=== PATIENT | female | born 1945 | race Hispanic/Latino ===

== ENCOUNTER 2017-01-18 11:02 | Emergency (ER) | payer MEDICARE ==
[2017-01-18 11:13] VITALS: RESP 18; TEMP 98.2; O2SAT 98; BMI 42.9
--- NOTE | 2017-01-18 11:49 | ED PDOC ---
Arrival/HPI - General Chief Complaint: Lower Extremity Problem/Injury Time Seen by Provider: 01/18/17 11:17 Historian: Patient - History of Present Illness Narrative History of Present Illness (Text): 01/18/17 11:25 Iris Ybarra is a 71 year old female, whose past medical history includes cardiac pacemaker, 5 CABG, defibrillator, and an HI, who presents to the emergency department complaining of redness to lower extremities for 2 weeks. Patient's family indicates chronic swelling to her lower extremities which is normal. Patient states that she is able to walk with a walker. Patient denies any pain, fevers, chills, shortness of breath, chest pain, or any other complaints at this time. Cardiac Rehabilitation Program Director: Dr. Vargas Time/Duration: < month (2 weeks) Symptom Onset: Gradual Symptom Course: Unchanged Activities at Onset: Rest Context: Home Past Medical History - Provider Review Nursing Documentation Reviewed: Yes - Cardiac Hx Cardiac Disorders: Yes Hx Pacemaker: Yes - Pulmonary Hx Respiratory Disorders: No - Neurological Hx Neurological Disorder: No - HEENT Hx HEENT Disorder: No - Renal Hx Renal Disorder: No - Endocrine/Metabolic Hx Endocrine Disorders: No - Hematological/Oncological Hx Blood Disorders: No - Integumentary Hx Dermatological Disorder: No - Musculoskeletal/Rheumatological Hx Musculoskeletal Disorders: No - Gastrointestinal Hx Gastrointestinal Disorders: No - Genitourinary/Gynecological Hx Genitourinary Disorders: No - Psychiatric Hx Psychophysiologic Disorder: No Hx Substance Use: No - Surgical History Hx Open Heart Surgery: Yes Other/Comment: left chest pacemaker/ defib - Anesthesia Hx Anesthesia: Yes Family/Social History - Physician Review Nursing Documentation Reviewed: Yes Family/Social History: No Known Family HX Smoking Status: Former Smoker Hx Alcohol Use: No Hx Substance Use: No Allergies/Home Meds Allergies/Adverse Reactions: Allergies No Known Allergies Allergy (Verified 01/18/17 11:33) Home Medications: Home Meds Medication Instructions Recorded Confirmed Atorvastatin [Lipitor] 10 mg PO HS 01/18/17 01/18/17 Carvedilol [Coreg] 6.25 mg PO DAILY 01/18/17 01/18/17 Enalapril/Hydrochlorothiazide 5 mg PO DAILY 01/18/17 01/18/17 [Enalapril-Hctz 5-12.5 mg Tab] Furosemide [Lasix] 20 mg PO BID 01/18/17 01/18/17 Warfarin [Coumadin] 7.5 mg PO DAILY 01/18/17 01/18/17 Review of Systems - Physician Review All systems were reviewed & negative as marked: Yes - Review of Systems Constitutional: absent: Fevers, Night Sweats Eyes: absent: Vision Changes ENT: absent: Hearing Changes Respiratory: absent: SOB, Cough Cardiovascular: absent: Chest Pain Gastrointestinal: absent: Abdominal Pain Genitourinary Female: absent: Dysuria, Frequency Musculoskeletal: absent: Arthralgias Skin: Other (redness to lower extermities) Neurological: absent: Headache Endocrine: absent: Diaphoresis Hemo/Lymphatic: absent: Adenopathy Physical Exam Vital Signs Reviewed: Yes Vital Signs Temp Pulse Resp BP Pulse Ox 01/18/17 13:59 66 18 121/63 98 01/18/17 12:23 69 18 118/65 98 01/18/17 11:13 98.2 F 75 18 120/62 98 Temperature: Afebrile Blood Pressure: Normal Pulse: Regular Respiratory Rate: Normal Appearance: Positive for: Well-Appearing, Non-Toxic, Comfortable Pain Distress: None Mental Status: Positive for: Alert and Oriented X 3 - Systems Exam Head: Present: Atraumatic, Normocephalic Pupils: Present: PERRL Extroacular Muscles: Present: EOMI Conjunctiva: Present: Normal Mouth: Present: Moist Mucous Membranes Neck: Present: Normal Range of Motion Respiratory/Chest: Present: Clear to Auscultation, Good Air Exchange. No: Respiratory Distress, Accessory Muscle Use Cardiovascular: Present: Regular Rate and Rhythm, Normal S1, S2. No: Murmurs Abdomen: Present: Normal Bowel Sounds. No: Tenderness, Distention, Peritoneal Signs Back: Present: Normal Inspection Upper Extremity: Present: Normal Inspection. No: Cyanosis, Edema Lower Extremity: Present: Normal Inspection. No: Edema Neurological: Present: GCS=15, CN II-XII Intact, Speech Normal Skin: Present: Warm, Dry, Rashes (redness in between fat pads of the right lower leg posterior knee (R>L) There is only miminal redness on left. Trace warmth. Appears more like skin irrtation from from), Normal Color Psychiatric: Present: Alert, Oriented x 3, Normal Insight, Normal Concentration Medical Decision Making ED Course and Treatment: 01/18/17 11:25 Impression: 71 year old female complaining of redness to her bilateral lower extremities for about 2 weeks. Differential Diagnosis included but are not limited to: Skin irritation vs Cellulitis, less likely DVT, or less likely Fungal infection Plan: -- Lower extremity Ultrasound -- VBG and Blood Culture -- Labs -- Reassess and disposition Progress Notes: 01/18/17 14:55 Ultrasound prelim negative for DVT. Patient's right leg has a mild redness in between the fat pads of her posterior knee. There is minimal warmth. The rash appears more like skin irritation. WBC is normal. There is no white flakiness to rash to exhibit a fungal infection. Since patients right leg is worse then the left, i would consider a superimposed early cellulitis and will tx with Keflex. I discussed this with daughter and patient. They agree with plan to take antibiotics. They were also explained their elevated INR and will hold their coumadin for 2 days until f/u with her PMD. Advised to return to the ED if symptoms worsen or any other concern. - Lab Interpretations Lab Results: 01/18/17 12:00 01/18/17 12:00 Lab Results 01/18/17 12:00: Sodium 137, Chloride 98, Potassium 4.0, Carbon Dioxide 30, Anion Gap 13, BUN 19, Creatinine 0.9, Est GFR ( Amer) > 60, Est GFR (Non- Af Amer) > 60, Random Glucose 115 H, Calcium 9.1, Phosphorus 3.0, Magnesium 2.2 , Total Bilirubin 2.1 H, AST 46 H, ALT 51, Alkaline Phosphatase 59, Total Protein 6.9, Albumin 3.6, Globulin 3.3, Albumin/Globulin Ratio 1.1 01/18/17 12:00: pO2 30, VBG pH 7.37, VBG pCO2 54.0, VBG HCO3 31.2 H, VBG Total CO2 32.9 H, VBG O2 Sat (Calc) 64.4, VBG Base Excess 4.5 H, VBG Potassium 4.0, Sodium 135.0, Chloride 98.0, Glucose 117 H, Lactate 1.3, FiO2 21.0, Venous Blood Potassium 4.0 01/18/17 12:00: PT 48.2 H*, INR 4.46 H*, APTT 48.6 H 01/18/17 12:00: WBC 8.8, RBC 4.19, Hgb 11.6 L, Hct 35.9 L, MCV 85.7, MCH 27.7, MCHC 32.3, RDW 16.6 H, Plt Count 178, MPV 11.9 H, Gran % 81.7 H, Lymph % (Auto) 8.0 L, [place] % (Auto) 10.2 H, Eos % (Auto) 0.0 L, Baso % (Auto) 0.1, Gran # 7.22 H, Lymph # 0.7 L, [place] # 0.9 H, Eos # 0.0, Baso # 0.01 I have reviewed the lab results: Yes - RAD Interpretation Radiology Orders: 01/18/17 11:48 DUPLEX LOWER EXTRM VEIN BILAT [US] Stat - Medication Orders Current Medication Orders: Discontinued Medications Cephalexin Monohydrate (Keflex) 500 mg PO STAT STA PRN Reason: Protocol Stop: 01/18/17 13:44 Last Admin: 01/18/17 14:01 Dose: 500 mg - Scribe Statement The provider has reviewed the documentation as recorded by the Philippe Don Provider Scribe Attestation: All medical record entries made by the Philippe were at my direction and personally dictated by me. I have reviewed the chart and agree that the record accurately reflects my personal performance of the history, physical exam, medical decision making, and the department course for this patient. I have also personally directed, reviewed, and agree with the discharge instructions and disposition. Disposition/Present on Arrival - Present on Arrival Any Indicators Present on Arrival: No History of DVT/PE: No History of Uncontrolled Diabetes: No Urinary Catheter: No History of Decub. Ulcer: No History Surgical Site Infection Following: None - Disposition Have Diagnosis and Disposition been Completed?: Yes Diagnosis: Cellulitis, Supratherapeutic INR Disposition: HOME/ ROUTINE Disposition Time: 14:55 Patient Plan: Discharge Condition: IMPROVED Discharge Instructions (ExitCare): Cellulitis (ED) Additional Instructions: Ms Ybarra thank you for letting us take care of you today. Your provider was Dr. Ro. You were treated for Cellulitis, Supratherapeutic INR. The emergency medical care you received today was directed at your acute symptoms. If you were prescribed any medication, please fill it and take as directed. It may take several days for your symptoms to resolve. Return to the Emergency Department if your symptoms worsen, do not improve, or if you have any other problems. Please contact your doctor or call one of the physicians/clinics you have been referred to that are listed on the Patient Visit Information form that is included in your discharge packet. Bring any paperwork you were given at discharge with you along with any medications you are taking to your follow up visit. Our treatment cannot replace ongoing medical care by a primary care provider (PCP) outside of the emergency department. Thank you for allowing the [facility] team to be part of your care today. If you had an X-Ray or CT scan: A Radiologist will review the ED reading if any change in treatment is needed we will contact you. If you had a blood, urine, or wound culture: It will take several days for the results, if any change in treatment is needed we will contact you. If you had an STI test: It will take 48 hours for the results. Please call after 1 week if you have not heard back. Prescriptions: Cephalexin [cephalexin] 500 mg PO QID #28 cap Referrals: Luiz Vargas MD [Staff Provider] - Follow up with primary PCP,BEULAH [Primary Care Provider] - Follow up with primary Akira Manley MD [Staff Provider] - Follow up with primary Forms: Ra[employer]ar[employer] (Sinhala)
[2017-01-18 12:21] LABS: BASO # 0.01 K/mm3 (0.0-2.0); BASO % 0.1 % (0.0-3.0); GRAN # 7.22 (1.4-6.5); GRAN % 81.7 % (50.0-68.0); HEMATOCRIT 35.9 % (36.0-48.0); LYMPH # 0.7 (1.2-3.4); MEAN CELL VOLUME 85.7 fl (80.0-105.0); MEAN CORPUSCULAR HEMOGLOBIN 27.7 pg (25.0-35.0); MEAN CORPUSCULAR HGB CONC 32.3 g/dl (31.0-37.0); MEAN PLATELET VOLUME 11.9 fl (7.0-11.0); MONO # 0.9 (0.1-0.6); MONO % 10.2 % (1.0-6.0); RED CELL DISTRIBUTION WIDTH 16.6 % (11.5-14.5); WHITE BLOOD COUNT 8.8 10^3/ul (4.5-11.0)
[2017-01-18 12:26] LABS: VENOUS BLOOD GAS BASE EXCESS 4.5 mmol/L (0.0-2.0); VENOUS BLOOD PH 7.37 (7.32-7.43)
[2017-01-18 12:31] LABS: ALB/GLOB RATIO 1.1 (1.1-1.8); ALKALINE PHOSPHATASE 59 U/L (38-133); ALT/SGPT 51 U/L (7-56); AST/SGOT 46 U/L (15-39); BILIRUBIN,TOTAL 2.1 mg/dL (0.2-1.3); BLOOD UREA NITROGEN 19 mg/dL (7-21); CALCIUM 9.1 mg/dL (8.4-10.5); CARBON DIOXIDE 30 mmol/L (21-33); CHLORIDE 98 mmol/L (98-107); GFR AFRICAN-AMERICAN > 60; GLUCOSE,RANDOM 115 mg/dL (70-110); MAGNESIUM 2.2 mg/dL (1.7-2.2); SODIUM 137 mmol/L (132-148); TOTAL PROTEIN 6.9 g/dL (5.8-8.3)
[2017-01-18 12:36] LABS: PARTIAL THROMBOPLASTIN TIME 48.6 Seconds (23.7-30.8)
[2017-01-18 12:38] LABS: INR 4.46 (0.93-1.08)
[2017-01-18 13:59] VITALS: BP 121/63; PULSE 66
--- NOTE | 2017-01-18 15:30 | US ---
HISTORY: Leg pain and swelling. Evaluate for DVT PHYSICIAN(S): Viet Brian MD. TECHNIQUE: Duplex sonography and color-flow Doppler with graded compression were used to evaluate the deep venous systems of both lower extremities. The exam is very limited by body habitus and edema. The lower femoral veins and tibial veins are not adequately seen. FINDINGS: The visualized deep venous systems of both lower extremities are sonographically normal and compressible. Normal wave forms and augmentation are seen. There is no sonographic evidence for deep venous thrombosis in the visualized segments of both lower extremities. There is a 4.4 x 7.5 cm fluid collection in the right popliteal fossa and a 2.7 x 4.5 cm fluid collection left popliteal fossa, consistent with bilateral Lopez's cysts. IMPRESSION: No sonographic evidence for deep venous thrombosis in the visualized segments of both lower extremities. Very limited study
== END 2017-01-18 14:55 | disposition home or self-care (01) ==
LOC: ED 11:02
DX: L03.116 Cellulitis of left lower limb (principal); L03.115 Cellulitis of right lower limb; R79.1 Abnormal coagulation profile; I25.2 Old myocardial infarction; Z95.1 Presence of aortocoronary bypass graft; Z95.0 Presence of cardiac pacemaker; Z87.891 Personal history of nicotine dependence

== ENCOUNTER 2017-08-06 11:16 | Inpatient (IN) | payer MEDICARE, OTHER ==
[2017-08-06 13:52] LABS: BASO # 0.01 K/mm3 (0.0-2.0); BASO % 0.1 % (0.0-3.0); EOS % 0.2 % (1.5-5.0); GRAN # 9.77 (1.4-6.5); GRAN % 92.5 % (50.0-68.0); HEMOGLOBIN 13.2 g/dL (12.0-16.0); LYMPH # 0.5 (1.2-3.4); LYMPH % 4.5 % (22.0-35.0); MEAN CELL VOLUME 82.4 fl (80.0-105.0); MEAN CORPUSCULAR HEMOGLOBIN 27.7 pg (25.0-35.0); MEAN CORPUSCULAR HGB CONC 33.6 g/dl (31.0-37.0); MEAN PLATELET VOLUME 11.7 fl (7.0-11.0); MONO # 0.3 (0.1-0.6); MONO % 2.7 % (1.0-6.0); PLATELET COUNT 150 10^3/uL (120.0-450.0); RBC 4.77 10^6/uL (3.5-6.1); RED CELL DISTRIBUTION WIDTH 17.1 % (11.5-14.5); WHITE BLOOD COUNT 10.6 10^3/ul (4.5-11.0)
[2017-08-06 13:57] LABS: PH,URINE 5.5 (4.7-8.0); URINE BILIRUBIN MODERATE (NEGATIVE); URINE BLOOD TRACE-LYSED (NEGATIVE); URINE GLUCOSE (UA) NEGATIVE (NEGATIVE); URINE LEUKOCYTE ESTERASE TRACE Leu/uL (NEGATIVE); URINE PROTEIN >=300 mg/dL (<30 mg/dL); URINE UROBILINOGEN 0.2 E.U./dL (<1 E.U./dL)
[2017-08-06 14:01] LABS: URINE APPEARANCE TURBID (CLEAR)
[2017-08-06 14:02] LABS: URINE COLOR YELLOW (YELLOW)
[2017-08-06 14:03] LABS: URINE BACTERIA FEW (NEG); URINE RBC 0 - 2 /hpf (0-2); URINE WBC 0 - 2 /hpf (0-6)
[2017-08-06 14:06] LABS: PARTIAL THROMBOPLASTIN TIME 98.4 Seconds (25.1-36.5); PROTHROMBIN TIME 212.7 SECONDS (9.4-12.5)
[2017-08-06 14:07] LABS: INR 17.45 (0.93-1.08)
[2017-08-06 14:10] LABS: EOSINOPHIL 2 % (0.0-3.0); LYMPHOCYTE 9 % (22.0-35.0); MONOCYTE 1 % (1.0-6.0); NEUTROPHIL 88 % (50.0-70.0); PLATELET ESTIMATE NORMAL (NORMAL)
[2017-08-06 14:11] LABS: ALB/GLOB RATIO 0.8 (1.1-1.8); ALBUMIN 2.3 g/dL (3.0-4.8); CALCIUM 9.1 mg/dL (8.4-10.5)
[2017-08-06] MEDS ORDERED: Piperacillin/Tazobact 3.375 gm 100 ML IVPB STA (14:17)
[2017-08-06] MEDS ORDERED: Vancomycin 1gm in NS 250ml 1 GM/250 ML BAG IVPB STA (14:18)
[2017-08-06] MEDS ORDERED: Sodium Chloride 0.9% 1,000 ML IV STA ×2 (14:19→20:59)
--- NOTE | 2017-08-06 14:53 | ED PDOC ---
Arrival/HPI - General Chief Complaint: Abnormal Skin Integrity Time Seen by Provider: 08/06/17 11:50 Historian: Patient - History of Present Illness Narrative History of Present Illness (Text): 08/06/17 14:39 72yo female with PMhx of hypertension, cardiac arrhythmia with pace maker referred to ED by Dr. Manley for cellulitis. The daughter by the bedside states patient was placed on antibiotics on Wednesday. States the redness on the patient's body became worse. Patient also report urinary retention since yesterday. She however denies fever, chills, abdominal pain, nausea, vomiting, chest pain, SOB, headache, any other complaint. Past Medical History - Provider Review Nursing Documentation Reviewed: Yes - Cardiac Hx Cardiac Disorders: Yes Hx Pacemaker: Yes Other/Comment: bypass x 5 - Pulmonary Hx Respiratory Disorders: No - Neurological Hx Neurological Disorder: No - HEENT Hx HEENT Disorder: No - Renal Hx Renal Disorder: No - Endocrine/Metabolic Hx Endocrine Disorders: No - Hematological/Oncological Hx Blood Disorders: No - Integumentary Hx Dermatological Disorder: Yes Other/Comment: cellulities to legs - Musculoskeletal/Rheumatological Hx Musculoskeletal Disorders: No - Gastrointestinal Hx Gastrointestinal Disorders: No - Genitourinary/Gynecological Hx Genitourinary Disorders: No - Psychiatric Hx Psychophysiologic Disorder: No Hx Substance Use: No - Surgical History Hx Open Heart Surgery: Yes Other/Comment: left chest pacemaker/ defib - Anesthesia Hx Anesthesia: Yes Family/Social History - Physician Review Nursing Documentation Reviewed: Yes Family/Social History: Unknown Family HX Smoking Status: Former Smoker Hx Alcohol Use: No Hx Substance Use: No Allergies/Home Meds Allergies/Adverse Reactions: Allergies heparin Allergy (Verified 08/06/17 11:20) ANAPHYLAXIS Home Medications: Home Meds Medication Instructions Recorded Confirmed Carvedilol [Coreg] 6.25 mg PO DAILY 01/18/17 08/06/17 Enalapril/Hydrochlorothiazide 5 mg PO DAILY 01/18/17 08/06/17 [Enalapril-Hctz 5-12.5 mg Tab] Furosemide [Lasix] 20 mg PO BID 01/18/17 08/06/17 Warfarin [Coumadin] 7.5 mg PO DAILY 01/18/17 08/06/17 Cefuroxime Axetil [Cefuroxime] 500 mg PO BID 08/06/17 08/06/17 Review of Systems - Physician Review All systems were reviewed & negative as marked: Yes - Review of Systems Constitutional: Normal Eyes: Normal ENT: Normal Respiratory: Normal Cardiovascular: Normal Gastrointestinal: Normal Genitourinary Female: Normal Musculoskeletal: Normal Skin: Cellulitis (LEgs/back) Neurological: Normal Endocrine: Normal Hemo/Lymphatic: Normal Psychiatric: Normal Physical Exam Vital Signs Reviewed: Yes Vital Signs Temp Pulse Resp BP Pulse Ox 08/06/17 17:00 82 18 127/67 99 08/06/17 15:15 76 16 99 08/06/17 13:36 82 18 125/70 98 08/06/17 11:51 93.7 F L 86 18 122/63 96 Temperature: Afebrile Blood Pressure: Normal Pulse: Regular Respiratory Rate: Normal Appearance: Positive for: Well-Appearing, Non-Toxic, Comfortable, Other ( [place] obese) Pain Distress: None Mental Status: Positive for: Alert and Oriented X 3 - Systems Exam Head: Present: Atraumatic, Normocephalic Pupils: Present: PERRL Extroacular Muscles: Present: EOMI Conjunctiva: Present: Normal Mouth: Present: Moist Mucous Membranes Neck: Present: Normal Range of Motion Respiratory/Chest: Present: Clear to Auscultation, Good Air Exchange. No: Respiratory Distress, Accessory Muscle Use Cardiovascular: Present: Regular Rate and Rhythm, Normal S1, S2. No: Murmurs Abdomen: Present: Normal Bowel Sounds. No: Tenderness, Distention, Peritoneal Signs Back: Present: Normal Inspection Upper Extremity: Present: Normal Inspection. No: Cyanosis, Edema Lower Extremity: Present: Normal Inspection. No: Edema Neurological: Present: GCS=15, CN II-XII Intact, Speech Normal Skin: Present: Warm, Dry, Normal Color, Erythematous (Diffuse erythema of trunk and extremities noted with scaly/exfoliating skin of the right arm). No: Rashes Psychiatric: Present: Alert, Oriented x 3, Normal Insight, Normal Concentration Medical Decision Making ED Course and Treatment: 08/06/17 20:06 PT in ED for stated history. Elevated INR/PT was noted. PT was given Vit K and FFP was ordered. Pt have no apparent bleeding. she remained hemodynamically stable in ED. Hyperkalemia pt had no EKG changes. She was treated with the cocktail, calcium gluconate, insulin with dextrose and kayexate Hyponatremic and was given Ns in ED Vanco and Zosyn was given to cover infection she had no leukocytosis and no elevated lactate. EKG Afib with LBBB @84bpm CXR NAD Head CT - Negative Pt's rash was very prominent and SJS could not be excluded at this point. Pt was also seen in ED by Dr. Means. Case was DW Dr. Manley and pt was admitted PT was seen in ED by the business database analyst, Dr. Alarcon and he accepted pt to ICU. Hotel General Manager Dr. Pimentel was consult. Result and plan was DW both pt and the daughter and they agreed. - Lab Interpretations Lab Results: 08/06/17 13:35 08/06/17 13:35 Lab Results 08/06/17 15:45: pO2 95 H, VBG pH 7.34, VBG pCO2 40.0, VBG HCO3 21.6, VBG Total CO2 22.8, VBG O2 Sat (Calc) 97.6 H, VBG Base Excess -3.9 L, VBG Potassium 6.0 H , Glucose 75, Lactate 1.7, FiO2 21.0, Sodium 126.0 L, Chloride 98.0, Venous Blood Potassium 6.0 H 08/06/17 13:35: TSH 3rd Generation 7.47 H 08/06/17 13:35: PT 212.7 H, INR 17.45 H*, APTT 98.4 H 08/06/17 13:35: Sodium 126 L, Potassium 6.3 H* D, Chloride 95 L, Carbon Dioxide 23, Anion Gap 15, BUN 71 H, Creatinine 3.2 H, Est GFR ( Amer) 17, Est GFR (Non-Af Amer) 14, Random Glucose 77, Calcium 9.1, Total Bilirubin 0.7, AST 24, ALT 37, Alkaline Phosphatase 84, Total Protein 5.4 L, Albumin 2.3 L, Globulin 3.1, Albumin/Globulin Ratio 0.8 L 08/06/17 13:35: WBC 10.6 D, RBC 4.77, Hgb 13.2, Hct 39.3, MCV 82.4 D, MCH 27.7 , MCHC 33.6, RDW 17.1 H, Plt Count 150, MPV 11.7 H, Gran % 92.5 H, Lymph % (Auto ) 4.5 L, [place] % (Auto) 2.7, Eos % (Auto) 0.2 L, Baso % (Auto) 0.1, Gran # 9.77 H , Lymph # (Auto) 0.5 L, [place] # (Auto) 0.3, Eos # (Auto) 0.0, Baso # (Auto) 0.01 , Neutrophils % (Manual) 88 H, Lymphocytes % (Manual) 9 L, Monocytes % (Manual) 1, Eosinophils % (Manual) 2, Platelet Evaluation Normal 08/06/17 11:30: Urine Color Yellow, Urine Appearance Turbid, Urine pH 5.5, Ur Specific [place] >= 1.030, Urine Protein >=300 H, Urine Glucose (UA) Negative, Urine Ketones Trace H, Urine Blood Trace-lysed H, Urine Nitrate Positive H, Urine Bilirubin Moderate H, Urine Urobilinogen 0.2, Ur Leukocyte Esterase Trace H, Urine RBC 0 - 2, Urine WBC 0 - 2, Ur Epithelial Cells 10 - 12, Urine Bacteria Few - RAD Interpretation Radiology Orders: 08/06/17 14:15 HEAD W/O CONTRAST [CT] Stat - Medication Orders Current Medication Orders: Carvedilol (Coreg) 6.25 mg PO DAILY SOL Furosemide (Lasix) 40 mg IVP DAILY [facility] Sodium Chloride (Sodium Chloride 0.9%) 1,000 mls @ 60 mls/hr IV .[id number] SOL Last Admin: 08/06/17 17:03 Dose: 60 mls/hr eMAR Start Stop Document 08/06/17 17:03 MS (Rec: 08/06/17 17:03 MS [id number]) Intravenous Solution Start Date 08/06/17 Start Time 17:03 Piperacillin Sod/Tazobactam Sod (Zosyn 3.375 In Ns 100ml) 100 mls @ 200 mls/hr IVPB Q8 SOL PRN Reason: Protocol Stop: 08/07/17 06:29 Pantoprazole Sodium (Protonix Ec Tab) 40 mg PO 0600 [facility] Discontinued Medications Calcium Gluconate (Calcium Gluconate Iv) 1,000 mg IVP ONCE STA Stop: 08/06/17 16:21 Last Admin: 08/06/17 17:02 Dose: 1,000 mg IVP Administration Document 08/06/17 17:02 MS (Rec: 08/06/17 17:02 MS [id number]) Charges for Administration # of IVP Administrations 1 Dextrose (Dextrose 50% Inj) 50 ml IVP STAT STA Stop: 08/06/17 16:23 Last Admin: 08/06/17 17:01 Dose: 50 ml IVP Administration Document 08/06/17 17:01 MS (Rec: 08/06/17 17:01 MS [id number]) Charges for Administration # of IVP Administrations 1 Sodium Chloride (Sodium Chloride 0.9%) 1,000 mls @ 999 mls/hr IV .Q1H1M STA Stop: 08/06/17 15:19 Last Admin: 08/06/17 14:22 Dose: 999 mls/hr eMAR Start Stop Document 08/06/17 14:22 SF (Rec: 08/06/17 14:22 SF [id number]) Intravenous Solution Start Date 08/06/17 Start Time 14:22 End Date 08/06/17 End time 15:23 Total Infusion Time 61 Vancomycin HCl (Vancomycin 1gm) 1 gm in 250 mls @ 167 mls/hr IVPB STAT STA PRN Reason: Protocol Stop: 08/06/17 15:47 Last Admin: 08/06/17 15:46 Dose: 167 mls/hr eMAR Start Stop Document 08/06/17 15:46 SF (Rec: 08/06/17 15:46 SF [email or web address]) Intravenous Solution Start Date 08/06/17 Start Time 15:46 End Date 08/06/17 End time 17:20 Total Infusion Time 94 Piperacillin Sod/Tazobactam Sod (Zosyn 3.375 In Ns 100ml) 100 mls @ 200 mls/hr IVPB STAT STA PRN Reason: Protocol Stop: 08/06/17 14:46 Last Admin: 08/06/17 14:49 Dose: 200 mls/hr eMAR Start Stop Document 08/06/17 14:49 SF (Rec: 08/06/17 14:49 SF [email or web address]) Intravenous Solution Start Date 08/06/17 Start Time 14:49 End Date 08/06/17 End time 15:20 Total Infusion Time 31 Phytonadione 10 mg/ Sodium (Chloride) 51 mls @ 100 mls/hr IV ONCE ONE Stop: 08/06/17 17:11 Last Admin: 08/06/17 17:30 Dose: 100 mls/hr eMAR Start Stop Document 08/06/17 17:30 SF (Rec: 08/06/17 17:44 SF [id number]) Intravenous Solution Start Date 08/06/17 Start Time 17:30 End Date 08/06/17 End time 18:00 Total Infusion Time 30 Insulin Human Regular (Humulin R) 10 units IVP ONCE STA Stop: 08/06/17 16:22 Last Admin: 08/06/17 17:01 Dose: 10 units IVP Administration Document 08/06/17 17:01 MS (Rec: 08/06/17 17:02 MS [id number]) Charges for Administration # of IVP Administrations 1 Phytonadione (Vitamin K Tab) 5 mg PO ONCE ONE Stop: 08/06/17 14:22 Last Admin: 08/06/17 14:49 Dose: 5 mg Sodium Polystyrene Sulfonate (Kayexalate Susp) 30 gm PO STAT STA Stop: 08/06/17 16:12 Last Admin: 08/06/17 17:01 Dose: 30 gm Disposition/Present on Arrival - Present on Arrival Any Indicators Present on Arrival: No History of DVT/PE: No History of Uncontrolled Diabetes: No Urinary Catheter: No History of Decub. Ulcer: No History Surgical Site Infection Following: None - Disposition Have Diagnosis and Disposition been Completed?: Yes Diagnosis: Cellulitis, Coagulopathy, Hyperkalemia, Hyponatremia Disposition: HOSPITALIZED Disposition Time: 16:40 Patient Plan: Admission Patient Problems: Current Active Problems Problem Status Onset Cellulitis Acute Coagulopathy Acute Hyperkalemia Acute Hyponatremia Acute Condition: SERIOUS
--- NOTE | 2017-08-06 14:56 | CT ---
PROCEDURE: CT HEAD WITHOUT CONTRAST. HISTORY: coagulopathy COMPARISON: None available. TECHNIQUE: Axial computed tomography images were obtained through the head/brain without intravenous contrast. Radiation dose: Total exam DLP = 913 mGy-cm. This CT exam was performed using one or more of the following dose reduction techniques: Automated exposure control, adjustment of the mA and/or kV according to patient size, and/or use of iterative reconstruction technique. FINDINGS: HEMORRHAGE: No intracranial hemorrhage. BRAIN: No mass effect or edema. No atrophy or chronic microvascular ischemic changes. VENTRICLES: Unremarkable. No hydrocephalus. CALVARIUM: Unremarkable. PARANASAL SINUSES: Unremarkable as visualized. No significant inflammatory changes. MASTOID AIR CELLS: Unremarkable as visualized. No inflammatory changes. OTHER FINDINGS: None. IMPRESSION: No acute findings
[2017-08-06 15:50] LABS: VENOUS BLOOD GAS BASE EXCESS -3.9 mmol/L (0.0-2.0); VENOUS BLOOD GAS PO2 95 mm/Hg (30-55); VENOUS BLOOD PH 7.34 (7.32-7.43)
[2017-08-06] MEDS ORDERED: Phytonadione 5 MG in Sodium Chloride 0.9% 50 ML IV ONE (16:03)
[2017-08-06] MEDS ORDERED: Insulin Regular 1 UNITS/0.01 ML ML IVP STA ×2 (16:08→16:21)
[2017-08-06] MEDS ORDERED: Sod Polystyrene Sulf 15 gm/60 ml Susp PO STA (16:11)
[2017-08-06] MEDS ORDERED: Dextrose 50% SYRINGE Inj (50 ml) IVP STA (16:22)
--- NOTE | 2017-08-06 16:26 | CP.PCM.CON ---
History of Present Illness - History of Present Illness History of Present Illness: CRITICAL CARE CONSULT NOTE HPI Patient is 72yo female with PMhx of Afib on Coumadin, CHF EF 35%, HTN, Presents from home for worsening cellulitis of LE, and diffuse erythematous rash that has been ongoing for >1 week. Pt denies fever, chills, cough, chest pain, sob, palpitations, SOUTH, dizziness. Pt reports poor PO intake for the past 1 week. No other constitutional symptoms. Denies melena, epistaxis. Pt recently started on Cefuroxime as outpatient for cellulitis. In the ER, labs with multiple derangements PMhx as above PSHx as above Meds as per EMR ROS as above Social former smoker, denies, etoh, drug use, retired, lives at home FHx NM Review of Systems - Review of Systems Review of Systems: As per HPI Past Patient History - Past Social History Smoking Status: Former Smoker - CARDIAC Hx Cardiac Disorders: Yes Hx Pacemaker: Yes Other/Comment: bypass x 5 - PULMONARY Hx Respiratory Disorders: No - NEUROLOGICAL Hx Neurological Disorder: No - HEENT Hx HEENT Problems: No - RENAL Hx Chronic Kidney Disease: No - ENDOCRINE/METABOLIC Hx Endocrine Disorders: No - HEMATOLOGICAL/ONCOLOGICAL Hx Blood Disorders: No - INTEGUMENTARY Hx Dermatological Problems: Yes Other/Comment: cellulities to legs - MUSCULOSKELETAL/RHEUMATOLOGICAL Hx Musculoskeletal Disorders: No - GASTROINTESTINAL Hx Gastrointestinal Disorders: No - GENITOURINARY/GYNECOLOGICAL Hx Genitourinary Disorders: No - PSYCHIATRIC Hx Psychophysiologic Disorder: No Hx Substance Use: No - SURGICAL HISTORY Hx Open Heart Surgery: Yes Other/Comment: left chest pacemaker/ defib - ANESTHESIA Hx Anesthesia: Yes Meds Allergies/Adverse Reactions: Allergies Allergy/AdvReac Type Severity Reaction Status Date / Time heparin Allergy ANAPHYLAXIS Verified 08/06/17 11:20 - Medications Medications: Current Medications Phytonadione 5 mg/ Sodium (Chloride) 50.5 mls @ 100 mls/hr IV ONCE ONE Stop: 08/06/17 16:33 Insulin Human Regular (Humulin R) 4 units IVP ONCE STA Stop: 08/06/17 16:09 Sodium Polystyrene Sulfonate (Kayexalate Susp) 30 gm PO STAT STA Stop: 08/06/17 16:12 Physical Exam - Constitutional Appears: Non-toxic, No Acute Distress, Older Than Stated Age - Eye Exam Eye Exam: Normal appearance - ENT Exam ENT Exam: Mucous Membranes Dry - Neck Exam Neck exam: Positive for: Full Rom - Respiratory Exam Respiratory Exam: Clear to Auscultation Bilateral, NORMAL BREATHING PATTERN - Cardiovascular Exam Cardiovascular Exam: Irregular Rhythm, +S1, +S2 - GI/Abdominal Exam GI & Abdominal Exam: Normal Bowel Sounds, Soft - Extremities Exam Extremities exam: Positive for: pedal edema - Skin Skin Exam: Erythema, Mottled Results - Vital Signs Recent Vital Signs: Last Vital Signs Temp 93.7 F L 08/06/17 11:51 Pulse 76 08/06/17 15:15 Resp 16 08/06/17 15:15 BP 125/70 08/06/17 13:36 Pulse Ox 99 08/06/17 15:15 - Labs Result Diagrams: 08/06/17 13:35 08/06/17 13:35 Labs: Laboratory Results - last 24 hr 08/06/17 08/06/17 08/06/17 11:30 13:35 13:35 WBC 10.6 D RBC 4.77 Hgb 13.2 Hct 39.3 MCV 82.4 D MCH 27.7 MCHC 33.6 RDW 17.1 H Plt Count 150 MPV 11.7 H Gran % 92.5 H Lymph % (Auto) 4.5 L [place] % (Auto) 2.7 Eos % (Auto) 0.2 L Baso % (Auto) 0.1 Gran # 9.77 H Lymph # (Auto) 0.5 L [place] # (Auto) 0.3 Eos # (Auto) 0.0 Baso # (Auto) 0.01 Neutrophils % (Manual) 88 H Lymphocytes % (Manual) 9 L Monocytes % (Manual) 1 Eosinophils % (Manual) 2 Platelet Evaluation Normal PT INR APTT pO2 VBG pH VBG pCO2 VBG HCO3 VBG Total CO2 VBG O2 Sat (Calc) VBG Base Excess VBG Potassium Glucose Lactate FiO2 Sodium 126 L Potassium 6.3 H* D Chloride 95 L Carbon Dioxide 23 Anion Gap 15 BUN 71 H Creatinine 3.2 H Est GFR ( Amer) 17 Est GFR (Non-Af Amer) 14 Random Glucose 77 Calcium 9.1 Total Bilirubin 0.7 AST 24 ALT 37 Alkaline Phosphatase 84 Total Protein 5.4 L Albumin 2.3 L Globulin 3.1 Albumin/Globulin Ratio 0.8 L Venous Blood Potassium Urine Color Yellow Urine Appearance Turbid Urine pH 5.5 Ur Specific [place] >= 1.030 Urine Protein >=300 H Urine Glucose (UA) Negative Urine Ketones Trace H Urine Blood Trace-lysed H Urine Nitrate Positive H Urine Bilirubin Moderate H Urine Urobilinogen 0.2 Ur Leukocyte Esterase Trace H Urine RBC 0 - 2 Urine WBC 0 - 2 Ur Epithelial Cells 10 - 12 Urine Bacteria Few 08/06/17 08/06/17 13:35 15:45 WBC RBC Hgb Hct MCV MCH MCHC RDW Plt Count MPV Gran % Lymph % (Auto) [place] % (Auto) Eos % (Auto) Baso % (Auto) Gran # Lymph # (Auto) [place] # (Auto) Eos # (Auto) Baso # (Auto) Neutrophils % (Manual) Lymphocytes % (Manual) Monocytes % (Manual) Eosinophils % (Manual) Platelet Evaluation PT 212.7 H INR 17.45 H* APTT 98.4 H pO2 95 H VBG pH 7.34 VBG pCO2 40.0 VBG HCO3 21.6 VBG Total CO2 22.8 VBG O2 Sat (Calc) 97.6 H VBG Base Excess -3.9 L VBG Potassium 6.0 H Glucose 75 Lactate 1.7 FiO2 21.0 Sodium 126.0 L Potassium Chloride 98.0 Carbon Dioxide Anion Gap BUN Creatinine Est GFR ( Amer) Est GFR (Non-Af Amer) Random Glucose Calcium Total Bilirubin AST ALT Alkaline Phosphatase Total Protein Albumin Globulin Albumin/Globulin Ratio Venous Blood Potassium 6.0 H Urine Color Urine Appearance Urine pH Ur Specific [place] Urine Protein Urine Glucose (UA) Urine Ketones Urine Blood Urine Nitrate Urine Bilirubin Urine Urobilinogen Ur Leukocyte Esterase Urine RBC Urine WBC Ur Epithelial Cells Urine Bacteria Assessment & Plan - Assessment and Plan (Free Text) Assessment: 72yo female a/w diffuse skin rash, cellulitis, hyperkalemia, coagulopathy Hyperkalemia Dehydration Acute renal failure Cellulitis Skin rash Coagulopathy Recommend: - supp o2 as needed - panculture, UCx, BCx, Procal - broad spectrum antibiotics - ID consult - Dermatology consult - IVF hydration, NS @60cc/hr - check UA, Ulytes, TSH - Renal Sono - ECHO - would reverse coagulopathy with 2u FFP, VItK 10mg IV x 1 (no active clinical bleeding) - CBC Q6hr, repeat INR after FFP, VitK - Kayexalate 30g PO x 1 - Calcium, D50, Insulin - GI ppx - DVT ppx, SCDs - Admit to MICU critical care time 35 minutes
[2017-08-06] MEDS ORDERED: Phytonadione 10 MG in Sodium Chloride 0.9% 50 ML IV ONE (16:41)
[2017-08-06] MEDS: Sodium Chloride 0.9% 1,000 ML IV SCH (17:03)
--- NOTE | 2017-08-06 18:08 | RAD ---
HISTORY: rule out airway disease COMPARISON: No prior. TECHNIQUE: Chest PA and lateral FINDINGS: LUNGS: No active pulmonary disease. PLEURA: No significant pleural effusion identified. No pneumothorax apparent. CARDIOVASCULAR: Cardiomegaly, No radiographic findings to suggest acute or significant cardiovascular disease. Incidental Finding(s): Postoperative changes related to sternotomy. Position/ configuration of pacemaker OSSEOUS STRUCTURES: No significant abnormalities. VISUALIZED UPPER ABDOMEN: Normal. OTHER FINDINGS: None. IMPRESSION: No active disease.
--- NOTE | 2017-08-06 20:20 | US ---
PROCEDURE: Ultrasound of the Kidneys HISTORY: hyperkalemia COMPARISON: None available. TECHNIQUE: Sonogram of the kidneys. FINDINGS: RIGHT KIDNEY: Measures: 10.4 x 4.2 x 3.9 cm. Normal in size, contour and echogenicity. No stone, solid mass lesion or hydronephrosis visualized. LEFT KIDNEY: Measures: 9.8 x 4.7 x 3.7 cm. Normal in size, contour and echogenicity. No stone, solid mass lesion or hydronephrosis visualized. OTHER FINDINGS: Incidentally noted are multiple gallstones. IMPRESSION: No evidence of hydronephrosis or acute pathology in the kidneys. Gallstones.
[2017-08-06 21:00] LABS: CALCIUM 8.7 mg/dL (8.4-10.5)
[2017-08-06] MEDS ORDERED: Sod Polystyrene Sulf 15 gm/60 ml Susp PO ONE (21:56)
[2017-08-06] MEDS ORDERED: Piperacillin/Tazobact 3.375 gm 100 ML IVPB SCH (22:00)
--- NOTE | 2017-08-06 22:03 | CP.PCM.CON ---
History of Present Illness - History of Present Illness History of Present Illness: 72 yo F w/ pmh of htn, afib on coumadin, CHF w/ systolic dysfunction, CAD s/p CABG, bedbound, presented to ED with diffuse erythematous rash since past 1+ week; found to be have INR > 17 and with acute renal failure for which nephrology is being consulted; Patient is unclear about location of onset of rash, says its first started with her leg; was started on cefuroxime as outpatient for cellulitis; patient otherwise denies any major change in her appetite; denies any vomiting or diarrhea; does report decreased urination over past 2 days; also reporting pain in L arm, unclear if she's taking any pain meds at home; otherwise, denies any shortness of breath or chest pain; can't comment on leg edema; gets INR checked monthly; has been bedbound since past ~1 year; daughter assists her with ADL's; Review of Systems - Constitutional Constitutional: absent: Anorexia, Fever - EENT Nose/Mouth/Throat: absent: Dysphagia, Sore Throat - Cardiovascular Cardiovascular: absent: Chest Pain, Dyspnea - Respiratory Respiratory: absent: Cough - Gastrointestinal Gastrointestinal: As Per HPI - Genitourinary Genitourinary: As Per HPI - Musculoskeletal Musculoskeletal: As Per HPI - Integumentary Integumentary: As Per HPI - Neurological Neurological: Weakness. absent: Numbness - Hematologic/Lymphatic Hematologic: As Per HPI Past Patient History - Past Social History Smoking Status: Former Smoker - CARDIAC Hx Cardiac Disorders: Yes Hx Pacemaker: Yes Other/Comment: bypass x 5 - PULMONARY Hx Respiratory Disorders: No - NEUROLOGICAL Hx Neurological Disorder: No - HEENT Hx HEENT Problems: No - RENAL Hx Chronic Kidney Disease: No - ENDOCRINE/METABOLIC Hx Endocrine Disorders: No - HEMATOLOGICAL/ONCOLOGICAL Hx Blood Disorders: No - INTEGUMENTARY Hx Dermatological Problems: Yes Other/Comment: cellulities to legs - MUSCULOSKELETAL/RHEUMATOLOGICAL Hx Musculoskeletal Disorders: No - GASTROINTESTINAL Hx Gastrointestinal Disorders: No - GENITOURINARY/GYNECOLOGICAL Hx Genitourinary Disorders: No - PSYCHIATRIC Hx Psychophysiologic Disorder: No Hx Substance Use: No - SURGICAL HISTORY Hx Open Heart Surgery: Yes Other/Comment: left chest pacemaker/ defib - ANESTHESIA Hx Anesthesia: Yes Meds Allergies/Adverse Reactions: Allergies Allergy/AdvReac Type Severity Reaction Status Date / Time heparin Allergy ANAPHYLAXIS Verified 08/06/17 11:20 - Medications Medications: Current Medications Carvedilol (Coreg) 6.25 mg PO DAILY [facility] Sodium Chloride (Sodium Chloride 0.9%) 1,000 mls @ 60 mls/hr IV .[id number] [facility] Last Admin: 08/06/17 17:03 Dose: 60 mls/hr NOREPINEPHRINE BIT/0.9 % NACL (Levophed 4 Mg/ 250 Ml Ns Premixed) 4 mg in 250 mls @ 15 mls/hr IV .[id number] PRN; Protocol; 4 MCG/MIN PRN Reason: TITRATE PER MD ORDER Piperacillin Sod/Tazobactam Sod (Zosyn 2.25 Gm In 0.9% 100 Ml) 2.25 gm in 100 mls @ 100 mls/hr IVPB Q8 SOL PRN Reason: Protocol Stop: 08/13/17 22:01 Pantoprazole Sodium (Protonix Ec Tab) 40 mg PO 0600 [facility] Physical Exam - Constitutional Appears: Non-toxic, No Acute Distress - Eye Exam Eye Exam: Normal appearance. absent: Scleral icterus - ENT Exam ENT Exam: Mucous Membranes Moist - Respiratory Exam Respiratory Exam: Clear to Auscultation Bilateral. absent: Respiratory Distress - Cardiovascular Exam Cardiovascular Exam: RRR, +S1, +S2 - GI/Abdominal Exam GI & Abdominal Exam: absent: Tenderness Additional comments: Abd firm, non-tender, non-distended, but possible masses palpated; - Exam Additional comments: king in place; - Extremities Exam Additional comments: 2+ bilateral leg edema; R upper arm tenderness; - Neurological Exam Neurological exam: Alert, Oriented x3 - Psychiatric Exam Psychiatric exam: Normal Affect, Normal Mood - Skin Additional comments: erythematous blanching rash from upper chest extending to bilateral thighs; denuded skin of lateral R thigh; Results - Vital Signs Recent Vital Signs: Last Vital Signs Temp 93.4 F L 08/06/17 18:50 Pulse 75 08/06/17 21:50 Resp 18 08/06/17 21:50 BP 116/94 H 08/06/17 21:50 Pulse Ox 95 08/06/17 21:50 - Labs Result Diagrams: 08/07/17 00:05 08/06/17 20:39 Labs: Laboratory Results - last 24 hr 08/06/17 08/06/17 08/06/17 18:05 18:45 19:16 Sodium Potassium Chloride Carbon Dioxide Anion Gap BUN Creatinine Est GFR ( Amer) Est GFR (Non-Af Amer) POC Glucose (mg/dL) 82 Random Glucose Calcium Total Creatine Kinase Blood Type A POSITIVE Blood Type Confirm A POSITIVE Antibody Screen Negative [facility] History Checked No verified bt 08/06/17 20:39 Sodium 129 L Potassium 5.8 H* Chloride 98 Carbon Dioxide 21 Anion Gap 15 BUN 70 H Creatinine 3.1 H Est GFR ( Amer) 18 Est GFR (Non-Af Amer) 15 POC Glucose (mg/dL) Random Glucose 80 Calcium 8.7 Total Creatine Kinase 73 Blood Type Blood Type Confirm Antibody Screen BBK History Checked - Imaging and Cardiology US - abdomen Status: Image reviewed by me Additional comment: Renal US - no hydronephrosis; Assessment & Plan (1) Acute renal failure (ARF) Assessment and Plan: Oligo-anuric renal failure in the setting of SIRS with hypotension and hypothermia; limited urine microscopy (inadequate specimen quantitiy) not yet consistent with extension to overt ATN at this point so we should continue aggressive IVF as long as respiratory status remains stable; no significant hematuria to suggest a glomerular process (but again with limited evaluation); no hydronephrosis on renal US; hyperkalemia slightly improved with kayexalate, can repeat dosing; no urgent indication yet for initiation of HD but will be monitoring closely; if no improvement in urine output or hyperkalemia/ respiratory status worsens, will initiate HD within next 12-24 hrs; -should continue intravascular volume repletion per sepsis protocol; agree with IVF bolus along with NS at 125 cc/hr -avoid nephrotoxic insults Status: Acute (2) SIRS (systemic inflammatory response syndrome) Assessment and Plan: In the setting of skin ulceration; agree with broad spectrum antibiotics; check random vanco level before re-dosing; Status: Acute (3) Rash Assessment and Plan: Diffuse rash doesn't appear consistent with cellulitis as there is mostly no induration (except involving R thigh), just blanching erythema; possible drug reaction; -agree with derm consult if available; -checking complements; -continue antibiotics Status: Acute (4) HTN (hypertension) Assessment and Plan: Currently hypotensive; hold all anti-htn agents including coreg and lasix; Status: Acute (5) Hyperkalemia Assessment and Plan: see above; Status: Acute (6) Hyponatremia Assessment and Plan: Relatively mild, in the setting of renal failure; maintain 1L PO fluid restriction for now; Status: Acute
--- NOTE | 2017-08-06 22:03 | CP.PCM.PN ---
Objective - Vital Signs/Intake and Output Vital Signs (last 24 hours): Temp Pulse Resp BP Pulse Ox 93.4 F L 75 18 116/94 H 95 08/06/17 18:50 08/06/17 21:50 08/06/17 21:50 08/06/17 21:50 08/06/17 21:50 - Medications Medications: Current Medications Carvedilol (Coreg) 6.25 mg PO DAILY [facility] Sodium Chloride (Sodium Chloride 0.9%) 1,000 mls @ 60 mls/hr IV .[id number] [facility] Last Admin: 08/06/17 17:03 Dose: 60 mls/hr NOREPINEPHRINE BIT/0.9 % NACL (Levophed 4 Mg/ 250 Ml Ns Premixed) 4 mg in 250 mls @ 15 mls/hr IV .[id number] PRN; Protocol; 4 MCG/MIN PRN Reason: TITRATE PER MD ORDER Piperacillin Sod/Tazobactam Sod (Zosyn 2.25 Gm In 0.9% 100 Ml) 2.25 gm in 100 mls @ 100 mls/hr IVPB Q8 SOL PRN Reason: Protocol Stop: 08/13/17 22:01 Pantoprazole Sodium (Protonix Ec Tab) 40 mg PO 0600 [facility] - Labs Labs: 08/06/17 20:39 PT 212.7 SECONDS (9.4-12.5) H 08/06/17 13:35 INR 17.45 (0.93-1.08) H* 08/06/17 13:35 APTT 98.4 Seconds (25.1-36.5) H 08/06/17 13:35
[2017-08-06] MEDS: Piperacillin/Tazobact 2.25gm 2.25 GM/100 ML BAG IVPB SCH (23:00)
[2017-08-06] MEDS: NOREPINEPHRINE BIT/0.9 % NACL 4 MG/250 ML BAG IV PRN (23:10)
[2017-08-07 00:52] LABS: BASO # 0.01 K/mm3 (0.0-2.0); BASO % 0.1 % (0.0-3.0); EOS % 0.1 % (1.5-5.0); GRAN # 14.12 (1.4-6.5); GRAN % 95.2 % (50.0-68.0); HEMOGLOBIN 12.1 g/dL (12.0-16.0); LYMPH # 0.4 (1.2-3.4); LYMPH % 2.9 % (22.0-35.0); MEAN CELL VOLUME 83.1 fl (80.0-105.0); MEAN CORPUSCULAR HGB CONC 33.7 g/dl (31.0-37.0); MEAN PLATELET VOLUME 11.9 fl (7.0-11.0); MONO # 0.3 (0.1-0.6); MONO % 1.7 % (1.0-6.0); RBC 4.32 10^6/uL (3.5-6.1); RED CELL DISTRIBUTION WIDTH 17.2 % (11.5-14.5); WHITE BLOOD COUNT 14.8 10^3/ul (4.5-11.0)
[2017-08-07 01:12] LABS: INR 2.49 (0.93-1.08); PROTHROMBIN TIME 28.9 SECONDS (9.4-12.5)
--- NOTE | 2017-08-07 03:51 | PCM.PROC ---
Procedures Attestation:: I certify that I have explained the specified Operation(s) or Procedure(s), risks, benefits and reasonable alternatives to the Patient and/or other person responsible. The opportunity was given to ask questions and all questions answered - Central Line Placement Left Internal Jugular Triple Lumen Catheter Aseptic technique was employed throughout the procedure: Hand Hygiene done prior to procedure, Full sterile barriers (mask, hair cover, sterile gown, sterile gloves), Full body sterile drape, Chloraprep Antiseptic: 30 second prep for IJ or SC sites CVP Time Out Performed: Yes Pt. Placed on Pulse Ox Monitor: Yes Central Line Prep: Chlorhexidine-Alcohol Combination Local Anesthesia Used: Lidocaine 1% Amount of Anesthesia Used (mls): 10 Ultrasound Used for Placement: Yes Central Line Lumen Inserted: triple Central Line Length: 20 cm Post Procedure: Sutured in Place, Good Blood Return, All Ports Aspirated, Flushed, Capped, Sterile Dressing Applied Secured by: Suture Post procedure dressing: Chlorhexidine disc (Biopatch) Post Procedure X-Ray: Yes Patient Tolerated Procedure: Well Immediate Complications: None Additional Comments: performed under direct Director Acute supervision. L IJ attempted prior to R IJ.
--- NOTE | 2017-08-07 04:20 | HP ---
HISTORY OF PRESENT ILLNESS: The patient is 72-year-old who is homebound. I saw her as a house call almost a week ago. She has been having increasing leg swelling, increasing redness of both thighs and in her lower back. The patient is morbidly obese. According to daughter, it is very hard to move her even side to side. She has fallen off of bed a couple of times. At that point, when I made house call, I advised them to bring to hospital, but the patient and daughter both were reluctant to go to the hospital. However, gave prescription of Ceftin, and I advised them to put Silvadene cream and keep her off of her back, and also initiated. They have been following her today. I got a call again that the patient does not look good. She has been hypotensive and her wounds are getting worse, and there is increasing erythema of the lower back and both legs. I advised them to come to emergency room. PAST MEDICAL HISTORY: She has past medical history significant for; 1. Morbid obesity. 2. Hypertension. 3. Hyperlipidemia. 4. Chronic AFib, on Coumadin. 5. Status post pacemaker. 6. History of quadruple bypass in remote past. ALLERGIES: SHE IS ALLERGIC TO HEPARIN. MEDICATIONS AT HOME: The patient is on enalapril 5 mg daily, Ceftin 500 twice a day, Coumadin 7.5 daily, Lasix 20 mg twice a day, Coreg 6.25 daily. SOCIAL HISTORY: She is single, lives with her daughter. Mostly homebound and bedbound. History of smoking in the past. REVIEW OF SYSTEMS: Significant for physically disabled, bilateral leg swelling, redness, excoriation of back of the legs and chronic stasis dermatitis. PHYSICAL EXAMINATION: GENERAL: She is awake and alert, anxious. VITAL SIGNS: She is afebrile. Pulse 71, respirations 18, blood pressure 125/64. LUNGS: Bilateral good air flow. No rhonchi or crackle. HEART: S1 and S2 audible. ABDOMEN: Soft, obese. SKIN: She has erythema under her breast, both groins, and she has erythema of both lower legs, back of the legs, back of thighs. EXTREMITIES: +4 edema. LABORATORY EXAM: WBC is 10.6, hemoglobin 13, hematocrit 39, platelet of 150. PT 212, INR 17, PTT 98.4. Chemistry: Sodium 126, potassium 6.3, chloride 95, CO2 of 23, BUN 71, creatinine 3.2. Blood sugar of 77. LFTs are within normal limits. Total protein 5.4. Urinalysis showed positive nitrites and positive bilirubin. ASSESSMENT: 1. Bilateral leg cellulitis. 2. Supratherapeutic INR and coagulopathy. 3. Morbid obesity. 4. Congestive heart failure. 5. Coronary artery disease. 6. Renal insufficiency. 7. Hyperkalemia. PLAN: We will start the patient on gentle hydration, start her on IV antibiotics, Kayexalate has been given. Followup CBC and CMP. Give her dose of vitamin K. We will follow up CBC and PT/INR in the a.m. Cardiology consult by Dr. Vargas and ID consult by Dr. Tolentino has been requested. Akira Manley MD
[2017-08-07] MEDS ORDERED: Sodium Chloride 0.9% 500 ML IV STA (05:22)
[2017-08-07] MEDS: Pantoprazole 40 mg EC Tab PO SCH (06:26)
[2017-08-07] MEDS: Piperacillin/Tazobact 2.25gm 2.25 GM/100 ML BAG IVPB SCH (06:29)
[2017-08-07 07:13] LABS: BASO # 0.01 K/mm3 (0.0-2.0); BASO % 0.1 % (0.0-3.0); EOS % 0.1 % (1.5-5.0); GRAN # 14.14 (1.4-6.5); HEMOGLOBIN 11.4 g/dL (12.0-16.0); LYMPH # 0.3 (1.2-3.4); MEAN CORPUSCULAR HEMOGLOBIN 27.3 pg (25.0-35.0); MEAN CORPUSCULAR HGB CONC 32.9 g/dl (31.0-37.0); MEAN PLATELET VOLUME 11.6 fl (7.0-11.0); MONO # 0.4 (0.1-0.6); MONO % 2.4 % (1.0-6.0); RBC 4.17 10^6/uL (3.5-6.1); RED CELL DISTRIBUTION WIDTH 17.3 % (11.5-14.5); WHITE BLOOD COUNT 14.8 10^3/ul (4.5-11.0)
[2017-08-07 07:20] LABS: INR 2.11 (0.93-1.08); PROTHROMBIN TIME 24.6 SECONDS (9.4-12.5)
[2017-08-07 07:27] LABS: GRAN % 95.4 % (50.0-68.0)
[2017-08-07 07:28] LABS: ALB/GLOB RATIO 0.8 (1.1-1.8); ALBUMIN 2.2 g/dL (3.0-4.8); CALCIUM 8.5 mg/dL (8.4-10.5)
[2017-08-07] MEDS: NOREPINEPHRINE BIT/0.9 % NACL 4 MG/250 ML BAG IV PRN (08:10)
[2017-08-07] MEDS ORDERED: NOREPINEPHRINE BIT/0.9 % NACL 4 MG/250 ML BAG IV PRN (08:18)
--- NOTE | 2017-08-07 09:25 | RAD ---
HISTORY: CENTRAL LINE CONFIRMATION COMPARISON: Comparison is made with the previous study dated 08/06/2017 FINDINGS: LUNGS: Mild pulmonary vascular congestion is again noted. PLEURA: No significant pleural effusion identified, no pneumothorax apparent. CARDIOVASCULAR: Cardiomegaly is again noted. Left-sided pacemaker seen in place. Status post prior sternotomy. OSSEOUS STRUCTURES: No significant abnormalities. VISUALIZED UPPER ABDOMEN: Normal. OTHER FINDINGS: None. IMPRESSION: Cardiomegaly and mild pulmonary vascular congestion. Left jugular central line is seen at appropriate position. No evidence of pneumothorax.
[2017-08-07] MEDS: Sodium Chloride 0.9% 1,000 ML IV SCH (10:14)
[2017-08-07] MEDS ORDERED: DOBUTamine 500mg/250ml D5W 500 MG/250 ML BAG IV PRN (10:30)
[2017-08-07] MEDS ORDERED: DAPTOmycin 500 mg Inj (Cubicin) IV SCH (10:30)
--- NOTE | 2017-08-07 10:30 | CARD ---
APPROVED REPORT EKG Measurement Heart [id number] <Conclusion> Atrial fibrillation Left bundle branch block
[2017-08-07] MEDS ORDERED: Sodium Chloride 0.9% 1,000 ML IV STA (10:31)
[2017-08-07 11:56] LABS: VENOUS BLOOD GAS BASE EXCESS -6.3 mmol/L (0.0-2.0); VENOUS BLOOD GAS PO2 44 mm/Hg (30-55)
--- NOTE | 2017-08-07 12:27 | CP.CCUPN ---
<Augustin Carcamo - Last Filed: 08/07/17 12:44> CCU Subjective - Physician Review Subjective (Free Text): Patient seen and examined at bedside. Patient appropriately answering questions this morning. Patient with one loose bowel movement this morning. Denies chest pain, shortness of breath, nausea, vomiting, diarrhea, fever, chills. CCU Objective - Vital Signs / Intake & Output Vital Signs (Last 4 hours): Vital Signs Temp Pulse Resp BP Pulse Ox 08/07/17 11:11 107 H 68/37 L 08/07/17 10:15 108 H 08/07/17 08:40 95.5 F L 111 H 21 97 08/07/17 08:30 95.5 F L 108 H 20 93/36 L 96 Intake and Output (Last 8hrs): Intake & Output 08/06/17 08/07/17 08/07/17 22:59 06:59 14:59 Intake Total 3256.0 62 Output Total 8 Balance 3248.0 62 Intake: IV 3056.0 62 IVF NSALINE MAINTENANCE 180 LEVOPHED 188 NSALINE BOLUS 2500 Other 200 Output: Urine 8 Urethral (King) 8 Other: # Bowel Movements 1 - Physical Exam Head: Positive for: Atraumatic, Normocephalic Pupils: Positive for: PERRL Extroacular Muscles: Positive for: EOMI Conjunctiva: Positive for: Normal Mouth: Positive for: Moist Mucous Membranes Neck: Positive for: Normal Range of Motion Respiratory/Chest: Positive for: Clear to Auscultation, Decreased Breath Sounds. Negative for: Respiratory Distress, Accessory Muscle Use Cardiovascular: Positive for: Regular Rate and Rhythm, Normal S1, S2. Negative for: Murmurs Abdomen: Positive for: Normal Bowel Sounds. Negative for: Tenderness, Distention, Peritoneal Signs Back: Positive for: Normal Inspection Upper Extremity: Positive for: Normal Inspection. Negative for: Cyanosis, Edema Lower Extremity: Positive for: Normal Inspection. Negative for: Edema Neurological: Positive for: GCS=15, CN II-XII Intact, Speech Normal Skin: Positive for: Warm, Dry, Normal Color, Erythematous (Diffuse lacy, erythematous rash throughout arms, upper legs, and trunk. ). Negative for: Rashes Psychiatric: Positive for: Alert, Oriented x 3, Normal Insight, Normal Concentration - Medications Active Medications: Active Medications Generic Name Dose Route Start Last Admin Trade Name Freq PRN Reason Stop Dose Admin Carvedilol 6.25 mg 08/07/17 10:00 08/07/17 10:15 Coreg PO Not Given DAILY SOL Daptomycin 680 mg 08/07/17 10:30 Cubicin 6 mg/kg (680 mg) 08/16/17 10:31 IV Q48H SOL Protocol Hydrocortisone Sodium Succinate 50 mg 08/07/17 07:00 08/07/17 08:09 Solu-Cortef IVP 50 mg Q6H SOL Administration Sodium Chloride 1,000 mls @ 60 mls/hr 08/06/17 16:45 08/07/17 10:14 Sodium Chloride 0.9% IV 60 mls/hr .[id number] SOL Administration Vasopressin 20 units/ Sodium 101 mls @ 9.09 mls/hr 08/07/17 07:15 08/07/17 08 :08 Chloride IV 9.09 mls/hr .[id number] SOL Administration Protocol 0.03 U/MIN Norepinephrine Bitartrate 8 mg 258 mls @ 7.5 mls/hr 08/07/17 08:45 08/07/17 10:13 / Sodium Chloride IV 7.5 mls/hr .Q24H SOL Administration Dobutamine HCl/Dextrose 500 mg in 250 mls @ 6.804 mls/hr 08/07/17 10:30 08/07 11:11 Dobutamine/Dextrose 5% 500mg/250ml IV 2 mcg/kg/min .Q24H PRN 6.804 mls/hr TITRATE PER PROTOCOL Administration Protocol 2 MCG/KG/MIN Aztreonam 500 mg/ Sodium 100 mls @ 100 mls/hr 08/07/17 14:00 Chloride IVPB 08/16/17 14:01 Q8 SOL Protocol Metronidazole 500 mg in 100 mls @ 100 mls/hr 08/07/17 14:00 Flagyl IVPB 08/16/17 14:01 Q8 SOL Protocol Daptomycin 680 mg/ Sodium 100 mls @ 200 mls/hr 08/07/17 11:00 Chloride IV 08/12/17 11:01 Q48H SOL Pantoprazole Sodium 40 mg 08/07/17 06:00 08/07/17 06:26 Protonix Ec Tab PO 40 mg 0600 SOL Administration Vancomycin HCl 250 mg 08/07/17 14:00 Vancocin 25 Mg/Ml (Oral Use) PO 08/16/17 14:01 QID [facility] Protocol Warfarin Sodium 7.5 mg 08/07/17 18:00 Coumadin PO 1800 [facility] Protocol - Patient Studies Lab Studies: Lab Studies 08/07/17 08/07/17 08/07/17 Range/Units 11:46 06:30 06:30 WBC (4.5-11.0) 10^3/ul RBC (3.5-6.1) 10^6/uL Hgb (12.0-16.0) g/dL Hct (36.0-48.0) % MCV (80.0-105.0) fl MCH (25.0-35.0) pg MCHC (31.0-37.0) g/dl RDW (11.5-14.5) % Plt Count (120.0-450.0) 10^3/uL MPV (7.0-11.0) fl Gran % (50.0-68.0) % Lymph % (Auto) (22.0-35.0) % Davis % (Auto) (1.0-6.0) % Eos % (Auto) (1.5-5.0) % Baso % (Auto) (0.0-3.0) % Gran # (1.4-6.5) Lymph # (Auto) (1.2-3.4) Davis # (Auto) (0.1-0.6) Eos # (Auto) (0.0-0.7) Baso # (Auto) (0.0-2.0) K/mm3 PT 24.6 H (9.4-12.5) SECONDS INR 2.11 H (0.93-1.08) pO2 44 (30-55) mm/Hg VBG pH 7.30 L (7.32-7.43) VBG pCO2 40.0 (40-60) VBG HCO3 19.7 L (21-28) mmol/l VBG Total CO2 20.9 L (22-28) mmol.L VBG O2 Sat (Calc) 75.0 H (40-65) % VBG Base Excess -6.3 L (0.0-2.0) mmol/L VBG Potassium 5.3 H (3.6-5.2) mmol/L Glucose 69 (65-105) mg/dl Lactate 1.8 (0.7-2.1) mmol/L FiO2 21.0 % Sodium 132.0 134 (132-148) mmol/L Potassium 5.1 H (3.6-5.0) mmol/L Chloride 103.0 103 (98-107) mmol/L Carbon Dioxide 20 L (21-33) mmol/L Anion Gap 16 (10-20) BUN 68 H (7-21) mg/dL Creatinine 3.2 H (0.7-1.2) mg/dl Est GFR ( Amer) 17 Est GFR (Non-Af Amer) 14 POC Glucose (mg/dL) (65-110) mg/dL Random Glucose 59 L (70-110) mg/dL Calcium 8.5 (8.4-10.5) mg/dL Total Bilirubin 1.0 (0.2-1.3) mg/dL AST 29 (14-36) U/L ALT 33 (7-56) U/L Alkaline Phosphatase 70 (38-126) U/L Total Creatine Kinase (35-230) U/L Total Protein 5.0 L (5.8-8.3) g/dL Albumin 2.2 L (3.0-4.8) g/dL Globulin 2.9 gm/dL Albumin/Globulin Ratio 0.8 L (1.1-1.8) Venous Blood Potassium 5.3 H (3.6-5.2) mmol/L Blood Type Blood Type Confirm Antibody Screen BBK History Checked 08/07/17 08/07/17 08/07/17 Range/Units 06:30 00:05 00:05 WBC 14.8 H 14.8 H D (4.5-11.0) 10^3/ul RBC 4.17 4.32 (3.5-6.1) 10^6/uL Hgb 11.4 L 12.1 (12.0-16.0) g/dL Hct 34.6 L 35.9 L (36.0-48.0) % MCV 83.0 83.1 (80.0-105.0) fl MCH 27.3 28.0 (25.0-35.0) pg MCHC 32.9 33.7 (31.0-37.0) g/dl RDW 17.3 H 17.2 H (11.5-14.5) % Plt Count 154 141 (120.0-450.0) 10^3/uL MPV 11.6 H 11.9 H (7.0-11.0) fl Gran % 95.4 H 95.2 H (50.0-68.0) % Lymph % (Auto) 2.0 L 2.9 L (22.0-35.0) % Davis % (Auto) 2.4 1.7 (1.0-6.0) % Eos % (Auto) 0.1 L 0.1 L (1.5-5.0) % Baso % (Auto) 0.1 0.1 (0.0-3.0) % Gran # 14.14 H 14.12 H (1.4-6.5) Lymph # (Auto) 0.3 L 0.4 L (1.2-3.4) Davis # (Auto) 0.4 0.3 (0.1-0.6) Eos # (Auto) 0.0 0.0 (0.0-0.7) Baso # (Auto) 0.01 0.01 (0.0-2.0) K/mm3 PT 28.9 H (9.4-12.5) SECONDS INR 2.49 H (0.93-1.08) pO2 (30-55) mm/Hg VBG pH (7.32-7.43) VBG pCO2 (40-60) VBG HCO3 (21-28) mmol/l VBG Total CO2 (22-28) mmol.L VBG O2 Sat (Calc) (40-65) % VBG Base Excess (0.0-2.0) mmol/L VBG Potassium (3.6-5.2) mmol/L Glucose (65-105) mg/dl Lactate (0.7-2.1) mmol/L FiO2 % Sodium (132-148) mmol/L Potassium (3.6-5.0) mmol/L Chloride (98-107) mmol/L Carbon Dioxide (21-33) mmol/L Anion Gap (10-20) BUN (7-21) mg/dL Creatinine (0.7-1.2) mg/dl Est GFR ( Amer) Est GFR (Non-Af Amer) POC Glucose (mg/dL) (65-110) mg/dL Random Glucose (70-110) mg/dL Calcium (8.4-10.5) mg/dL Total Bilirubin (0.2-1.3) mg/dL AST (14-36) U/L ALT (7-56) U/L Alkaline Phosphatase (38-126) U/L Total Creatine Kinase (35-230) U/L Total Protein (5.8-8.3) g/dL Albumin (3.0-4.8) g/dL Globulin gm/dL Albumin/Globulin Ratio (1.1-1.8) Venous Blood Potassium (3.6-5.2) mmol/L Blood Type Blood Type Confirm Antibody Screen BBK History Checked 08/06/17 08/06/17 08/06/17 Range/Units 20:39 19:16 18:45 WBC (4.5-11.0) 10^3/ul RBC (3.5-6.1) 10^6/uL Hgb (12.0-16.0) g/dL Hct (36.0-48.0) % MCV (80.0-105.0) fl MCH (25.0-35.0) pg MCHC (31.0-37.0) g/dl RDW (11.5-14.5) % Plt Count (120.0-450.0) 10^3/uL MPV (7.0-11.0) fl Gran % (50.0-68.0) % Lymph % (Auto) (22.0-35.0) % Davis % (Auto) (1.0-6.0) % Eos % (Auto) (1.5-5.0) % Baso % (Auto) (0.0-3.0) % Gran # (1.4-6.5) Lymph # (Auto) (1.2-3.4) Davis # (Auto) (0.1-0.6) Eos # (Auto) (0.0-0.7) Baso # (Auto) (0.0-2.0) K/mm3 PT (9.4-12.5) SECONDS INR (0.93-1.08) pO2 (30-55) mm/Hg VBG pH (7.32-7.43) VBG pCO2 (40-60) VBG HCO3 (21-28) mmol/l VBG Total CO2 (22-28) mmol.L VBG O2 Sat (Calc) (40-65) % VBG Base Excess (0.0-2.0) mmol/L VBG Potassium (3.6-5.2) mmol/L Glucose (65-105) mg/dl Lactate (0.7-2.1) mmol/L FiO2 % Sodium 129 L (132-148) mmol/L Potassium 5.8 H* (3.6-5.0) mmol/L Chloride 98 (98-107) mmol/L Carbon Dioxide 21 (21-33) mmol/L Anion Gap 15 (10-20) BUN 70 H (7-21) mg/dL Creatinine 3.1 H (0.7-1.2) mg/dl Est GFR ( Amer) 18 Est GFR (Non-Af Amer) 15 POC Glucose (mg/dL) 82 (65-110) mg/dL Random Glucose 80 (70-110) mg/dL Calcium 8.7 (8.4-10.5) mg/dL Total Bilirubin (0.2-1.3) mg/dL AST (14-36) U/L ALT (7-56) U/L Alkaline Phosphatase (38-126) U/L Total Creatine Kinase 73 (35-230) U/L Total Protein (5.8-8.3) g/dL Albumin (3.0-4.8) g/dL Globulin gm/dL Albumin/Globulin Ratio (1.1-1.8) Venous Blood Potassium (3.6-5.2) mmol/L Blood Type Blood Type Confirm A POSITIVE Antibody Screen BBK History Checked 08/06/17 Range/Units 18:05 WBC (4.5-11.0) 10^3/ul RBC (3.5-6.1) 10^6/uL Hgb (12.0-16.0) g/dL Hct (36.0-48.0) % MCV (80.0-105.0) fl MCH (25.0-35.0) pg MCHC (31.0-37.0) g/dl RDW (11.5-14.5) % Plt Count (120.0-450.0) 10^3/uL MPV (7.0-11.0) fl Gran % (50.0-68.0) % Lymph % (Auto) (22.0-35.0) % Davis % (Auto) (1.0-6.0) % Eos % (Auto) (1.5-5.0) % Baso % (Auto) (0.0-3.0) % Gran # (1.4-6.5) Lymph # (Auto) (1.2-3.4) Davis # (Auto) (0.1-0.6) Eos # (Auto) (0.0-0.7) Baso # (Auto) (0.0-2.0) K/mm3 PT (9.4-12.5) SECONDS INR (0.93-1.08) pO2 (30-55) mm/Hg VBG pH (7.32-7.43) VBG pCO2 (40-60) VBG HCO3 (21-28) mmol/l VBG Total CO2 (22-28) mmol.L VBG O2 Sat (Calc) (40-65) % VBG Base Excess (0.0-2.0) mmol/L VBG Potassium (3.6-5.2) mmol/L Glucose (65-105) mg/dl Lactate (0.7-2.1) mmol/L FiO2 % Sodium (132-148) mmol/L Potassium (3.6-5.0) mmol/L Chloride (98-107) mmol/L Carbon Dioxide (21-33) mmol/L Anion Gap (10-20) BUN (7-21) mg/dL Creatinine (0.7-1.2) mg/dl Est GFR ( Amer) Est GFR (Non-Af Amer) POC Glucose (mg/dL) (65-110) mg/dL Random Glucose (70-110) mg/dL Calcium (8.4-10.5) mg/dL Total Bilirubin (0.2-1.3) mg/dL AST (14-36) U/L ALT (7-56) U/L Alkaline Phosphatase (38-126) U/L Total Creatine Kinase (35-230) U/L Total Protein (5.8-8.3) g/dL Albumin (3.0-4.8) g/dL Globulin gm/dL Albumin/Globulin Ratio (1.1-1.8) Venous Blood Potassium (3.6-5.2) mmol/L Blood Type A POSITIVE Blood Type Confirm Antibody Screen Negative BBK History Checked No verified bt Laboratory Results - last 24 hr 08/06/17 08/06/17 08/06/17 18:05 18:45 19:16 WBC RBC Hgb Hct MCV MCH MCHC RDW Plt Count MPV Gran % Lymph % (Auto) Davis % (Auto) Eos % (Auto) Baso % (Auto) Gran # Lymph # (Auto) Davis # (Auto) Eos # (Auto) Baso # (Auto) PT INR pO2 VBG pH VBG pCO2 VBG HCO3 VBG Total CO2 VBG O2 Sat (Calc) VBG Base Excess VBG Potassium Glucose Lactate FiO2 Sodium Potassium Chloride Carbon Dioxide Anion Gap BUN Creatinine Est GFR ( Amer) Est GFR (Non-Af Amer) POC Glucose (mg/dL) 82 Random Glucose Calcium Total Bilirubin AST ALT Alkaline Phosphatase Total Creatine Kinase Total Protein Albumin Globulin Albumin/Globulin Ratio Venous Blood Potassium Blood Type A POSITIVE Blood Type Confirm A POSITIVE Antibody Screen Negative BBK History Checked No verified bt 08/06/17 08/07/17 08/07/17 20:39 00:05 00:05 WBC 14.8 H D RBC 4.32 Hgb 12.1 Hct 35.9 L MCV 83.1 MCH 28.0 MCHC 33.7 RDW 17.2 H Plt Count 141 MPV 11.9 H Gran % 95.2 H Lymph % (Auto) 2.9 L Davis % (Auto) 1.7 Eos % (Auto) 0.1 L Baso % (Auto) 0.1 Gran # 14.12 H Lymph # (Auto) 0.4 L Davis # (Auto) 0.3 Eos # (Auto) 0.0 Baso # (Auto) 0.01 PT 28.9 H INR 2.49 H pO2 VBG pH VBG pCO2 VBG HCO3 VBG Total CO2 VBG O2 Sat (Calc) VBG Base Excess VBG Potassium Glucose Lactate FiO2 Sodium 129 L Potassium 5.8 H* Chloride 98 Carbon Dioxide 21 Anion Gap 15 BUN 70 H Creatinine 3.1 H Est GFR ( Amer) 18 Est GFR (Non-Af Amer) 15 POC Glucose (mg/dL) Random Glucose 80 Calcium 8.7 Total Bilirubin AST ALT Alkaline Phosphatase Total Creatine Kinase 73 Total Protein Albumin Globulin Albumin/Globulin Ratio Venous Blood Potassium Blood Type Blood Type Confirm Antibody Screen BBK History Checked 08/07/17 08/07/17 08/07/17 06:30 06:30 06:30 WBC 14.8 H RBC 4.17 Hgb 11.4 L Hct 34.6 L MCV 83.0 MCH 27.3 MCHC 32.9 RDW 17.3 H Plt Count 154 MPV 11.6 H Gran % 95.4 H Lymph % (Auto) 2.0 L Davis % (Auto) 2.4 Eos % (Auto) 0.1 L Baso % (Auto) 0.1 Gran # 14.14 H Lymph # (Auto) 0.3 L Davis # (Auto) 0.4 Eos # (Auto) 0.0 Baso # (Auto) 0.01 PT 24.6 H INR 2.11 H pO2 VBG pH VBG pCO2 VBG HCO3 VBG Total CO2 VBG O2 Sat (Calc) VBG Base Excess VBG Potassium Glucose Lactate FiO2 Sodium 134 Potassium 5.1 H Chloride 103 Carbon Dioxide 20 L Anion Gap 16 BUN 68 H Creatinine 3.2 H Est GFR ( Amer) 17 Est GFR (Non-Af Amer) 14 POC Glucose (mg/dL) Random Glucose 59 L Calcium 8.5 Total Bilirubin 1.0 AST 29 ALT 33 Alkaline Phosphatase 70 Total Creatine Kinase Total Protein 5.0 L Albumin 2.2 L Globulin 2.9 Albumin/Globulin Ratio 0.8 L Venous Blood Potassium Blood Type Blood Type Confirm Antibody Screen BBK History Checked 08/07/17 11:46 WBC RBC Hgb Hct MCV MCH MCHC RDW Plt Count MPV Gran % Lymph % (Auto) Davis % (Auto) Eos % (Auto) Baso % (Auto) Gran # Lymph # (Auto) Davis # (Auto) Eos # (Auto) Baso # (Auto) PT INR pO2 44 VBG pH 7.30 L VBG pCO2 40.0 VBG HCO3 19.7 L VBG Total CO2 20.9 L VBG O2 Sat (Calc) 75.0 H VBG Base Excess -6.3 L VBG Potassium 5.3 H Glucose 69 Lactate 1.8 FiO2 21.0 Sodium 132.0 Potassium Chloride 103.0 Carbon Dioxide Anion Gap BUN Creatinine Est GFR ( Amer) Est GFR (Non-Af Amer) POC Glucose (mg/dL) Random Glucose Calcium Total Bilirubin AST ALT Alkaline Phosphatase Total Creatine Kinase Total Protein Albumin Globulin Albumin/Globulin Ratio Venous Blood Potassium 5.3 H Blood Type Blood Type Confirm Antibody Screen BBK History Checked Assessment/Plan - Assessment and Plan (Free Text) Plan: 72 year old female with past medical history of HTN, CHF, CABG, and A-fib on coumadin presents with septic shock with unknown source. At this time patient will receive broad spectrum antibiotics as per ID. Echocardiogram pending, preliminary read shows severely decreased EF. Patient remains on multiple pressors for hemodynamic support. Patient has therapeutic INR and will resume Warfarin later today. Patient with repeat VBG this morning with normal lactate. Patient remains anuric, will follow up with pelvis ultrasound for king placement. Neuro: AAOx3 No focal deficits Head CT negative Cardio: Levophed, Dobutamine, and Vasopressin Solucortef 50 q6h Maintain MAP >65 Cardiology consulted Pulm: Maintain O2 sat >90% No SOB GI: Abdomen US pending Protonix Nephro: SHERRILL, not improving Anuric King in place, abdomen ultrasound pending NS @ 100 Replenish electrolytes as needed Heme/ID: Hypothermic, leukocytosis Aztreoname, Flagyl, Daptomycin, PO Vancomycin Follow cultures ID consulted Warfarin restarted this evening Monitor INR Carlos Alberto PGY-2 <Leon Lima - Last Filed: 08/07/17 13:04> CCU Objective - Vital Signs / Intake & Output Vital Signs (Last 4 hours): Vital Signs Pulse BP 08/07/17 11:11 107 H 68/37 L 08/07/17 10:15 108 H Intake and Output (Last 8hrs): Intake & Output 08/06/17 08/07/17 08/07/17 22:59 06:59 14:59 Intake Total 3256.0 62 Output Total 8 Balance 3248.0 62 Intake: IV 3056.0 62 IVF NSALINE MAINTENANCE 180 LEVOPHED 188 NSALINE BOLUS 2500 Other 200 Output: Urine 8 Urethral (King) 8 Other: # Bowel Movements 1 - Medications Active Medications: Active Medications Generic Name Dose Route Start Last Admin Trade Name Freq PRN Reason Stop Dose Admin Carvedilol 6.25 mg 08/07/17 10:00 08/07/17 10:15 Coreg PO Not Given DAILY [facility] Daptomycin 680 mg 08/07/17 10:30 Cubicin 6 mg/kg (680 mg) 08/16/17 10:31 IV Q48H [facility] Protocol Hydrocortisone Sodium Succinate 50 mg 08/07/17 07:00 08/07/17 08:09 Solu-Cortef IVP 50 mg Q6H SOL Administration Sodium Chloride 1,000 mls @ 60 mls/hr 08/06/17 16:45 08/07/17 10:14 Sodium Chloride 0.9% IV 60 mls/hr .[id number] SOL Administration Vasopressin 20 units/ Sodium 101 mls @ 9.09 mls/hr 08/07/17 07:15 08/07/17 08 :08 Chloride IV 9.09 mls/hr .[id number] SOL Administration Protocol 0.03 U/MIN Norepinephrine Bitartrate 8 mg 258 mls @ 7.5 mls/hr 08/07/17 08:45 08/07/17 10:13 / Sodium Chloride IV 7.5 mls/hr .Q24H SOL Administration Dobutamine HCl/Dextrose 500 mg in 250 mls @ 6.804 mls/hr 08/07/17 10:30 08/07 11:11 Dobutamine/Dextrose 5% 500mg/250ml IV 2 mcg/kg/min .Q24H PRN 6.804 mls/hr TITRATE PER PROTOCOL Administration Protocol 2 MCG/KG/MIN Aztreonam 500 mg/ Sodium 100 mls @ 100 mls/hr 08/07/17 14:00 Chloride IVPB 08/16/17 14:01 Q8 [facility] Protocol Metronidazole 500 mg in 100 mls @ 100 mls/hr 08/07/17 14:00 Flagyl IVPB 08/16/17 14:01 Q8 [facility] Protocol Daptomycin 680 mg/ Sodium 100 mls @ 200 mls/hr 08/07/17 11:00 Chloride IV 08/12/17 11:01 Q48H [facility] Pantoprazole Sodium 40 mg 08/07/17 06:00 08/07/17 06:26 Protonix Ec Tab PO 40 mg 0600 SOL Administration Vancomycin HCl 250 mg 08/07/17 14:00 Vancocin 25 Mg/Ml (Oral Use) PO 08/16/17 14:01 QID [facility] Protocol Warfarin Sodium 7.5 mg 08/07/17 18:00 Coumadin PO 1800 [facility] Protocol - Patient Studies Lab Studies: Lab Studies 08/07/17 08/07/17 08/07/17 Range/Units 11:46 06:30 06:30 WBC (4.5-11.0) 10^3/ul RBC (3.5-6.1) 10^6/uL Hgb (12.0-16.0) g/dL Hct (36.0-48.0) % MCV (80.0-105.0) fl MCH (25.0-35.0) pg MCHC (31.0-37.0) g/dl RDW (11.5-14.5) % Plt Count (120.0-450.0) 10^3/uL MPV (7.0-11.0) fl Gran % (50.0-68.0) % Lymph % (Auto) (22.0-35.0) % Davis % (Auto) (1.0-6.0) % Eos % (Auto) (1.5-5.0) % Baso % (Auto) (0.0-3.0) % Gran # (1.4-6.5) Lymph # (Auto) (1.2-3.4) Davis # (Auto) (0.1-0.6) Eos # (Auto) (0.0-0.7) Baso # (Auto) (0.0-2.0) K/mm3 PT 24.6 H (9.4-12.5) SECONDS INR 2.11 H (0.93-1.08) pO2 44 (30-55) mm/Hg VBG pH 7.30 L (7.32-7.43) VBG pCO2 40.0 (40-60) VBG HCO3 19.7 L (21-28) mmol/l VBG Total CO2 20.9 L (22-28) mmol.L VBG O2 Sat (Calc) 75.0 H (40-65) % VBG Base Excess -6.3 L (0.0-2.0) mmol/L VBG Potassium 5.3 H (3.6-5.2) mmol/L Glucose 69 (65-105) mg/dl Lactate 1.8 (0.7-2.1) mmol/L FiO2 21.0 % Sodium 132.0 134 (132-148) mmol/L Potassium 5.1 H (3.6-5.0) mmol/L Chloride 103.0 103 (98-107) mmol/L Carbon Dioxide 20 L (21-33) mmol/L Anion Gap 16 (10-20) BUN 68 H (7-21) mg/dL Creatinine 3.2 H (0.7-1.2) mg/dl Est GFR ( Amer) 17 Est GFR (Non-Af Amer) 14 POC Glucose (mg/dL) (65-110) mg/dL Random Glucose 59 L (70-110) mg/dL Calcium 8.5 (8.4-10.5) mg/dL Total Bilirubin 1.0 (0.2-1.3) mg/dL AST 29 (14-36) U/L ALT 33 (7-56) U/L Alkaline Phosphatase 70 (38-126) U/L Total Creatine Kinase (35-230) U/L Total Protein 5.0 L (5.8-8.3) g/dL Albumin 2.2 L (3.0-4.8) g/dL Globulin 2.9 gm/dL Albumin/Globulin Ratio 0.8 L (1.1-1.8) Venous Blood Potassium 5.3 H (3.6-5.2) mmol/L Blood Type Blood Type Confirm Antibody Screen BBK History Checked 08/07/17 08/07/17 08/07/17 Range/Units 06:30 00:05 00:05 WBC 14.8 H 14.8 H D (4.5-11.0) 10^3/ul RBC 4.17 4.32 (3.5-6.1) 10^6/uL Hgb 11.4 L 12.1 (12.0-16.0) g/dL Hct 34.6 L 35.9 L (36.0-48.0) % MCV 83.0 83.1 (80.0-105.0) fl MCH 27.3 28.0 (25.0-35.0) pg MCHC 32.9 33.7 (31.0-37.0) g/dl RDW 17.3 H 17.2 H (11.5-14.5) % Plt Count 154 141 (120.0-450.0) 10^3/uL MPV 11.6 H 11.9 H (7.0-11.0) fl Gran % 95.4 H 95.2 H (50.0-68.0) % Lymph % (Auto) 2.0 L 2.9 L (22.0-35.0) % Davis % (Auto) 2.4 1.7 (1.0-6.0) % Eos % (Auto) 0.1 L 0.1 L (1.5-5.0) % Baso % (Auto) 0.1 0.1 (0.0-3.0) % Gran # 14.14 H 14.12 H (1.4-6.5) Lymph # (Auto) 0.3 L 0.4 L (1.2-3.4) Davis # (Auto) 0.4 0.3 (0.1-0.6) Eos # (Auto) 0.0 0.0 (0.0-0.7) Baso # (Auto) 0.01 0.01 (0.0-2.0) K/mm3 PT 28.9 H (9.4-12.5) SECONDS INR 2.49 H (0.93-1.08) pO2 (30-55) mm/Hg VBG pH (7.32-7.43) VBG pCO2 (40-60) VBG HCO3 (21-28) mmol/l VBG Total CO2 (22-28) mmol.L VBG O2 Sat (Calc) (40-65) % VBG Base Excess (0.0-2.0) mmol/L VBG Potassium (3.6-5.2) mmol/L Glucose (65-105) mg/dl Lactate (0.7-2.1) mmol/L FiO2 % Sodium (132-148) mmol/L Potassium (3.6-5.0) mmol/L Chloride (98-107) mmol/L Carbon Dioxide (21-33) mmol/L Anion Gap (10-20) BUN (7-21) mg/dL Creatinine (0.7-1.2) mg/dl Est GFR ( Amer) Est GFR (Non-Af Amer) POC Glucose (mg/dL) (65-110) mg/dL Random Glucose (70-110) mg/dL Calcium (8.4-10.5) mg/dL Total Bilirubin (0.2-1.3) mg/dL AST (14-36) U/L ALT (7-56) U/L Alkaline Phosphatase (38-126) U/L Total Creatine Kinase (35-230) U/L Total Protein (5.8-8.3) g/dL Albumin (3.0-4.8) g/dL Globulin gm/dL Albumin/Globulin Ratio (1.1-1.8) Venous Blood Potassium (3.6-5.2) mmol/L Blood Type Blood Type Confirm Antibody Screen BBK History Checked 08/06/17 08/06/17 08/06/17 Range/Units 20:39 19:16 18:45 WBC (4.5-11.0) 10^3/ul RBC (3.5-6.1) 10^6/uL Hgb (12.0-16.0) g/dL Hct (36.0-48.0) % MCV (80.0-105.0) fl MCH (25.0-35.0) pg MCHC (31.0-37.0) g/dl RDW (11.5-14.5) % Plt Count (120.0-450.0) 10^3/uL MPV (7.0-11.0) fl Gran % (50.0-68.0) % Lymph % (Auto) (22.0-35.0) % Davis % (Auto) (1.0-6.0) % Eos % (Auto) (1.5-5.0) % Baso % (Auto) (0.0-3.0) % Gran # (1.4-6.5) Lymph # (Auto) (1.2-3.4) Davis # (Auto) (0.1-0.6) Eos # (Auto) (0.0-0.7) Baso # (Auto) (0.0-2.0) K/mm3 PT (9.4-12.5) SECONDS INR (0.93-1.08) pO2 (30-55) mm/Hg VBG pH (7.32-7.43) VBG pCO2 (40-60) VBG HCO3 (21-28) mmol/l VBG Total CO2 (22-28) mmol.L VBG O2 Sat (Calc) (40-65) % VBG Base Excess (0.0-2.0) mmol/L VBG Potassium (3.6-5.2) mmol/L Glucose (65-105) mg/dl Lactate (0.7-2.1) mmol/L FiO2 % Sodium 129 L (132-148) mmol/L Potassium 5.8 H* (3.6-5.0) mmol/L Chloride 98 (98-107) mmol/L Carbon Dioxide 21 (21-33) mmol/L Anion Gap 15 (10-20) BUN 70 H (7-21) mg/dL Creatinine 3.1 H (0.7-1.2) mg/dl Est GFR ( Amer) 18 Est GFR (Non-Af Amer) 15 POC Glucose (mg/dL) 82 (65-110) mg/dL Random Glucose 80 (70-110) mg/dL Calcium 8.7 (8.4-10.5) mg/dL Total Bilirubin (0.2-1.3) mg/dL AST (14-36) U/L ALT (7-56) U/L Alkaline Phosphatase (38-126) U/L Total Creatine Kinase 73 (35-230) U/L Total Protein (5.8-8.3) g/dL Albumin (3.0-4.8) g/dL Globulin gm/dL Albumin/Globulin Ratio (1.1-1.8) Venous Blood Potassium (3.6-5.2) mmol/L Blood Type Blood Type Confirm A POSITIVE Antibody Screen BBK History Checked 08/06/17 Range/Units 18:05 WBC (4.5-11.0) 10^3/ul RBC (3.5-6.1) 10^6/uL Hgb (12.0-16.0) g/dL Hct (36.0-48.0) % MCV (80.0-105.0) fl MCH (25.0-35.0) pg MCHC (31.0-37.0) g/dl RDW (11.5-14.5) % Plt Count (120.0-450.0) 10^3/uL MPV (7.0-11.0) fl Gran % (50.0-68.0) % Lymph % (Auto) (22.0-35.0) % Davis % (Auto) (1.0-6.0) % Eos % (Auto) (1.5-5.0) % Baso % (Auto) (0.0-3.0) % Gran # (1.4-6.5) Lymph # (Auto) (1.2-3.4) Davis # (Auto) (0.1-0.6) Eos # (Auto) (0.0-0.7) Baso # (Auto) (0.0-2.0) K/mm3 PT (9.4-12.5) SECONDS INR (0.93-1.08) pO2 (30-55) mm/Hg VBG pH (7.32-7.43) VBG pCO2 (40-60) VBG HCO3 (21-28) mmol/l VBG Total CO2 (22-28) mmol.L VBG O2 Sat (Calc) (40-65) % VBG Base Excess (0.0-2.0) mmol/L VBG Potassium (3.6-5.2) mmol/L Glucose (65-105) mg/dl Lactate (0.7-2.1) mmol/L FiO2 % Sodium (132-148) mmol/L Potassium (3.6-5.0) mmol/L Chloride (98-107) mmol/L Carbon Dioxide (21-33) mmol/L Anion Gap (10-20) BUN (7-21) mg/dL Creatinine (0.7-1.2) mg/dl Est GFR ( Amer) Est GFR (Non-Af Amer) POC Glucose (mg/dL) (65-110) mg/dL Random Glucose (70-110) mg/dL Calcium (8.4-10.5) mg/dL Total Bilirubin (0.2-1.3) mg/dL AST (14-36) U/L ALT (7-56) U/L Alkaline Phosphatase (38-126) U/L Total Creatine Kinase (35-230) U/L Total Protein (5.8-8.3) g/dL Albumin (3.0-4.8) g/dL Globulin gm/dL Albumin/Globulin Ratio (1.1-1.8) Venous Blood Potassium (3.6-5.2) mmol/L Blood Type A POSITIVE Blood Type Confirm Antibody Screen Negative BBK History Checked No verified bt Laboratory Results - last 24 hr 08/06/17 08/06/17 08/06/17 18:05 18:45 19:16 WBC RBC Hgb Hct MCV MCH MCHC RDW Plt Count MPV Gran % Lymph % (Auto) Davis % (Auto) Eos % (Auto) Baso % (Auto) Gran # Lymph # (Auto) Davis # (Auto) Eos # (Auto) Baso # (Auto) PT INR pO2 VBG pH VBG pCO2 VBG HCO3 VBG Total CO2 VBG O2 Sat (Calc) VBG Base Excess VBG Potassium Glucose Lactate FiO2 Sodium Potassium Chloride Carbon Dioxide Anion Gap BUN Creatinine Est GFR ( Amer) Est GFR (Non-Af Amer) POC Glucose (mg/dL) 82 Random Glucose Calcium Total Bilirubin AST ALT Alkaline Phosphatase Total Creatine Kinase Total Protein Albumin Globulin Albumin/Globulin Ratio Venous Blood Potassium Blood Type A POSITIVE Blood Type Confirm A POSITIVE Antibody Screen Negative BBK History Checked No verified bt 08/06/17 08/07/17 08/07/17 20:39 00:05 00:05 WBC 14.8 H D RBC 4.32 Hgb 12.1 Hct 35.9 L MCV 83.1 MCH 28.0 MCHC 33.7 RDW 17.2 H Plt Count 141 MPV 11.9 H Gran % 95.2 H Lymph % (Auto) 2.9 L Davis % (Auto) 1.7 Eos % (Auto) 0.1 L Baso % (Auto) 0.1 Gran # 14.12 H Lymph # (Auto) 0.4 L Davis # (Auto) 0.3 Eos # (Auto) 0.0 Baso # (Auto) 0.01 PT 28.9 H INR 2.49 H pO2 VBG pH VBG pCO2 VBG HCO3 VBG Total CO2 VBG O2 Sat (Calc) VBG Base Excess VBG Potassium Glucose Lactate FiO2 Sodium 129 L Potassium 5.8 H* Chloride 98 Carbon Dioxide 21 Anion Gap 15 BUN 70 H Creatinine 3.1 H Est GFR ( Amer) 18 Est GFR (Non-Af Amer) 15 POC Glucose (mg/dL) Random Glucose 80 Calcium 8.7 Total Bilirubin AST ALT Alkaline Phosphatase Total Creatine Kinase 73 Total Protein Albumin Globulin Albumin/Globulin Ratio Venous Blood Potassium Blood Type Blood Type Confirm Antibody Screen BBK History Checked 08/07/17 08/07/17 08/07/17 06:30 06:30 06:30 WBC 14.8 H RBC 4.17 Hgb 11.4 L Hct 34.6 L MCV 83.0 MCH 27.3 MCHC 32.9 RDW 17.3 H Plt Count 154 MPV 11.6 H Gran % 95.4 H Lymph % (Auto) 2.0 L Davis % (Auto) 2.4 Eos % (Auto) 0.1 L Baso % (Auto) 0.1 Gran # 14.14 H Lymph # (Auto) 0.3 L Davis # (Auto) 0.4 Eos # (Auto) 0.0 Baso # (Auto) 0.01 PT 24.6 H INR 2.11 H pO2 VBG pH VBG pCO2 VBG HCO3 VBG Total CO2 VBG O2 Sat (Calc) VBG Base Excess VBG Potassium Glucose Lactate FiO2 Sodium 134 Potassium 5.1 H Chloride 103 Carbon Dioxide 20 L Anion Gap 16 BUN 68 H Creatinine 3.2 H Est GFR ( Amer) 17 Est GFR (Non-Af Amer) 14 POC Glucose (mg/dL) Random Glucose 59 L Calcium 8.5 Total Bilirubin 1.0 AST 29 ALT 33 Alkaline Phosphatase 70 Total Creatine Kinase Total Protein 5.0 L Albumin 2.2 L Globulin 2.9 Albumin/Globulin Ratio 0.8 L Venous Blood Potassium Blood Type Blood Type Confirm Antibody Screen BBK History Checked 08/07/17 11:46 WBC RBC Hgb Hct MCV MCH MCHC RDW Plt Count MPV Gran % Lymph % (Auto) Davis % (Auto) Eos % (Auto) Baso % (Auto) Gran # Lymph # (Auto) Davis # (Auto) Eos # (Auto) Baso # (Auto) PT INR pO2 44 VBG pH 7.30 L VBG pCO2 40.0 VBG HCO3 19.7 L VBG Total CO2 20.9 L VBG O2 Sat (Calc) 75.0 H VBG Base Excess -6.3 L VBG Potassium 5.3 H Glucose 69 Lactate 1.8 FiO2 21.0 Sodium 132.0 Potassium Chloride 103.0 Carbon Dioxide Anion Gap BUN Creatinine Est GFR ( Amer) Est GFR (Non-Af Amer) POC Glucose (mg/dL) Random Glucose Calcium Total Bilirubin AST ALT Alkaline Phosphatase Total Creatine Kinase Total Protein Albumin Globulin Albumin/Globulin Ratio Venous Blood Potassium 5.3 H Blood Type Blood Type Confirm Antibody Screen BBK History Checked Assessment/Plan - Assessment and Plan (Free Text) Plan: Patient seen and examined on rounds with resident, agree with note with following additions/exceptions: 72yo female nancy PMHx of CAD s/p CABG, HTN, Systolic CHF EF 10%, a/w diffuse skin rash, cellulitis, hyperkalemia, coagulopathy, septic shock, renal failure. Patient received total 4L NS bolus, yesterday night became hypotensive, TLC placed, started on vasopressor support. Currently on Levophed 30mcg/min, Vasopressin, stress dose steroids given. Bedside U/S, EF <10%, IVC 2.2-3.0CM. Patient started on Dobutamine drip, but became tachycardic, so DC'd. Renal and ID following. Derm consult pending. Pt oliguric, minimal urine output. Hyperkalemia Dehydration Acute renal failure Cellulitis Skin rash Coagulopathy Recommend: - supp o2 as needed - panculture, UCx, BCx, Procal - cont with Vasopressor support, goal MAP 65, stress dose steroids Solucortef - broad spectrum antibiotics, as per ID - Dermatology consult - IVF hydration - check UA, Ulytes, TSH - Renal Sono - ECHO - GI ppx - DVT ppx, SCDs - monitor in MICU patient at high risk for morbidity and mortality critical care time 40 minutes
[2017-08-07 14:00] LABS: TROPONIN I 0.04 ng/mL
[2017-08-07] MEDS: Vancomycin 25 MG/ML PO SCH ×3 (14:00→21:21)
[2017-08-07] MEDS: metroNIDAZOLE IV 500 mg/100 ml 500 MG/100 ML BAG IVPB SCH ×2 (14:30→21:23)
[2017-08-07] MEDS: Norepinephrine 8 MG in Sodium Chloride 0.9% 242 ML IV PRN ×3 (16:16→20:42)
[2017-08-07 16:25] LABS: CREATININE,RANDOM URINE 84 mg/dL
--- NOTE | 2017-08-07 16:51 | US ---
PROCEDURE: Ultrasound examination of the bladder HISTORY: Confirm king placement; rule out organomegaly COMPARISON: None available. TECHNIQUE: Ultrasound examination of the bladder was performed to confirm the position of the King catheter. FINDINGS: The urinary bladder is not well visualized. The position of the King catheter cannot be confirmed in this study. . IMPRESSION: Limited study due to the patient's body habitus. The bladder is not visualized. The position of the Knig catheter cannot be confirmed in this study.
[2017-08-07 16:54] LABS: TOTAL PROTEIN,RANDOM URINE 527 mg/L
[2017-08-07 17:25] LABS: COMPLEMENT C4 26.8 mg/dL (14.0-44.0)
[2017-08-07] MEDS ORDERED: Magnesium Sulfate 1 gm in D5W 1 GM/100 ML BAG IVPB ONE (17:47)
[2017-08-07 18:20] LABS: CALCIUM 8.7 mg/dL (8.4-10.5)
--- NOTE | 2017-08-07 22:16 | CP.PCM.PN ---
Subjective - Date & Time of Evaluation Date of Evaluation: 08/07/17 Time of Evaluation: 11:00 - Subjective Subjective: 72 yo F w/ pmh of htn, CHF w/ systolic dysfunction, aifb on coumadin, CAD s/p CABG, admitted with diffuse erythematous rash, shock, coagulopathy and acute renal failure; Escalated to 2 vasopressors since last night; has been conversing coherently but somewhat confused; not complaining of pain; minimal urine output per nursing staff; Objective - Vital Signs/Intake and Output Vital Signs (last 24 hours): Temp Pulse Resp BP Pulse Ox 98.1 F 130 H 23 120/66 97 08/07/17 21:31 08/07/17 21:31 08/07/17 21:31 08/07/17 21:31 08/07/17 08:40 Intake and Output: 08/07/17 08/08/17 18:59 06:59 Intake Total 2152 250 Output Total 42 Balance 2110 250 - Medications Medications: Current Medications Acetaminophen (Tylenol 325mg Tab) 650 mg PO Q4H PRN PRN Reason: Pain, Mild (1-3) Carvedilol (Coreg) 6.25 mg PO DAILY [facility] Last Admin: 08/07/17 10:15 Dose: Not Given Hydrocortisone Sodium Succinate (Solu-Cortef) 50 mg IVP Q6H [facility] Last Admin: 08/07/17 18:29 Dose: 50 mg Sodium Chloride (Sodium Chloride 0.9%) 1,000 mls @ 60 mls/hr IV .[id number] [facility] Last Admin: 08/07/17 10:14 Dose: 60 mls/hr Vasopressin 20 units/ Sodium (Chloride) 101 mls @ 9.09 mls/hr IV .Q11H7M SOL; 0.03 U/MIN PRN Reason: Protocol Last Admin: 08/07/17 18:33 Dose: 9.09 mls/hr Dobutamine HCl/Dextrose (Dobutamine/Dextrose 5% 500mg/250ml) 500 mg in 250 mls @ 6.804 mls/hr IV .Q24H PRN; Protocol; 2 MCG/KG/MIN PRN Reason: TITRATE PER PROTOCOL Last Admin: 08/07/17 11:11 Dose: 2 mcg/kg/min, 6.804 mls/hr Aztreonam 500 mg/ Sodium (Chloride) 100 mls @ 100 mls/hr IVPB Q8 SOL PRN Reason: Protocol Stop: 08/16/17 14:01 Last Admin: 08/07/17 14:00 Dose: 100 mls/hr Metronidazole (Flagyl) 500 mg in 100 mls @ 100 mls/hr IVPB Q8 SOL PRN Reason: Protocol Stop: 08/16/17 14:01 Last Admin: 08/07/17 21:23 Dose: 100 mls/hr Daptomycin 680 mg/ Sodium (Chloride) 100 mls @ 200 mls/hr IV Q48H [facility] Stop: 08/12/17 11:01 Last Admin: 08/07/17 11:00 Dose: 200 mls/hr Norepinephrine Bitartrate 8 mg (/ Sodium Chloride) 250 mls @ 46.87 mls/hr IV .Q5H21M PRN; Protocol; 25 MCG/MIN PRN Reason: TITRATE PER MD ORDER Last Admin: 08/07/17 20:42 Dose: 25 mcg/min, 46.87 mls/hr Pantoprazole Sodium (Protonix Ec Tab) 40 mg PO 0600 [facility] Last Admin: 08/07/17 06:26 Dose: 40 mg Vancomycin HCl (Vancocin 25 Mg/Ml (Oral Use)) 250 mg PO QID SOL PRN Reason: Protocol Stop: 08/16/17 14:01 Last Admin: 08/07/17 21:21 Dose: 250 mg - Labs Labs: 08/07/17 06:30 08/07/17 18:00 PT 24.6 SECONDS (9.4-12.5) H 08/07/17 06:30 INR 2.11 (0.93-1.08) H 08/07/17 06:30 APTT 98.4 Seconds (25.1-36.5) H 08/06/17 13:35 - Constitutional Appears: Non-toxic, No Acute Distress - Eye Exam Eye Exam: absent: Scleral icterus - ENT Exam ENT Exam: Mucous Membranes Moist - Respiratory Exam Respiratory Exam: Clear to Ausculation Bilateral. absent: Respiratory Distress - Cardiovascular Exam Cardiovascular Exam: Tachycardia, Irregular Rhythm, +S1, +S2 - GI/Abdominal Exam GI & Abdominal Exam: Soft, Organomegaly. absent: Tenderness - Exam Exam: absent: Bladder Distension - Extremities Exam Additional comments: markedly edematous; - Neurological Exam Neurological Exam: Alert, Awake - Psychiatric Exam Psychiatric exam: Normal Mood. absent: Agitated Additional comments: confused - Skin Skin Exam: Erythema, Rash, Warm. absent: Cyanosis Assessment and Plan (1) Shock Assessment & Plan: Etiology not entirely clear; presumed septic shock in the presence of cellulitis with denuded skin in multiple areas; however, concern for cardiogenic shock with known systolic dysfunction; CXR findings relatively stable since yesterday without overt hypoxia that would be expected with cardiogenic shock; -Can try milrinone if BP again drops (dobutamine had to be held due to tachycardia); awaiting repeat echo report; Status: Acute (2) Acute renal failure (ARF) Assessment & Plan: Oligo-anuric renal failure, no significant improvement despite 4L NS boluses since yesterday; creatinine remaining at relative plateau despite oliguria; likely has progressed to ATN in the setting of severe hypotension; mild hyperkalemia noted; respiratory status stable with patient on O2 via nasal cannula; no urgent indication for initiating HD currently, but will monitor closely; placing large bore HD catheter will also be challenge in this coagulopathic patient; -Continue to keep MAP > 60 with IVF and vasopressor support; Status: Acute (3) SIRS (systemic inflammatory response syndrome) Assessment & Plan: Started on daptomycin, aztreonam, flagyl and PO vanco by ID for empiric treatment of sepsis; dosed for CrCl < 10; Status: Acute (4) Rash Status: Acute (5) HTN (hypertension) Status: Acute (6) Hyperkalemia Status: Acute (7) Hyponatremia Status: Acute - Assessment and Plan (Free Text) Assessment: Critical care time spent evaluating patient, discussion with ICU team and repeated f/u > 35 minutes;
--- NOTE | 2017-08-07 22:26 | CON ---
DATE: LOCATION: Patient seen in the ICU 128, bed 2. CHIEF COMPLAINT: Hypothermia x1 day duration. HISTORY OF PRESENT ILLNESS: This is a 72-year-old female who has a past medical history of atrial fibrillation, congestive heart failure and patient is on Coumadin, has a low ejection fraction of 35%, history of hypertension, coronary artery disease, myocardial infarction, who has had an open heart surgery in the past and pacemaker, who was admitted with a diagnosis of hyponatremia and hyperkalemia, found to have acute renal failure. Patient was being treated with cefuroxime at home for lower extremity cellulitis and now has a diffuse rash around her body. Infectious Disease consultation requested. REVIEW OF SYSTEMS: Reveals patient has hypothermia. No chest pain. No shortness of breath. No abdominal pain. There is diarrhea. No dysuria or frequency. No headaches. The rash is pruritic in nature. PAST MEDICAL HISTORY: Significant for atrial fibrillation, congestive heart failure, hypertension. Patient was being treated at home with cefuroxime and coronary artery disease and myocardial infarction. PAST SURGICAL HISTORY: Significant for pacemaker and coronary bypass graft. ALLERGIES: PATIENT IS ALLERGIC TO HEPARIN. MEDICATIONS AT HOME: Include enalapril and cefuroxime and she was taking 500 mg p.o. b.i.d., Coumadin, Lasix and carvedilol. PHYSICAL EXAMINATION: GENERAL: She is in bed in the ICU. She is responsive. VITAL SIGNS: Her temperature is 95, it was down to 93.7 on admission, and blood pressure is 66/36. Patient is on pressors and respiratory rate of 21, heart rate of 110. NECK: Supple. LUNGS: Have decreased breath sounds. HEART: Normal S1, S2. ABDOMEN: Soft, nontender. SKIN: Reveals diffuse erythematous maculopapular rash more so on her arms and chest. The legs do not have any significant erythema. LABORATORY EXAMINATION: Reveals the patient's white count 10,600 is up to 14,800 today with a hemoglobin of 13, platelets of 150 with a 95% granulocytosis. There is no eosinophilia and the coagulation is noted. Patient's INR is 17.4, BUN of 71, creatinine of 3.2. The LFTs are normal. Alk phos is normal and the patient's albumin is low at 2.3. Urinalysis is 0 to 2 wbc's and chest x-rays reported to be negative. Renal ultrasound is reported to be no evidence of hydronephrosis or acute pathology on the kidneys, and patient also had a CT scan of the head. No acute findings. ASSESSMENT AND PLAN: This is a 72-year-old female with atrial fibrillation, on Coumadin; congestive heart failure with low ejection fraction of 35%; hypertension; coronary artery disease; myocardial infarction, was on cefuroxime 500 mg p.o. b.i.d. at home for lower extremity cellulitis, now presented with hypotension, hypothermia,leukocytosis, tachycardia, dyspnea, septic shock, must rule out bacteremia versus pseudomembranous colitis with acute kidney injury with creatinine in the past with last documented creatinine with 0.9, which was on 01/18/2017, which is now increased to a creatinine of 3.2 with acute kidney injury and the maculopapular rash may be secondary to cefuroxime. At this time, we will start the patient on daptomycin, Azactam, Flagyl and p.o. vancomycin. Pending blood cultures, urine cultures and stool for Clostridium difficile and we will order a CPK, procalcitonin and adjust for renal failure dosing and patient with a pelvic ultrasound has been ordered and an echo has been ordered. We will make further recommendation. Case discussed with the ICU staff. Americo Tolentino MD
--- NOTE | 2017-08-07 23:19 | PN ---
DATE: 08/07/2017 SUBJECTIVE: The patient has no complaints of any chest pain. No shortness of breath. She has no nausea. No headaches. PHYSICAL EXAMINATION: VITAL SIGNS: Temperature is 97, pulse of 107, blood pressure is 62/37. GENERAL: The patient is lying in bed, flat, comfortable. HEENT: No oral lesion. Anicteric sclerae. Moist mucosa. NECK: No JVD, adenopathy, or thyromegaly. CARDIOVASCULAR: S1 and S2, regular. No murmurs, rubs, or gallops. LUNGS: Clear to auscultation bilaterally. No wheeze, rales, or rhonchi. ABDOMEN: Bowel sounds are positive, soft, nontender and nondistended. EXTREMITIES: Erythematous rash on the lower extremity and also on the back, mildly on the right side of chest as well. Blood cultures x 2 is negative. LABORATORY DATA: White count of 14.8. C3 and C4 are normal. Urine shows urine sodium of 68. The patient's creatinine is 3.2. Sodium is 129, repeat is 134. Pelvic ultrasound done is a limited study. The bladder is not fully visualized. ASSESSMENT: 1. Drug rash. 2. Acute kidney injury. 3. Hyponatremia. 4. Hyperkalemia. 5. Coronary artery disease. PLAN: The patient has urine studies that show proteinuria. The patient has a creatinine that is significantly elevated. The patient is hypotensive. The patient is in shock, he is apparently on dobutamine as well as vasopressin. The patient was given Vitamin K to address the coagulopathy. The patient has minimal urine output. She is being followed by Nephrology. I did speak to Dr. Tolentino regarding the case. The patient is on antibiotics. Overall prognosis is guarded. The patient is a full code. Rory Zambrano MD
[2017-08-08] MEDS: Sodium Chloride 0.9% 1,000 ML IV SCH (02:00)
[2017-08-08 03:59] VITALS: BMI 36.2
[2017-08-08] MEDS: Norepinephrine 8 MG in Sodium Chloride 0.9% 242 ML IV PRN ×3 (04:11→19:45)
[2017-08-08] MEDS: Pantoprazole 40 mg EC Tab PO SCH (06:21)
[2017-08-08] MEDS: metroNIDAZOLE IV 500 mg/100 ml 500 MG/100 ML BAG IVPB SCH ×3 (06:50→23:39)
[2017-08-08 07:02] LABS: HEMOGLOBIN 12.8 g/dL (12.0-16.0); MEAN CELL VOLUME 83.9 fl (80.0-105.0); MEAN CORPUSCULAR HEMOGLOBIN 27.8 pg (25.0-35.0); MEAN CORPUSCULAR HGB CONC 33.1 g/dl (31.0-37.0); MEAN PLATELET VOLUME 10.7 fl (7.0-11.0); RBC 4.61 10^6/uL (3.5-6.1); RED CELL DISTRIBUTION WIDTH 17.7 % (11.5-14.5); WHITE BLOOD COUNT 16.6 10^3/ul (4.5-11.0)
[2017-08-08 07:22] LABS: INR 2.69 (0.93-1.08); PROTHROMBIN TIME 31.6 SECONDS (9.4-12.5)
[2017-08-08 07:42] LABS: ALB/GLOB RATIO 0.8 (1.1-1.8); ALBUMIN 2.5 g/dL (3.0-4.8); CALCIUM 8.6 mg/dL (8.4-10.5)
--- NOTE | 2017-08-08 10:00 | CARD ---
APPROVED REPORT EXAM: Two-dimensional and M-mode echocardiogram with Doppler and color Doppler. Other Information Quality : AverageRhythm : INDICATION A. Fib, edema, PPM, CABG 2D DIMENSIONS Left Atrium (2D)5.4 (1.6-4.0cm)IVSd1.1 (0.7-1.1cm) LVDd7.1 (3.9-5.9cm)PWd1.1 (0.7-1.1cm) LVDs6.8 (2.5-4.0cm)FS (%) 5.5 % LVEF (%)12.0 (>50%) M-Mode DIMENSIONS Left Atrium (MM)5.90 (2.5-4.0cm)Aortic Root2.70 (2.2-3.7cm) Aortic Cusp Exc.1.70 (1.5-2.0cm) Aortic Valve AoV Peak Ietdjnwk888.0cm/s Mitral Valve MV E Asxbqrja345.0cm/sMV E Peak Gr.64mmHgE/A ratio0.0 TDI Lateral E' Peak V14.80cm/sMedial E' Peak V5.55cm/sE/Lateral E'9.4 E/Medial E'25.0 Tricuspid Valve TR Peak [id number]/sRAP [id number] Peak Gr.57mmHg [id number] LEFT VENTRICLE The Left Ventricle is severely dilated. There is normal left ventricular wall thickness. Left ventricle systolic function is severely impaired. The Ejection Fraction is 10-15%. There is severe global hypokinesis. RIGHT VENTRICLE The right ventricle is normal size. ATRIA The left atrium is severely dilated. The right atrium is moderately dilated. The interatrial septum is intact with no evidence for an atrial septal defect. AORTIC VALVE The aortic valve is mildly calcified. MITRAL VALVE The mitral valve is normal in structure. Mitral regurgitation is severe. TRICUSPID VALVE The tricuspid valve is normal in structure. There is severe tricuspid regurgitation. There is severe pulmonary hypertension. PULMONIC VALVE The pulmonary valve is normal in structure. GREAT VESSELS The aortic root is normal in size. PERICARDIAL EFFUSION There is no pericardial effusion. <Conclusion> The Left Ventricle is severely dilated. There is normal left ventricular wall thickness. Left ventricle systolic function is severely impaired. The Ejection Fraction is 10-15%. There is severe global hypokinesis. Mitral regurgitation is severe. There is severe pulmonary hypertension. There is severe pulmonary hypertension.
[2017-08-08] MEDS ORDERED: Sod Polystyrene Sulf 15 gm/60 ml Susp PR ONE (10:26)
[2017-08-08] MEDS: Vancomycin 25 MG/ML PO SCH ×3 (10:49→19:21)
--- NOTE | 2017-08-08 11:13 | PN ---
DATE: 08/08/2017 SUBJECTIVE: The patient is seen early this morning in the ICU 128, bed 4. She is awake and doing well. PHYSICAL EXAMINATION: VITAL SIGNS: Temperature is up and initially the patient's temperature was 93, this morning it is up to 97 and blood pressure is 90/40, respiratory rate of 24, heart rate of 104. Examination of HEENT is unremarkable. NECK: Supple. LUNGS: Have decreased breath sounds. HEART: Normal S1, S2. ABDOMEN: Soft, nontender. SKIN: Reveals the rash is much improved, less angry. LABORATORY EXAMINATION: Reveals a white count of 16,600, hemoglobin of 12, platelets of 167. Coagulation is noted. INR initially was 17.45, down to 2.6. Chemistries reveal the patient's creatinine is 3.7. Urinalysis is noted. C3 is within normal limits, although slightly on the low side of 90s. C4 is 26, which is also within normal limits. Microbiology reveals the blood cultures are negative times 24 hours. Review of orders reveals the patient is on aztreonam, daptomycin. The patient is on dobutamine, metronidazole, p.o. vancomycin. Chest x-ray from yesterday is reviewed. Mild vascular congestion is noted. ASSESSMENT AND PLAN: A 72-year-old female with atrial fibrillation, on Coumadin; congestive heart failure with low ejection fraction of 35%; hypertension; coronary artery disease; myocardial infarction, who was on cefuroxime 500 mg p.o. b.i.d. at home for her lower extremity cellulitis, who was admitted with hypotension, hypothermia, leukocytosis, tachycardia, dyspnea, septic shock with diffuse maculopapular rash and diarrhea with acute kidney injury, currently on daptomycin, Flagyl and p.o. vancomycin, Azactam and we are checking on the final blood cultures and thus far negative and we will check on the stool Clostridium difficile and urine culture. We will make further recommendation. The patient appears to be improving, although still on pressors. Americo Tolentino MD
--- NOTE | 2017-08-08 12:43 | CP.PCM.PN ---
Subjective - Date & Time of Evaluation Date of Evaluation: 08/08/17 Time of Evaluation: 12:39 - Subjective Subjective: 72 yo F w/ pmh of htn, CHF w/ systolic dysfunction, aifb on coumadin, CAD s/p CABG, admitted with diffuse erythematous rash, shock, coagulopathy and acute renal failure; Patient coherent, still with minimal urine output; no more diarrhea reported; denies any shortness of breath or nausea; denies being in pain; Objective - Vital Signs/Intake and Output Vital Signs (last 24 hours): Temp Pulse Resp BP Pulse Ox 96.4 F L 104 H 24 71/59 L 98 08/08/17 07:47 08/08/17 07:47 08/08/17 07:47 08/08/17 07:47 08/08/17 07:47 Intake and Output: 08/08/17 08/08/17 06:59 18:59 Intake Total 1259 500 Output Total 30 Balance 1229 500 - Medications Medications: Current Medications Acetaminophen (Tylenol 325mg Tab) 650 mg PO Q4H PRN PRN Reason: Pain, Mild (1-3) Hydrocortisone Sodium Succinate (Solu-Cortef) 50 mg IVP Q6H [facility] Last Admin: 08/08/17 01:56 Dose: 50 mg Vasopressin 20 units/ Sodium (Chloride) 101 mls @ 9.09 mls/hr IV .Q11H7M SOL; 0.03 U/MIN PRN Reason: Protocol Last Admin: 08/08/17 04:10 Dose: 9.09 mls/hr Dobutamine HCl/Dextrose (Dobutamine/Dextrose 5% 500mg/250ml) 500 mg in 250 mls @ 6.804 mls/hr IV .Q24H PRN; Protocol; 2 MCG/KG/MIN PRN Reason: TITRATE PER PROTOCOL Last Admin: 08/07/17 11:11 Dose: 2 mcg/kg/min, 6.804 mls/hr Aztreonam 500 mg/ Sodium (Chloride) 100 mls @ 100 mls/hr IVPB Q8 SOL PRN Reason: Protocol Stop: 08/16/17 14:01 Last Admin: 08/08/17 06:17 Dose: 100 mls/hr Metronidazole (Flagyl) 500 mg in 100 mls @ 100 mls/hr IVPB Q8 SOL PRN Reason: Protocol Stop: 08/16/17 14:01 Last Admin: 08/08/17 06:50 Dose: 100 mls/hr Daptomycin 680 mg/ Sodium (Chloride) 100 mls @ 200 mls/hr IV Q48H [facility] Stop: 08/12/17 11:01 Last Admin: 08/07/17 11:00 Dose: 200 mls/hr Norepinephrine Bitartrate 8 mg (/ Sodium Chloride) 250 mls @ 46.87 mls/hr IV .Q5H21M PRN; Protocol; 25 MCG/MIN PRN Reason: TITRATE PER MD ORDER Last Titration: 08/08/17 10:34 Dose: Infused Sodium Bicarbonate 150 meq/ (Dextrose) 1,150 mls @ 60 mls/hr IV .[id number] [facility] Pantoprazole Sodium (Protonix Ec Tab) 40 mg PO 0600 [facility] Last Admin: 08/08/17 06:21 Dose: 40 mg Vancomycin HCl (Vancocin 25 Mg/Ml (Oral Use)) 250 mg PO QID SOL PRN Reason: Protocol Stop: 08/16/17 14:01 Last Admin: 08/08/17 10:49 Dose: 250 mg - Labs Labs: 08/08/17 06:36 08/08/17 06:36 PT 31.6 SECONDS (9.4-12.5) H 08/08/17 06:36 INR 2.69 (0.93-1.08) H 08/08/17 06:36 APTT 98.4 Seconds (25.1-36.5) H 08/06/17 13:35 - Constitutional Appears: Non-toxic, No Acute Distress - Eye Exam Eye Exam: Normal appearance - ENT Exam ENT Exam: Mucous Membranes Moist - Respiratory Exam Respiratory Exam: absent: Respiratory Distress Additional comments: minimal rales; - Cardiovascular Exam Cardiovascular Exam: Irregular Rhythm, +S1, +S2. absent: Gallop - GI/Abdominal Exam GI & Abdominal Exam: Soft. absent: Distended, Tenderness - Exam Additional comments: no bladder distention; - Extremities Exam Additional comments: markedly edematous; - Neurological Exam Neurological Exam: Alert, Awake, Oriented x3 - Psychiatric Exam Psychiatric exam: Normal Mood. absent: Agitated - Skin Skin Exam: Warm. absent: Cyanosis Assessment and Plan (1) Shock Assessment & Plan: Still hypotensive though with erratic BP readings; still on 2 vasopressors; recommend to continue maintenance IVF to match insensible skin losses; keep MAP > 60; Status: Acute (2) Acute renal failure (ARF) Assessment & Plan: Oligo-anuric renal failure with minimal improvement in urine output; urine microscopy reviewed again today, this time with adequate sample; has progressed to ATN due to hypotension with significant number of coarse granular casts; also with significant number of WBC's which is concerning for another process that caused the initial renal insult (AIN?); Otherwise, serum creatinine increasing slowly; mild hyperkalemia, can manage medically for now; stable respiratory status with CXR unchanged and patient only on O2 via NC; no urgent indication to initiate HD in a patient with coagulopathy in whom catheter placement will be a challenge; -keep NPO past midnight -continue to hold coumadin, will plan for IR to place HD catheter tomorrow -changing IVF to D5W w/ 150 meq sodium bicarb at 60 cc/hr to help control hyperkalemia and metabolic acidosis; agree with kayexalate; -checking bmp this afternoon -repeating UA and obtaining urine culture along with urine studies for proteinuria; Status: Acute (3) SIRS (systemic inflammatory response syndrome) Assessment & Plan: On broad spectrum antiobiotics, continue to dose for CrCl < 10 ml/min; Status: Acute (4) Rash Status: Acute (5) HTN (hypertension) Status: Chronic (6) Hyperkalemia Assessment & Plan: see above Status: Acute (7) Hyponatremia Status: Acute (8) Metabolic acidosis Assessment & Plan: see above Status: Acute
[2017-08-08] MEDS: Sodium Bicarbonate 8.4% 150 MEQ in Dextrose 5% In Water 1,000 ML IV SCH (13:05)
--- NOTE | 2017-08-08 13:35 | CP.CCUPN ---
<Augustin Carcamo - Last Filed: 08/08/17 13:31> CCU Subjective - Physician Review Subjective (Free Text): Patient seen and examined at bedside. Patient has no complaints this morning and resting in bed comfortably. She is answering questions appropriately, however she does not fully understand her medical condition. Denies chest pain, shortness of breath, nausea, vomiting, diarrhea, fever, chills. CCU Objective - Vital Signs / Intake & Output Vital Signs (Last 4 hours): Vital Signs BP 08/08/17 13:22 167/91 H Intake and Output (Last 8hrs): Intake & Output 08/07/17 08/08/17 08/08/17 22:59 06:59 14:59 Intake Total 2340 1009 500 Output Total 42 30 Balance 2298 979 500 Weight 216 lb 0.848 oz 236 lb Intake: IV 2220 609 500 IVF NSALINE MAINTENANCE 720 260 NSALINE BOLUS 1000 vasopressin 99 Oral 120 Other 400 Output: Urine 40 30 Urethral (King) 40 30 Stool 2 Other: # Bowel Movements 2 1 - Physical Exam Head: Positive for: Atraumatic, Normocephalic Pupils: Positive for: PERRL Extroacular Muscles: Positive for: EOMI Conjunctiva: Positive for: Normal Mouth: Positive for: Moist Mucous Membranes Neck: Positive for: Normal Range of Motion Respiratory/Chest: Positive for: Clear to Auscultation, Decreased Breath Sounds. Negative for: Respiratory Distress, Accessory Muscle Use Cardiovascular: Positive for: Regular Rate and Rhythm, Normal S1, S2. Negative for: Murmurs Abdomen: Positive for: Normal Bowel Sounds. Negative for: Tenderness, Distention, Peritoneal Signs Back: Positive for: Normal Inspection Upper Extremity: Positive for: Normal Inspection. Negative for: Cyanosis, Edema Lower Extremity: Positive for: Normal Inspection, Edema (+1 edema b/l) Neurological: Positive for: GCS=15, CN II-XII Intact, Speech Normal Skin: Positive for: Warm, Dry, Normal Color, Erythematous (Diffuse lacy, erythematous rash throughout arms, upper legs, and trunk. No change from previous day.). Negative for: Rashes Psychiatric: Positive for: Alert, Oriented x 3, Normal Insight, Normal Concentration - Medications Active Medications: Active Medications Generic Name Dose Route Start Last Admin Trade Name Freq PRN Reason Stop Dose Admin Acetaminophen 650 mg 08/07/17 17:35 Tylenol 325mg Tab PO Q4H PRN Pain, Mild (1-3) Hydrocortisone Sodium Succinate 50 mg 08/07/17 07:00 08/08/17 13:24 Solu-Cortef IVP 50 mg Q6H SOL Administration Vasopressin 20 units/ Sodium 101 mls @ 9.09 mls/hr 08/07/17 07:15 08/08/17 13 :22 Chloride IV 9.09 mls/hr .Q11H7M SOL Administration Protocol 0.03 U/MIN Dobutamine HCl/Dextrose 500 mg in 250 mls @ 6.804 mls/hr 08/07/17 10:30 08/07 11:11 Dobutamine/Dextrose 5% 500mg/250ml IV 2 mcg/kg/min .Q24H PRN 6.804 mls/hr TITRATE PER PROTOCOL Administration Protocol 2 MCG/KG/MIN Aztreonam 500 mg/ Sodium 100 mls @ 100 mls/hr 08/07/17 14:00 08/08/17 13:04 Chloride IVPB 08/16/17 14:01 100 mls/hr Q8 SOL Administration Protocol Metronidazole 500 mg in 100 mls @ 100 mls/hr 08/07/17 14:00 08/08/17 06:50 Flagyl IVPB 08/16/17 14:01 100 mls/hr Q8 SOL Administration Protocol Daptomycin 680 mg/ Sodium 100 mls @ 200 mls/hr 08/07/17 11:00 08/07/17 11:00 Chloride IV 08/12/17 11:01 200 mls/hr Q48H SOL Administration Norepinephrine Bitartrate 8 mg 250 mls @ 46.87 mls/hr 08/07/17 16:02 10:34 / Sodium Chloride IV Infused .Q5H21M PRN Titration TITRATE PER MD ORDER Protocol 25 MCG/MIN Sodium Bicarbonate 150 meq/ 1,150 mls @ 60 mls/hr 08/08/17 12:00 08/08/17 13: 05 Dextrose IV 60 mls/hr .[id number] SOL Administration Milrinone Lactate/Dextrose 100 mls @ 12.043 mls/hr 08/08/17 13:06 Primacor 20mg/100ml D5w IV .Q8H19M PRN TITRATE PER MD ORDER Protocol 0.375 MCG/KG/MIN Pantoprazole Sodium 40 mg 08/07/17 06:00 08/08/17 06:21 Protonix Ec Tab PO 40 mg 0600 [facility] Administration Vancomycin HCl 500 mg 08/08/17 13:15 Vancocin 25 Mg/Ml (Oral Use) PO 08/17/17 13:16 Q6H [facility] Protocol - Patient Studies Lab Studies: Microbiology Studies 08/07/17 10:00 C. difficile Antigen & Toxin A,B (M - Final Stool 08/06/17 20:39 Blood Culture - Preliminary Blood NO GROWTH AFTER 24 HOURS 08/06/17 20:39 Blood Culture - Preliminary Blood NO GROWTH AFTER 24 HOURS Lab Studies 08/08/17 08/08/17 08/08/17 Range/Units 06:36 06:36 06:36 WBC 16.6 H (4.5-11.0) 10^3/ul RBC 4.61 (3.5-6.1) 10^6/uL Hgb 12.8 (12.0-16.0) g/dL Hct 38.7 (36.0-48.0) % MCV 83.9 (80.0-105.0) fl MCH 27.8 (25.0-35.0) pg MCHC 33.1 (31.0-37.0) g/dl RDW 17.7 H (11.5-14.5) % Plt Count 167 (120.0-450.0) 10^3/uL MPV 10.7 (7.0-11.0) fl PT 31.6 H (9.4-12.5) SECONDS INR 2.69 H (0.93-1.08) Sodium 137 (132-148) mmol/L Potassium 5.6 H* (3.6-5.0) mmol/L Chloride 107 (98-107) mmol/L Carbon Dioxide 15 L (21-33) mmol/L Anion Gap 21 H (10-20) BUN 71 H (7-21) mg/dL Creatinine 3.7 H (0.7-1.2) mg/dl Est GFR ( Amer) 15 Est GFR (Non-Af Amer) 12 Random Glucose 121 H (70-110) mg/dL Calcium 8.6 (8.4-10.5) mg/dL Total Bilirubin 1.1 (0.2-1.3) mg/dL AST 75 H D (14-36) U/L ALT 67 H (7-56) U/L Alkaline Phosphatase 105 (38-126) U/L Lactate Dehydrogenase (333-699) U/L Total Creatine Kinase (35-230) U/L Troponin I ng/mL Total Protein 5.6 L (5.8-8.3) g/dL Albumin 2.5 L (3.0-4.8) g/dL Globulin 3.2 gm/dL Albumin/Globulin Ratio 0.8 L (1.1-1.8) Procalcitonin (0.19-0.49) NG/ML Urine Osmolality (300-1000) mosm/kg Ur Random Creatinine mg/dL U Random Total Protein mg/L Ur Random Sodium meq/L Ur Random Urea Nitrogn mg/dL Urine Microalbumin (0.0-16.6) mg/L Urine Chloride (32-290) mmol/L Complement C3 (88.0-165.0) mg/dL Complement C4 (14.0-44.0) mg/dL 08/07/17 08/07/17 08/07/17 Range/Units 18:00 13:32 13:32 WBC (4.5-11.0) 10^3/ul RBC (3.5-6.1) 10^6/uL Hgb (12.0-16.0) g/dL Hct (36.0-48.0) % MCV (80.0-105.0) fl MCH (25.0-35.0) pg MCHC (31.0-37.0) g/dl RDW (11.5-14.5) % Plt Count (120.0-450.0) 10^3/uL MPV (7.0-11.0) fl PT (9.4-12.5) SECONDS INR (0.93-1.08) Sodium 134 (132-148) mmol/L Potassium 5.4 H (3.6-5.0) mmol/L Chloride 103 (98-107) mmol/L Carbon Dioxide 17 L (21-33) mmol/L Anion Gap 20 (10-20) BUN 66 H (7-21) mg/dL Creatinine 3.3 H (0.7-1.2) mg/dl Est GFR ( Amer) 17 Est GFR (Non-Af Amer) 14 Random Glucose 100 (70-110) mg/dL Calcium 8.7 (8.4-10.5) mg/dL Total Bilirubin (0.2-1.3) mg/dL AST (14-36) U/L ALT (7-56) U/L Alkaline Phosphatase (38-126) U/L Lactate Dehydrogenase 452 (333-699) U/L Total Creatine Kinase 75 (35-230) U/L Troponin I 0.04 ng/mL Total Protein (5.8-8.3) g/dL Albumin (3.0-4.8) g/dL Globulin gm/dL Albumin/Globulin Ratio (1.1-1.8) Procalcitonin 0.56 H (0.19-0.49) NG/ML Urine Osmolality (300-1000) mosm/kg Ur Random Creatinine mg/dL U Random Total Protein mg/L Ur Random Sodium meq/L Ur Random Urea Nitrogn mg/dL Urine Microalbumin (0.0-16.6) mg/L Urine Chloride (32-290) mmol/L Complement C3 (88.0-165.0) mg/dL Complement C4 (14.0-44.0) mg/dL 08/07/17 08/07/17 08/07/17 Range/Units 13:32 12:00 12:00 WBC (4.5-11.0) 10^3/ul RBC (3.5-6.1) 10^6/uL Hgb (12.0-16.0) g/dL Hct (36.0-48.0) % MCV (80.0-105.0) fl MCH (25.0-35.0) pg MCHC (31.0-37.0) g/dl RDW (11.5-14.5) % Plt Count (120.0-450.0) 10^3/uL MPV (7.0-11.0) fl PT (9.4-12.5) SECONDS INR (0.93-1.08) Sodium (132-148) mmol/L Potassium (3.6-5.0) mmol/L Chloride (98-107) mmol/L Carbon Dioxide (21-33) mmol/L Anion Gap (10-20) BUN (7-21) mg/dL Creatinine (0.7-1.2) mg/dl Est GFR ( Amer) Est GFR (Non-Af Amer) Random Glucose (70-110) mg/dL Calcium (8.4-10.5) mg/dL Total Bilirubin (0.2-1.3) mg/dL AST (14-36) U/L ALT (7-56) U/L Alkaline Phosphatase (38-126) U/L Lactate Dehydrogenase (333-699) U/L Total Creatine Kinase (35-230) U/L Troponin I ng/mL Total Protein (5.8-8.3) g/dL Albumin (3.0-4.8) g/dL Globulin gm/dL Albumin/Globulin Ratio (1.1-1.8) Procalcitonin (0.19-0.49) NG/ML Urine Osmolality (300-1000) mosm/kg Ur Random Creatinine 84 mg/dL U Random Total Protein 527 mg/L Ur Random Sodium 68 meq/L Ur Random Urea Nitrogn 100 mg/dL Urine Microalbumin 2489.7 H (0.0-16.6) mg/L Urine Chloride 63 (32-290) mmol/L Complement C3 (88.0-165.0) mg/dL Complement C4 (14.0-44.0) mg/dL 18 08/07/17 Range/Units 12:00 09:00 WBC (4.5-11.0) 10^3/ul RBC (3.5-6.1) 10^6/uL Hgb (12.0-16.0) g/dL Hct (36.0-48.0) % MCV (80.0-105.0) fl MCH (25.0-35.0) pg MCHC (31.0-37.0) g/dl RDW (11.5-14.5) % Plt Count (120.0-450.0) 10^3/uL MPV (7.0-11.0) fl PT (9.4-12.5) SECONDS INR (0.93-1.08) Sodium (132-148) mmol/L Potassium (3.6-5.0) mmol/L Chloride (98-107) mmol/L Carbon Dioxide (21-33) mmol/L Anion Gap (10-20) BUN (7-21) mg/dL Creatinine (0.7-1.2) mg/dl Est GFR ( Amer) Est GFR (Non-Af Amer) Random Glucose (70-110) mg/dL Calcium (8.4-10.5) mg/dL Total Bilirubin (0.2-1.3) mg/dL AST (14-36) U/L ALT (7-56) U/L Alkaline Phosphatase (38-126) U/L Lactate Dehydrogenase (333-699) U/L Total Creatine Kinase (35-230) U/L Troponin I ng/mL Total Protein (5.8-8.3) g/dL Albumin (3.0-4.8) g/dL Globulin gm/dL Albumin/Globulin Ratio (1.1-1.8) Procalcitonin (0.19-0.49) NG/ML Urine Osmolality 311 (300-1000) mosm/kg Ur Random Creatinine mg/dL U Random Total Protein mg/L Ur Random Sodium meq/L Ur Random Urea Nitrogn mg/dL Urine Microalbumin (0.0-16.6) mg/L Urine Chloride (32-290) mmol/L Complement C3 90.0 (88.0-165.0) mg/dL Complement C4 26.8 (14.0-44.0) mg/dL Laboratory Results - last 24 hr 08/07/17 08/07/17 08/07/17 09:00 12:00 12:00 WBC RBC Hgb Hct MCV MCH MCHC RDW Plt Count MPV PT INR Sodium Potassium Chloride Carbon Dioxide Anion Gap BUN Creatinine Est GFR ( Amer) Est GFR (Non-Af Amer) Random Glucose Calcium Total Bilirubin AST ALT Alkaline Phosphatase Lactate Dehydrogenase Total Creatine Kinase Troponin I Total Protein Albumin Globulin Albumin/Globulin Ratio Procalcitonin Urine Osmolality 311 Ur Random Creatinine 84 U Random Total Protein 527 Ur Random Sodium 68 Ur Random Urea Nitrogn 100 Urine Microalbumin Urine Chloride Complement C3 90.0 Complement C4 26.8 08/07/17 08/07/17 08/07/17 12:00 13:32 13:32 WBC RBC Hgb Hct MCV MCH MCHC RDW Plt Count MPV PT INR Sodium Potassium Chloride Carbon Dioxide Anion Gap BUN Creatinine Est GFR ( Amer) Est GFR (Non-Af Amer) Random Glucose Calcium Total Bilirubin AST ALT Alkaline Phosphatase Lactate Dehydrogenase Total Creatine Kinase Troponin I Total Protein Albumin Globulin Albumin/Globulin Ratio Procalcitonin 0.56 H Urine Osmolality Ur Random Creatinine U Random Total Protein Ur Random Sodium Ur Random Urea Nitrogn Urine Microalbumin 2489.7 H Urine Chloride 63 Complement C3 Complement C4 08/07/17 08/07/17 08/08/17 13:32 18:00 06:36 WBC 16.6 H RBC 4.61 Hgb 12.8 Hct 38.7 MCV 83.9 MCH 27.8 MCHC 33.1 RDW 17.7 H Plt Count 167 MPV 10.7 PT INR Sodium 134 Potassium 5.4 H Chloride 103 Carbon Dioxide 17 L Anion Gap 20 BUN 66 H Creatinine 3.3 H Est GFR ( Amer) 17 Est GFR (Non-Af Amer) 14 Random Glucose 100 Calcium 8.7 Total Bilirubin AST ALT Alkaline Phosphatase Lactate Dehydrogenase 452 Total Creatine Kinase 75 Troponin I 0.04 Total Protein Albumin Globulin Albumin/Globulin Ratio Procalcitonin Urine Osmolality Ur Random Creatinine U Random Total Protein Ur Random Sodium Ur Random Urea Nitrogn Urine Microalbumin Urine Chloride Complement C3 Complement C4 08/08/17 08/08/17 06:36 06:36 WBC RBC Hgb Hct MCV MCH MCHC RDW Plt Count MPV PT 31.6 H INR 2.69 H Sodium 137 Potassium 5.6 H* Chloride 107 Carbon Dioxide 15 L Anion Gap 21 H BUN 71 H Creatinine 3.7 H Est GFR ( Amer) 15 Est GFR (Non-Af Amer) 12 Random Glucose 121 H Calcium 8.6 Total Bilirubin 1.1 AST 75 H D ALT 67 H Alkaline Phosphatase 105 Lactate Dehydrogenase Total Creatine Kinase Troponin I Total Protein 5.6 L Albumin 2.5 L Globulin 3.2 Albumin/Globulin Ratio 0.8 L Procalcitonin Urine Osmolality Ur Random Creatinine U Random Total Protein Ur Random Sodium Ur Random Urea Nitrogn Urine Microalbumin Urine Chloride Complement C3 Complement C4 Assessment/Plan - Assessment and Plan (Free Text) Plan: 72 year old female with past medical history of HTN, CHF, CABG, and A-fib on coumadin presents with septic shock likely secondary to cellulitis. Patient also found to have active C. diff colitis. Will obtain CT abdomen/pelvis. We will continue antibiotics as per ID. We will also stop dobutamine and add Milrinone. Patient with worsening renal failure, likely progressing to ATN. Pelvis CT from yesterday was not able to visualize king in bladder due to insufficient study. Patient will continue to be monitored in the ICU. Neuro: AAOx3 No focal deficits Head CT negative Cardio: Levophed, Milrinone, and Vasopressin Solucortef 50 q6h Maintain MAP >65 Cardiology consulted Pulm: Maintain O2 sat >90% No SOB GI: Ultrasound unremarkable CT abdomen/pelvis ordered Protonix Nephro: SHERRILL, not improving Oliguric King in place NS changed to Bicarb @ 60 Kayexalate given for hyperkalemia Replenish electrolytes as needed Heme/ID: Hypothermic, leukocytosis Aztreoname, Flagyl, Daptomycin, PO Vancomycin Follow cultures ID consulted Warfarin not started yesterday, will continue to hold INR 2.69 Carlos Alberto, PGY-2 <Leon Lima - Last Filed: 08/08/17 13:58> CCU Objective - Vital Signs / Intake & Output Vital Signs (Last 4 hours): Vital Signs BP 08/08/17 13:22 167/91 H Intake and Output (Last 8hrs): Intake & Output 08/07/17 08/08/17 08/08/17 22:59 06:59 14:59 Intake Total 2340 1009 500 Output Total 42 30 Balance 2298 979 500 Weight 216 lb 0.848 oz 236 lb Intake: IV 2220 609 500 IVF NSALINE MAINTENANCE 720 260 NSALINE BOLUS 1000 vasopressin 99 Oral 120 Other 400 Output: Urine 40 30 Urethral (King) 40 30 Stool 2 Other: # Bowel Movements 2 1 - Medications Active Medications: Active Medications Generic Name Dose Route Start Last Admin Trade Name Freq PRN Reason Stop Dose Admin Acetaminophen 650 mg 08/07/17 17:35 Tylenol 325mg Tab PO Q4H PRN Pain, Mild (1-3) Hydrocortisone Sodium Succinate 50 mg 08/07/17 07:00 08/08/17 13:24 Solu-Cortef IVP 50 mg Q6H SOL Administration Vasopressin 20 units/ Sodium 101 mls @ 9.09 mls/hr 08/07/17 07:15 08/08/17 13 :22 Chloride IV 9.09 mls/hr .Q11H7M SOL Administration Protocol 0.03 U/MIN Dobutamine HCl/Dextrose 500 mg in 250 mls @ 6.804 mls/hr 08/07/17 10:30 08/07 11:11 Dobutamine/Dextrose 5% 500mg/250ml IV 2 mcg/kg/min .Q24H PRN 6.804 mls/hr TITRATE PER PROTOCOL Administration Protocol 2 MCG/KG/MIN Aztreonam 500 mg/ Sodium 100 mls @ 100 mls/hr 08/07/17 14:00 08/08/17 13:04 Chloride IVPB 08/16/17 14:01 100 mls/hr Q8 SOL Administration Protocol Metronidazole 500 mg in 100 mls @ 100 mls/hr 08/07/17 14:00 08/08/17 06:50 Flagyl IVPB 08/16/17 14:01 100 mls/hr Q8 SOL Administration Protocol Daptomycin 680 mg/ Sodium 100 mls @ 200 mls/hr 08/07/17 11:00 08/07/17 11:00 Chloride IV 08/12/17 11:01 200 mls/hr Q48H [facility] Administration Norepinephrine Bitartrate 8 mg 250 mls @ 46.87 mls/hr 08/07/17 16:02 10:34 / Sodium Chloride IV Infused .Q5H21M PRN Titration TITRATE PER MD ORDER Protocol 25 MCG/MIN Sodium Bicarbonate 150 meq/ 1,150 mls @ 60 mls/hr 08/08/17 12:00 08/08/17 13: 05 Dextrose IV 60 mls/hr .[id number] [facility] Administration Milrinone Lactate/Dextrose 100 mls @ 12.043 mls/hr 08/08/17 13:06 Primacor 20mg/100ml D5w IV .Q8H19M PRN TITRATE PER MD ORDER Protocol 0.375 MCG/KG/MIN Pantoprazole Sodium 40 mg 08/07/17 06:00 08/08/17 06:21 Protonix Ec Tab PO 40 mg 0600 [facility] Administration Vancomycin HCl 500 mg 08/08/17 13:15 Vancocin 25 Mg/Ml (Oral Use) PO 08/17/17 13:16 Q6H [facility] Protocol - Patient Studies Lab Studies: Microbiology Studies 08/07/17 10:00 C. difficile Antigen & Toxin A,B (M - Final Stool 08/06/17 20:39 Blood Culture - Preliminary Blood NO GROWTH AFTER 24 HOURS 08/06/17 20:39 Blood Culture - Preliminary Blood NO GROWTH AFTER 24 HOURS Lab Studies 08/08/17 08/08/17 08/08/17 Range/Units 06:36 06:36 06:36 WBC 16.6 H (4.5-11.0) 10^3/ul RBC 4.61 (3.5-6.1) 10^6/uL Hgb 12.8 (12.0-16.0) g/dL Hct 38.7 (36.0-48.0) % MCV 83.9 (80.0-105.0) fl MCH 27.8 (25.0-35.0) pg MCHC 33.1 (31.0-37.0) g/dl RDW 17.7 H (11.5-14.5) % Plt Count 167 (120.0-450.0) 10^3/uL MPV 10.7 (7.0-11.0) fl PT 31.6 H (9.4-12.5) SECONDS INR 2.69 H (0.93-1.08) Sodium 137 (132-148) mmol/L Potassium 5.6 H* (3.6-5.0) mmol/L Chloride 107 (98-107) mmol/L Carbon Dioxide 15 L (21-33) mmol/L Anion Gap 21 H (10-20) BUN 71 H (7-21) mg/dL Creatinine 3.7 H (0.7-1.2) mg/dl Est GFR ( Amer) 15 Est GFR (Non-Af Amer) 12 Random Glucose 121 H (70-110) mg/dL Calcium 8.6 (8.4-10.5) mg/dL Total Bilirubin 1.1 (0.2-1.3) mg/dL AST 75 H D (14-36) U/L ALT 67 H (7-56) U/L Alkaline Phosphatase 105 (38-126) U/L Troponin I ng/mL Total Protein 5.6 L (5.8-8.3) g/dL Albumin 2.5 L (3.0-4.8) g/dL Globulin 3.2 gm/dL Albumin/Globulin Ratio 0.8 L (1.1-1.8) Procalcitonin (0.19-0.49) NG/ML Urine Osmolality (300-1000) mosm/kg Ur Random Creatinine mg/dL U Random Total Protein mg/L Ur Random Sodium meq/L Ur Random Urea Nitrogn mg/dL Urine Microalbumin (0.0-16.6) mg/L Urine Chloride (32-290) mmol/L Complement C3 (88.0-165.0) mg/dL Complement C4 (14.0-44.0) mg/dL 08/07/17 08/07/17 08/07/17 Range/Units 18:00 13:32 13:32 WBC (4.5-11.0) 10^3/ul RBC (3.5-6.1) 10^6/uL Hgb (12.0-16.0) g/dL Hct (36.0-48.0) % MCV (80.0-105.0) fl MCH (25.0-35.0) pg MCHC (31.0-37.0) g/dl RDW (11.5-14.5) % Plt Count (120.0-450.0) 10^3/uL MPV (7.0-11.0) fl PT (9.4-12.5) SECONDS INR (0.93-1.08) Sodium 134 (132-148) mmol/L Potassium 5.4 H (3.6-5.0) mmol/L Chloride 103 (98-107) mmol/L Carbon Dioxide 17 L (21-33) mmol/L Anion Gap 20 (10-20) BUN 66 H (7-21) mg/dL Creatinine 3.3 H (0.7-1.2) mg/dl Est GFR ( Amer) 17 Est GFR (Non-Af Amer) 14 Random Glucose 100 (70-110) mg/dL Calcium 8.7 (8.4-10.5) mg/dL Total Bilirubin (0.2-1.3) mg/dL AST (14-36) U/L ALT (7-56) U/L Alkaline Phosphatase (38-126) U/L Troponin I 0.04 ng/mL Total Protein (5.8-8.3) g/dL Albumin (3.0-4.8) g/dL Globulin gm/dL Albumin/Globulin Ratio (1.1-1.8) Procalcitonin 0.56 H (0.19-0.49) NG/ML Urine Osmolality (300-1000) mosm/kg Ur Random Creatinine mg/dL U Random Total Protein mg/L Ur Random Sodium meq/L Ur Random Urea Nitrogn mg/dL Urine Microalbumin (0.0-16.6) mg/L Urine Chloride (32-290) mmol/L Complement C3 (88.0-165.0) mg/dL Complement C4 (14.0-44.0) mg/dL 08/07/17 08/07/17 08/07/17 Range/Units 13:32 12:00 12:00 WBC (4.5-11.0) 10^3/ul RBC (3.5-6.1) 10^6/uL Hgb (12.0-16.0) g/dL Hct (36.0-48.0) % MCV (80.0-105.0) fl MCH (25.0-35.0) pg MCHC (31.0-37.0) g/dl RDW (11.5-14.5) % Plt Count (120.0-450.0) 10^3/uL MPV (7.0-11.0) fl PT (9.4-12.5) SECONDS INR (0.93-1.08) Sodium (132-148) mmol/L Potassium (3.6-5.0) mmol/L Chloride (98-107) mmol/L Carbon Dioxide (21-33) mmol/L Anion Gap (10-20) BUN (7-21) mg/dL Creatinine (0.7-1.2) mg/dl Est GFR ( Amer) Est GFR (Non-Af Amer) Random Glucose (70-110) mg/dL Calcium (8.4-10.5) mg/dL Total Bilirubin (0.2-1.3) mg/dL AST (14-36) U/L ALT (7-56) U/L Alkaline Phosphatase (38-126) U/L Troponin I ng/mL Total Protein (5.8-8.3) g/dL Albumin (3.0-4.8) g/dL Globulin gm/dL Albumin/Globulin Ratio (1.1-1.8) Procalcitonin (0.19-0.49) NG/ML Urine Osmolality (300-1000) mosm/kg Ur Random Creatinine 84 mg/dL U Random Total Protein 527 mg/L Ur Random Sodium 68 meq/L Ur Random Urea Nitrogn 100 mg/dL Urine Microalbumin 2489.7 H (0.0-16.6) mg/L Urine Chloride 63 (32-290) mmol/L Complement C3 (88.0-165.0) mg/dL Complement C4 (14.0-44.0) mg/dL 08/07/17 08/07/17 Range/Units 12:00 09:00 WBC (4.5-11.0) 10^3/ul RBC (3.5-6.1) 10^6/uL Hgb (12.0-16.0) g/dL Hct (36.0-48.0) % MCV (80.0-105.0) fl MCH (25.0-35.0) pg MCHC (31.0-37.0) g/dl RDW (11.5-14.5) % Plt Count (120.0-450.0) 10^3/uL MPV (7.0-11.0) fl PT (9.4-12.5) SECONDS INR (0.93-1.08) Sodium (132-148) mmol/L Potassium (3.6-5.0) mmol/L Chloride (98-107) mmol/L Carbon Dioxide (21-33) mmol/L Anion Gap (10-20) BUN (7-21) mg/dL Creatinine (0.7-1.2) mg/dl Est GFR ( Amer) Est GFR (Non-Af Amer) Random Glucose (70-110) mg/dL Calcium (8.4-10.5) mg/dL Total Bilirubin (0.2-1.3) mg/dL AST (14-36) U/L ALT (7-56) U/L Alkaline Phosphatase (38-126) U/L Troponin I ng/mL Total Protein (5.8-8.3) g/dL Albumin (3.0-4.8) g/dL Globulin gm/dL Albumin/Globulin Ratio (1.1-1.8) Procalcitonin (0.19-0.49) NG/ML Urine Osmolality 311 (300-1000) mosm/kg Ur Random Creatinine mg/dL U Random Total Protein mg/L Ur Random Sodium meq/L Ur Random Urea Nitrogn mg/dL Urine Microalbumin (0.0-16.6) mg/L Urine Chloride (32-290) mmol/L Complement C3 90.0 (88.0-165.0) mg/dL Complement C4 26.8 (14.0-44.0) mg/dL Laboratory Results - last 24 hr 08/07/17 08/07/17 08/07/17 09:00 12:00 12:00 WBC RBC Hgb Hct MCV MCH MCHC RDW Plt Count MPV PT INR Sodium Potassium Chloride Carbon Dioxide Anion Gap BUN Creatinine Est GFR ( Amer) Est GFR (Non-Af Amer) Random Glucose Calcium Total Bilirubin AST ALT Alkaline Phosphatase Troponin I Total Protein Albumin Globulin Albumin/Globulin Ratio Procalcitonin Urine Osmolality 311 Ur Random Creatinine 84 U Random Total Protein 527 Ur Random Sodium 68 Ur Random Urea Nitrogn 100 Urine Microalbumin Urine Chloride Complement C3 90.0 Complement C4 26.8 08/07/17 08/07/17 08/07/17 12:00 13:32 13:32 WBC RBC Hgb Hct MCV MCH MCHC RDW Plt Count MPV PT INR Sodium Potassium Chloride Carbon Dioxide Anion Gap BUN Creatinine Est GFR ( Amer) Est GFR (Non-Af Amer) Random Glucose Calcium Total Bilirubin AST ALT Alkaline Phosphatase Troponin I Total Protein Albumin Globulin Albumin/Globulin Ratio Procalcitonin 0.56 H Urine Osmolality Ur Random Creatinine U Random Total Protein Ur Random Sodium Ur Random Urea Nitrogn Urine Microalbumin 2489.7 H Urine Chloride 63 Complement C3 Complement C4 08/07/17 08/07/17 08/08/17 13:32 18:00 06:36 WBC 16.6 H RBC 4.61 Hgb 12.8 Hct 38.7 MCV 83.9 MCH 27.8 MCHC 33.1 RDW 17.7 H Plt Count 167 MPV 10.7 PT INR Sodium 134 Potassium 5.4 H Chloride 103 Carbon Dioxide 17 L Anion Gap 20 BUN 66 H Creatinine 3.3 H Est GFR ( Amer) 17 Est GFR (Non-Af Amer) 14 Random Glucose 100 Calcium 8.7 Total Bilirubin AST ALT Alkaline Phosphatase Troponin I 0.04 Total Protein Albumin Globulin Albumin/Globulin Ratio Procalcitonin Urine Osmolality Ur Random Creatinine U Random Total Protein Ur Random Sodium Ur Random Urea Nitrogn Urine Microalbumin Urine Chloride Complement C3 Complement C4 08/08/17 08/08/17 06:36 06:36 WBC RBC Hgb Hct MCV MCH MCHC RDW Plt Count MPV PT 31.6 H INR 2.69 H Sodium 137 Potassium 5.6 H* Chloride 107 Carbon Dioxide 15 L Anion Gap 21 H BUN 71 H Creatinine 3.7 H Est GFR ( Amer) 15 Est GFR (Non-Af Amer) 12 Random Glucose 121 H Calcium 8.6 Total Bilirubin 1.1 AST 75 H D ALT 67 H Alkaline Phosphatase 105 Troponin I Total Protein 5.6 L Albumin 2.5 L Globulin 3.2 Albumin/Globulin Ratio 0.8 L Procalcitonin Urine Osmolality Ur Random Creatinine U Random Total Protein Ur Random Sodium Ur Random Urea Nitrogn Urine Microalbumin Urine Chloride Complement C3 Complement C4 Assessment/Plan - Assessment and Plan (Free Text) Plan: Patient seen and examined on rounds with resident, agree with note with following additions/exceptions: 72yo female nancy PMHx of CAD s/p CABG, HTN, Systolic CHF EF 10%, a/w diffuse skin rash, cellulitis, hyperkalemia, coagulopathy, septic shock, renal failure. Patient received total 4L NS bolus, started on vasopressor support. Currently on Levophed 10mcg/min, Vasopressin, stress dose steroids given. Bedside U/S, EF <10%, IVC 2.2-3.0CM. Patient started on DMilrinone drip Blood cultures thus far negative. Cdiff antigen/toxin positive Will obtain CT A/P without IV contrast Benign abd exam Renal and ID following. Derm consult pending. Pt oliguric, minimal urine output. Hyperkalemia Dehydration Acute renal failure Cellulitis Skin rash Coagulopathy Recommend: - supp o2 as needed - cont with Vasopressor support, Milrinone, goal MAP 65, stress dose steroids Solucortef - broad spectrum antibiotics, as per ID, Aztreonam, Vanco IV, Vanco PO 500mg Q6hr, Flagyl IV - CT A/P without IV contrast - Dermatology consult - would DC IVF - Renal Sono - ECHO - GI ppx - DVT ppx, SCDs - Hold Coumadin - monitor in MICU patient at high risk for morbidity and mortality critical care time 35 minutes
--- NOTE | 2017-08-08 17:37 | PN ---
DATE: 08/08/2017 SUBJECTIVE: The patient has no complaints of any chest pain. No shortness of breath. PHYSICAL EXAMINATION: VITAL SIGNS: Temperature is 96.4, pulse of 104, blood pressure is 71/59, respirations 24. GENERAL: The patient is lying in bed, flat, comfortable. HEENT: No oral lesion. Anicteric sclerae. Moist mucosa. NECK: No JVD, adenopathy, or thyromegaly. CARDIOVASCULAR: S1 and S2, regular. No murmurs, rubs, or gallops. LUNGS: Clear to auscultation bilaterally. No wheeze, rales, or rhonchi. ABDOMEN: Bowel sounds are positive, soft, nontender and nondistended. EXTREMITIES: No cyanosis, clubbing, or edema. SKIN: The patient's rash has improved. LABORATORY DATA: White count of 16.6, hemoglobin 12.8. Creatinine is 3.7, potassium is 5.6, bicarbonate of 15. ASSESSMENT: 1. Drug rash. 2. Septic shock, on pressors. 3. Hyponatremia. 4. Hyperkalemia. 5. Acute kidney injury. 6. Coronary artery disease. 7. Metabolic acidosis. PLAN: The patient has an INR that remains elevated. The INR has improved. She is on multiple pressors. She is on daptomycin for antibiotics. The patient is on Tylenol, is on Solu-Cortef. Overall, prognosis is guarded. The patient is on steroids. Rory Zambrano MD
[2017-08-08] MEDS: Milrinone 20mg/100ml D5W 100 ML IV PRN (17:47)
[2017-08-08 20:00] LABS: CALCIUM 8.1 mg/dL (8.4-10.5)
--- NOTE | 2017-08-08 21:58 | RAD ---
HISTORY: SOB COMPARISON: Comparison is made with 08/07/2017 FINDINGS: LUNGS: Interval improvement in the lungs since the previous exam. PLEURA: No significant pleural effusion identified, no pneumothorax apparent. CARDIOVASCULAR: Cardiomegaly is again noted. Left-sided pacemaker is again seen in place. OSSEOUS STRUCTURES: No significant abnormalities. VISUALIZED UPPER ABDOMEN: Normal. OTHER FINDINGS: Left jugular central line is seen in place. IMPRESSION: Interval improvement in the pulmonary congestion since the previous exam. Moderate cardiomegaly.
[2017-08-09] MEDS: Vancomycin 25 MG/ML PO SCH ×4 (01:11→19:38)
[2017-08-09] MEDS: Norepinephrine 8 MG in Sodium Chloride 0.9% 242 ML IV PRN ×3 (02:00→22:58)
[2017-08-09] MEDS: Milrinone 20mg/100ml D5W 100 ML IV PRN (04:56)
[2017-08-09 06:54] LABS: PH,URINE 5.5 (4.7-8.0); URINE BILIRUBIN SMALL (NEGATIVE); URINE BLOOD SMALL (NEGATIVE); URINE GLUCOSE (UA) NEGATIVE (NEGATIVE); URINE LEUKOCYTE ESTERASE TRACE Leu/uL (NEGATIVE); URINE PROTEIN >=300 mg/dL (<30 mg/dL); URINE UROBILINOGEN 0.2 E.U./dL (<1 E.U./dL)
[2017-08-09 06:56] LABS: URINE APPEARANCE CLOUDY (CLEAR); URINE COLOR YELLOW (YELLOW)
[2017-08-09 06:59] LABS: HEMOGLOBIN 11.4 g/dL (12.0-16.0); MEAN CELL VOLUME 83.2 fl (80.0-105.0); MEAN CORPUSCULAR HEMOGLOBIN 27.7 pg (25.0-35.0); MEAN CORPUSCULAR HGB CONC 33.3 g/dl (31.0-37.0); MEAN PLATELET VOLUME 10.7 fl (7.0-11.0); RBC 4.11 10^6/uL (3.5-6.1); RED CELL DISTRIBUTION WIDTH 17.9 % (11.5-14.5); WHITE BLOOD COUNT 13.6 10^3/ul (4.5-11.0)
[2017-08-09 07:03] LABS: URINE BACTERIA MOD (NEG)
[2017-08-09] MEDS: metroNIDAZOLE IV 500 mg/100 ml 500 MG/100 ML BAG IVPB SCH ×3 (07:05→21:41)
[2017-08-09] MEDS: Pantoprazole 40 mg EC Tab PO SCH (07:09)
[2017-08-09 07:20] LABS: PROTHROMBIN TIME 62.1 SECONDS (9.4-12.5)
[2017-08-09 07:25] LABS: ALB/GLOB RATIO 0.8 (1.1-1.8); ALBUMIN 2.3 g/dL (3.0-4.8); CALCIUM 7.9 mg/dL (8.4-10.5)
[2017-08-09 07:43] LABS: INR 5.22 (0.93-1.08)
[2017-08-09] MEDS ORDERED: Phytonadione 10 MG in Sodium Chloride 0.9% 50 ML IV ONE (08:18)
[2017-08-09 08:38] LABS: PROTHROMBIN TIME 71.1 SECONDS (9.4-12.5)
[2017-08-09 08:39] LABS: INR 5.96 (0.93-1.08)
[2017-08-09] MEDS: Sodium Bicarbonate 8.4% 150 MEQ in Dextrose 5% In Water 1,000 ML IV SCH ×2 (09:00→22:42)
--- NOTE | 2017-08-09 10:58 | CP.PCM.CON ---
History of Present Illness - History of Present Illness History of Present Illness: Palliative consult requested by Dr Mahi Zambrano copied to Dr Chinedu Manley Reason: Goals of care 72 year old female with history of A Fib,CHF,HTN who presented with a diffuse macropapular rash,lethargy and swelling of lower extremities. She was seen by PMD prior to admission and taking antibiotic for cellulitis of lower extremity. On arrival to ED she was found to have leukocytosis, hyponatremia, hypokalemia and SHERRILL. Patient seen today in ICU with septic shock, worsening SHERRILL, hypothermia , requiring 2 pressors. PMHx: Atrial Fibrillation, CAD, s/p AICD & CABG, HI, HTN, CHF EF 35%, cellulitis. Social History: Former smoker, no alcohol or drug use.Lives with daughter Toya Ybarra. Family History:Non contributory. Advance Care Planning:The patient does not have an Advanced Directive Review of Systems: As per HPI, the patient is altered, non communicative. Past Patient History - Past Social History Smoking Status: Former Smoker - CARDIAC Hx Cardiac Disorders: Yes Hx Pacemaker: Yes Other/Comment: bypass x 5 - PULMONARY Hx Respiratory Disorders: No - NEUROLOGICAL Hx Neurological Disorder: No - HEENT Hx HEENT Problems: No - RENAL Hx Chronic Kidney Disease: No - ENDOCRINE/METABOLIC Hx Endocrine Disorders: No - HEMATOLOGICAL/ONCOLOGICAL Hx Blood Disorders: No - INTEGUMENTARY Hx Dermatological Problems: Yes Other/Comment: cellulities to legs - MUSCULOSKELETAL/RHEUMATOLOGICAL Hx Musculoskeletal Disorders: No - GASTROINTESTINAL Hx Gastrointestinal Disorders: No - GENITOURINARY/GYNECOLOGICAL Hx Genitourinary Disorders: No - PSYCHIATRIC Hx Psychophysiologic Disorder: No Hx Substance Use: No - SURGICAL HISTORY Hx Open Heart Surgery: Yes Other/Comment: left chest pacemaker/ defib - ANESTHESIA Hx Anesthesia: Yes Meds Allergies/Adverse Reactions: Allergies Allergy/AdvReac Type Severity Reaction Status Date / Time heparin Allergy ANAPHYLAXIS Verified 08/06/17 11:20 - Medications Medications: Current Medications Acetaminophen (Tylenol 325mg Tab) 650 mg PO Q4H PRN PRN Reason: Pain, Mild (1-3) Hydrocortisone Sodium Succinate (Solu-Cortef) 50 mg IVP Q6H [facility] Last Admin: 08/09/17 07:04 Dose: 50 mg Vasopressin 20 units/ Sodium (Chloride) 101 mls @ 9.09 mls/hr IV .Q11H7M [facility]; 0.03 U/MIN PRN Reason: Protocol Last Admin: 08/09/17 08:56 Dose: 9.09 mls/hr Aztreonam 500 mg/ Sodium (Chloride) 100 mls @ 100 mls/hr IVPB Q8 SOL PRN Reason: Protocol Stop: 08/16/17 14:01 Last Admin: 08/09/17 05:15 Dose: 100 mls/hr Metronidazole (Flagyl) 500 mg in 100 mls @ 100 mls/hr IVPB Q8 SOL PRN Reason: Protocol Stop: 08/16/17 14:01 Last Admin: 08/09/17 07:05 Dose: 100 mls/hr Daptomycin 680 mg/ Sodium (Chloride) 100 mls @ 200 mls/hr IV Q48H [facility] Stop: 08/12/17 11:01 Last Admin: 08/07/17 11:00 Dose: 200 mls/hr Norepinephrine Bitartrate 8 mg (/ Sodium Chloride) 250 mls @ 46.87 mls/hr IV .Q5H21M PRN; Protocol; 25 MCG/MIN PRN Reason: TITRATE PER MD ORDER Last Admin: 08/09/17 08:57 Dose: 25 mcg/min, 46.87 mls/hr Sodium Bicarbonate 150 meq/ (Dextrose) 1,150 mls @ 60 mls/hr IV .[id number] [facility] Last Admin: 08/09/17 09:00 Dose: 60 mls/hr Milrinone Lactate/Dextrose (Primacor 20mg/100ml D5w) 100 mls @ 12.043 mls/hr IV .Q8H19M PRN; Protocol; 0.375 MCG/KG/MIN PRN Reason: TITRATE PER MD ORDER Last Admin: 08/09/17 04:56 Dose: 0.375 mcg/kg/min, 12.043 mls/hr Phenylephrine HCl 40 mg/ (Sodium Chloride) 254 mls @ 38.1 mls/hr IV .Q6H40M PRN ; Protocol; 100 MCG/MIN PRN Reason: TITRATE PER MD ORDER Pantoprazole Sodium (Protonix Ec Tab) 40 mg PO 0600 [facility] Last Admin: 08/09/17 07:09 Dose: 40 mg Vancomycin HCl (Vancocin 25 Mg/Ml (Oral Use)) 500 mg PO Q6H SOL PRN Reason: Protocol Stop: 08/17/17 13:16 Last Admin: 08/09/17 07:07 Dose: 500 mg Physical Exam - Constitutional Appears: Chronically Ill - Head Exam Head Exam: NORMAL INSPECTION - Eye Exam Eye Exam: Normal appearance, PERRL - ENT Exam ENT Exam: Mucous Membranes Moist - Neck Exam Neck exam: Positive for: Normal Inspection - Respiratory Exam Respiratory Exam: Decreased Breath Sounds, NORMAL BREATHING PATTERN - Cardiovascular Exam Cardiovascular Exam: Tachycardia, Irregular Rhythm, +S1, +S2 - GI/Abdominal Exam GI & Abdominal Exam: Normal Bowel Sounds, Soft Additional comments: no tenderness or guarding - Extremities Exam Extremities exam: Positive for: pedal pulses present - Back Exam Back exam: NORMAL INSPECTION - Neurological Exam Neurological exam: Altered - Skin Additional comments: diffuse rash - Additional Findings Additional findings: palliative performance scale rating 30% Results - Vital Signs Recent Vital Signs: Last Vital Signs Temp 95.2 F L 08/09/17 07:15 Pulse 132 H 08/09/17 07:15 Resp 18 08/09/17 07:15 BP 75/35 L 08/09/17 08:56 Pulse Ox 97 08/09/17 07:15 - Labs Result Diagrams: 08/09/17 06:00 08/09/17 06:00 Labs: Laboratory Results - last 24 hr 08/08/17 08/09/17 08/09/17 19:10 06:00 06:00 WBC 13.6 H RBC 4.11 Hgb 11.4 L Hct 34.2 L MCV 83.2 MCH 27.7 MCHC 33.3 RDW 17.9 H Plt Count 161 MPV 10.7 PT INR Sodium 138 138 Potassium 4.9 4.3 Chloride 107 106 Carbon Dioxide 16 L 18 L Anion Gap 19 19 BUN 79 H 83 H Creatinine 3.9 H 3.9 H Est GFR ( Amer) 14 14 Est GFR (Non-Af Amer) 11 11 Random Glucose 162 H 243 H Calcium 8.1 L 7.9 L Total Bilirubin 1.0 AST 72 H ALT 83 H Alkaline Phosphatase 93 Total Protein 5.4 L Albumin 2.3 L Globulin 3.0 Albumin/Globulin Ratio 0.8 L Urine Color Urine Appearance Urine pH Ur Specific [place] Urine Protein Urine Glucose (UA) Urine Ketones Urine Blood Urine Nitrate Urine Bilirubin Urine Urobilinogen Ur Leukocyte Esterase Urine RBC Urine WBC Ur Epithelial Cells Urine Bacteria Urine Eosinophils Ur Random Creatinine U Random Total Protein 08/09/17 08/09/17 08/09/17 06:00 06:30 06:30 WBC RBC Hgb Hct MCV MCH MCHC RDW Plt Count MPV PT 62.1 H INR 5.22 H* Sodium Potassium Chloride Carbon Dioxide Anion Gap BUN Creatinine Est GFR ( Amer) Est GFR (Non-Af Amer) Random Glucose Calcium Total Bilirubin AST ALT Alkaline Phosphatase Total Protein Albumin Globulin Albumin/Globulin Ratio Urine Color Yellow Urine Appearance Cloudy Urine pH 5.5 Ur Specific [place] >= 1.030 Urine Protein >=300 H Urine Glucose (UA) Negative Urine Ketones Trace H Urine Blood Small H Urine Nitrate Positive H Urine Bilirubin Small H Urine Urobilinogen 0.2 Ur Leukocyte Esterase Trace H Urine RBC 2 - 5 Urine WBC 5 - 10 Ur Epithelial Cells 3 - 4 Urine Bacteria Mod Urine Eosinophils Negative Ur Random Creatinine U Random Total Protein 08/09/17 08/09/17 08/09/17 06:30 06:30 08:00 WBC RBC Hgb Hct MCV MCH MCHC RDW Plt Count MPV PT 71.1 H INR 5.96 H* Sodium Potassium Chloride Carbon Dioxide Anion Gap BUN Creatinine Est GFR ( Amer) Est GFR (Non-Af Amer) Random Glucose Calcium Total Bilirubin AST ALT Alkaline Phosphatase Total Protein Albumin Globulin Albumin/Globulin Ratio Urine Color Urine Appearance Urine pH Ur Specific [place] Urine Protein Urine Glucose (UA) Urine Ketones Urine Blood Urine Nitrate Urine Bilirubin Urine Urobilinogen Ur Leukocyte Esterase Urine RBC Urine WBC Ur Epithelial Cells Urine Bacteria Urine Eosinophils Ur Random Creatinine 118 U Random Total Protein 357 Assessment & Plan - Assessment and Plan (Free Text) Assessment: 72 year old female with history of CAD s/p stent and CABG, HTN, HI, A Fib who as admitted with septic shock,hypothermia, hyponatremia and SHERRILL. The patient is lethargic, opens yes when name is called, otherwise non commutative. Daughter reports patient as being bed bound, dependant on others for most ADL's and has declining in health over the past weeks. I spoke with patient's daughter Toya via phone. I explained severity of her mothers condition. Daughter states mother does not have an Advance Directive. Daughter has agreed to meet with me to discuss resuscitation status and goals of care. I spoke at length with patients daughter Toya. Daughter aware of mothers medical issues. I explained that her mother was gravely ill and that despite medical interventions her prognosis was extremely guarded. Burdens of aggressive resuscitation explained, questions answered. Daughter wants to continue aggressive measures including CPR/intubation/dialysis. Daughter aware that if condition worsens and resuscitation initiated, mother may be depended on mechanical equipment in order to prolong life. Toya states she will reconsider termination of life saving interventions at that time. Psychosocial support provided. Time spent in goals of care discussion with family, 30 minutes Plan: Environmental Adviser reports reviewed. Continue medical interventions as recommended by ID , renal, cardiology and medicine. Palliative support in establishing goals of care.
--- NOTE | 2017-08-09 11:42 | CP.CCUPN ---
<Augustin Carcamo - Last Filed: 08/09/17 11:32> CCU Subjective - Physician Review Subjective (Free Text): Patient seen and examined at bedside. Patient has no complaints this morning. She is answering questions appropriately. Denies chest pain, shortness of breath , nausea, vomiting, diarrhea, fever, chills. CCU Objective - Vital Signs / Intake & Output Vital Signs (Last 4 hours): Vital Signs BP 08/09/17 08:56 75/35 L Intake and Output (Last 8hrs): Intake & Output 08/08/17 08/09/17 08/09/17 22:59 06:59 14:59 Intake Total 1152 282 250 Output Total 40 Balance 1112 282 250 Weight 236 lb 3 oz Intake: IV 1152 282 250 IVF NSALINE MAINTENANCE 600 LEVOPHED 400 vasopressin 84 Oral 0 Output: Urine 40 Urethral (Frye) 40 Other: # Bowel Movements 0 - Physical Exam Head: Positive for: Atraumatic, Normocephalic Pupils: Positive for: PERRL Extroacular Muscles: Positive for: EOMI Conjunctiva: Positive for: Normal Mouth: Positive for: Moist Mucous Membranes Neck: Positive for: Normal Range of Motion Respiratory/Chest: Positive for: Clear to Auscultation, Decreased Breath Sounds. Negative for: Respiratory Distress, Accessory Muscle Use Cardiovascular: Positive for: Regular Rate and Rhythm, Normal S1, S2. Negative for: Murmurs Abdomen: Positive for: Normal Bowel Sounds. Negative for: Tenderness, Distention, Peritoneal Signs Back: Positive for: Normal Inspection Upper Extremity: Positive for: Normal Inspection. Negative for: Cyanosis, Edema Lower Extremity: Positive for: Normal Inspection, Edema (+1 edema b/l) Neurological: Positive for: GCS=15, CN II-XII Intact, Speech Normal Skin: Positive for: Warm, Dry, Normal Color, Erythematous (Diffuse lacy, erythematous rash throughout arms, upper legs, and trunk. No change from previous day.). Negative for: Rashes Psychiatric: Positive for: Alert, Oriented x 3, Normal Insight, Normal Concentration - Medications Active Medications: Active Medications Generic Name Dose Route Start Last Admin Trade Name Freq PRN Reason Stop Dose Admin Acetaminophen 650 mg 08/07/17 17:35 Tylenol 325mg Tab PO Q4H PRN Pain, Mild (1-3) Hydrocortisone Sodium Succinate 50 mg 08/07/17 07:00 08/09/17 07:04 Solu-Cortef IVP 50 mg Q6H SOL Administration Vasopressin 20 units/ Sodium 101 mls @ 9.09 mls/hr 08/07/17 07:15 08/09/17 08 :56 Chloride IV 9.09 mls/hr .Q11H7M SOL Administration Protocol 0.03 U/MIN Aztreonam 500 mg/ Sodium 100 mls @ 100 mls/hr 08/07/17 14:00 08/09/17 05:15 Chloride IVPB 08/16/17 14:01 100 mls/hr Q8 SOL Administration Protocol Metronidazole 500 mg in 100 mls @ 100 mls/hr 08/07/17 14:00 08/09/17 07:05 Flagyl IVPB 08/16/17 14:01 100 mls/hr Q8 SOL Administration Protocol Daptomycin 680 mg/ Sodium 100 mls @ 200 mls/hr 08/07/17 11:00 08/07/17 11:00 Chloride IV 08/12/17 11:01 200 mls/hr Q48H SOL Administration Norepinephrine Bitartrate 8 mg 250 mls @ 46.87 mls/hr 08/07/17 16:02 08:57 / Sodium Chloride IV 25 mcg/min .Q5H21M PRN 46.87 mls/hr TITRATE PER MD ORDER Administration Protocol 25 MCG/MIN Sodium Bicarbonate 150 meq/ 1,150 mls @ 60 mls/hr 08/08/17 12:00 08/09/17 09: 00 Dextrose IV 60 mls/hr .[id number] SOL Administration Phenylephrine HCl 40 mg/ 254 mls @ 38.1 mls/hr 08/09/17 09:20 Sodium Chloride IV .Q6H40M PRN TITRATE PER MD ORDER Protocol 100 MCG/MIN Pantoprazole Sodium 40 mg 08/07/17 06:00 08/09/17 07:09 Protonix Ec Tab PO 40 mg 0600 SOL Administration Vancomycin HCl 500 mg 08/08/17 13:15 08/09/17 07:07 Vancocin 25 Mg/Ml (Oral Use) PO 08/17/17 13:16 500 mg Q6H SOL Administration Protocol - Patient Studies Lab Studies: Microbiology Studies 08/06/17 20:39 Blood Culture - Preliminary Blood NO GROWTH AFTER 48 HOURS 08/06/17 20:39 Blood Culture - Preliminary Blood NO GROWTH AFTER 48 HOURS 08/06/17 20:40 MRSA Culture (Admit) - Final Naris MRSA NOT DETECTED 08/07/17 10:00 C. difficile Antigen & Toxin A,B (M - Final Stool Lab Studies 08/09/17 08/09/17 08/09/17 Range/Units 08:00 06:30 06:30 WBC (4.5-11.0) 10^3/ul RBC (3.5-6.1) 10^6/uL Hgb (12.0-16.0) g/dL Hct (36.0-48.0) % MCV (80.0-105.0) fl MCH (25.0-35.0) pg MCHC (31.0-37.0) g/dl RDW (11.5-14.5) % Plt Count (120.0-450.0) 10^3/uL MPV (7.0-11.0) fl PT 71.1 H (9.4-12.5) SECONDS INR 5.96 H* (0.93-1.08) Sodium (132-148) mmol/L Potassium (3.6-5.0) mmol/L Chloride (98-107) mmol/L Carbon Dioxide (21-33) mmol/L Anion Gap (10-20) BUN (7-21) mg/dL Creatinine (0.7-1.2) mg/dl Est GFR ( Amer) Est GFR (Non-Af Amer) Random Glucose (70-110) mg/dL Calcium (8.4-10.5) mg/dL Total Bilirubin (0.2-1.3) mg/dL AST (14-36) U/L ALT (7-56) U/L Alkaline Phosphatase (38-126) U/L Total Protein (5.8-8.3) g/dL Albumin (3.0-4.8) g/dL Globulin gm/dL Albumin/Globulin Ratio (1.1-1.8) Urine Color (YELLOW) Urine Appearance (CLEAR) Urine pH (4.7-8.0) Ur Specific [place] (1.005-1.035) Urine Protein (<30 mg/dL) mg/dL Urine Glucose (UA) (NEGATIVE) mg/dL Urine Ketones (NEGATIVE) mg/dL Urine Blood (NEGATIVE) Urine Nitrate (NEGATIVE) Urine Bilirubin (NEGATIVE) Urine Urobilinogen (<1 E.U./dL) E.U./dL Ur Leukocyte Esterase (NEGATIVE) Canelo/uL Urine RBC (0-2) /hpf Urine WBC (0-6) /hpf Ur Epithelial Cells (0-5) /hpf Urine Bacteria (NEG) Urine Eosinophils Ur Random Creatinine 118 mg/dL U Random Total Protein 357 mg/L 08/09/17 08/09/17 08/09/17 Range/Units 06:30 06:30 06:00 WBC (4.5-11.0) 10^3/ul RBC (3.5-6.1) 10^6/uL Hgb (12.0-16.0) g/dL Hct (36.0-48.0) % MCV (80.0-105.0) fl MCH (25.0-35.0) pg MCHC (31.0-37.0) g/dl RDW (11.5-14.5) % Plt Count (120.0-450.0) 10^3/uL MPV (7.0-11.0) fl PT 62.1 H (9.4-12.5) SECONDS INR 5.22 H* (0.93-1.08) Sodium (132-148) mmol/L Potassium (3.6-5.0) mmol/L Chloride (98-107) mmol/L Carbon Dioxide (21-33) mmol/L Anion Gap (10-20) BUN (7-21) mg/dL Creatinine (0.7-1.2) mg/dl Est GFR ( Amer) Est GFR (Non-Af Amer) Random Glucose (70-110) mg/dL Calcium (8.4-10.5) mg/dL Total Bilirubin (0.2-1.3) mg/dL AST (14-36) U/L ALT (7-56) U/L Alkaline Phosphatase (38-126) U/L Total Protein (5.8-8.3) g/dL Albumin (3.0-4.8) g/dL Globulin gm/dL Albumin/Globulin Ratio (1.1-1.8) Urine Color Yellow (YELLOW) Urine Appearance Cloudy (CLEAR) Urine pH 5.5 (4.7-8.0) Ur Specific [place] >= 1.030 (1.005-1.035) Urine Protein >=300 H (<30 mg/dL) mg/dL Urine Glucose (UA) Negative (NEGATIVE) mg/dL Urine Ketones Trace H (NEGATIVE) mg/dL Urine Blood Small H (NEGATIVE) Urine Nitrate Positive H (NEGATIVE) Urine Bilirubin Small H (NEGATIVE) Urine Urobilinogen 0.2 (<1 E.U./dL) E.U./dL Ur Leukocyte Esterase Trace H (NEGATIVE) [place]elo/uL Urine RBC 2 - 5 (0-2) /hpf Urine WBC 5 - 10 (0-6) /hpf Ur Epithelial Cells 3 - 4 (0-5) /hpf Urine Bacteria Mod (NEG) Urine Eosinophils Negative Ur Random Creatinine mg/dL U Random Total Protein mg/L 08/09/17 08/09/17 08/08/17 Range/Units 06:00 06:00 19:10 WBC 13.6 H (4.5-11.0) 10^3/ul RBC 4.11 (3.5-6.1) 10^6/uL Hgb 11.4 L (12.0-16.0) g/dL Hct 34.2 L (36.0-48.0) % MCV 83.2 (80.0-105.0) fl MCH 27.7 (25.0-35.0) pg MCHC 33.3 (31.0-37.0) g/dl RDW 17.9 H (11.5-14.5) % Plt Count 161 (120.0-450.0) 10^3/uL MPV 10.7 (7.0-11.0) fl PT (9.4-12.5) SECONDS INR (0.93-1.08) Sodium 138 138 (132-148) mmol/L Potassium 4.3 4.9 (3.6-5.0) mmol/L Chloride 106 107 (98-107) mmol/L Carbon Dioxide 18 L 16 L (21-33) mmol/L Anion Gap 19 19 (10-20) BUN 83 H 79 H (7-21) mg/dL Creatinine 3.9 H 3.9 H (0.7-1.2) mg/dl Est GFR ( Amer) 14 14 Est GFR (Non-Af Amer) 11 11 Random Glucose 243 H 162 H (70-110) mg/dL Calcium 7.9 L 8.1 L (8.4-10.5) mg/dL Total Bilirubin 1.0 (0.2-1.3) mg/dL AST 72 H (14-36) U/L ALT 83 H (7-56) U/L Alkaline Phosphatase 93 (38-126) U/L Total Protein 5.4 L (5.8-8.3) g/dL Albumin 2.3 L (3.0-4.8) g/dL Globulin 3.0 gm/dL Albumin/Globulin Ratio 0.8 L (1.1-1.8) Urine Color (YELLOW) Urine Appearance (CLEAR) Urine pH (4.7-8.0) Ur Specific [place] (1.005-1.035) Urine Protein (<30 mg/dL) mg/dL Urine Glucose (UA) (NEGATIVE) mg/dL Urine Ketones (NEGATIVE) mg/dL Urine Blood (NEGATIVE) Urine Nitrate (NEGATIVE) Urine Bilirubin (NEGATIVE) Urine Urobilinogen (<1 E.U./dL) E.U./dL Ur Leukocyte Esterase (NEGATIVE) [place]elo/uL Urine RBC (0-2) /hpf Urine WBC (0-6) /hpf Ur Epithelial Cells (0-5) /hpf Urine Bacteria (NEG) Urine Eosinophils Ur Random Creatinine mg/dL U Random Total Protein mg/L Laboratory Results - last 24 hr 08/08/17 08/09/17 08/09/17 19:10 06:00 06:00 WBC 13.6 H RBC 4.11 Hgb 11.4 L Hct 34.2 L MCV 83.2 MCH 27.7 MCHC 33.3 RDW 17.9 H Plt Count 161 MPV 10.7 PT INR Sodium 138 138 Potassium 4.9 4.3 Chloride 107 106 Carbon Dioxide 16 L 18 L Anion Gap 19 19 BUN 79 H 83 H Creatinine 3.9 H 3.9 H Est GFR ( Amer) 14 14 Est GFR (Non-Af Amer) 11 11 Random Glucose 162 H 243 H Calcium 8.1 L 7.9 L Total Bilirubin 1.0 AST 72 H ALT 83 H Alkaline Phosphatase 93 Total Protein 5.4 L Albumin 2.3 L Globulin 3.0 Albumin/Globulin Ratio 0.8 L Urine Color Urine Appearance Urine pH Ur Specific [place] Urine Protein Urine Glucose (UA) Urine Ketones Urine Blood Urine Nitrate Urine Bilirubin Urine Urobilinogen Ur Leukocyte Esterase Urine RBC Urine WBC Ur Epithelial Cells Urine Bacteria Urine Eosinophils Ur Random Creatinine U Random Total Protein 08/09/17 08/09/17 08/09/17 06:00 06:30 06:30 WBC RBC Hgb Hct MCV MCH MCHC RDW Plt Count MPV PT 62.1 H INR 5.22 H* Sodium Potassium Chloride Carbon Dioxide Anion Gap BUN Creatinine Est GFR ( Amer) Est GFR (Non-Af Amer) Random Glucose Calcium Total Bilirubin AST ALT Alkaline Phosphatase Total Protein Albumin Globulin Albumin/Globulin Ratio Urine Color Yellow Urine Appearance Cloudy Urine pH 5.5 Ur Specific [place] >= 1.030 Urine Protein >=300 H Urine Glucose (UA) Negative Urine Ketones Trace H Urine Blood Small H Urine Nitrate Positive H Urine Bilirubin Small H Urine Urobilinogen 0.2 Ur Leukocyte Esterase Trace H Urine RBC 2 - 5 Urine WBC 5 - 10 Ur Epithelial Cells 3 - 4 Urine Bacteria Mod Urine Eosinophils Negative Ur Random Creatinine U Random Total Protein 08/09/17 08/09/17 08/09/17 06:30 06:30 08:00 WBC RBC Hgb Hct MCV MCH MCHC RDW Plt Count MPV PT 71.1 H INR 5.96 H* Sodium Potassium Chloride Carbon Dioxide Anion Gap BUN Creatinine Est GFR ( Amer) Est GFR (Non-Af Amer) Random Glucose Calcium Total Bilirubin AST ALT Alkaline Phosphatase Total Protein Albumin Globulin Albumin/Globulin Ratio Urine Color Urine Appearance Urine pH Ur Specific [place] Urine Protein Urine Glucose (UA) Urine Ketones Urine Blood Urine Nitrate Urine Bilirubin Urine Urobilinogen Ur Leukocyte Esterase Urine RBC Urine WBC Ur Epithelial Cells Urine Bacteria Urine Eosinophils Ur Random Creatinine 118 U Random Total Protein 357 Assessment/Plan - Assessment and Plan (Free Text) Plan: 72 year old female with past medical history of HTN, CHF, CABG, and A-fib on coumadin presents with septic shock. Patient with minimal urine output, will need to place tunnel catheter. IR consulted. Milrinone stopped, phenylephrine added at this time. Palliative care consult. Patient will be monitored closely in the ICU. Neuro: AAOx3 No focal deficits Head CT negative Cardio: Levophed and Vasopressin, Phenylephrine added. Will wean levophed Milrinone stopped Solucortef 50 q6h Maintain MAP >65 Cardiology consulted Pulm: Maintain O2 sat >90% No SOB GI: Ultrasound unremarkable CT abdomen/pelvis ordered Protonix Nephro: Acute renal failure secondary to ATN Oliguric Frye in place Bicarb @ 60 Replenish electrolytes as needed Heme/ID: Hypothermic, leukocytosis C. Diff Aztreoname, Flagyl, Daptomycin, PO Vancomycin ID consulted INR 5.96, 2 units of FFP and Vitamin K to be given Carlos Alberto, PGY-2 <Ceasar Almanza - Last Filed: 08/09/17 12:46> CCU Objective - Vital Signs / Intake & Output Vital Signs (Last 4 hours): Vital Signs BP 08/09/17 08:56 75/35 L Intake and Output (Last 8hrs): Intake & Output 08/08/17 08/09/17 08/09/17 22:59 06:59 14:59 Intake Total 1152 282 250 Output Total 40 Balance 1112 282 250 Weight 236 lb 3 oz Intake: IV 1152 282 250 IVF NSALINE MAINTENANCE 600 LEVOPHED 400 vasopressin 84 Oral 0 Output: Urine 40 Urethral (Frye) 40 Other: # Bowel Movements 0 - Medications Active Medications: Active Medications Generic Name Dose Route Start Last Admin Trade Name Freq PRN Reason Stop Dose Admin Acetaminophen 650 mg 08/07/17 17:35 Tylenol 325mg Tab PO Q4H PRN Pain, Mild (1-3) Hydrocortisone Sodium Succinate 50 mg 08/07/17 07:00 08/09/17 07:04 Solu-Cortef IVP 50 mg Q6H SOL Administration Vasopressin 20 units/ Sodium 101 mls @ 9.09 mls/hr 08/07/17 07:15 08/09/17 08 :56 Chloride IV 9.09 mls/hr .Q11H7M SOL Administration Protocol 0.03 U/MIN Aztreonam 500 mg/ Sodium 100 mls @ 100 mls/hr 08/07/17 14:00 08/09/17 05:15 Chloride IVPB 08/16/17 14:01 100 mls/hr Q8 SOL Administration Protocol Metronidazole 500 mg in 100 mls @ 100 mls/hr 08/07/17 14:00 08/09/17 07:05 Flagyl IVPB 08/16/17 14:01 100 mls/hr Q8 SOL Administration Protocol Daptomycin 680 mg/ Sodium 100 mls @ 200 mls/hr 08/07/17 11:00 08/07/17 11:00 Chloride IV 08/12/17 11:01 200 mls/hr Q48H SOL Administration Norepinephrine Bitartrate 8 mg 250 mls @ 46.87 mls/hr 08/07/17 16:02 08:57 / Sodium Chloride IV 25 mcg/min .Q5H21M PRN 46.87 mls/hr TITRATE PER MD ORDER Administration Protocol 25 MCG/MIN Sodium Bicarbonate 150 meq/ 1,150 mls @ 60 mls/hr 08/08/17 12:00 08/09/17 09: 00 Dextrose IV 60 mls/hr .[id number] SOL Administration Phenylephrine HCl 40 mg/ 254 mls @ 38.1 mls/hr 08/09/17 09:20 08/09/17 12:15 Sodium Chloride IV 100 mcg/min .Q6H40M PRN 38.1 mls/hr TITRATE PER MD ORDER Administration Protocol 100 MCG/MIN Pantoprazole Sodium 40 mg 08/07/17 06:00 08/09/17 07:09 Protonix Ec Tab PO 40 mg 0600 SOL Administration Vancomycin HCl 500 mg 08/08/17 13:15 08/09/17 07:07 Vancocin 25 Mg/Ml (Oral Use) PO 08/17/17 13:16 500 mg Q6H SOL Administration Protocol - Patient Studies Lab Studies: Microbiology Studies 08/06/17 20:39 Blood Culture - Preliminary Blood NO GROWTH AFTER 48 HOURS 08/06/17 20:39 Blood Culture - Preliminary Blood NO GROWTH AFTER 48 HOURS 08/06/17 20:40 MRSA Culture (Admit) - Final Naris MRSA NOT DETECTED 08/07/17 10:00 C. difficile Antigen & Toxin A,B (M - Final Stool Lab Studies 08/09/17 08/09/17 08/09/17 Range/Units 08:00 06:30 06:30 WBC (4.5-11.0) 10^3/ul RBC (3.5-6.1) 10^6/uL Hgb (12.0-16.0) g/dL Hct (36.0-48.0) % MCV (80.0-105.0) fl MCH (25.0-35.0) pg MCHC (31.0-37.0) g/dl RDW (11.5-14.5) % Plt Count (120.0-450.0) 10^3/uL MPV (7.0-11.0) fl PT 71.1 H (9.4-12.5) SECONDS INR 5.96 H* (0.93-1.08) Sodium (132-148) mmol/L Potassium (3.6-5.0) mmol/L Chloride (98-107) mmol/L Carbon Dioxide (21-33) mmol/L Anion Gap (10-20) BUN (7-21) mg/dL Creatinine (0.7-1.2) mg/dl Est GFR ( Amer) Est GFR (Non-Af Amer) Random Glucose (70-110) mg/dL Calcium (8.4-10.5) mg/dL Total Bilirubin (0.2-1.3) mg/dL AST (14-36) U/L ALT (7-56) U/L Alkaline Phosphatase (38-126) U/L Total Protein (5.8-8.3) g/dL Albumin (3.0-4.8) g/dL Globulin gm/dL Albumin/Globulin Ratio (1.1-1.8) Urine Color (YELLOW) Urine Appearance (CLEAR) Urine pH (4.7-8.0) Ur Specific [place] (1.005-1.035) Urine Protein (<30 mg/dL) mg/dL Urine Glucose (UA) (NEGATIVE) mg/dL Urine Ketones (NEGATIVE) mg/dL Urine Blood (NEGATIVE) Urine Nitrate (NEGATIVE) Urine Bilirubin (NEGATIVE) Urine Urobilinogen (<1 E.U./dL) E.U./dL Ur Leukocyte Esterase (NEGATIVE) [place]/uL Urine RBC (0-2) /hpf Urine WBC (0-6) /hpf Ur Epithelial Cells (0-5) /hpf Urine Bacteria (NEG) Urine Eosinophils Ur Random Creatinine 118 mg/dL U Random Total Protein 357 mg/L 08/09/17 08/09/17 08/09/17 Range/Units 06:30 06:30 06:00 WBC (4.5-11.0) 10^3/ul RBC (3.5-6.1) 10^6/uL Hgb (12.0-16.0) g/dL Hct (36.0-48.0) % MCV (80.0-105.0) fl MCH (25.0-35.0) pg MCHC (31.0-37.0) g/dl RDW (11.5-14.5) % Plt Count (120.0-450.0) 10^3/uL MPV (7.0-11.0) fl PT 62.1 H (9.4-12.5) SECONDS INR 5.22 H* (0.93-1.08) Sodium (132-148) mmol/L Potassium (3.6-5.0) mmol/L Chloride (98-107) mmol/L Carbon Dioxide (21-33) mmol/L Anion Gap (10-20) BUN (7-21) mg/dL Creatinine (0.7-1.2) mg/dl Est GFR ( Amer) Est GFR (Non-Af Amer) Random Glucose (70-110) mg/dL Calcium (8.4-10.5) mg/dL Total Bilirubin (0.2-1.3) mg/dL AST (14-36) U/L ALT (7-56) U/L Alkaline Phosphatase (38-126) U/L Total Protein (5.8-8.3) g/dL Albumin (3.0-4.8) g/dL Globulin gm/dL Albumin/Globulin Ratio (1.1-1.8) Urine Color Yellow (YELLOW) Urine Appearance Cloudy (CLEAR) Urine pH 5.5 (4.7-8.0) Ur Specific [place] >= 1.030 (1.005-1.035) Urine Protein >=300 H (<30 mg/dL) mg/dL Urine Glucose (UA) Negative (NEGATIVE) mg/dL Urine Ketones Trace H (NEGATIVE) mg/dL Urine Blood Small H (NEGATIVE) Urine Nitrate Positive H (NEGATIVE) Urine Bilirubin Small H (NEGATIVE) Urine Urobilinogen 0.2 (<1 E.U./dL) E.U./dL Ur Leukocyte Esterase Trace H (NEGATIVE) [place]/uL Urine RBC 2 - 5 (0-2) /hpf Urine WBC 5 - 10 (0-6) /hpf Ur Epithelial Cells 3 - 4 (0-5) /hpf Urine Bacteria Mod (NEG) Urine Eosinophils Negative Ur Random Creatinine mg/dL U Random Total Protein mg/L 08/09/17 08/09/17 08/08/17 Range/Units 06:00 06:00 19:10 WBC 13.6 H (4.5-11.0) 10^3/ul RBC 4.11 (3.5-6.1) 10^6/uL Hgb 11.4 L (12.0-16.0) g/dL Hct 34.2 L (36.0-48.0) % MCV 83.2 (80.0-105.0) fl MCH 27.7 (25.0-35.0) pg MCHC 33.3 (31.0-37.0) g/dl RDW 17.9 H (11.5-14.5) % Plt Count 161 (120.0-450.0) 10^3/uL MPV 10.7 (7.0-11.0) fl PT (9.4-12.5) SECONDS INR (0.93-1.08) Sodium 138 138 (132-148) mmol/L Potassium 4.3 4.9 (3.6-5.0) mmol/L Chloride 106 107 (98-107) mmol/L Carbon Dioxide 18 L 16 L (21-33) mmol/L Anion Gap 19 19 (10-20) BUN 83 H 79 H (7-21) mg/dL Creatinine 3.9 H 3.9 H (0.7-1.2) mg/dl Est GFR ( Amer) 14 14 Est GFR (Non-Af Amer) 11 11 Random Glucose 243 H 162 H (70-110) mg/dL Calcium 7.9 L 8.1 L (8.4-10.5) mg/dL Total Bilirubin 1.0 (0.2-1.3) mg/dL AST 72 H (14-36) U/L ALT 83 H (7-56) U/L Alkaline Phosphatase 93 (38-126) U/L Total Protein 5.4 L (5.8-8.3) g/dL Albumin 2.3 L (3.0-4.8) g/dL Globulin 3.0 gm/dL Albumin/Globulin Ratio 0.8 L (1.1-1.8) Urine Color (YELLOW) Urine Appearance (CLEAR) Urine pH (4.7-8.0) Ur Specific [place] (1.005-1.035) Urine Protein (<30 mg/dL) mg/dL Urine Glucose (UA) (NEGATIVE) mg/dL Urine Ketones (NEGATIVE) mg/dL Urine Blood (NEGATIVE) Urine Nitrate (NEGATIVE) Urine Bilirubin (NEGATIVE) Urine Urobilinogen (<1 E.U./dL) E.U./dL Ur Leukocyte Esterase (NEGATIVE) [place]/uL Urine RBC (0-2) /hpf Urine WBC (0-6) /hpf Ur Epithelial Cells (0-5) /hpf Urine Bacteria (NEG) Urine Eosinophils Ur Random Creatinine mg/dL U Random Total Protein mg/L Laboratory Results - last 24 hr 08/08/17 08/09/17 08/09/17 19:10 06:00 06:00 WBC 13.6 H RBC 4.11 Hgb 11.4 L Hct 34.2 L MCV 83.2 MCH 27.7 MCHC 33.3 RDW 17.9 H Plt Count 161 MPV 10.7 PT INR Sodium 138 138 Potassium 4.9 4.3 Chloride 107 106 Carbon Dioxide 16 L 18 L Anion Gap 19 19 BUN 79 H 83 H Creatinine 3.9 H 3.9 H Est GFR ( Amer) 14 14 Est GFR (Non-Af Amer) 11 11 Random Glucose 162 H 243 H Calcium 8.1 L 7.9 L Total Bilirubin 1.0 AST 72 H ALT 83 H Alkaline Phosphatase 93 Total Protein 5.4 L Albumin 2.3 L Globulin 3.0 Albumin/Globulin Ratio 0.8 L Urine Color Urine Appearance Urine pH Ur Specific [place] Urine Protein Urine Glucose (UA) Urine Ketones Urine Blood Urine Nitrate Urine Bilirubin Urine Urobilinogen Ur Leukocyte Esterase Urine RBC Urine WBC Ur Epithelial Cells Urine Bacteria Urine Eosinophils Ur Random Creatinine U Random Total Protein 08/09/17 08/09/17 08/09/17 06:00 06:30 06:30 WBC RBC Hgb Hct MCV MCH MCHC RDW Plt Count MPV PT 62.1 H INR 5.22 H* Sodium Potassium Chloride Carbon Dioxide Anion Gap BUN Creatinine Est GFR ( Amer) Est GFR (Non-Af Amer) Random Glucose Calcium Total Bilirubin AST ALT Alkaline Phosphatase Total Protein Albumin Globulin Albumin/Globulin Ratio Urine Color Yellow Urine Appearance Cloudy Urine pH 5.5 Ur Specific [place] >= 1.030 Urine Protein >=300 H Urine Glucose (UA) Negative Urine Ketones Trace H Urine Blood Small H Urine Nitrate Positive H Urine Bilirubin Small H Urine Urobilinogen 0.2 Ur Leukocyte Esterase Trace H Urine RBC 2 - 5 Urine WBC 5 - 10 Ur Epithelial Cells 3 - 4 Urine Bacteria Mod Urine Eosinophils Negative Ur Random Creatinine U Random Total Protein 08/09/17 08/09/17 08/09/17 06:30 06:30 08:00 WBC RBC Hgb Hct MCV MCH MCHC RDW Plt Count MPV PT 71.1 H INR 5.96 H* Sodium Potassium Chloride Carbon Dioxide Anion Gap BUN Creatinine Est GFR ( Amer) Est GFR (Non-Af Amer) Random Glucose Calcium Total Bilirubin AST ALT Alkaline Phosphatase Total Protein Albumin Globulin Albumin/Globulin Ratio Urine Color Urine Appearance Urine pH Ur Specific [place] Urine Protein Urine Glucose (UA) Urine Ketones Urine Blood Urine Nitrate Urine Bilirubin Urine Urobilinogen Ur Leukocyte Esterase Urine RBC Urine WBC Ur Epithelial Cells Urine Bacteria Urine Eosinophils Ur Random Creatinine 118 U Random Total Protein 357 Attending/Attestation - Attestation I have personally seen and examined this patient.: Yes I have fully participated in the care of the patient.: Yes I have reviewed all pertinent clinical information: Yes Notes (Text): 08/09/17 12:40 The patient was seen and examined at the bedside. Patient care was discussed with resident and ICU team in MDR rounds. Medical records, lab studies, and imaging were reviewed and management issues were discussed and formulated. Last 24H events reviewed. Agree with above treatment plans as outlined in 's note with addition of the following: Acute Respiratory Insuficiency \ Hypoxemia \ Septic Shock \ Cardiogenic Shock \ Isaias on CKD \ UTI \ CDiff \ CHF \ Cellulitis \ Coagulopathy -hemodynamic monitoring and vasopressor support to maintain MAP>65; continue levophed and vasopressin -start phenylephrine drip and attempt to wean off levophed as pt is tachycardic ; continue stress steroids -hold milrinone ; cardio team f\u -o2 supplementation to maintain Spo2 >90 Pao2>60 -monitor airway closely -continue broad spectrum Abx as per ID team : f\u cultures -f\u Bun\Cr and U\o; renal team following; pt is awaiting HD catheter placement ; continue bicarb drip -PO diet and aspiration precautions -f\u INR and monitor for bleed; transfuse FFP and will administer Vit K today to reverse coagulopathy -multiple attempts at A-line placement unsuccessful; will consult IR team -DVT \ PUD prophylaxis CCM f\u 33min
[2017-08-09 12:39] LABS: VENOUS BLOOD GAS PO2 65 mm/Hg (30-55); VENOUS BLOOD PH 7.29 (7.32-7.43)
--- NOTE | 2017-08-09 12:56 | PN ---
DATE: SUBJECTIVE: The patient has no complaints of any chest pain. No shortness of breath, no headache. PHYSICAL EXAMINATION VITAL SIGNS: Temperature is 95.2, pulse of 132, blood pressure is 75/35, respirations 18. GENERAL: The patient is lying in bed, flat, comfortable. HEENT: No oral lesion. Anicteric sclerae. Moist mucosa. NECK: No JVD, adenopathy, or thyromegaly. CARDIOVASCULAR: S1 and S2, regular. No murmurs, rubs, or gallops. LUNGS: Clear to auscultation bilaterally. No wheeze, rales, or rhonchi. ABDOMEN: Bowel sounds are positive. Soft, nontender and nondistended. EXTREMITIES: No cyanosis or clubbing. There is 1+ edema in the lower extremity. SKIN: There is bilateral erythema with skin changes in the arms. I's and O's: Total in is 1934, total out is 40 with a balance of 1894; net balance yesterday was 3300, before that 3200. LABS: White count of 13.6, hemoglobin 11.4. The patient's creatinine is 3.9, bicarbonate of 18, potassium is 4.3. ASSESSMENT 1. Drug rash. 2. Acute kidney injury. 3. Septic shock, on pressors. 4. Hyponatremia, improved. 5. Hyperkalemia, improved. 6. Coronary artery disease. 7. Metabolic acidosis. The patient's INR is elevated at 5.9. It will be difficult to place a dialysis catheter. Dr. Bonner is following. The patient is becoming volume overloaded. The patient is on a bicarbonate drip, is currently on dobutamine, norepinephrine and milrinone. The patient is on Solu-Cortef. Overall prognosis is guarded. Rory Zambrano MD
--- NOTE | 2017-08-09 13:31 | CP.PCM.PN ---
Subjective - Date & Time of Evaluation Date of Evaluation: 08/09/17 Time of Evaluation: 10:00 - Subjective Subjective: Patient is still having hyothermia and still needs warming blankets, looks ill and weak, no diarrhea. Objective - Vital Signs/Intake and Output Vital Signs (last 24 hours): Temp Pulse Resp BP Pulse Ox 95.2 F L 132 H 18 75/35 L 97 08/09/17 07:15 08/09/17 07:15 08/09/17 07:15 08/09/17 08:56 08/09/17 07:15 Intake and Output: 08/09/17 08/09/17 06:59 18:59 Intake Total 350 250 Balance 350 250 - Medications Medications: Current Medications Acetaminophen (Tylenol 325mg Tab) 650 mg PO Q4H PRN PRN Reason: Pain, Mild (1-3) Hydrocortisone Sodium Succinate (Solu-Cortef) 50 mg IVP Q6H SOL Last Admin: 08/09/17 07:04 Dose: 50 mg Vasopressin 20 units/ Sodium (Chloride) 101 mls @ 9.09 mls/hr IV .Q11H7M SOL; 0.03 U/MIN PRN Reason: Protocol Last Admin: 08/09/17 08:56 Dose: 9.09 mls/hr Aztreonam 500 mg/ Sodium (Chloride) 100 mls @ 100 mls/hr IVPB Q8 SOL PRN Reason: Protocol Stop: 08/16/17 14:01 Last Admin: 08/09/17 05:15 Dose: 100 mls/hr Metronidazole (Flagyl) 500 mg in 100 mls @ 100 mls/hr IVPB Q8 SOL PRN Reason: Protocol Stop: 08/16/17 14:01 Last Admin: 08/09/17 07:05 Dose: 100 mls/hr Daptomycin 680 mg/ Sodium (Chloride) 100 mls @ 200 mls/hr IV Q48H SOL Stop: 08/12/17 11:01 Last Admin: 08/07/17 11:00 Dose: 200 mls/hr Norepinephrine Bitartrate 8 mg (/ Sodium Chloride) 250 mls @ 46.87 mls/hr IV .Q5H21M PRN; Protocol; 25 MCG/MIN PRN Reason: TITRATE PER MD ORDER Last Admin: 08/09/17 08:57 Dose: 25 mcg/min, 46.87 mls/hr Sodium Bicarbonate 150 meq/ (Dextrose) 1,150 mls @ 60 mls/hr IV .[id number] [facility] Last Admin: 08/09/17 09:00 Dose: 60 mls/hr Phenylephrine HCl 40 mg/ (Sodium Chloride) 254 mls @ 38.1 mls/hr IV .Q6H40M PRN ; Protocol; 100 MCG/MIN PRN Reason: TITRATE PER MD ORDER Last Admin: 08/09/17 12:15 Dose: 100 mcg/min, 38.1 mls/hr Pantoprazole Sodium (Protonix Ec Tab) 40 mg PO 0600 [facility] Last Admin: 08/09/17 07:09 Dose: 40 mg Vancomycin HCl (Vancocin 25 Mg/Ml (Oral Use)) 500 mg PO Q6H [facility] PRN Reason: Protocol Stop: 08/17/17 13:16 Last Admin: 08/09/17 07:07 Dose: 500 mg - Labs Labs: 08/09/17 06:00 08/09/17 06:00 PT 71.1 SECONDS (9.4-12.5) H 08/09/17 08:00 INR 5.96 (0.93-1.08) H* 08/09/17 08:00 APTT 98.4 Seconds (25.1-36.5) H 08/06/17 13:35 - Constitutional Appears: Chronically Ill - Head Exam Head Exam: NORMAL INSPECTION - Neck Exam Neck Exam: absent: Meningismus - Respiratory Exam Respiratory Exam: Decreased Breath Sounds - Cardiovascular Exam Cardiovascular Exam: +S1, +S2 - GI/Abdominal Exam GI & Abdominal Exam: Soft. absent: Tenderness - Extremities Exam Additional comments: both legs with improving swelling and erythema - Skin Skin Exam: Rash (erythema is slowly improving) Assessment and Plan - Assessment and Plan (Free Text) Plan: Assessment septic shock in this patient with diffuse maculopapular rash, consider due to severe C. diff. colitis on top of bilateral lower extremity cellulitis; rash may possibly be drug-reaction to Cefuroxime CAD S/P CABG chronic CHF with LVEF 35% atrial fibrillation on anticoagulation HTN S/P pacemaker placement Plan continue PO Vancomycin and IV Flagyl (day 3); patient also on Daptomycin and Azactam (day 3) and follow up final blood cx results (negative x 2 days) overall prognosis is poor
[2017-08-09] MEDS ORDERED: Digoxin 500 mcg/2ml (0.5 mg/2ml) Inj IVP ONE ×3 (13:55→17:15)
[2017-08-09] MEDS: Petrolatum-Mineral Oil Oint (100gm) TOP SCH ×2 (14:05→21:49)
--- NOTE | 2017-08-09 14:05 | CP.CCUPN ---
CCU Subjective - Physician Review Events Since Last Encounter (Free Text): 08/09/17 14:01 Procedure Note : Arterial Line placement with US guidance 72 yo female pt with septic shock requiring multiple vasopressor support. Pt remains hypotensive despite vasopressor support. Pt requires arterial line placement for septic shock and titration of vasopressors Pt's right groin area was cleaned with chloroprep. Pt was draped with small sterile cover. Pt's right groin area was again cleaned with chloroprep x2 . Subcutaneous lidocaine was given in right femoral area. Under US guidance , right femoral artery was cannulated and guidewire was passed into it. Using modified Seldinger technique, guidewire was removed and arterial sheath catheter was inserted. Good blood return observed . Line was secured in place with sutures. A dry sterile dressing was placed. Good waveform observed on the monitor Pt tolerated procedure well CCU Objective - Vital Signs / Intake & Output Intake and Output (Last 8hrs): Intake & Output 08/08/17 08/09/17 08/09/17 22:59 06:59 14:59 Intake Total 1152 282 250 Output Total 40 Balance 1112 282 250 Weight 236 lb 3 oz Intake: IV 1152 282 250 IVF NSALINE MAINTENANCE 600 LEVOPHED 400 vasopressin 84 Oral 0 Output: Urine 40 Urethral (Frye) 40 Other: # Bowel Movements 0 - Physical Exam Head: Positive for: Atraumatic, Normocephalic Pupils: Positive for: PERRL Extroacular Muscles: Positive for: EOMI Conjunctiva: Positive for: Normal Mouth: Positive for: Moist Mucous Membranes Neck: Positive for: Normal Range of Motion Respiratory/Chest: Positive for: Clear to Auscultation, Decreased Breath Sounds. Negative for: Respiratory Distress, Accessory Muscle Use Cardiovascular: Positive for: Regular Rate and Rhythm, Normal S1, S2. Negative for: Murmurs Abdomen: Positive for: Normal Bowel Sounds. Negative for: Tenderness, Distention, Peritoneal Signs Back: Positive for: Normal Inspection Upper Extremity: Positive for: Normal Inspection. Negative for: Cyanosis, Edema Lower Extremity: Positive for: Normal Inspection, Edema (+1 edema b/l) Neurological: Positive for: GCS=15, CN II-XII Intact, Speech Normal Skin: Positive for: Warm, Dry, Normal Color, Erythematous (Diffuse lacy, erythematous rash throughout arms, upper legs, and trunk. No change from previous day.). Negative for: Rashes Psychiatric: Positive for: Alert, Oriented x 3, Normal Insight, Normal Concentration - Medications Active Medications: Active Medications Generic Name Dose Route Start Last Admin Trade Name Freq PRN Reason Stop Dose Admin Acetaminophen 650 mg 08/07/17 17:35 Tylenol 325mg Tab PO Q4H PRN Pain, Mild (1-3) Hydrocortisone Sodium Succinate 50 mg 08/07/17 07:00 08/09/17 07:04 Solu-Cortef IVP 50 mg Q6H SOL Administration Vasopressin 20 units/ Sodium 101 mls @ 9.09 mls/hr 08/07/17 07:15 08/09/17 08 :56 Chloride IV 9.09 mls/hr .Q11H7M SOL Administration Protocol 0.03 U/MIN Aztreonam 500 mg/ Sodium 100 mls @ 100 mls/hr 08/07/17 14:00 08/09/17 05:15 Chloride IVPB 08/16/17 14:01 100 mls/hr Q8 SOL Administration Protocol Metronidazole 500 mg in 100 mls @ 100 mls/hr 08/07/17 14:00 08/09/17 07:05 Flagyl IVPB 08/16/17 14:01 100 mls/hr Q8 SOL Administration Protocol Daptomycin 680 mg/ Sodium 100 mls @ 200 mls/hr 08/07/17 11:00 08/07/17 11:00 Chloride IV 08/12/17 11:01 200 mls/hr Q48H SOL Administration Norepinephrine Bitartrate 8 mg 250 mls @ 46.87 mls/hr 08/07/17 16:02 08:57 / Sodium Chloride IV 25 mcg/min .Q5H21M PRN 46.87 mls/hr TITRATE PER MD ORDER Administration Protocol 25 MCG/MIN Sodium Bicarbonate 150 meq/ 1,150 mls @ 60 mls/hr 08/08/17 12:00 08/09/17 09: 00 Dextrose IV 60 mls/hr .[id number] SOL Administration Phenylephrine HCl 40 mg/ 254 mls @ 38.1 mls/hr 08/09/17 09:20 08/09/17 12:15 Sodium Chloride IV 100 mcg/min .Q6H40M PRN 38.1 mls/hr TITRATE PER MD ORDER Administration Protocol 100 MCG/MIN Multi-Ingredient Ointment 0 gm 08/09/17 13:45 Hydrophor Oint TOP Q6H [facility] Pantoprazole Sodium 40 mg 08/07/17 06:00 08/09/17 07:09 Protonix Ec Tab PO 40 mg 0600 SOL Administration Silver Sulfadiazine 0 gm 08/09/17 18:00 Silvadene 1% 25 Gm TP BID SOL Vancomycin HCl 500 mg 08/08/17 13:15 08/09/17 07:07 Vancocin 25 Mg/Ml (Oral Use) PO 08/17/17 13:16 500 mg Q6H SOL Administration Protocol - Patient Studies Lab Studies: Microbiology Studies 08/06/17 20:39 Blood Culture - Preliminary Blood NO GROWTH AFTER 48 HOURS 08/06/17 20:39 Blood Culture - Preliminary Blood NO GROWTH AFTER 48 HOURS 08/06/17 20:40 MRSA Culture (Admit) - Final Naris MRSA NOT DETECTED 08/07/17 10:00 C. difficile Antigen & Toxin A,B (M - Final Stool Lab Studies 08/09/17 08/09/17 08/09/17 Range/Units 12:30 08:00 06:30 WBC (4.5-11.0) 10^3/ul RBC (3.5-6.1) 10^6/uL Hgb (12.0-16.0) g/dL Hct (36.0-48.0) % MCV (80.0-105.0) fl MCH (25.0-35.0) pg MCHC (31.0-37.0) g/dl RDW (11.5-14.5) % Plt Count (120.0-450.0) 10^3/uL MPV (7.0-11.0) fl PT 71.1 H (9.4-12.5) SECONDS INR 5.96 H* (0.93-1.08) pO2 65 H (30-55) mm/Hg VBG pH 7.29 L (7.32-7.43) VBG pCO2 40.0 (40-60) VBG HCO3 19.2 L (21-28) mmol/l VBG Total CO2 20.4 L (22-28) mmol.L VBG O2 Sat (Calc) 91.9 H (40-65) % VBG Base Excess -7.0 L (0.0-2.0) mmol/L VBG Potassium 4.4 (3.6-5.2) mmol/L Glucose 201 H (65-105) mg/dl Lactate 1.8 (0.7-2.1) mmol/L FiO2 21.0 % Sodium 137.0 (132-148) mmol/L Potassium (3.6-5.0) mmol/L Chloride 107.0 (98-107) mmol/L Carbon Dioxide (21-33) mmol/L Anion Gap (10-20) BUN (7-21) mg/dL Creatinine (0.7-1.2) mg/dl Est GFR ( Amer) Est GFR (Non-Af Amer) Random Glucose (70-110) mg/dL Calcium (8.4-10.5) mg/dL Total Bilirubin (0.2-1.3) mg/dL AST (14-36) U/L ALT (7-56) U/L Alkaline Phosphatase (38-126) U/L Total Protein (5.8-8.3) g/dL Albumin (3.0-4.8) g/dL Globulin gm/dL Albumin/Globulin Ratio (1.1-1.8) Venous Blood Potassium 4.4 (3.6-5.2) mmol/L Urine Color (YELLOW) Urine Appearance (CLEAR) Urine pH (4.7-8.0) Ur Specific Hazel (1.005-1.035) Urine Protein (<30 mg/dL) mg/dL Urine Glucose (UA) (NEGATIVE) mg/dL Urine Ketones (NEGATIVE) mg/dL Urine Blood (NEGATIVE) Urine Nitrate (NEGATIVE) Urine Bilirubin (NEGATIVE) Urine Urobilinogen (<1 E.U./dL) E.U./dL Ur Leukocyte Esterase (NEGATIVE) Canelo/uL Urine RBC (0-2) /hpf Urine WBC (0-6) /hpf Ur Epithelial Cells (0-5) /hpf Urine Bacteria (NEG) Urine Eosinophils Ur Random Creatinine mg/dL U Random Total Protein 357 mg/L 08/09/17 08/09/17 08/09/17 Range/Units 06:30 06:30 06:30 WBC (4.5-11.0) 10^3/ul RBC (3.5-6.1) 10^6/uL Hgb (12.0-16.0) g/dL Hct (36.0-48.0) % MCV (80.0-105.0) fl MCH (25.0-35.0) pg MCHC (31.0-37.0) g/dl RDW (11.5-14.5) % Plt Count (120.0-450.0) 10^3/uL MPV (7.0-11.0) fl PT (9.4-12.5) SECONDS INR (0.93-1.08) pO2 (30-55) mm/Hg VBG pH (7.32-7.43) VBG pCO2 (40-60) VBG HCO3 (21-28) mmol/l VBG Total CO2 (22-28) mmol.L VBG O2 Sat (Calc) (40-65) % VBG Base Excess (0.0-2.0) mmol/L VBG Potassium (3.6-5.2) mmol/L Glucose (65-105) mg/dl Lactate (0.7-2.1) mmol/L FiO2 % Sodium (132-148) mmol/L Potassium (3.6-5.0) mmol/L Chloride (98-107) mmol/L Carbon Dioxide (21-33) mmol/L Anion Gap (10-20) BUN (7-21) mg/dL Creatinine (0.7-1.2) mg/dl Est GFR ( Amer) Est GFR (Non-Af Amer) Random Glucose (70-110) mg/dL Calcium (8.4-10.5) mg/dL Total Bilirubin (0.2-1.3) mg/dL AST (14-36) U/L ALT (7-56) U/L Alkaline Phosphatase (38-126) U/L Total Protein (5.8-8.3) g/dL Albumin (3.0-4.8) g/dL Globulin gm/dL Albumin/Globulin Ratio (1.1-1.8) Venous Blood Potassium (3.6-5.2) mmol/L Urine Color Yellow (YELLOW) Urine Appearance Cloudy (CLEAR) Urine pH 5.5 (4.7-8.0) Ur Specific Hazel >= 1.030 (1.005-1.035) Urine Protein >=300 H (<30 mg/dL) mg/dL Urine Glucose (UA) Negative (NEGATIVE) mg/dL Urine Ketones Trace H (NEGATIVE) mg/dL Urine Blood Small H (NEGATIVE) Urine Nitrate Positive H (NEGATIVE) Urine Bilirubin Small H (NEGATIVE) Urine Urobilinogen 0.2 (<1 E.U./dL) E.U./dL Ur Leukocyte Esterase Trace H (NEGATIVE) Canelo/uL Urine RBC 2 - 5 (0-2) /hpf Urine WBC 5 - 10 (0-6) /hpf Ur Epithelial Cells 3 - 4 (0-5) /hpf Urine Bacteria Mod (NEG) Urine Eosinophils Negative Ur Random Creatinine 118 mg/dL U Random Total Protein mg/L 08/09/17 08/09/17 08/09/17 Range/Units 06:00 06:00 06:00 WBC 13.6 H (4.5-11.0) 10^3/ul RBC 4.11 (3.5-6.1) 10^6/uL Hgb 11.4 L (12.0-16.0) g/dL Hct 34.2 L (36.0-48.0) % MCV 83.2 (80.0-105.0) fl MCH 27.7 (25.0-35.0) pg MCHC 33.3 (31.0-37.0) g/dl RDW 17.9 H (11.5-14.5) % Plt Count 161 (120.0-450.0) 10^3/uL MPV 10.7 (7.0-11.0) fl PT 62.1 H (9.4-12.5) SECONDS INR 5.22 H* (0.93-1.08) pO2 (30-55) mm/Hg VBG pH (7.32-7.43) VBG pCO2 (40-60) VBG HCO3 (21-28) mmol/l VBG Total CO2 (22-28) mmol.L VBG O2 Sat (Calc) (40-65) % VBG Base Excess (0.0-2.0) mmol/L VBG Potassium (3.6-5.2) mmol/L Glucose (65-105) mg/dl Lactate (0.7-2.1) mmol/L FiO2 % Sodium 138 (132-148) mmol/L Potassium 4.3 (3.6-5.0) mmol/L Chloride 106 (98-107) mmol/L Carbon Dioxide 18 L (21-33) mmol/L Anion Gap 19 (10-20) BUN 83 H (7-21) mg/dL Creatinine 3.9 H (0.7-1.2) mg/dl Est GFR ( Amer) 14 Est GFR (Non-Af Amer) 11 Random Glucose 243 H (70-110) mg/dL Calcium 7.9 L (8.4-10.5) mg/dL Total Bilirubin 1.0 (0.2-1.3) mg/dL AST 72 H (14-36) U/L ALT 83 H (7-56) U/L Alkaline Phosphatase 93 (38-126) U/L Total Protein 5.4 L (5.8-8.3) g/dL Albumin 2.3 L (3.0-4.8) g/dL Globulin 3.0 gm/dL Albumin/Globulin Ratio 0.8 L (1.1-1.8) Venous Blood Potassium (3.6-5.2) mmol/L Urine Color (YELLOW) Urine Appearance (CLEAR) Urine pH (4.7-8.0) Ur Specific Hazel (1.005-1.035) Urine Protein (<30 mg/dL) mg/dL Urine Glucose (UA) (NEGATIVE) mg/dL Urine Ketones (NEGATIVE) mg/dL Urine Blood (NEGATIVE) Urine Nitrate (NEGATIVE) Urine Bilirubin (NEGATIVE) Urine Urobilinogen (<1 E.U./dL) E.U./dL Ur Leukocyte Esterase (NEGATIVE) Canelo/uL Urine RBC (0-2) /hpf Urine WBC (0-6) /hpf Ur Epithelial Cells (0-5) /hpf Urine Bacteria (NEG) Urine Eosinophils Ur Random Creatinine mg/dL U Random Total Protein mg/L 08/08/17 Range/Units 19:10 WBC (4.5-11.0) 10^3/ul RBC (3.5-6.1) 10^6/uL Hgb (12.0-16.0) g/dL Hct (36.0-48.0) % MCV (80.0-105.0) fl MCH (25.0-35.0) pg MCHC (31.0-37.0) g/dl RDW (11.5-14.5) % Plt Count (120.0-450.0) 10^3/uL MPV (7.0-11.0) fl PT (9.4-12.5) SECONDS INR (0.93-1.08) pO2 (30-55) mm/Hg VBG pH (7.32-7.43) VBG pCO2 (40-60) VBG HCO3 (21-28) mmol/l VBG Total CO2 (22-28) mmol.L VBG O2 Sat (Calc) (40-65) % VBG Base Excess (0.0-2.0) mmol/L VBG Potassium (3.6-5.2) mmol/L Glucose (65-105) mg/dl Lactate (0.7-2.1) mmol/L FiO2 % Sodium 138 (132-148) mmol/L Potassium 4.9 (3.6-5.0) mmol/L Chloride 107 (98-107) mmol/L Carbon Dioxide 16 L (21-33) mmol/L Anion Gap 19 (10-20) BUN 79 H (7-21) mg/dL Creatinine 3.9 H (0.7-1.2) mg/dl Est GFR ( Amer) 14 Est GFR (Non-Af Amer) 11 Random Glucose 162 H (70-110) mg/dL Calcium 8.1 L (8.4-10.5) mg/dL Total Bilirubin (0.2-1.3) mg/dL AST (14-36) U/L ALT (7-56) U/L Alkaline Phosphatase (38-126) U/L Total Protein (5.8-8.3) g/dL Albumin (3.0-4.8) g/dL Globulin gm/dL Albumin/Globulin Ratio (1.1-1.8) Venous Blood Potassium (3.6-5.2) mmol/L Urine Color (YELLOW) Urine Appearance (CLEAR) Urine pH (4.7-8.0) Ur Specific Hazel (1.005-1.035) Urine Protein (<30 mg/dL) mg/dL Urine Glucose (UA) (NEGATIVE) mg/dL Urine Ketones (NEGATIVE) mg/dL Urine Blood (NEGATIVE) Urine Nitrate (NEGATIVE) Urine Bilirubin (NEGATIVE) Urine Urobilinogen (<1 E.U./dL) E.U./dL Ur Leukocyte Esterase (NEGATIVE) Canelo/uL Urine RBC (0-2) /hpf Urine WBC (0-6) /hpf Ur Epithelial Cells (0-5) /hpf Urine Bacteria (NEG) Urine Eosinophils Ur Random Creatinine mg/dL U Random Total Protein mg/L Laboratory Results - last 24 hr 08/08/17 08/09/17 08/09/17 19:10 06:00 06:00 WBC 13.6 H RBC 4.11 Hgb 11.4 L Hct 34.2 L MCV 83.2 MCH 27.7 MCHC 33.3 RDW 17.9 H Plt Count 161 MPV 10.7 PT INR pO2 VBG pH VBG pCO2 VBG HCO3 VBG Total CO2 VBG O2 Sat (Calc) VBG Base Excess VBG Potassium Glucose Lactate FiO2 Sodium 138 138 Potassium 4.9 4.3 Chloride 107 106 Carbon Dioxide 16 L 18 L Anion Gap 19 19 BUN 79 H 83 H Creatinine 3.9 H 3.9 H Est GFR ( Amer) 14 14 Est GFR (Non-Af Amer) 11 11 Random Glucose 162 H 243 H Calcium 8.1 L 7.9 L Total Bilirubin 1.0 AST 72 H ALT 83 H Alkaline Phosphatase 93 Total Protein 5.4 L Albumin 2.3 L Globulin 3.0 Albumin/Globulin Ratio 0.8 L Venous Blood Potassium Urine Color Urine Appearance Urine pH Ur Specific Hazel Urine Protein Urine Glucose (UA) Urine Ketones Urine Blood Urine Nitrate Urine Bilirubin Urine Urobilinogen Ur Leukocyte Esterase Urine RBC Urine WBC Ur Epithelial Cells Urine Bacteria Urine Eosinophils Ur Random Creatinine U Random Total Protein 08/09/17 08/09/17 08/09/17 06:00 06:30 06:30 WBC RBC Hgb Hct MCV MCH MCHC RDW Plt Count MPV PT 62.1 H INR 5.22 H* pO2 VBG pH VBG pCO2 VBG HCO3 VBG Total CO2 VBG O2 Sat (Calc) VBG Base Excess VBG Potassium Glucose Lactate FiO2 Sodium Potassium Chloride Carbon Dioxide Anion Gap BUN Creatinine Est GFR ( Amer) Est GFR (Non-Af Amer) Random Glucose Calcium Total Bilirubin AST ALT Alkaline Phosphatase Total Protein Albumin Globulin Albumin/Globulin Ratio Venous Blood Potassium Urine Color Yellow Urine Appearance Cloudy Urine pH 5.5 Ur Specific Hazel >= 1.030 Urine Protein >=300 H Urine Glucose (UA) Negative Urine Ketones Trace H Urine Blood Small H Urine Nitrate Positive H Urine Bilirubin Small H Urine Urobilinogen 0.2 Ur Leukocyte Esterase Trace H Urine RBC 2 - 5 Urine WBC 5 - 10 Ur Epithelial Cells 3 - 4 Urine Bacteria Mod Urine Eosinophils Negative Ur Random Creatinine U Random Total Protein 08/09/17 08/09/17 08/09/17 06:30 06:30 08:00 WBC RBC Hgb Hct MCV MCH MCHC RDW Plt Count MPV PT 71.1 H INR 5.96 H* pO2 VBG pH VBG pCO2 VBG HCO3 VBG Total CO2 VBG O2 Sat (Calc) VBG Base Excess VBG Potassium Glucose Lactate FiO2 Sodium Potassium Chloride Carbon Dioxide Anion Gap BUN Creatinine Est GFR ( Amer) Est GFR (Non-Af Amer) Random Glucose Calcium Total Bilirubin AST ALT Alkaline Phosphatase Total Protein Albumin Globulin Albumin/Globulin Ratio Venous Blood Potassium Urine Color Urine Appearance Urine pH Ur Specific Hazel Urine Protein Urine Glucose (UA) Urine Ketones Urine Blood Urine Nitrate Urine Bilirubin Urine Urobilinogen Ur Leukocyte Esterase Urine RBC Urine WBC Ur Epithelial Cells Urine Bacteria Urine Eosinophils Ur Random Creatinine 118 U Random Total Protein 357 08/09/17 12:30 WBC RBC Hgb Hct MCV MCH MCHC RDW Plt Count MPV PT INR pO2 65 H VBG pH 7.29 L VBG pCO2 40.0 VBG HCO3 19.2 L VBG Total CO2 20.4 L VBG O2 Sat (Calc) 91.9 H VBG Base Excess -7.0 L VBG Potassium 4.4 Glucose 201 H Lactate 1.8 FiO2 21.0 Sodium 137.0 Potassium Chloride 107.0 Carbon Dioxide Anion Gap BUN Creatinine Est GFR ( Amer) Est GFR (Non-Af Amer) Random Glucose Calcium Total Bilirubin AST ALT Alkaline Phosphatase Total Protein Albumin Globulin Albumin/Globulin Ratio Venous Blood Potassium 4.4 Urine Color Urine Appearance Urine pH Ur Specific Hazel Urine Protein Urine Glucose (UA) Urine Ketones Urine Blood Urine Nitrate Urine Bilirubin Urine Urobilinogen Ur Leukocyte Esterase Urine RBC Urine WBC Ur Epithelial Cells Urine Bacteria Urine Eosinophils Ur Random Creatinine U Random Total Protein
[2017-08-09 15:31] VITALS: PULSE 129
[2017-08-09 15:52] LABS: ALBUMIN 2.7 g/dL (3.0-4.8)
[2017-08-09 15:53] LABS: ALB/GLOB RATIO 0.8 (1.1-1.8)
[2017-08-09 16:01] LABS: INR 2.38 (0.93-1.08); PROTHROMBIN TIME 27.6 SECONDS (9.4-12.5)
--- NOTE | 2017-08-09 21:55 | CP.PCM.PN ---
Subjective - Date & Time of Evaluation Date of Evaluation: 08/09/17 Time of Evaluation: 11:00 - Subjective Subjective: 72 yo F w/ pmh of htn, CHF w/ systolic dysfunction, aifb on coumadin, CAD s/p CABG, admitted with diffuse erythematous rash, shock, coagulopathy and acute renal failure; Milrinone stopped this morning due to hypotension; remains on 2 vasopressors; A- line placed; Objective - Vital Signs/Intake and Output Vital Signs (last 24 hours): Temp Pulse Resp BP Pulse Ox 96.6 F L 95 H 22 75/47 L 98 08/09/17 20:00 08/09/17 20:00 08/09/17 20:00 08/09/17 19:52 08/09/17 20:00 Intake and Output: 08/09/17 08/10/17 18:59 06:59 Intake Total 1081 254 Output Total 10 Balance 1071 254 - Medications Medications: Current Medications Acetaminophen (Tylenol 325mg Tab) 650 mg PO Q4H PRN PRN Reason: Pain, Mild (1-3) Hydrocortisone Sodium Succinate (Solu-Cortef) 50 mg IVP Q6H [facility] Last Admin: 08/09/17 19:41 Dose: 50 mg Vasopressin 20 units/ Sodium (Chloride) 101 mls @ 9.09 mls/hr IV .Q11H7M SOL; 0.03 U/MIN PRN Reason: Protocol Last Admin: 08/09/17 19:52 Dose: 9.09 mls/hr Aztreonam 500 mg/ Sodium (Chloride) 100 mls @ 100 mls/hr IVPB Q8 SOL PRN Reason: Protocol Stop: 08/16/17 14:01 Last Admin: 08/09/17 14:08 Dose: 100 mls/hr Metronidazole (Flagyl) 500 mg in 100 mls @ 100 mls/hr IVPB Q8 SOL PRN Reason: Protocol Stop: 08/16/17 14:01 Last Admin: 08/09/17 21:41 Dose: 100 mls/hr Daptomycin 680 mg/ Sodium (Chloride) 100 mls @ 200 mls/hr IV Q48H SOL Stop: 08/12/17 11:01 Last Admin: 08/09/17 14:06 Dose: 200 mls/hr Norepinephrine Bitartrate 8 mg (/ Sodium Chloride) 250 mls @ 46.87 mls/hr IV .Q5H21M PRN; Protocol; 25 MCG/MIN PRN Reason: TITRATE PER MD ORDER Last Titration: 08/09/17 16:07 Dose: 18 mcg/min, 33.75 mls/hr Sodium Bicarbonate 150 meq/ (Dextrose) 1,150 mls @ 60 mls/hr IV .[id number] [facility] Last Admin: 08/09/17 09:00 Dose: 60 mls/hr Phenylephrine HCl 40 mg/ (Sodium Chloride) 254 mls @ 38.1 mls/hr IV .Q6H40M PRN ; Protocol; 100 MCG/MIN PRN Reason: TITRATE PER MD ORDER Last Admin: 08/09/17 19:55 Dose: 340 mcg/min, 129.54 mls/hr Multi-Ingredient Ointment (Hydrophor Oint) 0 gm TOP Q6H [facility] Last Admin: 08/09/17 21:49 Dose: 1 % Pantoprazole Sodium (Protonix Ec Tab) 40 mg PO 0600 [facility] Last Admin: 08/09/17 07:09 Dose: 40 mg Silver Sulfadiazine (Silvadene 1% 25 Gm) 0 gm TP BID [facility] Vancomycin HCl (Vancocin 25 Mg/Ml (Oral Use)) 500 mg PO Q6H SOL PRN Reason: Protocol Stop: 08/17/17 13:16 Last Admin: 08/09/17 19:38 Dose: 500 mg - Labs Labs: 08/09/17 06:00 08/09/17 15:30 PT 27.6 SECONDS (9.4-12.5) H 08/09/17 15:30 INR 2.38 (0.93-1.08) H 08/09/17 15:30 APTT 98.4 Seconds (25.1-36.5) H 08/06/17 13:35 - Constitutional Appears: No Acute Distress (but appears acutely ill) - Eye Exam Eye Exam: absent: Scleral icterus - Respiratory Exam Respiratory Exam: absent: Respiratory Distress Additional comments: minimal rales present; - Cardiovascular Exam Cardiovascular Exam: Tachycardia, Irregular Rhythm, +S1, +S2 - GI/Abdominal Exam Additional comments: mildly distended, non-tender; - Exam Exam: absent: Bladder Distension - Extremities Exam Additional comments: markedly edematous; - Neurological Exam Neurological Exam: Alert, Awake - Psychiatric Exam Psychiatric exam: absent: Agitated - Skin Skin Exam: Warm. absent: Cyanosis Assessment and Plan (1) Shock Assessment & Plan: Distributive shock from sepsis v cardiogenic shock; cultures negative till date but urine culture just sent yesterday; levophed changed to phenylephrine due to concern for tachycardia; remains on broad spectrum antiobiotics, should continue to dose for CrCl < 10; Status: Acute (2) Acute renal failure (ARF) Assessment & Plan: Oligoanuric renal failure in the setting of shock; may have initially been cardiorenal etiology but now with extension to ATN; relatively stable electrolyte status on bicarb drip (hyperkalemia currently resolved, acidosis being corrected), however, is volume overloaded and in need for initiation of HD ; awaiting HD catheter placement, coagulopathy major pawel; -Will initiate HD tomorrow once catheter placed; aiming for daily ultrafiltration sessions on HD; -Avoid nephrotoxic agents; -Awaiting CT abd/pelvis w/o contrast Status: Acute (3) SIRS (systemic inflammatory response syndrome) Status: Acute (4) Rash Status: Acute (5) HTN (hypertension) Status: Chronic (6) Hyperkalemia Assessment & Plan: see above Status: Acute (7) Hyponatremia Status: Acute (8) Metabolic acidosis Assessment & Plan: see above Status: Acute (9) Acute exacerbation of CHF (congestive heart failure) Assessment & Plan: Acute severely decompensated systolic CHF; in need of volume removal with UF on HD; Status: Acute
[2017-08-10] MEDS: Petrolatum-Mineral Oil Oint (100gm) TOP SCH ×4 (02:00→20:00)
[2017-08-10] MEDS: Vancomycin 25 MG/ML PO SCH ×4 (02:00→20:41)
[2017-08-10] MEDS: metroNIDAZOLE IV 500 mg/100 ml 500 MG/100 ML BAG IVPB SCH ×3 (06:02→21:27)
[2017-08-10] MEDS: Pantoprazole 40 mg EC Tab PO SCH (06:04)
[2017-08-10 06:56] LABS: HEMOGLOBIN 13.1 g/dL (12.0-16.0); MEAN CELL VOLUME 83.6 fl (80.0-105.0); MEAN CORPUSCULAR HEMOGLOBIN 28.6 pg (25.0-35.0); MEAN CORPUSCULAR HGB CONC 34.2 g/dl (31.0-37.0); MEAN PLATELET VOLUME 10.6 fl (7.0-11.0); RBC 4.58 10^6/uL (3.5-6.1); RED CELL DISTRIBUTION WIDTH 17.9 % (11.5-14.5); WHITE BLOOD COUNT 15.2 10^3/ul (4.5-11.0)
[2017-08-10 06:59] LABS: INR 2.21 (0.93-1.08); PROTHROMBIN TIME 25.8 SECONDS (9.4-12.5)
[2017-08-10 07:40] LABS: ALB/GLOB RATIO 0.8 (1.1-1.8); ALBUMIN 2.6 g/dL (3.0-4.8); CALCIUM 7.5 mg/dL (8.4-10.5)
[2017-08-10] MEDS: Norepinephrine 8 MG in Sodium Chloride 0.9% 242 ML IV PRN ×2 (08:02→17:30)
[2017-08-10] MEDS: Silver Sulfadiazine 1% Cream (25 gm) TP SCH ×3 (09:41→17:07)
--- NOTE | 2017-08-10 09:42 | CT ---
PROCEDURE: CT Abdomen and Pelvis without intravenous contrast HISTORY: C. diff colitis COMPARISON: None. TECHNIQUE: Without contrast. Contrast Dose: Radiation dose: Total exam DLP = Total exam DLP = 1463 mGy-cm. This CT exam was performed using one or more of the following dose reduction techniques: Automated exposure control, adjustment of the mA and/or kV according to patient size, and/or use of iterative reconstruction technique. FINDINGS: LOWER THORAX: There is severe cardiomegaly. LIVER: Unremarkable. No gross lesion or ductal dilatation. GALLBLADDER AND BILE DUCTS: There is a 23 mm stones in the gallbladder. PANCREAS: Unremarkable. No gross lesion or ductal dilatation. SPLEEN: Unremarkable. ADRENALS: Unremarkable. No mass. KIDNEYS AND URETERS: Unremarkable. No hydronephrosis. No solid mass. VASCULATURE: Unremarkable. No aortic aneurysm. BOWEL: Unremarkable. No obstruction. No gross mural thickening. There is no evidence of colitis APPENDIX: Unremarkable. Normal appendix. PERITONEUM: There is a small amount of ascites. There is a fat containing umbilical hernia measuring 7.5 cm. There is a large amount of subcutaneous edema especially over the left flank consistent with anasarca. LYMPH NODES: Unremarkable. No enlarged lymph nodes. BLADDER: Unremarkable. REPRODUCTIVE: Unremarkable. BONES: No acute fracture. OTHER FINDINGS: None. IMPRESSION: Mild ascites. Anasarca. No acute intra-abdominal findings
--- NOTE | 2017-08-10 10:38 | CP.PCM.PN ---
Subjective - Date & Time of Evaluation Date of Evaluation: 08/10/17 Time of Evaluation: 09:10 - Subjective Subjective: Patient is still weak, feels tired, somewhat lethargic but arousable, no fevers. Objective - Vital Signs/Intake and Output Vital Signs (last 24 hours): Temp Pulse Resp BP Pulse Ox 97.9 F 99 H 21 92/58 L 97 08/10/17 02:30 08/10/17 02:30 08/10/17 02:30 08/10/17 03:50 08/10/17 02:30 Intake and Output: 08/09/17 08/10/17 18:59 06:59 Intake Total 1081 1539 Output Total 10 Balance 1071 1539 - Medications Medications: Current Medications Acetaminophen (Tylenol 325mg Tab) 650 mg PO Q4H PRN PRN Reason: Pain, Mild (1-3) Hydrocortisone Sodium Succinate (Solu-Cortef) 50 mg IVP Q6H SOL Last Admin: 08/10/17 02:00 Dose: 50 mg Vasopressin 20 units/ Sodium (Chloride) 101 mls @ 9.09 mls/hr IV .Q11H7M SOL; 0.03 U/MIN PRN Reason: Protocol Last Admin: 08/10/17 03:50 Dose: 9.09 mls/hr Aztreonam 500 mg/ Sodium (Chloride) 100 mls @ 100 mls/hr IVPB Q8 SOL PRN Reason: Protocol Stop: 08/16/17 14:01 Last Admin: 08/10/17 05:11 Dose: 100 mls/hr Metronidazole (Flagyl) 500 mg in 100 mls @ 100 mls/hr IVPB Q8 SOL PRN Reason: Protocol Stop: 08/16/17 14:01 Last Admin: 08/10/17 06:02 Dose: 100 mls/hr Daptomycin 680 mg/ Sodium (Chloride) 100 mls @ 200 mls/hr IV Q48H SOL Stop: 08/12/17 11:01 Last Admin: 08/09/17 14:06 Dose: 200 mls/hr Norepinephrine Bitartrate 8 mg (/ Sodium Chloride) 250 mls @ 46.87 mls/hr IV .Q5H21M PRN; Protocol; 25 MCG/MIN PRN Reason: TITRATE PER MD ORDER Last Admin: 08/09/17 22:58 Dose: 18 mcg/min, 33.75 mls/hr Sodium Bicarbonate 150 meq/ (Dextrose) 1,150 mls @ 60 mls/hr IV .[id number] [facility] Last Admin: 08/09/17 22:42 Dose: 60 mls/hr Phenylephrine HCl 40 mg/ (Sodium Chloride) 254 mls @ 38.1 mls/hr IV .Q6H40M PRN ; Protocol; 100 MCG/MIN PRN Reason: TITRATE PER MD ORDER Last Admin: 08/10/17 05:27 Dose: 340 mcg/min, 129.54 mls/hr Multi-Ingredient Ointment (Hydrophor Oint) 0 gm TOP Q6H [facility] Last Admin: 08/10/17 02:00 Dose: 1 % Pantoprazole Sodium (Protonix Ec Tab) 40 mg PO 0600 [facility] Last Admin: 08/10/17 06:04 Dose: 40 mg Silver Sulfadiazine (Silvadene 1% 25 Gm) 0 gm TP BID [facility] Vancomycin HCl (Vancocin 25 Mg/Ml (Oral Use)) 500 mg PO Q6H [facility] PRN Reason: Protocol Stop: 08/17/17 13:16 Last Admin: 08/10/17 02:00 Dose: 500 mg - Labs Labs: 08/09/17 06:00 08/09/17 15:30 PT 27.6 SECONDS (9.4-12.5) H 08/09/17 15:30 INR 2.38 (0.93-1.08) H 08/09/17 15:30 APTT 98.4 Seconds (25.1-36.5) H 08/06/17 13:35 - Constitutional Appears: Chronically Ill, Other (ill-appearing) - Head Exam Head Exam: NORMAL INSPECTION - Neck Exam Neck Exam: absent: Meningismus - Respiratory Exam Respiratory Exam: Decreased Breath Sounds - Cardiovascular Exam Cardiovascular Exam: +S1, +S2 - GI/Abdominal Exam GI & Abdominal Exam: Soft. absent: Tenderness - Extremities Exam Additional comments: decreasing erythema and swelling of both lower extremities Assessment and Plan - Assessment and Plan (Free Text) Plan: Assessment septic shock in this patient with diffuse maculopapular rash, consider due to severe C. diff. colitis on top of bilateral lower extremity cellulitis R/O UTI; rash may possibly be drug-reaction to Cefuroxime CAD S/P CABG chronic CHF with LVEF 35% chronic renal failure atrial fibrillation on anticoagulation HTN S/P pacemaker placement Plan continue PO Vancomycin and IV Flagyl (day 4); patient also on Daptomycin and Azactam (day 4) blood and urine cx are negative overall prognosis is poor
--- NOTE | 2017-08-10 11:18 | RAD ---
HISTORY: cardiogenic shck COMPARISON: 08/08/2017 FINDINGS: LUNGS: No consolidation. PLEURA: No significant pleural effusion identified, no pneumothorax apparent. CARDIOVASCULAR: Cardiomegaly -similar. Midline sternotomy and dual lead pacemaker AICD device in place -similar Central pulmonary venous congestion slightly increased. Central pulmonary venous catheter line tip near superior vena cava right atrial junction similar-appearing OSSEOUS STRUCTURES: Midline sternotomy. VISUALIZED UPPER ABDOMEN: Normal. OTHER FINDINGS: None. IMPRESSION: Cardiomegaly - similar Interval increased degree of central pulmonary venous congestion Comments: The extreme right costophrenic angle is clipped on this exam.
--- NOTE | 2017-08-10 11:21 | CP.CCUPN ---
<Timmy Cruz - Last Filed: 08/10/17 11:21> CCU Subjective - Physician Review Subjective (Free Text): Patient seen and evaluated bedside. No acute issues overnight. Patient denies any chest pain, shortness of breath, nausea, vomiting ot any other complaints at this time. 08/10/17 11:22 CCU Objective - Vital Signs / Intake & Output Vital Signs (Last 4 hours): Vital Signs Temp Pulse Resp BP Pulse Ox 08/10/17 11:00 96.8 F L 88 15 80/44 L 99 08/10/17 10:50 96.8 F L 93 H 16 99 08/10/17 10:45 84/33 L 08/10/17 10:44 96.8 F L 100 H 18 98 08/10/17 10:40 97.0 F L 111 H 21 100 08/10/17 10:30 97.0 F L 100 H 17 97/44 L 99 08/10/17 10:20 97.0 F L 106 H 21 98 08/10/17 10:15 97.0 F L 110 H 23 99/52 L 98 08/10/17 10:11 97.0 F L 101 H 98 08/10/17 10:10 97.0 F L 103 H 22 99 08/10/17 10:00 99 H 86/55 L 08/10/17 09:59 97.0 F L 109 H 15 97 08/10/17 09:50 97.0 F L 97 H 17 96 08/10/17 09:45 97.2 F L 120 H 16 99/71 L 98 08/10/17 09:40 97.0 F L 121 H 16 96 08/10/17 09:31 97.2 F L 97 H 16 91/65 L 95 08/10/17 09:30 97.2 F L 112 H 15 97 08/10/17 09:20 97.2 F L 110 H 17 97 08/10/17 09:15 91/56 L 08/10/17 09:14 97.2 F L 96 H 18 98 08/10/17 09:10 97.2 F L 91 H 19 97 08/10/17 09:00 97.2 F L 107 H 25 H 97 08/10/17 08:58 97.2 F L 96 H 25 H 105/77 96 08/10/17 08:57 96 H 25 H 08/10/17 08:30 89 21 77/48 L 97 08/10/17 08:20 97.0 F L 107 H 23 96 08/10/17 08:15 97.2 F L 99 H 28 H 108/61 96 08/10/17 08:10 97.0 F L 111 H 25 H 96 08/10/17 08:00 96.8 F L 102 H 33 H 92/56 L 96 08/10/17 07:50 97.2 F L 100 H 17 98 08/10/17 07:45 97.2 F L 107 H 15 94/53 L 99 08/10/17 07:40 97.2 F L 101 H 20 99 08/10/17 07:30 97.2 F L 105 H 19 82/43 L 97 Intake and Output (Last 8hrs): Intake & Output 08/09/17 08/10/17 08/10/17 22:59 06:59 14:59 Intake Total 1354 3602 508 Output Total 10 100 Balance 1344 3502 508 Weight 240 lb 6 oz Intake: IV 1354 3082 508 LEVOPHED 396 309 CARMEN 1408 vasopressin 108 99 Oral 120 Other 400 Output: Urine 10 100 Urethral (Frye) 10 100 Other: # Bowel Movements 1 - Physical Exam Head: Positive for: Atraumatic, Normocephalic Pupils: Positive for: PERRL Extroacular Muscles: Positive for: EOMI Conjunctiva: Positive for: Normal Mouth: Positive for: Moist Mucous Membranes Neck: Positive for: Normal Range of Motion Respiratory/Chest: Positive for: Decreased Breath Sounds. Negative for: Respiratory Distress, Accessory Muscle Use Cardiovascular: Positive for: Regular Rate and Rhythm, Normal S1, S2. Negative for: Murmurs Abdomen: Positive for: Normal Bowel Sounds. Negative for: Tenderness, Distention, Peritoneal Signs Back: Positive for: Normal Inspection Upper Extremity: Positive for: Normal Inspection. Negative for: Cyanosis, Edema Lower Extremity: Positive for: Normal Inspection, Edema (+1 edema b/l) Neurological: Positive for: GCS=15, CN II-XII Intact, Speech Normal Skin: Positive for: Warm, Dry, Normal Color, Erythematous (Diffuse lacy, erythematous rash throughout arms, upper legs, and trunk. No change from previous day.). Negative for: Rashes Psychiatric: Positive for: Alert, Oriented x 3, Normal Insight, Normal Concentration - Medications Active Medications: Active Medications Generic Name Dose Route Start Last Admin Trade Name Freq PRN Reason Stop Dose Admin Acetaminophen 650 mg 08/07/17 17:35 Tylenol 325mg Tab PO Q4H PRN Pain, Mild (1-3) Famotidine 20 mg 08/10/17 10:15 Pepcid IVP DAILY SOL Hydrocortisone Sodium Succinate 50 mg 08/07/17 07:00 08/10/17 07:02 Solu-Cortef IVP 50 mg Q6H SOL Administration Vasopressin 20 units/ Sodium 101 mls @ 9.09 mls/hr 08/07/17 07:15 08/10/17 03 :50 Chloride IV 9.09 mls/hr .Q11H7M SOL Administration Protocol 0.03 U/MIN Aztreonam 500 mg/ Sodium 100 mls @ 100 mls/hr 08/07/17 14:00 08/10/17 05:11 Chloride IVPB 08/16/17 14:01 100 mls/hr Q8 SOL Administration Protocol Metronidazole 500 mg in 100 mls @ 100 mls/hr 08/07/17 14:00 08/10/17 06:02 Flagyl IVPB 08/16/17 14:01 100 mls/hr Q8 SOL Administration Protocol Daptomycin 680 mg/ Sodium 100 mls @ 200 mls/hr 08/07/17 11:00 08/09/17 14:06 Chloride IV 08/12/17 11:01 200 mls/hr Q48H SOL Administration Norepinephrine Bitartrate 8 mg 250 mls @ 46.87 mls/hr 08/07/17 16:02 08:02 / Sodium Chloride IV 15 mcg/min .Q5H21M PRN 28.12 mls/hr TITRATE PER MD ORDER Administration Protocol 25 MCG/MIN Sodium Bicarbonate 150 meq/ 1,150 mls @ 60 mls/hr 08/08/17 12:00 08/09/17 22: 42 Dextrose IV 60 mls/hr .[id number] SOL Administration Phenylephrine HCl 40 mg/ 254 mls @ 38.1 mls/hr 08/09/17 09:20 08/10/17 11:07 Sodium Chloride IV 340 mcg/min .Q6H40M PRN 129.54 mls/hr TITRATE PER MD ORDER Administration Protocol 100 MCG/MIN Multi-Ingredient Ointment 0 gm 08/09/17 13:45 08/10/17 09:39 Hydrophor Oint TOP 1 applic Q6H SOL Administration Silver Sulfadiazine 0 gm 08/09/17 18:00 08/10/17 09:41 Silvadene 1% 25 Gm TP 25 gm BID SOL Administration Vancomycin HCl 500 mg 08/08/17 13:15 08/10/17 07:05 Vancocin 25 Mg/Ml (Oral Use) PO 08/17/17 13:16 500 mg Q6H SOL Administration Protocol - Patient Studies Lab Studies: Microbiology Studies 08/09/17 06:30 Urine Culture - Final Urine,Frye No Growth (<1,000 CFU/ML) 08/06/17 20:39 Blood Culture - Preliminary Blood NO GROWTH AFTER 3 DAYS 08/06/17 20:39 Blood Culture - Preliminary Blood NO GROWTH AFTER 3 DAYS Lab Studies 08/10/17 08/10/17 08/10/17 Range/Units 06:00 06:00 06:00 WBC 15.2 H (4.5-11.0) 10^3/ul RBC 4.58 (3.5-6.1) 10^6/uL Hgb 13.1 (12.0-16.0) g/dL Hct 38.3 (36.0-48.0) % MCV 83.6 (80.0-105.0) fl MCH 28.6 (25.0-35.0) pg MCHC 34.2 (31.0-37.0) g/dl RDW 17.9 H (11.5-14.5) % Plt Count 140 (120.0-450.0) 10^3/uL MPV 10.6 (7.0-11.0) fl PT 25.8 H (9.4-12.5) SECONDS INR 2.21 H (0.93-1.08) pO2 (30-55) mm/Hg VBG pH (7.32-7.43) VBG pCO2 (40-60) VBG HCO3 (21-28) mmol/l VBG Total CO2 (22-28) mmol.L VBG O2 Sat (Calc) (40-65) % VBG Base Excess (0.0-2.0) mmol/L VBG Potassium (3.6-5.2) mmol/L Sodium 143 (132-148) mmol/L Chloride 111 H (98-107) mmol/L Glucose (65-105) mg/dl Lactate (0.7-2.1) mmol/L FiO2 % Potassium 4.8 (3.6-5.0) mmol/L Carbon Dioxide 13 L (21-33) mmol/L Anion Gap 23 H (10-20) BUN 83 H (7-21) mg/dL Creatinine 4.1 H (0.7-1.2) mg/dl Est GFR ( Amer) 13 Est GFR (Non-Af Amer) 11 Random Glucose 106 (70-110) mg/dL Calcium 7.5 L (8.4-10.5) mg/dL Phosphorus 7.0 H (2.5-4.5) mg/dL Magnesium 2.5 H (1.7-2.2) mg/dL Total Bilirubin 1.4 H (0.2-1.3) mg/dL AST 114 H D (14-36) U/L ALT 104 H (7-56) U/L Alkaline Phosphatase 97 (38-126) U/L Total Protein 5.8 (5.8-8.3) g/dL Albumin 2.6 L (3.0-4.8) g/dL Globulin 3.2 gm/dL Albumin/Globulin Ratio 0.8 L (1.1-1.8) Venous Blood Potassium (3.6-5.2) mmol/L Urine Microalbumin (0.0-16.6) mg/L 08/09/17 08/09/17 08/09/17 Range/Units 15:30 15:30 12:30 WBC (4.5-11.0) 10^3/ul RBC (3.5-6.1) 10^6/uL Hgb (12.0-16.0) g/dL Hct (36.0-48.0) % MCV (80.0-105.0) fl MCH (25.0-35.0) pg MCHC (31.0-37.0) g/dl RDW (11.5-14.5) % Plt Count (120.0-450.0) 10^3/uL MPV (7.0-11.0) fl PT 27.6 H (9.4-12.5) SECONDS INR 2.38 H (0.93-1.08) pO2 65 H (30-55) mm/Hg VBG pH 7.29 L (7.32-7.43) VBG pCO2 40.0 (40-60) VBG HCO3 19.2 L (21-28) mmol/l VBG Total CO2 20.4 L (22-28) mmol.L VBG O2 Sat (Calc) 91.9 H (40-65) % VBG Base Excess -7.0 L (0.0-2.0) mmol/L VBG Potassium 4.4 (3.6-5.2) mmol/L Sodium 141 137.0 (132-148) mmol/L Chloride 106 107.0 (98-107) mmol/L Glucose 201 H (65-105) mg/dl Lactate 1.8 (0.7-2.1) mmol/L FiO2 21.0 % Potassium 4.7 (3.6-5.0) mmol/L Carbon Dioxide 17 L (21-33) mmol/L Anion Gap 23 H (10-20) BUN 86 H (7-21) mg/dL Creatinine 3.8 H (0.7-1.2) mg/dl Est GFR ( Amer) 14 Est GFR (Non-Af Amer) 12 Random Glucose 182 H (70-110) mg/dL Calcium 8.0 L (8.4-10.5) mg/dL Phosphorus (2.5-4.5) mg/dL Magnesium (1.7-2.2) mg/dL Total Bilirubin 1.1 (0.2-1.3) mg/dL AST 69 H (14-36) U/L ALT 88 H (7-56) U/L Alkaline Phosphatase 92 (38-126) U/L Total Protein 6.1 (5.8-8.3) g/dL Albumin 2.7 L (3.0-4.8) g/dL Globulin 3.4 gm/dL Albumin/Globulin Ratio 0.8 L (1.1-1.8) Venous Blood Potassium 4.4 (3.6-5.2) mmol/L Urine Microalbumin (0.0-16.6) mg/L 08/09/17 Range/Units 06:30 WBC (4.5-11.0) 10^3/ul RBC (3.5-6.1) 10^6/uL Hgb (12.0-16.0) g/dL Hct (36.0-48.0) % MCV (80.0-105.0) fl MCH (25.0-35.0) pg MCHC (31.0-37.0) g/dl RDW (11.5-14.5) % Plt Count (120.0-450.0) 10^3/uL MPV (7.0-11.0) fl PT (9.4-12.5) SECONDS INR (0.93-1.08) pO2 (30-55) mm/Hg VBG pH (7.32-7.43) VBG pCO2 (40-60) VBG HCO3 (21-28) mmol/l VBG Total CO2 (22-28) mmol.L VBG O2 Sat (Calc) (40-65) % VBG Base Excess (0.0-2.0) mmol/L VBG Potassium (3.6-5.2) mmol/L Sodium (132-148) mmol/L Chloride (98-107) mmol/L Glucose (65-105) mg/dl Lactate (0.7-2.1) mmol/L FiO2 % Potassium (3.6-5.0) mmol/L Carbon Dioxide (21-33) mmol/L Anion Gap (10-20) BUN (7-21) mg/dL Creatinine (0.7-1.2) mg/dl Est GFR ( Amer) Est GFR (Non-Af Amer) Random Glucose (70-110) mg/dL Calcium (8.4-10.5) mg/dL Phosphorus (2.5-4.5) mg/dL Magnesium (1.7-2.2) mg/dL Total Bilirubin (0.2-1.3) mg/dL AST (14-36) U/L ALT (7-56) U/L Alkaline Phosphatase (38-126) U/L Total Protein (5.8-8.3) g/dL Albumin (3.0-4.8) g/dL Globulin gm/dL Albumin/Globulin Ratio (1.1-1.8) Venous Blood Potassium (3.6-5.2) mmol/L Urine Microalbumin 1647.2 H (0.0-16.6) mg/L Laboratory Results - last 24 hr 08/09/17 08/09/17 08/09/17 06:30 12:30 15:30 WBC RBC Hgb Hct MCV MCH MCHC RDW Plt Count MPV PT 27.6 H INR 2.38 H pO2 65 H VBG pH 7.29 L VBG pCO2 40.0 VBG HCO3 19.2 L VBG Total CO2 20.4 L VBG O2 Sat (Calc) 91.9 H VBG Base Excess -7.0 L VBG Potassium 4.4 Sodium 137.0 Chloride 107.0 Glucose 201 H Lactate 1.8 FiO2 21.0 Potassium Carbon Dioxide Anion Gap BUN Creatinine Est GFR ( Amer) Est GFR (Non-Af Amer) Random Glucose Calcium Phosphorus Magnesium Total Bilirubin AST ALT Alkaline Phosphatase Total Protein Albumin Globulin Albumin/Globulin Ratio Venous Blood Potassium 4.4 Urine Microalbumin 1647.2 H 08/09/17 08/10/17 08/10/17 15:30 06:00 06:00 WBC 15.2 H RBC 4.58 Hgb 13.1 Hct 38.3 MCV 83.6 MCH 28.6 MCHC 34.2 RDW 17.9 H Plt Count 140 MPV 10.6 PT INR pO2 VBG pH VBG pCO2 VBG HCO3 VBG Total CO2 VBG O2 Sat (Calc) VBG Base Excess VBG Potassium Sodium 141 143 Chloride 106 111 H Glucose Lactate FiO2 Potassium 4.7 4.8 Carbon Dioxide 17 L 13 L Anion Gap 23 H 23 H BUN 86 H 83 H Creatinine 3.8 H 4.1 H Est GFR ( Amer) 14 13 Est GFR (Non-Af Amer) 12 11 Random Glucose 182 H 106 Calcium 8.0 L 7.5 L Phosphorus 7.0 H Magnesium 2.5 H Total Bilirubin 1.1 1.4 H AST 69 H 114 H D ALT 88 H 104 H Alkaline Phosphatase 92 97 Total Protein 6.1 5.8 Albumin 2.7 L 2.6 L Globulin 3.4 3.2 Albumin/Globulin Ratio 0.8 L 0.8 L Venous Blood Potassium Urine Microalbumin 08/10/17 06:00 WBC RBC Hgb Hct MCV MCH MCHC RDW Plt Count MPV PT 25.8 H INR 2.21 H pO2 VBG pH VBG pCO2 VBG HCO3 VBG Total CO2 VBG O2 Sat (Calc) VBG Base Excess VBG Potassium Sodium Chloride Glucose Lactate FiO2 Potassium Carbon Dioxide Anion Gap BUN Creatinine Est GFR ( Amer) Est GFR (Non-Af Amer) Random Glucose Calcium Phosphorus Magnesium Total Bilirubin AST ALT Alkaline Phosphatase Total Protein Albumin Globulin Albumin/Globulin Ratio Venous Blood Potassium Urine Microalbumin Review of Systems - Cardiovascular Cardiovascular: absent: Chest Pain, Chest Pain at Rest, Dyspnea - Respiratory Respiratory: absent: Dyspnea Assessment/Plan - Assessment and Plan (Free Text) Assessment: 72 year old female with past medical history of HTN, CHF, CABG, and A-fib on coumadin presented with septic shock. Patient with minimal urine output, will need to place tunnel catheter. IR consulted. Patient on pressors. Palliative care consult. Patient will be monitored closely in the ICU. Will get dialysis catheter in afternoon. Plan: Neuro: AAOx3 No focal deficits Cardio: Levophed, Vasopressin, Phenylephrine Solucortef 50 q6h Maintain MAP >65 Cardiology consulted Pulm: Maintain O2 sat >90% No SOB repeat chest xray showed increased vascular congestion GI: Ultrasound unremarkable CT abdomen/pelvis ordered Pepcid Nephro: Acute renal failure secondary to ATN Oliguric Frye in place Bicarb @ 60 Replenish electrolytes as needed Heme/ID: leukocytosis Aztreoname, Flagyl, Daptomycin, PO Vancomycin ID consulted INR 2.21 <Ceasar Almanza - Last Filed: 08/10/17 13:50> CCU Objective - Vital Signs / Intake & Output Vital Signs (Last 4 hours): Vital Signs Temp Pulse Resp BP Pulse Ox 08/10/17 12:01 103 H 08/10/17 11:50 96.8 F L 111 H 20 99 08/10/17 11:46 96.8 F L 95 H 16 117/67 98 08/10/17 11:40 96.8 F L 110 H 16 99 08/10/17 11:30 96.8 F L 105 H 21 92/59 L 98 08/10/17 11:20 96.8 F L 105 H 30 H 98 08/10/17 11:15 96.8 F L 91 H 18 95/46 L 99 08/10/17 11:10 96.8 F L 102 H 13 100 08/10/17 11:00 96.8 F L 88 15 80/44 L 99 08/10/17 10:50 96.8 F L 93 H 16 99 08/10/17 10:45 84/33 L 08/10/17 10:44 96.8 F L 100 H 18 98 08/10/17 10:40 97.0 F L 111 H 21 100 08/10/17 10:30 97.0 F L 100 H 17 97/44 L 99 08/10/17 10:20 97.0 F L 106 H 21 98 08/10/17 10:15 97.0 F L 110 H 23 99/52 L 98 08/10/17 10:11 97.0 F L 101 H 98 08/10/17 10:10 97.0 F L 103 H 22 99 08/10/17 10:00 99 H 86/55 L 08/10/17 09:59 97.0 F L 109 H 15 97 08/10/17 09:50 97.0 F L 97 H 17 96 Intake and Output (Last 8hrs): Intake & Output 08/09/17 08/10/17 08/10/17 22:59 06:59 14:59 Intake Total 1354 3602 508 Output Total 10 100 Balance 1344 3502 508 Weight 240 lb 6 oz Intake: IV 1354 3082 508 LEVOPHED 396 309 CARMEN 1408 vasopressin 108 99 Oral 120 Other 400 Output: Urine 10 100 Urethral (Frye) 10 100 Other: # Bowel Movements 1 - Medications Active Medications: Active Medications Generic Name Dose Route Start Last Admin Trade Name Freq PRN Reason Stop Dose Admin Acetaminophen 650 mg 08/07/17 17:35 Tylenol 325mg Tab PO Q4H PRN Pain, Mild (1-3) Famotidine 20 mg 08/10/17 10:15 08/10/17 13:01 Pepcid IVP 20 mg DAILY SOL Administration Hydrocortisone Sodium Succinate 50 mg 08/07/17 07:00 08/10/17 13:01 Solu-Cortef IVP 50 mg Q6H SOL Administration Vasopressin 20 units/ Sodium 101 mls @ 9.09 mls/hr 08/07/17 07:15 08/10/17 03 :50 Chloride IV 9.09 mls/hr .Q11H7M SOL Administration Protocol 0.03 U/MIN Aztreonam 500 mg/ Sodium 100 mls @ 100 mls/hr 08/07/17 14:00 08/10/17 05:11 Chloride IVPB 08/16/17 14:01 100 mls/hr Q8 SOL Administration Protocol Metronidazole 500 mg in 100 mls @ 100 mls/hr 08/07/17 14:00 08/10/17 13:01 Flagyl IVPB 08/16/17 14:01 100 mls/hr Q8 SOL Administration Protocol Daptomycin 680 mg/ Sodium 100 mls @ 200 mls/hr 08/07/17 11:00 08/09/17 14:06 Chloride IV 08/12/17 11:01 200 mls/hr Q48H SOL Administration Norepinephrine Bitartrate 8 mg 250 mls @ 46.87 mls/hr 08/07/17 16:02 08:02 / Sodium Chloride IV 15 mcg/min .Q5H21M PRN 28.12 mls/hr TITRATE PER MD ORDER Administration Protocol 25 MCG/MIN Sodium Bicarbonate 150 meq/ 1,150 mls @ 60 mls/hr 08/08/17 12:00 08/09/17 22: 42 Dextrose IV 60 mls/hr .[id number] SOL Administration Phenylephrine HCl 40 mg/ 254 mls @ 38.1 mls/hr 08/09/17 09:20 08/10/17 11:07 Sodium Chloride IV 340 mcg/min .Q6H40M PRN 129.54 mls/hr TITRATE PER MD ORDER Administration Protocol 100 MCG/MIN Multi-Ingredient Ointment 0 gm 08/09/17 13:45 08/10/17 09:39 Hydrophor Oint TOP 1 applic Q6H SOL Administration Silver Sulfadiazine 0 gm 08/09/17 18:00 08/10/17 09:41 Silvadene 1% 25 Gm TP 25 gm BID SOL Administration Vancomycin HCl 500 mg 08/08/17 13:15 08/10/17 13:02 Vancocin 25 Mg/Ml (Oral Use) PO 08/17/17 13:16 500 mg Q6H SOL Administration Protocol - Patient Studies Lab Studies: Microbiology Studies 08/09/17 06:30 Urine Culture - Final Urine,Frye No Growth (<1,000 CFU/ML) 08/06/17 20:39 Blood Culture - Preliminary Blood NO GROWTH AFTER 3 DAYS 08/06/17 20:39 Blood Culture - Preliminary Blood NO GROWTH AFTER 3 DAYS Lab Studies 08/10/17 08/10/17 08/10/17 Range/Units 06:00 06:00 06:00 WBC 15.2 H (4.5-11.0) 10^3/ul RBC 4.58 (3.5-6.1) 10^6/uL Hgb 13.1 (12.0-16.0) g/dL Hct 38.3 (36.0-48.0) % MCV 83.6 (80.0-105.0) fl MCH 28.6 (25.0-35.0) pg MCHC 34.2 (31.0-37.0) g/dl RDW 17.9 H (11.5-14.5) % Plt Count 140 (120.0-450.0) 10^3/uL MPV 10.6 (7.0-11.0) fl PT 25.8 H (9.4-12.5) SECONDS INR 2.21 H (0.93-1.08) Sodium 143 (132-148) mmol/L Potassium 4.8 (3.6-5.0) mmol/L Chloride 111 H (98-107) mmol/L Carbon Dioxide 13 L (21-33) mmol/L Anion Gap 23 H (10-20) BUN 83 H (7-21) mg/dL Creatinine 4.1 H (0.7-1.2) mg/dl Est GFR ( Amer) 13 Est GFR (Non-Af Amer) 11 Random Glucose 106 (70-110) mg/dL Calcium 7.5 L (8.4-10.5) mg/dL Phosphorus 7.0 H (2.5-4.5) mg/dL Magnesium 2.5 H (1.7-2.2) mg/dL Total Bilirubin 1.4 H (0.2-1.3) mg/dL AST 114 H D (14-36) U/L ALT 104 H (7-56) U/L Alkaline Phosphatase 97 (38-126) U/L Total Protein 5.8 (5.8-8.3) g/dL Albumin 2.6 L (3.0-4.8) g/dL Globulin 3.2 gm/dL Albumin/Globulin Ratio 0.8 L (1.1-1.8) Urine Microalbumin (0.0-16.6) mg/L 08/09/17 08/09/17 08/09/17 Range/Units 15:30 15:30 06:30 WBC (4.5-11.0) 10^3/ul RBC (3.5-6.1) 10^6/uL Hgb (12.0-16.0) g/dL Hct (36.0-48.0) % MCV (80.0-105.0) fl MCH (25.0-35.0) pg MCHC (31.0-37.0) g/dl RDW (11.5-14.5) % Plt Count (120.0-450.0) 10^3/uL MPV (7.0-11.0) fl PT 27.6 H (9.4-12.5) SECONDS INR 2.38 H (0.93-1.08) Sodium 141 (132-148) mmol/L Potassium 4.7 (3.6-5.0) mmol/L Chloride 106 (98-107) mmol/L Carbon Dioxide 17 L (21-33) mmol/L Anion Gap 23 H (10-20) BUN 86 H (7-21) mg/dL Creatinine 3.8 H (0.7-1.2) mg/dl Est GFR ( Amer) 14 Est GFR (Non-Af Amer) 12 Random Glucose 182 H (70-110) mg/dL Calcium 8.0 L (8.4-10.5) mg/dL Phosphorus (2.5-4.5) mg/dL Magnesium (1.7-2.2) mg/dL Total Bilirubin 1.1 (0.2-1.3) mg/dL AST 69 H (14-36) U/L ALT 88 H (7-56) U/L Alkaline Phosphatase 92 (38-126) U/L Total Protein 6.1 (5.8-8.3) g/dL Albumin 2.7 L (3.0-4.8) g/dL Globulin 3.4 gm/dL Albumin/Globulin Ratio 0.8 L (1.1-1.8) Urine Microalbumin 1647.2 H (0.0-16.6) mg/L Laboratory Results - last 24 hr 08/09/17 08/09/17 08/09/17 06:30 15:30 15:30 WBC RBC Hgb Hct MCV MCH MCHC RDW Plt Count MPV PT 27.6 H INR 2.38 H Sodium 141 Potassium 4.7 Chloride 106 Carbon Dioxide 17 L Anion Gap 23 H BUN 86 H Creatinine 3.8 H Est GFR ( Amer) 14 Est GFR (Non-Af Amer) 12 Random Glucose 182 H Calcium 8.0 L Phosphorus Magnesium Total Bilirubin 1.1 AST 69 H ALT 88 H Alkaline Phosphatase 92 Total Protein 6.1 Albumin 2.7 L Globulin 3.4 Albumin/Globulin Ratio 0.8 L Urine Microalbumin 1647.2 H 08/10/17 08/10/17 08/10/17 06:00 06:00 06:00 WBC 15.2 H RBC 4.58 Hgb 13.1 Hct 38.3 MCV 83.6 MCH 28.6 MCHC 34.2 RDW 17.9 H Plt Count 140 MPV 10.6 PT 25.8 H INR 2.21 H Sodium 143 Potassium 4.8 Chloride 111 H Carbon Dioxide 13 L Anion Gap 23 H BUN 83 H Creatinine 4.1 H Est GFR ( Amer) 13 Est GFR (Non-Af Amer) 11 Random Glucose 106 Calcium 7.5 L Phosphorus 7.0 H Magnesium 2.5 H Total Bilirubin 1.4 H AST 114 H D ALT 104 H Alkaline Phosphatase 97 Total Protein 5.8 Albumin 2.6 L Globulin 3.2 Albumin/Globulin Ratio 0.8 L Urine Microalbumin Attending/Attestation - Attestation I have personally seen and examined this patient.: Yes I have fully participated in the care of the patient.: Yes I have reviewed all pertinent clinical information: Yes Notes (Text): 08/10/17 13:46 The patient was seen and examined at the bedside. Patient care was discussed with resident and ICU team in MDR rounds. Medical records, lab studies, and imaging were reviewed and management issues were discussed and formulated. Last 24H events reviewed. Agree with above treatment plans as outlined in 's note with addition of the following: Acute Respiratory Insufficiency \ Hypoxemia \ Septic Shock \ Cardiogenic Shock \ Isaias on CKD \ UTI \ CDiff \ CHF \ Cellulitis \ Coagulopathy \ Afib \ Elevated LFT -hemodynamic monitoring and vasopressor support to maintain MAP>65; continue levophed , phenylephrin and vasopressin -continue stress steroids ; cardio team f\u -o2 supplementation to maintain Spo2 >90 Pao2>60 -repeat CXR reviewed -monitor airway closely; at this time pt can protect her airway -continue broad spectrum Abx as per ID team : f\u cultures -f\u Bun\Cr and U\o; renal team following; pt is awaiting HD catheter placement ; continue bicarb drip -HD to be started after catheter placement by IR -PO diet and aspiration precautions -f\u INR and monitor for bleed -f\u serial LFT -DVT \ PUD prophylaxis -Palliation team mili rodriugez -I also have met with pt's daughter and discussed pt's condition, prognosis, goals of care and advance directives. At this time family wants full aggressive measures including CPR and intubation CCM f\u 39min
[2017-08-10] MEDS ORDERED: Lidocaine 2% Inj (20ml) ONE (12:25)
[2017-08-10] MEDS ORDERED: Midazolam 2 MG/2 ML VIAL ONE (12:25)
[2017-08-10] MEDS ORDERED: Iodixanol 320 MG/ML 100 ML BOTTLE IV ONE (14:32)
[2017-08-10] MEDS ORDERED: Phenylephrine 80 MG in Sodium Chloride 0.9% 250 ML IV PRN (16:13)
[2017-08-10] MEDS: Sodium Bicarbonate 8.4% 150 MEQ in Dextrose 5% In Water 1,000 ML IV SCH (16:25)
[2017-08-10] MEDS: Phenylephrine 80 MG in Sodium Chloride 0.9% 250 ML IV PRN (16:33)
--- NOTE | 2017-08-10 22:49 | CP.PCM.PN ---
Subjective - Date & Time of Evaluation Date of Evaluation: 08/10/17 Time of Evaluation: 11:00 - Subjective Subjective: 72 yo F w/ pmh of htn, CHF w/ systolic dysfunction, aifb on coumadin, CAD s/p CABG, admitted with diffuse erythematous rash, shock, coagulopathy and acute renal failure; 3rd vasopressor started due to persistent hypotension; no improvement in urine output; mental status somewhat more clouded; Objective - Vital Signs/Intake and Output Vital Signs (last 24 hours): Temp Pulse Resp BP Pulse Ox 97.6 F 92 H 15 92/56 L 99 08/10/17 16:00 08/10/17 18:15 08/10/17 18:15 08/10/17 18:15 08/10/17 18:15 Intake and Output: 08/10/17 08/11/17 18:59 06:59 Intake Total 3511 Output Total 30 Balance 3481 - Medications Medications: Current Medications Acetaminophen (Tylenol 325mg Tab) 650 mg PO Q4H PRN PRN Reason: Pain, Mild (1-3) Famotidine (Pepcid) 20 mg IVP DAILY [facility] Last Admin: 08/10/17 13:01 Dose: 20 mg Hydrocortisone Sodium Succinate (Solu-Cortef) 50 mg IVP Q6H [facility] Last Admin: 08/10/17 20:42 Dose: 50 mg Vasopressin 20 units/ Sodium (Chloride) 101 mls @ 9.09 mls/hr IV .Q11H7M SOL; 0.03 U/MIN PRN Reason: Protocol Last Admin: 08/10/17 16:25 Dose: 9.09 mls/hr Aztreonam 500 mg/ Sodium (Chloride) 100 mls @ 100 mls/hr IVPB Q8 SOL PRN Reason: Protocol Stop: 08/16/17 14:01 Last Admin: 08/10/17 22:06 Dose: 100 mls/hr Metronidazole (Flagyl) 500 mg in 100 mls @ 100 mls/hr IVPB Q8 SOL PRN Reason: Protocol Stop: 08/16/17 14:01 Last Admin: 08/10/17 21:27 Dose: 100 mls/hr Daptomycin 680 mg/ Sodium (Chloride) 100 mls @ 200 mls/hr IV Q48H SOL Stop: 08/12/17 11:01 Last Admin: 08/09/17 14:06 Dose: 200 mls/hr Norepinephrine Bitartrate 8 mg (/ Sodium Chloride) 250 mls @ 46.87 mls/hr IV .Q5H21M PRN; Protocol; 25 MCG/MIN PRN Reason: TITRATE PER MD ORDER Last Admin: 08/10/17 17:30 Dose: 15 mcg/min, 28.12 mls/hr Phenylephrine HCl 80 mg/ (Sodium Chloride) 258 mls @ 19.35 mls/hr IV .[id number] PRN; Protocol; 100 MCG/MIN PRN Reason: TITRATE PER MD ORDER Last Admin: 08/10/17 16:33 Dose: 100 mcg/min, 19.35 mls/hr Multi-Ingredient Ointment (Hydrophor Oint) 0 gm TOP Q6H [facility] Last Admin: 08/10/17 20:00 Dose: 1 applic Silver Sulfadiazine (Silvadene 1% 25 Gm) 0 gm TP BID [facility] Last Admin: 08/10/17 17:07 Dose: Not Given Vancomycin HCl (Vancocin 25 Mg/Ml (Oral Use)) 500 mg PO Q6H SOL PRN Reason: Protocol Stop: 08/17/17 13:16 Last Admin: 08/10/17 20:41 Dose: 500 mg - Labs Labs: 08/10/17 06:00 08/10/17 06:00 PT 25.8 SECONDS (9.4-12.5) H 08/10/17 06:00 INR 2.21 (0.93-1.08) H 08/10/17 06:00 APTT 98.4 Seconds (25.1-36.5) H 08/06/17 13:35 - Constitutional Appears: Toxic, No Acute Distress - ENT Exam ENT Exam: Mucous Membranes Moist - Respiratory Exam Respiratory Exam: absent: Respiratory Distress Additional comments: mild rales; - Cardiovascular Exam Cardiovascular Exam: Tachycardia, Irregular Rhythm, +S1, +S2 - GI/Abdominal Exam GI & Abdominal Exam: Distended, Soft, Tenderness - Extremities Exam Additional comments: markedly edematous, anasarca - Neurological Exam Neurological Exam: Alert, Awake Additional comments: more lethargic with decreased ability to verbalize this evening; - Psychiatric Exam Psychiatric exam: absent: Agitated - Skin Skin Exam: Warm. absent: Cyanosis Assessment and Plan (1) Shock Assessment & Plan: Septic shock v cardiogenic shock; BP relatively stable on 3 vasopressors; giving trial of volume removal (500 cc net) on HD; continue to dose antibiotics for CrCl < 10 ml/min; Status: Acute (2) Acute renal failure (ARF) Assessment & Plan: Oligo-anuric renal failure; ATN in the setting of shock; initiated on HD today in the setting of volume overload and worsening metabolic acidosis despite being on bicarb drip; Tolerating gentle UF on HD; using low blood/dialysate flows to prevent dialysis dysequilibrium on first ever HD, will increase progressively over next 2 days; -d/c bicarb drip -will aim for daily HD to attempt to achieve euvolemia Status: Acute (3) SIRS (systemic inflammatory response syndrome) Status: Acute (4) Rash Status: Acute (5) HTN (hypertension) Status: Chronic (6) Hyperkalemia Assessment & Plan: Controlled with bicarb drip, will control now with HD; Status: Acute (7) Hyponatremia Status: Acute (8) Metabolic acidosis Assessment & Plan: see above; Status: Acute (9) Acute exacerbation of CHF (congestive heart failure) Assessment & Plan: Severely decompensated systolic CHF; had to be taken off milrinone due to hypotension; will asses for any benefit from volume removal on HD; should consider restarting milrinone if BP remains stable; Status: Acute - Assessment and Plan (Free Text) Assessment: Critical care time > 35 minutes;
[2017-08-11] MEDS: Vancomycin 25 MG/ML PO SCH ×4 (01:34→20:16)
[2017-08-11] MEDS: Petrolatum-Mineral Oil Oint (100gm) TOP SCH ×4 (01:54→20:17)
--- NOTE | 2017-08-11 02:03 | PN ---
DATE: SUBJECTIVE: The patient is a 72 years old, seen and examined, seems to be awake, alert, and oriented, not in any distress. PHYSICAL EXAMINATION: VITAL SIGNS: She is afebrile, pulse 92, respirations 16, blood pressure 92/56. LUNGS: Bilateral fair airflow, decreased at bases. HEART: S1 and S2 audible. ABDOMEN: Soft, obese, nontender. She has erythema in her groin fold, back of the thighs and legs, and in the sacral area. LABORATORY DATA: WBC is 15.2, hemoglobin 13, hematocrit 38, platelets 140. PT 25.8, INR 2.21. Chemistries: Sodium 143, potassium 4.8, chloride 111, CO2 of 13, BUN 83, creatinine 4.1, blood sugar of 106, calcium is 7.5, magnesium 2.5. AST is 114, ALT 104, alkaline phosphatase is 97. Blood cultures negative. Stool for C. difficile is positive. The patient has a dialysis catheter placed today. CT scan of the abdomen and pelvis shows no acute intraabdominal abnormalities. X-ray chest shows cardiomegaly and interval increase of central pulmonary venous congestion. ASSESSMENT: 1. Generalized edema. 2. Cardiomyopathy. 3. Septic shock. 4. Clostridium difficile colitis. 5. Bilateral leg cellulitis. 6. Coronary artery disease, status post open heart surgery in the remote past. 7. Cardiomyopathy with ejection fraction of 35%. 8. Acute renal failure. 9. Chronic atrial fibrillation, on Coumadin. 10. History of hypertension. PLAN: Currently, the patient is on Azactam. The patient is on daptomycin, IV Flagyl. Local wound care is being done for both legs. She is on digoxin and norepinephrine. She is also on vancomycin. Dialysis catheter was placed today for possible dialysis in a.m. We will follow up her electrolyte in a.m. Akira Manley MD
[2017-08-11] MEDS: metroNIDAZOLE IV 500 mg/100 ml 500 MG/100 ML BAG IVPB SCH ×3 (05:39→21:25)
[2017-08-11 06:53] LABS: BASO # 0.01 K/mm3 (0.0-2.0); BASO % 0.1 % (0.0-3.0); GRAN # 12.08 (1.4-6.5); GRAN % 89.2 % (50.0-68.0); LYMPH # 0.7 (1.2-3.4); LYMPH % 5.2 % (22.0-35.0); MEAN CELL VOLUME 84.2 fl (80.0-105.0); MEAN CORPUSCULAR HEMOGLOBIN 28.2 pg (25.0-35.0); MEAN CORPUSCULAR HGB CONC 33.5 g/dl (31.0-37.0); MEAN PLATELET VOLUME 10.7 fl (7.0-11.0); MONO # 0.7 (0.1-0.6); MONO % 5.5 % (1.0-6.0); PLATELET COUNT 103 10^3/uL (120.0-450.0); RBC 4.61 10^6/uL (3.5-6.1); RED CELL DISTRIBUTION WIDTH 18.2 % (11.5-14.5); WHITE BLOOD COUNT 13.5 10^3/ul (4.5-11.0)
[2017-08-11 07:19] LABS: INR 2.84 (0.93-1.08); PARTIAL THROMBOPLASTIN TIME 35.7 Seconds (25.1-36.5); PROTHROMBIN TIME 33.4 SECONDS (9.4-12.5)
[2017-08-11 07:42] LABS: ALB/GLOB RATIO 0.8 (1.1-1.8); ALBUMIN 2.6 g/dL (3.0-4.8); CALCIUM 7.8 mg/dL (8.4-10.5)
[2017-08-11] MEDS: Silver Sulfadiazine 1% Cream (25 gm) TP SCH ×3 (08:49→17:24)
[2017-08-11 08:57] LABS: ANISOCYTOSIS 1+; BAND 1 % (0-2); LYMPHOCYTE 3 % (22.0-35.0); MICROCYTOSIS SLIGHT; MONOCYTE 7 % (1.0-6.0); NEUTROPHIL 89 % (50.0-70.0); OVALOCYTES SLIGHT; PLATELET ESTIMATE LOW (NORMAL); POIKILOCYTOSIS 3+; SCHISTOCYTES SLIGHT
[2017-08-11 08:58] LABS: ACANTHROCYTES 3+; BURR CELLS 1+
[2017-08-11] MEDS: Norepinephrine 8 MG in Sodium Chloride 0.9% 242 ML IV PRN ×2 (09:32→14:57)
--- NOTE | 2017-08-11 10:57 | CP.CCUPN ---
<Augustin Carcamo - Last Filed: 08/11/17 11:18> CCU Subjective - Physician Review Subjective (Free Text): Patient seen and examined at bedside. Patient more alert this morning, with no complaints. Denies chest pain, shortness of breath, nausea, vomiting, diarrhea, fever, chills. CCU Objective - Vital Signs / Intake & Output Vital Signs (Last 4 hours): Vital Signs Temp Pulse Resp BP Pulse Ox 08/11/17 10:00 97 H 08/11/17 09:50 98.2 F 121 H 20 95 08/11/17 09:45 98.2 F 115 H 19 98/51 L 96 08/11/17 09:40 98.2 F 134 H 19 95 08/11/17 09:30 98.2 F 128 H 19 95/61 L 96 08/11/17 09:20 98.2 F 117 H 20 95 08/11/17 09:15 98.2 F 114 H 21 100/67 95 08/11/17 09:10 98.2 F 121 H 21 95 08/11/17 09:01 98.1 F 117 H 21 89/54 L 96 08/11/17 09:00 98.1 F 119 H 25 H 95 08/11/17 08:52 98.1 F 120 H 20 106/66 96 08/11/17 08:50 98.1 F 107 H 20 96 08/11/17 08:46 98.1 F 117 H 21 81/33 L 96 08/11/17 08:40 97.9 F 112 H 21 95 08/11/17 08:30 97.7 F 115 H 19 83/55 L 95 08/11/17 08:20 97.7 F 123 H 22 95 08/11/17 08:15 97.7 F 114 H 20 103/62 95 08/11/17 08:10 97.7 F 111 H 22 95 08/11/17 08:00 97.7 F 105 H 21 91/34 L 95 08/11/17 07:50 97.7 F 109 H 20 95 08/11/17 07:45 97.5 F L 112 H 21 104/80 94 L 08/11/17 07:40 97.5 F L 107 H 19 95 08/11/17 07:30 97.5 F L 111 H 25 H 100/40 L 95 03/21/18 07:20 97.3 F L 103 H 19 96 08/11/17 07:15 97.3 F L 112 H 19 100/54 L 96 08/11/17 07:10 97.3 F L 120 H 19 95 08/11/17 07:00 97.3 F L 108 H 20 85/57 L 95 Intake and Output (Last 8hrs): Intake & Output 08/10/17 08/11/17 08/11/17 22:59 06:59 14:59 Intake Total 2749 1498 80 Output Total 30 65 Balance 2719 1433 80 Intake: IV 2749 1498 80 Bicarb drip 720 IVPB 200 400 LEVOPHED 337 374 Phenyephrine 1134 234 vasopressin 108 108 Output: Urine 30 65 Urethral (Frye) 30 65 Other: # Bowel Movements 1 1 - Physical Exam Head: Positive for: Atraumatic, Normocephalic Pupils: Positive for: PERRL Extroacular Muscles: Positive for: EOMI Conjunctiva: Positive for: Normal Mouth: Positive for: Moist Mucous Membranes Neck: Positive for: Normal Range of Motion Respiratory/Chest: Positive for: Decreased Breath Sounds. Negative for: Respiratory Distress, Accessory Muscle Use Cardiovascular: Positive for: Regular Rate and Rhythm, Normal S1, S2. Negative for: Murmurs Abdomen: Positive for: Normal Bowel Sounds. Negative for: Tenderness, Distention, Peritoneal Signs Back: Positive for: Normal Inspection Upper Extremity: Positive for: Normal Inspection. Negative for: Cyanosis, Edema Lower Extremity: Positive for: Normal Inspection, Edema (+1 edema b/l) Neurological: Positive for: GCS=15, CN II-XII Intact, Speech Normal Skin: Positive for: Warm, Dry, Normal Color, Erythematous (Diffuse lacy, erythematous rash throughout arms, upper legs, and trunk. No change from previous day.). Negative for: Rashes Psychiatric: Positive for: Alert, Oriented x 3, Normal Insight, Normal Concentration - Medications Active Medications: Active Medications Generic Name Dose Route Start Last Admin Trade Name Freq PRN Reason Stop Dose Admin Famotidine 20 mg 08/10/17 10:15 08/11/17 10:04 Pepcid IVP Not Given DAILY SOL Hydrocortisone Sodium Succinate 100 mg 08/11/17 09:30 08/11/17 10:05 Solu-Cortef IVP Not Given Q8H SOL Vasopressin 20 units/ Sodium 101 mls @ 9.09 mls/hr 08/07/17 07:15 08/11/17 03 :00 Chloride IV 9.09 mls/hr .Q11H7M SOL Administration Protocol 0.03 U/MIN Aztreonam 500 mg/ Sodium 100 mls @ 100 mls/hr 08/07/17 14:00 08/11/17 05:36 Chloride IVPB 08/16/17 14:01 100 mls/hr Q8 SOL Administration Protocol Metronidazole 500 mg in 100 mls @ 100 mls/hr 08/07/17 14:00 08/11/17 05:39 Flagyl IVPB 08/16/17 14:01 100 mls/hr Q8 SOL Administration Protocol Daptomycin 680 mg/ Sodium 100 mls @ 200 mls/hr 08/07/17 11:00 08/09/17 14:06 Chloride IV 08/12/17 11:01 200 mls/hr Q48H SOL Administration Norepinephrine Bitartrate 8 mg 250 mls @ 46.87 mls/hr 08/07/17 16:02 09:32 / Sodium Chloride IV 30 mcg/min .Q5H21M PRN 56.25 mls/hr TITRATE PER MD ORDER Administration Protocol 25 MCG/MIN Phenylephrine HCl 80 mg/ 258 mls @ 19.35 mls/hr 08/10/17 16:15 08/11/17 07:55 Sodium Chloride IV 110 mcg/min .[id number] PRN 21.28 mls/hr TITRATE PER MD ORDER Titration Protocol 100 MCG/MIN Multi-Ingredient Ointment 0 gm 08/09/17 13:45 08/11/17 08:48 Hydrophor Oint TOP 1 applic Q6H SOL Administration Silver Sulfadiazine 0 gm 08/09/17 18:00 08/11/17 10:04 Silvadene 1% 25 Gm TP Not Given BID SOL Vancomycin HCl 500 mg 08/08/17 13:15 08/11/17 08:45 Vancocin 25 Mg/Ml (Oral Use) PO 08/17/17 13:16 500 mg Q6H SOL Administration Protocol - Patient Studies Lab Studies: Microbiology Studies 08/06/17 20:39 Blood Culture - Preliminary Blood NO GROWTH AFTER 4 DAYS 08/06/17 20:39 Blood Culture - Preliminary Blood NO GROWTH AFTER 4 DAYS 08/09/17 06:30 Urine Culture - Final Urine,Frye No Growth (<1,000 CFU/ML) Lab Studies 08/11/17 08/11/17 08/11/17 Range/Units 06:30 05:45 05:45 WBC (4.5-11.0) 10^3/ul RBC (3.5-6.1) 10^6/uL Hgb (12.0-16.0) g/dL Hct (36.0-48.0) % MCV (80.0-105.0) fl MCH (25.0-35.0) pg MCHC (31.0-37.0) g/dl RDW (11.5-14.5) % Plt Count (120.0-450.0) 10^3/uL MPV (7.0-11.0) fl Gran % (50.0-68.0) % Lymph % (Auto) (22.0-35.0) % [place] % (Auto) (1.0-6.0) % Eos % (Auto) (1.5-5.0) % Baso % (Auto) (0.0-3.0) % Gran # (1.4-6.5) Lymph # (Auto) (1.2-3.4) [place] # (Auto) (0.1-0.6) Eos # (Auto) (0.0-0.7) Baso # (Auto) (0.0-2.0) K/mm3 Neutrophils % (Manual) (50.0-70.0) % Band Neutrophils % (0-2) % Lymphocytes % (Manual) (22.0-35.0) % Monocytes % (Manual) (1.0-6.0) % Platelet Evaluation (NORMAL) Poikilocytosis (manual Anisocytosis (manual) Microcytosis (manual) Ovalocytes Juan Cells Acanthocytes (Spur) Schistocytes PT 33.4 H (9.4-12.5) SECONDS INR 2.84 H (0.93-1.08) APTT 35.7 (25.1-36.5) Seconds Sodium 144 (132-148) mmol/L Potassium 4.8 (3.6-5.0) mmol/L Chloride 110 H (98-107) mmol/L Carbon Dioxide 14 L (21-33) mmol/L Anion Gap 25 H (10-20) BUN 70 H (7-21) mg/dL Creatinine 3.9 H (0.7-1.2) mg/dl Est GFR ( Amer) 14 Est GFR (Non-Af Amer) 11 Random Glucose 60 L (70-110) mg/dL Calcium 7.8 L (8.4-10.5) mg/dL Total Bilirubin 2.3 H (0.2-1.3) mg/dL AST 338 H D (14-36) U/L ALT 199 H (7-56) U/L Alkaline Phosphatase 111 (38-126) U/L Total Creatine Kinase 74 (35-230) U/L Total Protein 5.8 (5.8-8.3) g/dL Albumin 2.6 L (3.0-4.8) g/dL Globulin 3.2 gm/dL Albumin/Globulin Ratio 0.8 L (1.1-1.8) / Range/Units 05:45 WBC 13.5 H (4.5-11.0) 10^3/ul RBC 4.61 (3.5-6.1) 10^6/uL Hgb 13.0 (12.0-16.0) g/dL Hct 38.8 (36.0-48.0) % MCV 84.2 (80.0-105.0) fl MCH 28.2 (25.0-35.0) pg MCHC 33.5 (31.0-37.0) g/dl RDW 18.2 H (11.5-14.5) % Plt Count 103 L (120.0-450.0) 10^3/uL MPV 10.7 (7.0-11.0) fl Gran % 89.2 H (50.0-68.0) % Lymph % (Auto) 5.2 L (22.0-35.0) % [place] % (Auto) 5.5 (1.0-6.0) % Eos % (Auto) 0.0 L (1.5-5.0) % Baso % (Auto) 0.1 (0.0-3.0) % Gran # 12.08 H (1.4-6.5) Lymph # (Auto) 0.7 L (1.2-3.4) [place] # (Auto) 0.7 H (0.1-0.6) Eos # (Auto) 0.0 (0.0-0.7) Baso # (Auto) 0.01 (0.0-2.0) K/mm3 Neutrophils % (Manual) 89 H (50.0-70.0) % Band Neutrophils % 1 (0-2) % Lymphocytes % (Manual) 3 L (22.0-35.0) % Monocytes % (Manual) 7 H (1.0-6.0) % Platelet Evaluation Low (NORMAL) Poikilocytosis (manual 3+ Anisocytosis (manual) 1+ Microcytosis (manual) Slight Ovalocytes Slight Juan Cells 1+ Acanthocytes (Spur) 3+ Schistocytes Slight PT (9.4-12.5) SECONDS INR (0.93-1.08) APTT (25.1-36.5) Seconds Sodium (132-148) mmol/L Potassium (3.6-5.0) mmol/L Chloride (98-107) mmol/L Carbon Dioxide (21-33) mmol/L Anion Gap (10-20) BUN (7-21) mg/dL Creatinine (0.7-1.2) mg/dl Est GFR ( Amer) Est GFR (Non-Af Amer) Random Glucose (70-110) mg/dL Calcium (8.4-10.5) mg/dL Total Bilirubin (0.2-1.3) mg/dL AST (14-36) U/L ALT (7-56) U/L Alkaline Phosphatase (38-126) U/L Total Creatine Kinase (35-230) U/L Total Protein (5.8-8.3) g/dL Albumin (3.0-4.8) g/dL Globulin gm/dL Albumin/Globulin Ratio (1.1-1.8) Laboratory Results - last 24 hr 08/11/17 08/11/17 08/11/17 05:45 05:45 05:45 WBC 13.5 H RBC 4.61 Hgb 13.0 Hct 38.8 MCV 84.2 MCH 28.2 MCHC 33.5 RDW 18.2 H Plt Count 103 L MPV 10.7 Gran % 89.2 H Lymph % (Auto) 5.2 L [place] % (Auto) 5.5 Eos % (Auto) 0.0 L Baso % (Auto) 0.1 Gran # 12.08 H Lymph # (Auto) 0.7 L [place] # (Auto) 0.7 H Eos # (Auto) 0.0 Baso # (Auto) 0.01 Neutrophils % (Manual) 89 H Band Neutrophils % 1 Lymphocytes % (Manual) 3 L Monocytes % (Manual) 7 H Platelet Evaluation Low Poikilocytosis (manual 3+ Anisocytosis (manual) 1+ Microcytosis (manual) Slight Ovalocytes Slight [place] Cells 1+ Acanthocytes (Spur) 3+ Schistocytes Slight PT 33.4 H INR 2.84 H APTT 35.7 Sodium 144 Potassium 4.8 Chloride 110 H Carbon Dioxide 14 L Anion Gap 25 H BUN 70 H Creatinine 3.9 H Est GFR ( Amer) 14 Est GFR (Non-Af Amer) 11 Random Glucose 60 L Calcium 7.8 L Total Bilirubin 2.3 H AST 338 H D ALT 199 H Alkaline Phosphatase 111 Total Creatine Kinase Total Protein 5.8 Albumin 2.6 L Globulin 3.2 Albumin/Globulin Ratio 0.8 L 08/11/17 06:30 WBC RBC Hgb Hct MCV MCH MCHC RDW Plt Count MPV Gran % Lymph % (Auto) [place] % (Auto) Eos % (Auto) Baso % (Auto) Gran # Lymph # (Auto) [place] # (Auto) Eos # (Auto) Baso # (Auto) Neutrophils % (Manual) Band Neutrophils % Lymphocytes % (Manual) Monocytes % (Manual) Platelet Evaluation Poikilocytosis (manual Anisocytosis (manual) Microcytosis (manual) Ovalocytes Juan Cells Acanthocytes (Spur) Schistocytes PT INR APTT Sodium Potassium Chloride Carbon Dioxide Anion Gap BUN Creatinine Est GFR ( Amer) Est GFR (Non-Af Amer) Random Glucose Calcium Total Bilirubin AST ALT Alkaline Phosphatase Total Creatine Kinase 74 Total Protein Albumin Globulin Albumin/Globulin Ratio Assessment/Plan - Assessment and Plan (Free Text) Plan: 72 year old female with past medical history of HTN, CHF, CABG, and A-fib on coumadin presents with septic shock. Urine output remains minimal, patient had tunnel catheter placed yesterday. Patient will undergo several dialysis sessions. Patient remains on multiple pressors, will continue to monitor patient closely. Neuro: AAOx3 No focal deficits Cardio: Levophed and Vasopressin, Phenylephrine Changed to Solucortef 100 q8h Maintain MAP >65 Cardiology consulted Pulm: Maintain O2 sat >90% GI: LFTs elevated likely secondary to shock Trend LFTs CT abdomen/pelvis negative Protonix NPO Nephro: Acute renal failure, creatinine mildly improving Dialysis today Oliguric Frye in place No IVF Replenish electrolytes as needed Heme/ID: Hypothermic, leukocytosis C. Diff Aztreoname, Flagyl, Daptomycin, PO Vancomycin ID consulted INR therapeutic Carlos Alberto, PGY-2 <Ceasar Almanza - Last Filed: 08/11/17 12:18> CCU Objective - Vital Signs / Intake & Output Vital Signs (Last 4 hours): Vital Signs Temp Pulse Resp BP Pulse Ox 08/11/17 12:00 98.4 F 105 H 18 93/65 L 96 08/11/17 11:50 98.4 F 102 H 15 96 08/11/17 11:45 98.4 F 87 18 99/54 L 96 08/11/17 11:40 98.4 F 108 H 20 95 08/11/17 11:30 98.4 F 114 H 20 101/44 L 95 08/11/17 11:20 98.4 F 106 H 19 95 08/11/17 11:15 98.4 F 117 H 18 96/41 L 96 08/11/17 11:10 98.2 F 113 H 18 95 08/11/17 11:00 98.2 F 103 H 19 104/37 L 95 08/11/17 10:50 98.2 F 109 H 19 95 08/11/17 10:45 98.2 F 99 H 20 93/46 L 95 08/11/17 10:40 98.2 F 110 H 18 95 08/11/17 10:30 98.2 F 130 H 19 99/60 L 95 08/11/17 10:20 98.2 F 110 H 17 95 08/11/17 10:15 98.2 F 101 H 20 98/55 L 95 08/11/17 10:10 98.2 F 111 H 23 95 08/11/17 10:00 98.4 F 116 H 18 97/73 L 95 08/11/17 09:50 98.2 F 121 H 20 95 08/11/17 09:45 98.2 F 115 H 19 98/51 L 96 08/11/17 09:40 98.2 F 134 H 19 95 08/11/17 09:30 98.2 F 128 H 19 95/61 L 96 08/11/17 09:20 98.2 F 117 H 20 95 08/11/17 09:15 98.2 F 114 H 21 100/67 95 08/11/17 09:10 98.2 F 121 H 21 95 08/11/17 09:01 98.1 F 117 H 21 89/54 L 96 08/11/17 09:00 98.1 F 119 H 25 H 95 08/11/17 08:52 98.1 F 120 H 20 106/66 96 08/11/17 08:50 98.1 F 107 H 20 96 08/11/17 08:46 98.1 F 117 H 21 81/33 L 96 08/11/17 08:40 97.9 F 112 H 21 95 08/11/17 08:30 97.7 F 115 H 19 83/55 L 95 08/11/17 08:20 97.7 F 123 H 22 95 Intake and Output (Last 8hrs): Intake & Output 08/10/17 08/11/17 08/11/17 22:59 06:59 14:59 Intake Total 2749 1498 80 Output Total 30 65 Balance 2719 1433 80 Intake: IV 2749 1498 80 Bicarb drip 720 IVPB 200 400 LEVOPHED 337 374 Phenyephrine 1134 234 vasopressin 108 108 Output: Urine 30 65 Urethral (Frye) 30 65 Other: # Bowel Movements 1 1 - Medications Active Medications: Active Medications Generic Name Dose Route Start Last Admin Trade Name Freq PRN Reason Stop Dose Admin Famotidine 20 mg 08/10/17 10:15 08/11/17 10:04 Pepcid IVP Not Given DAILY SOL Hydrocortisone Sodium Succinate 100 mg 08/11/17 09:30 08/11/17 10:05 Solu-Cortef IVP Not Given Q8H SOL Vasopressin 20 units/ Sodium 101 mls @ 9.09 mls/hr 08/07/17 07:15 08/11/17 03 :00 Chloride IV 9.09 mls/hr .Q11H7M SOL Administration Protocol 0.03 U/MIN Aztreonam 500 mg/ Sodium 100 mls @ 100 mls/hr 08/07/17 14:00 08/11/17 05:36 Chloride IVPB 08/16/17 14:01 100 mls/hr Q8 SOL Administration Protocol Metronidazole 500 mg in 100 mls @ 100 mls/hr 08/07/17 14:00 08/11/17 05:39 Flagyl IVPB 08/16/17 14:01 100 mls/hr Q8 SOL Administration Protocol Daptomycin 680 mg/ Sodium 100 mls @ 200 mls/hr 08/07/17 11:00 08/09/17 14:06 Chloride IV 08/12/17 11:01 200 mls/hr Q48H SOL Administration Norepinephrine Bitartrate 8 mg 250 mls @ 46.87 mls/hr 08/07/17 16:02 09:32 / Sodium Chloride IV 30 mcg/min .Q5H21M PRN 56.25 mls/hr TITRATE PER MD ORDER Administration Protocol 25 MCG/MIN Phenylephrine HCl 80 mg/ 258 mls @ 19.35 mls/hr 08/10/17 16:15 08/11/17 07:55 Sodium Chloride IV 110 mcg/min .[id number] PRN 21.28 mls/hr TITRATE PER MD ORDER Titration Protocol 100 MCG/MIN Multi-Ingredient Ointment 0 gm 08/09/17 13:45 08/11/17 08:48 Hydrophor Oint TOP 1 applic Q6H SOL Administration Silver Sulfadiazine 0 gm 08/09/17 18:00 08/11/17 10:04 Silvadene 1% 25 Gm TP Not Given BID [facility] Vancomycin HCl 500 mg 08/08/17 13:15 08/11/17 08:45 Vancocin 25 Mg/Ml (Oral Use) PO 08/17/17 13:16 500 mg Q6H SOL Administration Protocol - Patient Studies Lab Studies: Microbiology Studies 08/06/17 20:39 Blood Culture - Preliminary Blood NO GROWTH AFTER 4 DAYS 08/06/17 20:39 Blood Culture - Preliminary Blood NO GROWTH AFTER 4 DAYS 08/09/17 06:30 Urine Culture - Final Urine,Frye No Growth (<1,000 CFU/ML) Lab Studies 08/11/17 08/11/17 08/11/17 Range/Units 06:30 05:45 05:45 WBC (4.5-11.0) 10^3/ul RBC (3.5-6.1) 10^6/uL Hgb (12.0-16.0) g/dL Hct (36.0-48.0) % MCV (80.0-105.0) fl MCH (25.0-35.0) pg MCHC (31.0-37.0) g/dl RDW (11.5-14.5) % Plt Count (120.0-450.0) 10^3/uL MPV (7.0-11.0) fl Gran % (50.0-68.0) % Lymph % (Auto) (22.0-35.0) % [place] % (Auto) (1.0-6.0) % Eos % (Auto) (1.5-5.0) % Baso % (Auto) (0.0-3.0) % Gran # (1.4-6.5) Lymph # (Auto) (1.2-3.4) [place] # (Auto) (0.1-0.6) Eos # (Auto) (0.0-0.7) Baso # (Auto) (0.0-2.0) K/mm3 Neutrophils % (Manual) (50.0-70.0) % Band Neutrophils % (0-2) % Lymphocytes % (Manual) (22.0-35.0) % Monocytes % (Manual) (1.0-6.0) % Platelet Evaluation (NORMAL) Poikilocytosis (manual Anisocytosis (manual) Microcytosis (manual) Ovalocytes Juan Cells Acanthocytes (Spur) Schistocytes PT 33.4 H (9.4-12.5) SECONDS INR 2.84 H (0.93-1.08) APTT 35.7 (25.1-36.5) Seconds Sodium 144 (132-148) mmol/L Potassium 4.8 (3.6-5.0) mmol/L Chloride 110 H (98-107) mmol/L Carbon Dioxide 14 L (21-33) mmol/L Anion Gap 25 H (10-20) BUN 70 H (7-21) mg/dL Creatinine 3.9 H (0.7-1.2) mg/dl Est GFR ( Amer) 14 Est GFR (Non-Af Amer) 11 Random Glucose 60 L (70-110) mg/dL Calcium 7.8 L (8.4-10.5) mg/dL Total Bilirubin 2.3 H (0.2-1.3) mg/dL AST 338 H D (14-36) U/L ALT 199 H (7-56) U/L Alkaline Phosphatase 111 (38-126) U/L Total Creatine Kinase 74 (35-230) U/L Total Protein 5.8 (5.8-8.3) g/dL Albumin 2.6 L (3.0-4.8) g/dL Globulin 3.2 gm/dL Albumin/Globulin Ratio 0.8 L (1.1-1.8) / Range/Units 05:45 WBC 13.5 H (4.5-11.0) 10^3/ul RBC 4.61 (3.5-6.1) 10^6/uL Hgb 13.0 (12.0-16.0) g/dL Hct 38.8 (36.0-48.0) % MCV 84.2 (80.0-105.0) fl MCH 28.2 (25.0-35.0) pg MCHC 33.5 (31.0-37.0) g/dl RDW 18.2 H (11.5-14.5) % Plt Count 103 L (120.0-450.0) 10^3/uL MPV 10.7 (7.0-11.0) fl Gran % 89.2 H (50.0-68.0) % Lymph % (Auto) 5.2 L (22.0-35.0) % [place] % (Auto) 5.5 (1.0-6.0) % Eos % (Auto) 0.0 L (1.5-5.0) % Baso % (Auto) 0.1 (0.0-3.0) % Gran # 12.08 H (1.4-6.5) Lymph # (Auto) 0.7 L (1.2-3.4) [place] # (Auto) 0.7 H (0.1-0.6) Eos # (Auto) 0.0 (0.0-0.7) Baso # (Auto) 0.01 (0.0-2.0) K/mm3 Neutrophils % (Manual) 89 H (50.0-70.0) % Band Neutrophils % 1 (0-2) % Lymphocytes % (Manual) 3 L (22.0-35.0) % Monocytes % (Manual) 7 H (1.0-6.0) % Platelet Evaluation Low (NORMAL) Poikilocytosis (manual 3+ Anisocytosis (manual) 1+ Microcytosis (manual) Slight Ovalocytes Slight Juan Cells 1+ Acanthocytes (Spur) 3+ Schistocytes Slight PT (9.4-12.5) SECONDS INR (0.93-1.08) APTT (25.1-36.5) Seconds Sodium (132-148) mmol/L Potassium (3.6-5.0) mmol/L Chloride (98-107) mmol/L Carbon Dioxide (21-33) mmol/L Anion Gap (10-20) BUN (7-21) mg/dL Creatinine (0.7-1.2) mg/dl Est GFR ( Amer) Est GFR (Non-Af Amer) Random Glucose (70-110) mg/dL Calcium (8.4-10.5) mg/dL Total Bilirubin (0.2-1.3) mg/dL AST (14-36) U/L ALT (7-56) U/L Alkaline Phosphatase (38-126) U/L Total Creatine Kinase (35-230) U/L Total Protein (5.8-8.3) g/dL Albumin (3.0-4.8) g/dL Globulin gm/dL Albumin/Globulin Ratio (1.1-1.8) Laboratory Results - last 24 hr 08/11/17 08/11/17 08/11/17 05:45 05:45 05:45 WBC 13.5 H RBC 4.61 Hgb 13.0 Hct 38.8 MCV 84.2 MCH 28.2 MCHC 33.5 RDW 18.2 H Plt Count 103 L MPV 10.7 Gran % 89.2 H Lymph % (Auto) 5.2 L [place] % (Auto) 5.5 Eos % (Auto) 0.0 L Baso % (Auto) 0.1 Gran # 12.08 H Lymph # (Auto) 0.7 L [place] # (Auto) 0.7 H Eos # (Auto) 0.0 Baso # (Auto) 0.01 Neutrophils % (Manual) 89 H Band Neutrophils % 1 Lymphocytes % (Manual) 3 L Monocytes % (Manual) 7 H Platelet Evaluation Low Poikilocytosis (manual 3+ Anisocytosis (manual) 1+ Microcytosis (manual) Slight Ovalocytes Slight [place] Cells 1+ Acanthocytes (Spur) 3+ Schistocytes Slight PT 33.4 H INR 2.84 H APTT 35.7 Sodium 144 Potassium 4.8 Chloride 110 H Carbon Dioxide 14 L Anion Gap 25 H BUN 70 H Creatinine 3.9 H Est GFR ( Amer) 14 Est GFR (Non-Af Amer) 11 Random Glucose 60 L Calcium 7.8 L Total Bilirubin 2.3 H AST 338 H D ALT 199 H Alkaline Phosphatase 111 Total Creatine Kinase Total Protein 5.8 Albumin 2.6 L Globulin 3.2 Albumin/Globulin Ratio 0.8 L 08/11/17 06:30 WBC RBC Hgb Hct MCV MCH MCHC RDW Plt Count MPV Gran % Lymph % (Auto) [place] % (Auto) Eos % (Auto) Baso % (Auto) Gran # Lymph # (Auto) [place] # (Auto) Eos # (Auto) Baso # (Auto) Neutrophils % (Manual) Band Neutrophils % Lymphocytes % (Manual) Monocytes % (Manual) Platelet Evaluation Poikilocytosis (manual Anisocytosis (manual) Microcytosis (manual) Ovalocytes Juan Cells Acanthocytes (Spur) Schistocytes PT INR APTT Sodium Potassium Chloride Carbon Dioxide Anion Gap BUN Creatinine Est GFR ( Amer) Est GFR (Non-Af Amer) Random Glucose Calcium Total Bilirubin AST ALT Alkaline Phosphatase Total Creatine Kinase 74 Total Protein Albumin Globulin Albumin/Globulin Ratio Attending/Attestation - Attestation I have personally seen and examined this patient.: Yes I have fully participated in the care of the patient.: Yes I have reviewed all pertinent clinical information: Yes Notes (Text): 08/11/17 12:16 The patient was seen and examined at the bedside. Patient care was discussed with resident and ICU team in MDR rounds. Medical records, lab studies, and imaging were reviewed and management issues were discussed and formulated. Last 24H events reviewed. Agree with above treatment plans as outlined in 's note with addition of the following: Acute Respiratory Insufficiency \ Hypoxemia \ Septic Shock \ Cardiogenic Shock \ Isaias on CKD \ UTI \ CDiff \ CHF \ Cellulitis \ Coagulopathy \ Afib \ Elevated LFT -hemodynamic monitoring and vasopressor support to maintain MAP>65; continue levophed , phenylephrin and vasopressin -continue stress steroids ; cardio team f\u -o2 supplementation to maintain Spo2 >90 Pao2>60 -monitor airway closely; at this time pt can protect her airway -continue broad spectrum Abx as per ID team : f\u cultures -f\u Bun\Cr and U\o; continue HD and fluid removal as per renal team -PO diet and aspiration precautions -f\u INR and monitor for bleed -f\u serial LFT -DVT \ PUD prophylaxis -Palliation team eval f\u CCM f\u 34min
[2017-08-11 12:27] LABS: HEPATITIS B SURFACE AG Negative (NEGATIVE)
[2017-08-11 12:33] LABS: HEPATITIS A IGM NEGATIVE (NEGATIVE); HEPATITIS B CORE AB NEGATIVE (NEGATIVE)
[2017-08-11 12:45] LABS: HEPATITIS C ANTIBODY NEGATIVE (NEGATIVE)
--- NOTE | 2017-08-11 15:29 | CP.PCM.PN ---
Subjective - Date & Time of Evaluation Date of Evaluation: 08/11/17 Time of Evaluation: 09:40 - Subjective Subjective: Comfortable, more awake compared to previous days, no fevers, no abdominal pain , leg pain is getting better. Objective - Vital Signs/Intake and Output Vital Signs (last 24 hours): Temp Pulse Resp BP Pulse Ox 97.2 F L 107 H 19 105/57 L 95 08/11/17 06:30 08/11/17 06:33 08/11/17 06:30 08/11/17 06:30 08/11/17 06:30 Intake and Output: 08/11/17 08/11/17 06:59 18:59 Intake Total 1498 50 Output Total 65 Balance 1433 50 - Medications Medications: Current Medications Famotidine (Pepcid) 20 mg IVP DAILY [facility] Last Admin: 08/11/17 08:47 Dose: 20 mg Hydrocortisone Sodium Succinate (Solu-Cortef) 50 mg IVP Q6H [facility] Last Admin: 08/11/17 08:47 Dose: 50 mg Vasopressin 20 units/ Sodium (Chloride) 101 mls @ 9.09 mls/hr IV .Q11H7M SOL; 0.03 U/MIN PRN Reason: Protocol Last Admin: 08/11/17 03:00 Dose: 9.09 mls/hr Aztreonam 500 mg/ Sodium (Chloride) 100 mls @ 100 mls/hr IVPB Q8 SOL PRN Reason: Protocol Stop: 08/16/17 14:01 Last Admin: 08/11/17 05:36 Dose: 100 mls/hr Metronidazole (Flagyl) 500 mg in 100 mls @ 100 mls/hr IVPB Q8 SOL PRN Reason: Protocol Stop: 08/16/17 14:01 Last Admin: 08/11/17 05:39 Dose: 100 mls/hr Daptomycin 680 mg/ Sodium (Chloride) 100 mls @ 200 mls/hr IV Q48H [facility] Stop: 08/12/17 11:01 Last Admin: 08/09/17 14:06 Dose: 200 mls/hr Norepinephrine Bitartrate 8 mg (/ Sodium Chloride) 250 mls @ 46.87 mls/hr IV .Q5H21M PRN; Protocol; 25 MCG/MIN PRN Reason: TITRATE PER MD ORDER Last Titration: 08/11/17 08:57 Dose: 30 mcg/min, 56.25 mls/hr Phenylephrine HCl 80 mg/ (Sodium Chloride) 258 mls @ 19.35 mls/hr IV .[id number] PRN; Protocol; 100 MCG/MIN PRN Reason: TITRATE PER MD ORDER Last Titration: 08/11/17 07:55 Dose: 110 mcg/min, 21.28 mls/hr Multi-Ingredient Ointment (Hydrophor Oint) 0 gm TOP Q6H SOL Last Admin: 08/11/17 08:48 Dose: 1 applic Silver Sulfadiazine (Silvadene 1% 25 Gm) 0 gm TP BID [facility] Last Admin: 08/11/17 08:49 Dose: 25 gm Vancomycin HCl (Vancocin 25 Mg/Ml (Oral Use)) 500 mg PO Q6H SOL PRN Reason: Protocol Stop: 08/17/17 13:16 Last Admin: 08/11/17 08:45 Dose: 500 mg - Labs Labs: 08/11/17 05:45 08/11/17 05:45 PT 33.4 SECONDS (9.4-12.5) H 08/11/17 05:45 INR 2.84 (0.93-1.08) H 08/11/17 05:45 APTT 35.7 Seconds (25.1-36.5) 08/11/17 05:45 - Constitutional Appears: Chronically Ill - Head Exam Head Exam: NORMAL INSPECTION - ENT Exam ENT Exam: Mucous Membranes Moist - Neck Exam Neck Exam: absent: Meningismus - Respiratory Exam Respiratory Exam: Decreased Breath Sounds Additional comments: right anterior chest wall HD catheter in place - Cardiovascular Exam Cardiovascular Exam: +S1, +S2 - GI/Abdominal Exam GI & Abdominal Exam: Soft. absent: Tenderness - Extremities Exam Additional comments: both legs with decreasing erythema Assessment and Plan - Assessment and Plan (Free Text) Plan: Assessment septic shock in this patient with diffuse maculopapular rash, consider due to severe C. diff. colitis on top of bilateral lower extremity cellulitis R/O UTI; rash may possibly be drug-reaction to Cefuroxime CAD S/P CABG chronic CHF with LVEF 35% chronic renal failure atrial fibrillation on anticoagulation HTN S/P pacemaker placement Plan continue PO Vancomycin and IV Flagyl (day 5); patient also on Daptomycin and Azactam (day 5) blood and urine cx are negative continue to monitor liver enzymes overall prognosis is poor
--- NOTE | 2017-08-11 17:06 | CP.PCM.PN ---
Subjective - Date & Time of Evaluation Date of Evaluation: 08/11/17 Time of Evaluation: 10:30 - Subjective Subjective: Patient alert but confused; denies shortness of breath; s/p midline placement earlier today; Objective - Vital Signs/Intake and Output Vital Signs (last 24 hours): Temp Pulse Resp BP Pulse Ox 99.1 F 121 H 22 93/71 L 96 08/11/17 16:30 08/11/17 16:30 08/11/17 16:30 08/11/17 16:30 08/11/17 16:30 Intake and Output: 08/11/17 08/11/17 06:59 18:59 Intake Total 1498 630 Output Total 65 20 Balance 1433 610 - Medications Medications: Current Medications Famotidine (Pepcid) 20 mg IVP DAILY [facility] Last Admin: 08/11/17 10:04 Dose: Not Given Hydrocortisone Sodium Succinate (Solu-Cortef) 100 mg IVP Q8H [facility] Last Admin: 08/11/17 10:05 Dose: Not Given Vasopressin 20 units/ Sodium (Chloride) 101 mls @ 9.09 mls/hr IV .Q11H7M SOL; 0.03 U/MIN PRN Reason: Protocol Last Admin: 08/11/17 14:56 Dose: 9.09 mls/hr Aztreonam 500 mg/ Sodium (Chloride) 100 mls @ 100 mls/hr IVPB Q8 SOL PRN Reason: Protocol Stop: 08/16/17 14:01 Last Admin: 08/11/17 13:21 Dose: 100 mls/hr Metronidazole (Flagyl) 500 mg in 100 mls @ 100 mls/hr IVPB Q8 SOL PRN Reason: Protocol Stop: 08/16/17 14:01 Last Admin: 08/11/17 13:21 Dose: 100 mls/hr Daptomycin 680 mg/ Sodium (Chloride) 100 mls @ 200 mls/hr IV Q48H SOL Stop: 08/12/17 11:01 Last Admin: 08/11/17 14:28 Dose: 200 mls/hr Norepinephrine Bitartrate 8 mg (/ Sodium Chloride) 250 mls @ 46.87 mls/hr IV .Q5H21M PRN; Protocol; 25 MCG/MIN PRN Reason: TITRATE PER MD ORDER Last Admin: 08/11/17 14:57 Dose: 30 mcg/min, 56.25 mls/hr Phenylephrine HCl 80 mg/ (Sodium Chloride) 258 mls @ 19.35 mls/hr IV .[id number] PRN; Protocol; 100 MCG/MIN PRN Reason: TITRATE PER MD ORDER Last Titration: 08/11/17 07:55 Dose: 110 mcg/min, 21.28 mls/hr Multi-Ingredient Ointment (Hydrophor Oint) 0 gm TOP Q6H SOL Last Admin: 08/11/17 13:22 Dose: 1 applic Silver Sulfadiazine (Silvadene 1% 25 Gm) 0 gm TP BID [facility] Last Admin: 08/11/17 10:04 Dose: Not Given Vancomycin HCl (Vancocin 25 Mg/Ml (Oral Use)) 500 mg PO Q6H SOL PRN Reason: Protocol Stop: 08/17/17 13:16 Last Admin: 08/11/17 13:33 Dose: 500 mg - Labs Labs: 08/11/17 05:45 08/11/17 05:45 PT 33.4 SECONDS (9.4-12.5) H 08/11/17 05:45 INR 2.84 (0.93-1.08) H 08/11/17 05:45 APTT 35.7 Seconds (25.1-36.5) 08/11/17 05:45 - Constitutional Appears: Toxic, No Acute Distress - Eye Exam Eye Exam: absent: Scleral icterus - ENT Exam ENT Exam: Mucous Membranes Moist - Respiratory Exam Respiratory Exam: Rales. absent: Respiratory Distress - Cardiovascular Exam Cardiovascular Exam: Irregular Rhythm, +S1, +S2 - GI/Abdominal Exam GI & Abdominal Exam: Soft, Tenderness - Extremities Exam Additional comments: marked leg edema, anasarca - Neurological Exam Neurological Exam: Alert, Awake - Psychiatric Exam Psychiatric exam: absent: Agitated - Skin Skin Exam: Warm. absent: Cyanosis Assessment and Plan (1) Shock Assessment & Plan: Still on 3 vasopressors; more likely septic rather than cardiogenic shock; on 3 antibiotics, continue to dose for HD; Status: Acute (2) Acute renal failure (ARF) Assessment & Plan: Oligo-anuric renal failure in the setting of persistent hypotension; started on HD yesterday, 2nd session today with 1.5L net UF and more progressive blood- dialysate flows, tolerated well; attempting to keep net equal daily fluid balances but I >> O even with HD (5L input yesterday, even taking out bicarb drip, will be close to 3L today); metabolic acidosis should correct with subsequent HD sessions; K controlled; -planning for daily HD sessions; -changing some meds to be given in D5W rather than NS (to avoid volume overload) Status: Acute (3) SIRS (systemic inflammatory response syndrome) Status: Acute (4) Rash Status: Acute (5) HTN (hypertension) Status: Chronic (6) Hyperkalemia Assessment & Plan: see above Status: Acute (7) Hyponatremia Status: Acute (8) Metabolic acidosis Assessment & Plan: see above Status: Acute (9) Acute exacerbation of CHF (congestive heart failure) Assessment & Plan: With severe systolic dysfunction; attempting careful volume removal with HD as above; Status: Acute
[2017-08-11] MEDS: Phenylephrine 80 MG in Sodium Chloride 0.9% 250 ML IV PRN (17:21)
--- NOTE | 2017-08-11 18:48 | PN ---
DATE: SUBJECTIVE: The patient is a 72 years old, seen and examined, seems to be awake and alert, but somewhat confused and disoriented. She was found to by hypothermic, so, apparently on . PHYSICAL EXAMINATION VITAL SIGNS: Latest temperature is 98.4, pulse 105, respirations 18, blood pressure 93/65. LUNGS: Bilateral fair airflow, decreased at bases. HEART: S1 and S2 audible. ABDOMEN: Soft, obese, nontender. She does have anasarca, bilateral leg edema, erythema of both legs; however, the edema seems to be improving. LABORATORY DATA: WBC is 13.5, hemoglobin 13, hematocrit 38, platelets 103. PT 33.4, INR 2.84. Chemistries: Sodium 144, potassium 4.8, chloride 110, CO2 of 14, BUN 70, creatinine 3.9, blood sugar of 60, total bili 2.3, AST 338, ALT 199. Stool for C. difficile is positive. Urine cultures are negative. ASSESSMENT: 1. Hypothermia. 2. Sepsis. 3. Congestive heart failure. 4. Acute renal failure. 5. Systolic dysfunction. 6. Atrial fibrillation. 7. Coronary artery disease, status post open heart surgery. PLAN: Nephrology input noted and appreciated. The patient will receive hemodialysis today. Her PT/INR had been corrected. For bilateral leg cellulitis, she is on IV antibiotics including Azactam, daptomycin, metronidazole and she is on norepinephrine that is Levophed. She is on p.o. vancomycin also. We will monitor her CBC and electrolytes in a.m. Akira Manley MD
[2017-08-11] MEDS: Norepinephrine 8 MG in Dextrose 5% In Water 242 ML IV PRN (20:00)
[2017-08-11] MEDS: Vasopressin 20 UNITS in Dextrose 5% In Water 100 ML IV SCH (23:00)
--- NOTE | 2017-08-12 00:34 | CON ---
DATE: 08/11/2017 REQUESTING PHYSICIAN: Dr. Manley. REASON FOR CONSULTATION: Hypotension. HISTORY: This is a 72-year-old woman well-known to me from prior admissions and outpatient followup, who was admitted with severe leg cellulitis. She became progressively hypotensive and is currently in the ICU on high dose pressors. She has had progressive renal insufficiency and underwent dialysis yesterday. She is seen lying in bed in the ICU. A warming blanket is in place. She denies any chest pain. She is somewhat somnolent, but answers questions softly in appropriate fashion. Her past history is notable for a massive anterior wall myocardial fraction 6 years ago complicated by cardiogenic shock and heart failure. She is eventually stabilized and underwent cardiac catheterization and found to have severe three-vessel coronary disease and severe LV dysfunction. A balloon pump was placed and she was transferred for an emergent surgery at [facility]. At that time, four-vessel bypass surgery was performed. A defibrillator was placed postoperatively. Her follow-up LV function assessment has revealed a severely reduced LV systolic function with anterior apical inferior akinesis and [id number] mitral and tricuspid regurgitation. She also developed heparin-induced thrombocytopenia during that hospitalization. MEDICATIONS: Her current medications include aztreonam, daptomycin, Flagyl, norepinephrine, phenylephrine, Solu-Cortef, oral vancomycin and vasopressin. She, as mentioned, had thrombocytopenia with heparin in the past. SOCIAL HISTORY: She is a former smoker. She denies alcohol use. FAMILY HISTORY: She has a strong family history of premature heart disease. REVIEW OF SYSTEMS: Ten-point review of systems is limited and otherwise noncontributory. PHYSICAL EXAMINATION: GENERAL: She is a morbidly obese middle-aged woman. VITAL SIGNS: Blood pressure is 92/46 with a pulse of 110, in atrial fibrillation, respirations were 16. She is currently afebrile. HEENT: No JVD noted. CHEST: Diminished breath sounds in the dependent zones. HEART: PMI displaced laterally with soft tones noted. ABDOMEN: Soft, obese, bowel sounds are present. EXTREMITIES: Bilateral cellulitic changes noted, 1+ leg edema present. SKIN: Warm and dry. PSYCHIATRIC: Somnolent, but arousable. NEUROLOGIC: Moving all four extremities at present. DIAGNOSTIC DATA: Potassium 4.8, BUN and creatinine are 70 and 3.9. White count 13.5, hemoglobin and hematocrit 13 and 38.8 with a platelet count of 103,000. INR is 2.84. Bilirubin is 2.3. AST and ALT 338 and 199. Initial electrocardiogram revealed atrial fibrillation with left bundle-branch block pattern. Echocardiogram reveals severely dilated left ventricle with severely reduced LV systolic function, global hypokinesis, severe mitral regurgitation and severe tricuspid regurgitation. Chest x-ray reveals cardiomegaly with increased vascular congestion. IMPRESSION: 1. Septic shock on top of severe left ventricular systolic dysfunction, multivalvular heart disease, remains pressor dependent. 2. Coronary artery disease status post remote myocardial fraction and bypass surgery. No clear evidence of active cardiac ischemia. 3. Severe mitral regurgitation. 4. Sepsis presumably due to cellulitis. Cultures remain negative. 5. Thrombocytopenia. 6. Progressive renal failure, currently had an initial dialysis treatment. Continued supportive care is advised. Maintenance of high dose pressors is recommended. Inotropic therapy with milrinone or dobutamine not likely had substantial improvement in her hemodynamic situation. Her overall prognosis is extremely guarded. Gastrointestinal and deep venous thrombosis prophylaxis should continue. Avoidance of heparin is advised given her prior history of severe heparin-induced thrombocytopenia. Thank you for this consultation. We have to follow up through her hospital course and make further recommendations as appropriate. Luiz Vargas MD MTDSosa
[2017-08-12] MEDS: Vancomycin 25 MG/ML PO SCH ×4 (01:30→18:14)
[2017-08-12] MEDS: Petrolatum-Mineral Oil Oint (100gm) TOP SCH ×4 (01:45→20:00)
[2017-08-12] MEDS: metroNIDAZOLE IV 500 mg/100 ml 500 MG/100 ML BAG IVPB SCH (05:22)
[2017-08-12 06:58] LABS: BASO # 0.02 K/mm3 (0.0-2.0); BASO % 0.1 % (0.0-3.0); GRAN # 14.56 (1.4-6.5); GRAN % 88.5 % (50.0-68.0); HEMOGLOBIN 12.7 g/dL (12.0-16.0); LYMPH # 0.8 (1.2-3.4); LYMPH % 4.7 % (22.0-35.0); MEAN CELL VOLUME 83.2 fl (80.0-105.0); MEAN CORPUSCULAR HEMOGLOBIN 27.7 pg (25.0-35.0); MEAN CORPUSCULAR HGB CONC 33.2 g/dl (31.0-37.0); MONO # 1.1 (0.1-0.6); MONO % 6.7 % (1.0-6.0); RBC 4.59 10^6/uL (3.5-6.1); WHITE BLOOD COUNT 16.5 10^3/ul (4.5-11.0)
[2017-08-12 07:24] LABS: PARTIAL THROMBOPLASTIN TIME 34.6 Seconds (25.1-36.5); PROTHROMBIN TIME 52.6 SECONDS (9.4-12.5)
[2017-08-12 07:31] LABS: INR 4.44 (0.93-1.08)
[2017-08-12 07:35] LABS: ALB/GLOB RATIO 0.7 (1.1-1.8); ALBUMIN 2.3 g/dL (3.0-4.8)
[2017-08-12] MEDS ORDERED: Phytonadione 10 MG in Sodium Chloride 0.9% 50 ML IV ONE (07:56)
[2017-08-12 08:31] LABS: PLATELET COUNT 94 10^3/uL (120.0-450.0)
--- NOTE | 2017-08-12 09:15 | CP.CCUPN ---
<Timmy Cruz - Last Filed: 08/12/17 11:15> CCU Subjective - Physician Review Subjective (Free Text): Patient seen and evaluated bedside. Patient levophed was turned up overnight. Patient lethargic unable to answer questions. Will get blood gas and ammonia. 08/12/17 11:15 CCU Objective - Vital Signs / Intake & Output Vital Signs (Last 4 hours): Vital Signs Pulse Resp BP Pulse Ox 08/12/17 06:30 119 H 19 91/31 L 97 08/12/17 06:00 115 H 23 68/41 L 97 Intake and Output (Last 8hrs): Intake & Output 08/11/17 08/12/17 08/12/17 22:59 06:59 14:59 Intake Total 1055 1492 105 Output Total 20 50 Balance 1035 1442 105 Intake: IV 1055 1492 105 IVPB 100 400 LEVOPHED 600 460 Phenyephrine 247 260 vasopressin 108 108 Output: Urine 20 50 Urethral (Frye) 20 50 Other: # Bowel Movements 1 1 - Physical Exam Physical Exam Limitations: Positive for: Altered Mental Status Head: Positive for: Atraumatic, Normocephalic Pupils: Positive for: PERRL Conjunctiva: Positive for: Normal Mouth: Positive for: Moist Mucous Membranes Respiratory/Chest: Positive for: Decreased Breath Sounds. Negative for: Respiratory Distress, Accessory Muscle Use Cardiovascular: Positive for: Regular Rate and Rhythm, Normal S1, S2. Negative for: Murmurs Abdomen: Positive for: Normal Bowel Sounds. Negative for: Tenderness, Distention, Peritoneal Signs Back: Positive for: Normal Inspection Upper Extremity: Positive for: Normal Inspection. Negative for: Cyanosis, Edema Lower Extremity: Positive for: Normal Inspection, Edema (+1 edema b/l) Neurological: Positive for: Other (lethargic ) Skin: Positive for: Warm, Dry, Normal Color, Erythematous (Diffuse lacy, erythematous rash throughout arms, upper legs, and trunk. No change from previous day.). Negative for: Rashes Psychiatric: Negative for: Alert - Medications Active Medications: Active Medications Generic Name Dose Route Start Last Admin Trade Name Freq PRN Reason Stop Dose Admin Famotidine 20 mg 08/10/17 10:15 08/11/17 10:04 Pepcid IVP Not Given DAILY [facility] Hydrocortisone Sodium Succinate 100 mg 08/11/17 09:30 08/12/17 08:38 Solu-Cortef IVP 100 mg Q8H SOL Administration Aztreonam 500 mg/ Sodium 100 mls @ 100 mls/hr 08/07/17 14:00 08/12/17 05:15 Chloride IVPB 08/16/17 14:01 100 mls/hr Q8 SOL Administration Protocol Metronidazole 500 mg in 100 mls @ 100 mls/hr 08/07/17 14:00 08/12/17 05:22 Flagyl IVPB 08/16/17 14:01 100 mls/hr Q8 SOL Administration Protocol Daptomycin 680 mg/ Sodium 100 mls @ 200 mls/hr 08/07/17 11:00 08/11/17 14:28 Chloride IV 08/12/17 11:01 200 mls/hr Q48H SOL Administration Phenylephrine HCl 80 mg/ 258 mls @ 19.35 mls/hr 08/10/17 16:15 08/11/17 23:00 Sodium Chloride IV 120 mcg/min .[id number] PRN 23.22 mls/hr TITRATE PER MD ORDER Titration Protocol 100 MCG/MIN Vasopressin 20 units/ Dextrose 101 mls @ 9.09 mls/hr 08/11/17 18:42 08/11/17 23:00 IV 9.09 mls/hr .Q11H7M SOL Administration Protocol 0.03 U/MIN Norepinephrine Bitartrate 8 mg 250 mls @ 46.87 mls/hr 08/11/17 18:55 09:01 / Dextrose IV 30 mcg/min .Q5H21M PRN 56.25 mls/hr TITRATE PER MD ORDER Titration Protocol 25 MCG/MIN Multi-Ingredient Ointment 0 gm 08/09/17 13:45 08/12/17 08:34 Hydrophor Oint TOP 1 applic Q6H SOL Administration Silver Sulfadiazine 0 gm 08/09/17 18:00 08/11/17 17:24 Silvadene 1% 25 Gm TP 25 gm BID SOL Administration Vancomycin HCl 500 mg 08/08/17 13:15 08/12/17 08:32 Vancocin 25 Mg/Ml (Oral Use) PO 08/17/17 13:16 500 mg Q6H SOL Administration Protocol - Patient Studies Lab Studies: Microbiology Studies 08/06/17 20:39 Blood Culture - Final Blood NO GROWTH AFTER 5 DAYS Gram Stain - Final TEST NOT PERFORMED 08/06/17 20:39 Blood Culture - Final Blood NO GROWTH AFTER 5 DAYS Lab Studies 08/12/17 08/12/17 08/12/17 Range/Units 05:45 05:45 05:45 WBC 16.5 H D (4.5-11.0) 10^3/ul RBC 4.59 (3.5-6.1) 10^6/uL Hgb 12.7 (12.0-16.0) g/dL Hct 38.2 (36.0-48.0) % MCV 83.2 (80.0-105.0) fl MCH 27.7 (25.0-35.0) pg MCHC 33.2 (31.0-37.0) g/dl RDW 18.0 H (11.5-14.5) % Plt Count 94 L (120.0-450.0) 10^3/uL Gran % 88.5 H (50.0-68.0) % Lymph % (Auto) 4.7 L (22.0-35.0) % [place] % (Auto) 6.7 H (1.0-6.0) % Eos % (Auto) 0.0 L (1.5-5.0) % Baso % (Auto) 0.1 (0.0-3.0) % Gran # 14.56 H (1.4-6.5) Lymph # (Auto) 0.8 L (1.2-3.4) [place] # (Auto) 1.1 H (0.1-0.6) Eos # (Auto) 0.0 (0.0-0.7) Baso # (Auto) 0.02 (0.0-2.0) K/mm3 PT (9.4-12.5) SECONDS INR (0.93-1.08) APTT (25.1-36.5) Seconds Sodium 141 (132-148) mmol/L Potassium 4.4 (3.6-5.0) mmol/L Chloride 107 (98-107) mmol/L Carbon Dioxide 16 L (21-33) mmol/L Anion Gap 22 H (10-20) BUN 56 H (7-21) mg/dL Creatinine 3.4 H (0.7-1.2) mg/dl Est GFR ( Amer) 16 Est GFR (Non-Af Amer) 13 Random Glucose 82 (70-110) mg/dL Calcium 8.0 L (8.4-10.5) mg/dL Total Bilirubin 3.0 H (0.2-1.3) mg/dL AST 1339 H (14-36) U/L ALT 568 H (7-56) U/L Alkaline Phosphatase 132 H (38-126) U/L Total Creatine Kinase (35-230) U/L Total Protein 5.5 L (5.8-8.3) g/dL Albumin 2.3 L (3.0-4.8) g/dL Globulin 3.2 gm/dL Albumin/Globulin Ratio 0.7 L (1.1-1.8) Digoxin 1.7 (0.8-2.0) ng/mL Hepatitis A IgM Ab (NEGATIVE) Hep Bs Antigen (NEGATIVE) Hep B Core IgM Ab (NEGATIVE) Hepatitis C Antibody (NEGATIVE) 08/12/17 08/11/17 08/10/17 Range/Units 05:45 06:30 18:32 WBC (4.5-11.0) 10^3/ul RBC (3.5-6.1) 10^6/uL Hgb (12.0-16.0) g/dL Hct (36.0-48.0) % MCV (80.0-105.0) fl MCH (25.0-35.0) pg MCHC (31.0-37.0) g/dl RDW (11.5-14.5) % Plt Count (120.0-450.0) 10^3/uL Gran % (50.0-68.0) % Lymph % (Auto) (22.0-35.0) % [place] % (Auto) (1.0-6.0) % Eos % (Auto) (1.5-5.0) % Baso % (Auto) (0.0-3.0) % Gran # (1.4-6.5) Lymph # (Auto) (1.2-3.4) [place] # (Auto) (0.1-0.6) Eos # (Auto) (0.0-0.7) Baso # (Auto) (0.0-2.0) K/mm3 PT 52.6 H (9.4-12.5) SECONDS INR 4.44 H* (0.93-1.08) APTT 34.6 (25.1-36.5) Seconds Sodium (132-148) mmol/L Potassium (3.6-5.0) mmol/L Chloride (98-107) mmol/L Carbon Dioxide (21-33) mmol/L Anion Gap (10-20) BUN (7-21) mg/dL Creatinine (0.7-1.2) mg/dl Est GFR ( Amer) Est GFR (Non-Af Amer) Random Glucose (70-110) mg/dL Calcium (8.4-10.5) mg/dL Total Bilirubin (0.2-1.3) mg/dL AST (14-36) U/L ALT (7-56) U/L Alkaline Phosphatase (38-126) U/L Total Creatine Kinase 74 (35-230) U/L Total Protein (5.8-8.3) g/dL Albumin (3.0-4.8) g/dL Globulin gm/dL Albumin/Globulin Ratio (1.1-1.8) Digoxin (0.8-2.0) ng/mL Hepatitis A IgM Ab Negative (NEGATIVE) Hep Bs Antigen Negative (NEGATIVE) Hep B Core IgM Ab Negative (NEGATIVE) Hepatitis C Antibody Negative (NEGATIVE) Laboratory Results - last 24 hr 08/10/17 08/11/17 08/12/17 18:32 06:30 05:45 WBC RBC Hgb Hct MCV MCH MCHC RDW Plt Count Gran % Lymph % (Auto) [place] % (Auto) Eos % (Auto) Baso % (Auto) Gran # Lymph # (Auto) [place] # (Auto) Eos # (Auto) Baso # (Auto) PT 52.6 H INR 4.44 H* APTT 34.6 Sodium Potassium Chloride Carbon Dioxide Anion Gap BUN Creatinine Est GFR ( Amer) Est GFR (Non-Af Amer) Random Glucose Calcium Total Bilirubin AST ALT Alkaline Phosphatase Total Creatine Kinase 74 Total Protein Albumin Globulin Albumin/Globulin Ratio Digoxin Hepatitis A IgM Ab Negative Hep Bs Antigen Negative Hep B Core IgM Ab Negative Hepatitis C Antibody Negative 08/12/17 08/12/17 08/12/17 05:45 05:45 05:45 WBC 16.5 H D RBC 4.59 Hgb 12.7 Hct 38.2 MCV 83.2 MCH 27.7 MCHC 33.2 RDW 18.0 H Plt Count 94 L Gran % 88.5 H Lymph % (Auto) 4.7 L [place] % (Auto) 6.7 H Eos % (Auto) 0.0 L Baso % (Auto) 0.1 Gran # 14.56 H Lymph # (Auto) 0.8 L [place] # (Auto) 1.1 H Eos # (Auto) 0.0 Baso # (Auto) 0.02 PT INR APTT Sodium 141 Potassium 4.4 Chloride 107 Carbon Dioxide 16 L Anion Gap 22 H BUN 56 H Creatinine 3.4 H Est GFR ( Amer) 16 Est GFR (Non-Af Amer) 13 Random Glucose 82 Calcium 8.0 L Total Bilirubin 3.0 H AST 1339 H ALT 568 H Alkaline Phosphatase 132 H Total Creatine Kinase Total Protein 5.5 L Albumin 2.3 L Globulin 3.2 Albumin/Globulin Ratio 0.7 L Digoxin 1.7 Hepatitis A IgM Ab Hep Bs Antigen Hep B Core IgM Ab Hepatitis C Antibody Review of Systems - Review of Systems Review of Systems: unable to obtain due to lethargy Assessment/Plan - Assessment and Plan (Free Text) Assessment: 72 year old female with past medical history of HTN, CHF, CABG, and A-fib on coumadin presents with septic shock. Urine output minimal. Patient will undergo several dialysis sessions. Had 1.5 of ultrafiltrate removed yesterday. Patient remains on multiple pressors, will continue to monitor patient closely. This morning patient was lethargic and not responding to questions. Plan: Neuro: lethargic ABG pending Ammonia level pending Cardio: Levophed, Vasopressin, Phenylephrine Solucortef 100 q8h Maintain MAP >65 Cardiology consulted Pulm: Maintain O2 sat >90% GI: LFTs elevated Trend LFTs CT abdomen/pelvis negative RUQ ultrasound pending official read Protonix NPO NG tube will be placed DC flagyl due to elevated LFTs Nephro: Acute renal failure, creatinine mildly improving Dialysis possible today Oliguric Frye in place No IVF Replenish electrolytes as needed Heme/ID: leukocytosis, afebrile C. Diff Aztreoname, Daptomycin, PO Vancomycin Flagyl DC due to elevated liver function ID consulted INR supratherapeutic at 4.4 Vitakin K 10 injection <Ceasar Almanza - Last Filed: 08/12/17 12:00> CCU Objective - Vital Signs / Intake & Output Intake and Output (Last 8hrs): Intake & Output 08/11/17 08/12/17 08/12/17 22:59 06:59 14:59 Intake Total 1055 1492 125 Output Total 20 50 Balance 1035 1442 125 Intake: IV 1055 1492 125 IVPB 100 400 LEVOPHED 600 460 Phenyephrine 247 260 vasopressin 108 108 Output: Urine 20 50 Urethral (Frye) 20 50 Other: # Bowel Movements 1 1 - Medications Active Medications: Active Medications Generic Name Dose Route Start Last Admin Trade Name Freq PRN Reason Stop Dose Admin Famotidine 20 mg 08/10/17 10:15 08/12/17 10:49 Pepcid IVP 20 mg DAILY SOL Administration Hydrocortisone Sodium Succinate 100 mg 08/11/17 09:30 08/12/17 08:38 Solu-Cortef IVP 100 mg Q8H SOL Administration Aztreonam 500 mg/ Sodium 100 mls @ 100 mls/hr 08/07/17 14:00 08/12/17 05:15 Chloride IVPB 08/16/17 14:01 100 mls/hr Q8 SOL Administration Protocol Phenylephrine HCl 80 mg/ 258 mls @ 19.35 mls/hr 08/10/17 16:15 08/12/17 10:40 Sodium Chloride IV 150 mcg/min .[id number] PRN 29.02 mls/hr TITRATE PER MD ORDER Titration Protocol 100 MCG/MIN Vasopressin 20 units/ Dextrose 101 mls @ 9.09 mls/hr 08/11/17 18:42 08/11/17 23:00 IV 9.09 mls/hr .Q11H7M SOL Administration Protocol 0.03 U/MIN Norepinephrine Bitartrate 8 mg 250 mls @ 46.87 mls/hr 08/11/17 18:55 10:42 / Dextrose IV 30 mcg/min .Q5H21M PRN 56.25 mls/hr TITRATE PER MD ORDER Administration Protocol 25 MCG/MIN Multi-Ingredient Ointment 0 gm 08/09/17 13:45 08/12/17 08:34 Hydrophor Oint TOP 1 applic Q6H SOL Administration Silver Sulfadiazine 0 gm 08/09/17 18:00 08/12/17 10:42 Silvadene 1% 25 Gm TP 25 gm BID SOL Administration Vancomycin HCl 500 mg 08/08/17 13:15 08/12/17 08:32 Vancocin 25 Mg/Ml (Oral Use) PO 08/17/17 13:16 500 mg Q6H SOL Administration Protocol - Patient Studies Lab Studies: Microbiology Studies 08/06/17 20:39 Blood Culture - Final Blood NO GROWTH AFTER 5 DAYS Gram Stain - Final TEST NOT PERFORMED 08/06/17 20:39 Blood Culture - Final Blood NO GROWTH AFTER 5 DAYS Lab Studies 08/12/17 08/12/17 08/12/17 Range/Units 05:45 05:45 05:45 WBC 16.5 H D (4.5-11.0) 10^3/ul RBC 4.59 (3.5-6.1) 10^6/uL Hgb 12.7 (12.0-16.0) g/dL Hct 38.2 (36.0-48.0) % MCV 83.2 (80.0-105.0) fl MCH 27.7 (25.0-35.0) pg MCHC 33.2 (31.0-37.0) g/dl RDW 18.0 H (11.5-14.5) % Plt Count 94 L (120.0-450.0) 10^3/uL Gran % 88.5 H (50.0-68.0) % Lymph % (Auto) 4.7 L (22.0-35.0) % [place] % (Auto) 6.7 H (1.0-6.0) % Eos % (Auto) 0.0 L (1.5-5.0) % Baso % (Auto) 0.1 (0.0-3.0) % Gran # 14.56 H (1.4-6.5) Lymph # (Auto) 0.8 L (1.2-3.4) [place] # (Auto) 1.1 H (0.1-0.6) Eos # (Auto) 0.0 (0.0-0.7) Baso # (Auto) 0.02 (0.0-2.0) K/mm3 PT (9.4-12.5) SECONDS INR (0.93-1.08) APTT (25.1-36.5) Seconds Sodium 141 (132-148) mmol/L Potassium 4.4 (3.6-5.0) mmol/L Chloride 107 (98-107) mmol/L Carbon Dioxide 16 L (21-33) mmol/L Anion Gap 22 H (10-20) BUN 56 H (7-21) mg/dL Creatinine 3.4 H (0.7-1.2) mg/dl Est GFR ( Amer) 16 Est GFR (Non-Af Amer) 13 Random Glucose 82 (70-110) mg/dL Calcium 8.0 L (8.4-10.5) mg/dL Total Bilirubin 3.0 H (0.2-1.3) mg/dL AST 1339 H (14-36) U/L ALT 568 H (7-56) U/L Alkaline Phosphatase 132 H (38-126) U/L Total Protein 5.5 L (5.8-8.3) g/dL Albumin 2.3 L (3.0-4.8) g/dL Globulin 3.2 gm/dL Albumin/Globulin Ratio 0.7 L (1.1-1.8) Digoxin 1.7 (0.8-2.0) ng/mL Hepatitis A IgM Ab (NEGATIVE) Hep Bs Antigen (NEGATIVE) Hep B Core IgM Ab (NEGATIVE) Hepatitis C Antibody (NEGATIVE) 08/12/17 08/10/17 Range/Units 05:45 18:32 WBC (4.5-11.0) 10^3/ul RBC (3.5-6.1) 10^6/uL Hgb (12.0-16.0) g/dL Hct (36.0-48.0) % MCV (80.0-105.0) fl MCH (25.0-35.0) pg MCHC (31.0-37.0) g/dl RDW (11.5-14.5) % Plt Count (120.0-450.0) 10^3/uL Gran % (50.0-68.0) % Lymph % (Auto) (22.0-35.0) % [place] % (Auto) (1.0-6.0) % Eos % (Auto) (1.5-5.0) % Baso % (Auto) (0.0-3.0) % Gran # (1.4-6.5) Lymph # (Auto) (1.2-3.4) [place] # (Auto) (0.1-0.6) Eos # (Auto) (0.0-0.7) Baso # (Auto) (0.0-2.0) K/mm3 PT 52.6 H (9.4-12.5) SECONDS INR 4.44 H* (0.93-1.08) APTT 34.6 (25.1-36.5) Seconds Sodium (132-148) mmol/L Potassium (3.6-5.0) mmol/L Chloride (98-107) mmol/L Carbon Dioxide (21-33) mmol/L Anion Gap (10-20) BUN (7-21) mg/dL Creatinine (0.7-1.2) mg/dl Est GFR ( Amer) Est GFR (Non-Af Amer) Random Glucose (70-110) mg/dL Calcium (8.4-10.5) mg/dL Total Bilirubin (0.2-1.3) mg/dL AST (14-36) U/L ALT (7-56) U/L Alkaline Phosphatase (38-126) U/L Total Protein (5.8-8.3) g/dL Albumin (3.0-4.8) g/dL Globulin gm/dL Albumin/Globulin Ratio (1.1-1.8) Digoxin (0.8-2.0) ng/mL Hepatitis A IgM Ab Negative (NEGATIVE) Hep Bs Antigen Negative (NEGATIVE) Hep B Core IgM Ab Negative (NEGATIVE) Hepatitis C Antibody Negative (NEGATIVE) Laboratory Results - last 24 hr 08/10/17 08/12/17 08/12/17 18:32 05:45 05:45 WBC 16.5 H D RBC 4.59 Hgb 12.7 Hct 38.2 MCV 83.2 MCH 27.7 MCHC 33.2 RDW 18.0 H Plt Count 94 L Gran % 88.5 H Lymph % (Auto) 4.7 L [place] % (Auto) 6.7 H Eos % (Auto) 0.0 L Baso % (Auto) 0.1 Gran # 14.56 H Lymph # (Auto) 0.8 L [place] # (Auto) 1.1 H Eos # (Auto) 0.0 Baso # (Auto) 0.02 PT 52.6 H INR 4.44 H* APTT 34.6 Sodium Potassium Chloride Carbon Dioxide Anion Gap BUN Creatinine Est GFR ( Amer) Est GFR (Non-Af Amer) Random Glucose Calcium Total Bilirubin AST ALT Alkaline Phosphatase Total Protein Albumin Globulin Albumin/Globulin Ratio Digoxin Hepatitis A IgM Ab Negative Hep Bs Antigen Negative Hep B Core IgM Ab Negative Hepatitis C Antibody Negative 08/12/17 08/12/17 05:45 05:45 WBC RBC Hgb Hct MCV MCH MCHC RDW Plt Count Gran % Lymph % (Auto) [place] % (Auto) Eos % (Auto) Baso % (Auto) Gran # Lymph # (Auto) [place] # (Auto) Eos # (Auto) Baso # (Auto) PT INR APTT Sodium 141 Potassium 4.4 Chloride 107 Carbon Dioxide 16 L Anion Gap 22 H BUN 56 H Creatinine 3.4 H Est GFR ( Amer) 16 Est GFR (Non-Af Amer) 13 Random Glucose 82 Calcium 8.0 L Total Bilirubin 3.0 H AST 1339 H ALT 568 H Alkaline Phosphatase 132 H Total Protein 5.5 L Albumin 2.3 L Globulin 3.2 Albumin/Globulin Ratio 0.7 L Digoxin 1.7 Hepatitis A IgM Ab Hep Bs Antigen Hep B Core IgM Ab Hepatitis C Antibody Attending/Attestation - Attestation I have personally seen and examined this patient.: Yes I have fully participated in the care of the patient.: Yes I have reviewed all pertinent clinical information: Yes Notes (Text): 08/12/17 11:51 The patient was seen and examined at the bedside. Patient care was discussed with resident and ICU team in MDR rounds. Medical records, lab studies, and imaging were reviewed and management issues were discussed and formulated. Last 24H events reviewed. Agree with above treatment plans as outlined in 's note with addition of the following: Acute Respiratory Insufficiency \ Hypoxemia \ Septic Shock \ Isaias on CKD \ UTI \ CDiff \ CHF \ Cellulitis \ Coagulopathy \ Afib \ Elevated LFT \ Encephalopathy \ -hemodynamic monitoring and vasopressor support to maintain MAP>65; continue levophed , phenylephrine and vasopressin -continue stress steroids ; cardio team f\u -o2 supplementation to maintain Spo2 >90 Pao2>60 -monitor airway closely -continue broad spectrum Abx as per ID team : f\u cultures -f\u Bun\Cr and U\o; continue HD and fluid removal as per renal team -NPO diet and aspiration precautions -f\u INR and monitor for bleed; will give vitamin K -f\u serial LFT; f\u Abdo US; consider GI team eval -f\u Ammonia level; consider neurology eval; CT head when more stable -DVT \ PUD prophylaxis -Palliation team eval f\u CCM f\u 35min 08/12/17 12:00
--- NOTE | 2017-08-12 10:27 | CP.PCM.PN ---
Subjective - Date & Time of Evaluation Date of Evaluation: 08/12/17 Time of Evaluation: 09:30 - Subjective Subjective: Patient is resting comfortably, no fevers, no abdominal pain, no nausea. Objective - Vital Signs/Intake and Output Vital Signs (last 24 hours): Temp Pulse Resp BP Pulse Ox 99.3 F 119 H 19 91/31 L 97 08/12/17 04:00 08/12/17 06:30 08/12/17 06:30 08/12/17 06:30 08/12/17 06:30 Intake and Output: 08/12/17 08/12/17 06:59 18:59 Intake Total 1492 105 Output Total 50 Balance 1442 105 - Medications Medications: Current Medications Famotidine (Pepcid) 20 mg IVP DAILY [facility] Last Admin: 08/11/17 10:04 Dose: Not Given Hydrocortisone Sodium Succinate (Solu-Cortef) 100 mg IVP Q8H [facility] Last Admin: 08/12/17 08:38 Dose: 100 mg Aztreonam 500 mg/ Sodium (Chloride) 100 mls @ 100 mls/hr IVPB Q8 SOL PRN Reason: Protocol Stop: 08/16/17 14:01 Last Admin: 08/12/17 05:15 Dose: 100 mls/hr Metronidazole (Flagyl) 500 mg in 100 mls @ 100 mls/hr IVPB Q8 SOL PRN Reason: Protocol Stop: 08/16/17 14:01 Last Admin: 08/12/17 05:22 Dose: 100 mls/hr Daptomycin 680 mg/ Sodium (Chloride) 100 mls @ 200 mls/hr IV Q48H [facility] Stop: 08/12/17 11:01 Last Admin: 08/11/17 14:28 Dose: 200 mls/hr Phenylephrine HCl 80 mg/ (Sodium Chloride) 258 mls @ 19.35 mls/hr IV .[id number] PRN; Protocol; 100 MCG/MIN PRN Reason: TITRATE PER MD ORDER Last Titration: 08/11/17 23:00 Dose: 120 mcg/min, 23.22 mls/hr Vasopressin 20 units/ Dextrose 101 mls @ 9.09 mls/hr IV .Q11H7M SOL; 0.03 U/MIN PRN Reason: Protocol Last Admin: 08/11/17 23:00 Dose: 9.09 mls/hr Norepinephrine Bitartrate 8 mg (/ Dextrose) 250 mls @ 46.87 mls/hr IV .Q5H21M PRN; Protocol; 25 MCG/MIN PRN Reason: TITRATE PER MD ORDER Last Titration: 08/12/17 09:01 Dose: 30 mcg/min, 56.25 mls/hr Multi-Ingredient Ointment (Hydrophor Oint) 0 gm TOP Q6H [facility] Last Admin: 08/12/17 08:34 Dose: 1 applic Silver Sulfadiazine (Silvadene 1% 25 Gm) 0 gm TP BID [facility] Last Admin: 08/11/17 17:24 Dose: 25 gm Vancomycin HCl (Vancocin 25 Mg/Ml (Oral Use)) 500 mg PO Q6H SOL PRN Reason: Protocol Stop: 08/17/17 13:16 Last Admin: 08/12/17 08:32 Dose: 500 mg - Labs Labs: 08/12/17 05:45 08/12/17 05:45 PT 52.6 SECONDS (9.4-12.5) H 08/12/17 05:45 INR 4.44 (0.93-1.08) H* 08/12/17 05:45 APTT 34.6 Seconds (25.1-36.5) 08/12/17 05:45 - Constitutional Appears: Chronically Ill - Head Exam Head Exam: NORMAL INSPECTION - ENT Exam ENT Exam: Mucous Membranes Moist - Neck Exam Neck Exam: absent: Meningismus - Respiratory Exam Respiratory Exam: Decreased Breath Sounds. absent: Rales, Rhonchi Additional comments: right anterior chest wall HD catheter site clean and intact - Cardiovascular Exam Cardiovascular Exam: +S1, +S2 - GI/Abdominal Exam GI & Abdominal Exam: Soft. absent: Tenderness - Extremities Exam Additional comments: both lower extremities with decreased swelling and erythema Assessment and Plan - Assessment and Plan (Free Text) Plan: Assessment septic shock/severe sepsis in this patient with diffuse maculopapular rash, consider due to severe C. diff. colitis on top of bilateral lower extremity cellulitis R/O UTI; rash may possibly be drug-reaction to Cefuroxime - clinically improving CAD S/P CABG chronic CHF with LVEF 35% chronic renal failure atrial fibrillation on anticoagulation HTN S/P pacemaker placement chronic renal failure, now on dialysis Plan continue PO Vancomycin and IV Flagyl (day 6); patient also on Daptomycin and Azactam (day 6 - complete 7-10 days of antibiotics); blood and urine cx are negative continue to monitor liver enzymes overall prognosis is poor
[2017-08-12] MEDS: Silver Sulfadiazine 1% Cream (25 gm) TP SCH ×2 (10:42→18:11)
[2017-08-12] MEDS: Norepinephrine 8 MG in Dextrose 5% In Water 242 ML IV PRN ×3 (10:42→23:45)
--- NOTE | 2017-08-12 10:54 | US ---
HISTORY: liver failure COMPARISON: None. TECHNIQUE: Grayscale imaging was performed. FINDINGS: LIVER: Measures 17.0 cm. There is mild diffuse increased echogenicity of the liver parenchyma. No mass. No intrahepatic bile duct dilatation. GALLBLADDER: There is a solitary 3.1 cm gallstone. There is no wall thickening or pericholecystic fluid. The sonographic Rolon's sign is negative. COMMON BILE DUCT: Measures 4.0 mm. No stones. No dilatation. PANCREAS: Normal in size and appearance. No ductal dilatation. RIGHT KIDNEY: Measures 10.4cm. Normal echogenicity. No calculus, mass, or hydronephrosis. LEFT KIDNEY: Measures 9.1cm. Normal echogenicity. No calculus, mass, or hydronephrosis. SPLEEN: Normal in size and contour. No mass. AORTA: No aneurysmal dilatation. IVC: Unremarkable. OTHER FINDINGS: There is a small right pleural effusion. There is small abdominal ascites. IMPRESSION: Mild hepatomegaly. Diffuse increased echogenicity in the liver may reflect hepatic steatosis however parenchymal infectious/ inflammatory etiologies cannot be entirely excluded. Clinical and laboratory correlation is advised. Cholelithiasis. No biliary dilatation. Small abdominal ascites. Small right pleural effusion.
[2017-08-12 11:27] LABS: ARTERIAL BLOOD GAS HCO3 12.6 mmol/L (21-28); ARTERIAL BLOOD GAS HEMOGLOBIN 12.9 g/dL (11.7-17.4); ARTERIAL BLOOD GAS O2 CONTENT 17.7 ML/dl (15-23); ARTERIAL BLOOD GAS O2 SAT 98.6 % (95-98); ARTERIAL BLOOD GAS PCO2 25 mm/Hg (35-45); ARTERIAL BLOOD GAS PH 7.31 (7.35-7.45); ARTERIAL BLOOD GAS TCO2 13.4 mmol.L (22-28)
[2017-08-12] MEDS ORDERED: Lactulose 10 gm/15 ml (Rectal Use) PR SCH (13:30)
--- NOTE | 2017-08-12 13:31 | RAD ---
HISTORY: NG tube COMPARISON: 08/10/2017. FINDINGS: The right dialysis catheter terminates in the right atrium. The nasogastric tube terminates in the stomach. The left IJV line terminates in the SVC. LUNGS: The lungs are well inflated and clear. PLEURA: No significant pleural effusion identified, no pneumothorax apparent. CARDIOVASCULAR: There is persistent severe cardiomegaly. There is stable position of dual lead transvenous permanent pacing device. OSSEOUS STRUCTURES: No significant abnormalities. VISUALIZED UPPER ABDOMEN: Normal. OTHER FINDINGS: None. IMPRESSION: Nasogastric tube terminates in the stomach. The right-sided dialysis catheter terminates in the right atrium. The left IJV line terminates in the SVC. No acute findings.
[2017-08-12] MEDS ORDERED: Albumin Human 25% (12.5 gm/50 ml) IV SCH (14:30)
[2017-08-12] MEDS ORDERED: Propofol 10 mg/ml Inj (20 ML) ONE (14:41)
[2017-08-12] MEDS ORDERED: Propofol 10 mg/ml 1,000 MG/100 ML VIAL ONE (14:43)
[2017-08-12] MEDS ORDERED: Etomidate 20 mg/10ml Inj IV ONE (14:44)
[2017-08-12] MEDS ORDERED: Morphine 2 mg/ml ISec IVP PRN ×3 (15:05→15:17)
--- NOTE | 2017-08-12 15:12 | CP.CCUPN ---
CCU Subjective - Physician Review Subjective (Free Text): 08/12/17 15:10 Procedure Note: Intubation 72yo female pt with multiorgan failure, septic shock and encephalopathy. Pts mental status and ability to protect the airway have worsened overnight. Pt needs emergent intubation for airway protection. Pt was sedated with etomidate. Using Mac 4 and DL I visualized the airway. A size 8 ETT was then inserted through the pts vocal cords. ETT placement was confirmed with color capnography and auscultation. ETT was secured at 22cm lipline and pt was connected to the vent. CCU Objective - Vital Signs / Intake & Output Vital Signs (Last 4 hours): Vital Signs Temp Pulse Resp BP Pulse Ox 08/12/17 11:56 99.9 F H 122 H 27 H 95/53 L 96 08/12/17 11:55 99.9 F H 08/12/17 11:54 99.9 F H 95 08/12/17 11:44 98.1 F 121 H 89 L 08/12/17 11:30 99.7 F H 114 H 33 H 71/45 L 94 L 08/12/17 11:24 99.5 F 134 H 24 92/54 L 97 Intake and Output (Last 8hrs): Intake & Output 08/12/17 08/12/17 08/12/17 06:59 14:59 22:59 Intake Total 1492 197.2 Output Total 50 Balance 1442 197.2 Intake: IV 1492 197.2 IVPB 400 LEVOPHED 460 Phenyephrine 260 vasopressin 108 Output: Urine 50 Urethral (Frye) 50 Other: # Bowel Movements 1 - Physical Exam Head: Positive for: Atraumatic, Normocephalic Pupils: Positive for: PERRL Extroacular Muscles: Positive for: EOMI Conjunctiva: Positive for: Normal Mouth: Positive for: Moist Mucous Membranes Neck: Positive for: Normal Range of Motion Respiratory/Chest: Positive for: Decreased Breath Sounds. Negative for: Respiratory Distress, Accessory Muscle Use Cardiovascular: Positive for: Regular Rate and Rhythm, Normal S1, S2. Negative for: Murmurs Abdomen: Positive for: Normal Bowel Sounds. Negative for: Tenderness, Distention, Peritoneal Signs Back: Positive for: Normal Inspection Upper Extremity: Positive for: Normal Inspection. Negative for: Cyanosis, Edema Lower Extremity: Positive for: Normal Inspection, Edema (+1 edema b/l) Neurological: Positive for: Other (lethargic ) Skin: Positive for: Warm, Dry, Normal Color, Erythematous (Diffuse lacy, erythematous rash throughout arms, upper legs, and trunk. No change from previous day.). Negative for: Rashes Psychiatric: Negative for: Alert - Medications Active Medications: Active Medications Generic Name Dose Route Start Last Admin Trade Name Freq PRN Reason Stop Dose Admin Albumin Human 12.5 gm 08/12/17 14:45 Albumin Human 25% (12.5 Gm/50 Ml) IV 08/12/17 16:46 Q1H SOL Famotidine 20 mg 08/10/17 10:15 08/12/17 10:49 Pepcid IVP 20 mg DAILY SOL Administration Hydrocortisone Sodium Succinate 100 mg 08/11/17 09:30 08/12/17 08:38 Solu-Cortef IVP 100 mg Q8H SOL Administration Aztreonam 500 mg/ Sodium 100 mls @ 100 mls/hr 08/07/17 14:00 08/12/17 13:15 Chloride IVPB 08/16/17 14:01 100 mls/hr Q8 SOL Administration Protocol Phenylephrine HCl 80 mg/ 258 mls @ 19.35 mls/hr 08/10/17 16:15 08/12/17 14:24 Sodium Chloride IV 190 mcg/min .[id number] PRN 36.76 mls/hr TITRATE PER MD ORDER Titration Protocol 100 MCG/MIN Vasopressin 20 units/ Dextrose 101 mls @ 9.09 mls/hr 08/11/17 18:42 08/11/17 23:00 IV 9.09 mls/hr .Q11H7M SOL Administration Protocol 0.03 U/MIN Norepinephrine Bitartrate 8 mg 250 mls @ 46.87 mls/hr 08/11/17 18:55 10:42 / Dextrose IV 30 mcg/min .Q5H21M PRN 56.25 mls/hr TITRATE PER MD ORDER Administration Protocol 25 MCG/MIN Lactulose 20 gm 08/12/17 13:30 08/12/17 14:28 Enulose PO 20 gm DAILY SOL Administration Morphine Sulfate 2 mg 08/12/17 15:09 Morphine IVP Q4H PRN Sedation Multi-Ingredient Ointment 0 gm 08/09/17 13:45 08/12/17 13:11 Hydrophor Oint TOP 1 applic Q6H SOL Administration Silver Sulfadiazine 0 gm 08/09/17 18:00 08/12/17 10:42 Silvadene 1% 25 Gm TP 25 gm BID SOL Administration Vancomycin HCl 500 mg 08/08/17 13:15 08/12/17 13:10 Vancocin 25 Mg/Ml (Oral Use) PO 08/17/17 13:16 500 mg Q6H SOL Administration Protocol - Patient Studies Lab Studies: Microbiology Studies 08/06/17 20:39 Blood Culture - Final Blood NO GROWTH AFTER 5 DAYS Gram Stain - Final TEST NOT PERFORMED 08/06/17 20:39 Blood Culture - Final Blood NO GROWTH AFTER 5 DAYS Lab Studies 08/12/17 08/12/17 08/12/17 Range/Units 12:50 11:20 05:45 WBC (4.5-11.0) 10^3/ul RBC (3.5-6.1) 10^6/uL Hgb (12.0-16.0) g/dL Hct (36.0-48.0) % MCV (80.0-105.0) fl MCH (25.0-35.0) pg MCHC (31.0-37.0) g/dl RDW (11.5-14.5) % Plt Count (120.0-450.0) 10^3/uL Gran % (50.0-68.0) % Lymph % (Auto) (22.0-35.0) % Irwin % (Auto) (1.0-6.0) % Eos % (Auto) (1.5-5.0) % Baso % (Auto) (0.0-3.0) % Gran # (1.4-6.5) Lymph # (Auto) (1.2-3.4) Irwin # (Auto) (0.1-0.6) Eos # (Auto) (0.0-0.7) Baso # (Auto) (0.0-2.0) K/mm3 PT (9.4-12.5) SECONDS INR (0.93-1.08) APTT (25.1-36.5) Seconds pCO2 25 L (35-45) mm/Hg pO2 125.0 H (80-100) mm/Hg HCO3 12.6 L (21-28) mmol/L ABG pH 7.31 L (7.35-7.45) ABG Total CO2 13.4 L (22-28) mmol.L ABG O2 Saturation 98.6 H (95-98) % ABG O2 Content 17.7 (15-23) ML/dl ABG Base Excess -11.9 L (-2.0-3.0) mmol/L ABG Hemoglobin 12.9 (11.7-17.4) g/dL ABG Carboxyhemoglobin 1.0 (0.5-1.5) % POC ABG HHb (Measured) 1.4 (0-5) % ABG Methemoglobin 1.0 (0.0-3.0) % ABG O2 Capacity 18.0 (16-24) mL/dl Hgb O2 Saturation 96.7 (95.0-98.0) % FiO2 32.0 % Sodium (132-148) mmol/L Potassium (3.6-5.0) mmol/L Chloride (98-107) mmol/L Carbon Dioxide (21-33) mmol/L Anion Gap (10-20) BUN (7-21) mg/dL Creatinine (0.7-1.2) mg/dl Est GFR ( Amer) Est GFR (Non-Af Amer) Random Glucose (70-110) mg/dL Calcium (8.4-10.5) mg/dL Total Bilirubin (0.2-1.3) mg/dL AST (14-36) U/L ALT (7-56) U/L Alkaline Phosphatase (38-126) U/L Ammonia 35 H (9-33) umol/L Total Protein (5.8-8.3) g/dL Albumin (3.0-4.8) g/dL Globulin gm/dL Albumin/Globulin Ratio (1.1-1.8) Digoxin 1.7 (0.8-2.0) ng/mL 08/12/17 08/12/17 08/12/17 Range/Units 05:45 05:45 05:45 WBC 16.5 H D (4.5-11.0) 10^3/ul RBC 4.59 (3.5-6.1) 10^6/uL Hgb 12.7 (12.0-16.0) g/dL Hct 38.2 (36.0-48.0) % MCV 83.2 (80.0-105.0) fl MCH 27.7 (25.0-35.0) pg MCHC 33.2 (31.0-37.0) g/dl RDW 18.0 H (11.5-14.5) % Plt Count 94 L (120.0-450.0) 10^3/uL Gran % 88.5 H (50.0-68.0) % Lymph % (Auto) 4.7 L (22.0-35.0) % Irwin % (Auto) 6.7 H (1.0-6.0) % Eos % (Auto) 0.0 L (1.5-5.0) % Baso % (Auto) 0.1 (0.0-3.0) % Gran # 14.56 H (1.4-6.5) Lymph # (Auto) 0.8 L (1.2-3.4) Irwin # (Auto) 1.1 H (0.1-0.6) Eos # (Auto) 0.0 (0.0-0.7) Baso # (Auto) 0.02 (0.0-2.0) K/mm3 PT 52.6 H (9.4-12.5) SECONDS INR 4.44 H* (0.93-1.08) APTT 34.6 (25.1-36.5) Seconds pCO2 (35-45) mm/Hg pO2 (80-100) mm/Hg HCO3 (21-28) mmol/L ABG pH (7.35-7.45) ABG Total CO2 (22-28) mmol.L ABG O2 Saturation (95-98) % ABG O2 Content (15-23) ML/dl ABG Base Excess (-2.0-3.0) mmol/L ABG Hemoglobin (11.7-17.4) g/dL ABG Carboxyhemoglobin (0.5-1.5) % POC ABG HHb (Measured) (0-5) % ABG Methemoglobin (0.0-3.0) % ABG O2 Capacity (16-24) mL/dl Hgb O2 Saturation (95.0-98.0) % FiO2 % Sodium 141 (132-148) mmol/L Potassium 4.4 (3.6-5.0) mmol/L Chloride 107 (98-107) mmol/L Carbon Dioxide 16 L (21-33) mmol/L Anion Gap 22 H (10-20) BUN 56 H (7-21) mg/dL Creatinine 3.4 H (0.7-1.2) mg/dl Est GFR ( Amer) 16 Est GFR (Non-Af Amer) 13 Random Glucose 82 (70-110) mg/dL Calcium 8.0 L (8.4-10.5) mg/dL Total Bilirubin 3.0 H (0.2-1.3) mg/dL AST 1339 H (14-36) U/L ALT 568 H (7-56) U/L Alkaline Phosphatase 132 H (38-126) U/L Ammonia (9-33) umol/L Total Protein 5.5 L (5.8-8.3) g/dL Albumin 2.3 L (3.0-4.8) g/dL Globulin 3.2 gm/dL Albumin/Globulin Ratio 0.7 L (1.1-1.8) Digoxin (0.8-2.0) ng/mL Laboratory Results - last 24 hr 08/12/17 08/12/17 08/12/17 05:45 05:45 05:45 WBC 16.5 H D RBC 4.59 Hgb 12.7 Hct 38.2 MCV 83.2 MCH 27.7 MCHC 33.2 RDW 18.0 H Plt Count 94 L Gran % 88.5 H Lymph % (Auto) 4.7 L Irwin % (Auto) 6.7 H Eos % (Auto) 0.0 L Baso % (Auto) 0.1 Gran # 14.56 H Lymph # (Auto) 0.8 L Irwin # (Auto) 1.1 H Eos # (Auto) 0.0 Baso # (Auto) 0.02 PT 52.6 H INR 4.44 H* APTT 34.6 pCO2 pO2 HCO3 ABG pH ABG Total CO2 ABG O2 Saturation ABG O2 Content ABG Base Excess ABG Hemoglobin ABG Carboxyhemoglobin POC ABG HHb (Measured) ABG Methemoglobin ABG O2 Capacity Hgb O2 Saturation FiO2 Sodium 141 Potassium 4.4 Chloride 107 Carbon Dioxide 16 L Anion Gap 22 H BUN 56 H Creatinine 3.4 H Est GFR ( Amer) 16 Est GFR (Non-Af Amer) 13 Random Glucose 82 Calcium 8.0 L Total Bilirubin 3.0 H AST 1339 H ALT 568 H Alkaline Phosphatase 132 H Ammonia Total Protein 5.5 L Albumin 2.3 L Globulin 3.2 Albumin/Globulin Ratio 0.7 L Digoxin 08/12/17 08/12/17 08/12/17 05:45 11:20 12:50 WBC RBC Hgb Hct MCV MCH MCHC RDW Plt Count Gran % Lymph % (Auto) Irwin % (Auto) Eos % (Auto) Baso % (Auto) Gran # Lymph # (Auto) Irwin # (Auto) Eos # (Auto) Baso # (Auto) PT INR APTT pCO2 25 L pO2 125.0 H HCO3 12.6 L ABG pH 7.31 L ABG Total CO2 13.4 L ABG O2 Saturation 98.6 H ABG O2 Content 17.7 ABG Base Excess -11.9 L ABG Hemoglobin 12.9 ABG Carboxyhemoglobin 1.0 POC ABG HHb (Measured) 1.4 ABG Methemoglobin 1.0 ABG O2 Capacity 18.0 Hgb O2 Saturation 96.7 FiO2 32.0 Sodium Potassium Chloride Carbon Dioxide Anion Gap BUN Creatinine Est GFR ( Amer) Est GFR (Non-Af Amer) Random Glucose Calcium Total Bilirubin AST ALT Alkaline Phosphatase Ammonia 35 H Total Protein Albumin Globulin Albumin/Globulin Ratio Digoxin 1.7
[2017-08-12] MEDS: Albumin Human 25% (12.5 gm/50 ml) IV SCH ×3 (15:27→17:02)
[2017-08-12] MEDS: Phenylephrine 80 MG in Sodium Chloride 0.9% 250 ML IV PRN ×2 (16:21→20:52)
--- NOTE | 2017-08-12 16:37 | RAD ---
HISTORY: intubated COMPARISON: 08/12/2017 FINDINGS: LUNGS: The endotracheal tube is in satisfactory position. Central lines and tubes unchanged. PLEURA: No significant pleural effusion identified, no pneumothorax apparent. CARDIOVASCULAR: Moderate cardiomegaly OSSEOUS STRUCTURES: No significant abnormalities. VISUALIZED UPPER ABDOMEN: Normal. OTHER FINDINGS: None. IMPRESSION: Endotracheal tube is in satisfactory position
[2017-08-12] MEDS ORDERED: Albumin Human 25% (12.5 gm/50 ml) IV ONE (17:32)
--- NOTE | 2017-08-12 20:49 | CP.PCM.PN ---
Subjective - Date & Time of Evaluation Date of Evaluation: 08/12/17 Time of Evaluation: 11:00 - Subjective Subjective: Patient intubated after worsening of mental status today; Objective - Vital Signs/Intake and Output Vital Signs (last 24 hours): Temp Pulse Resp BP Pulse Ox 99.5 F 116 H 21 85/47 L 100 08/12/17 19:31 08/12/17 19:31 08/12/17 15:06 08/12/17 19:31 08/12/17 18:16 Intake and Output: 08/12/17 08/13/17 18:59 06:59 Intake Total 3047.0 Output Total 70 Balance 2977.0 - Medications Medications: Current Medications Famotidine (Pepcid) 20 mg IVP DAILY [facility] Last Admin: 08/12/17 10:49 Dose: 20 mg Hydrocortisone Sodium Succinate (Solu-Cortef) 100 mg IVP Q8H SOL Last Admin: 08/12/17 16:31 Dose: 100 mg Aztreonam 500 mg/ Sodium (Chloride) 100 mls @ 100 mls/hr IVPB Q8 SOL PRN Reason: Protocol Stop: 08/16/17 14:01 Last Admin: 08/12/17 13:15 Dose: 100 mls/hr Phenylephrine HCl 80 mg/ (Sodium Chloride) 258 mls @ 19.35 mls/hr IV .[id number] PRN; Protocol; 100 MCG/MIN PRN Reason: TITRATE PER MD ORDER Last Admin: 08/12/17 16:21 Dose: 189.66 mcg/min, 36.7 mls/hr Vasopressin 20 units/ Dextrose 101 mls @ 9.09 mls/hr IV .Q11H7M SOL; 0.03 U/MIN PRN Reason: Protocol Last Admin: 08/11/17 23:00 Dose: 9.09 mls/hr Norepinephrine Bitartrate 8 mg (/ Dextrose) 250 mls @ 46.87 mls/hr IV .Q5H21M PRN; Protocol; 25 MCG/MIN PRN Reason: TITRATE PER MD ORDER Last Admin: 08/12/17 15:56 Dose: 30 mcg/min, 56.25 mls/hr Morphine Sulfate (Morphine) 2 mg IVP Q4H PRN PRN Reason: Pain, severe (8-10) Last Admin: 08/12/17 15:26 Dose: 2 mg Multi-Ingredient Ointment (Hydrophor Oint) 0 gm TOP Q6H [facility] Last Admin: 08/12/17 13:11 Dose: 1 applic Silver Sulfadiazine (Silvadene 1% 25 Gm) 0 gm TP BID [facility] Last Admin: 08/12/17 18:11 Dose: 25 gm Vancomycin HCl (Vancocin 25 Mg/Ml (Oral Use)) 500 mg PO Q6H SOL PRN Reason: Protocol Stop: 08/17/17 13:16 Last Admin: 08/12/17 18:14 Dose: 500 mg - Labs Labs: 08/12/17 05:45 08/12/17 05:45 PT 52.6 SECONDS (9.4-12.5) H 08/12/17 05:45 INR 4.44 (0.93-1.08) H* 08/12/17 05:45 APTT 34.6 Seconds (25.1-36.5) 08/12/17 05:45 - Constitutional Appears: Toxic - Eye Exam Eye Exam: absent: Scleral icterus - Respiratory Exam Respiratory Exam: absent: Rhonchi, Respiratory Distress - Cardiovascular Exam Cardiovascular Exam: Irregular Rhythm, +S1, +S2 - GI/Abdominal Exam GI & Abdominal Exam: Soft. absent: Distended - Extremities Exam Additional comments: markedly edematous, anasarca; - Neurological Exam Neurological Exam: Alert, Awake - Skin Skin Exam: Warm. absent: Cyanosis Assessment and Plan (1) Shock Assessment & Plan: Septic shock, likely due to C diff; on 3 vasopressors; not taking off any fluid on HD; Status: Acute (2) Acute renal failure (ARF) Assessment & Plan: ATN, oligo-anuric renal failure; 3rd HD session today with patient very hypotensive, given 25% albumin q1h during HD session; will likely hold HD tomorrow unless patient is hemodynamically more stable and can tolerate ultrafiltration; otherwise, next HD for Wednesday; Status: Acute (3) SIRS (systemic inflammatory response syndrome) Status: Acute (4) Rash Status: Acute (5) HTN (hypertension) Status: Chronic (6) Hyperkalemia Assessment & Plan: Being controlled with HD; Status: Acute (7) Hyponatremia Status: Acute (8) Metabolic acidosis Assessment & Plan: Improving with HD; Status: Acute (9) Acute exacerbation of CHF (congestive heart failure) Assessment & Plan: With severe systolic dysfunction; once hemodynamically stable, will attempt UF on HD; Status: Acute
[2017-08-12 22:17] LABS: ARTERIAL BLOOD GAS HCO3 11.5 mmol/L (21-28); ARTERIAL BLOOD GAS HEMOGLOBIN 11.9 g/dL (11.7-17.4); ARTERIAL BLOOD GAS O2 CAPACITY 16.9 mL/dl (16-24); ARTERIAL BLOOD GAS O2 CONTENT 16.7 ML/dl (15-23); ARTERIAL BLOOD GAS PCO2 24 mm/Hg (35-45); ARTERIAL BLOOD GAS PH 7.29 (7.35-7.45); ARTERIAL BLOOD GAS TCO2 12.2 mmol.L (22-28)
[2017-08-12] MEDS ORDERED: Sodium Bicarbonate (8.4%) 50 Meq Syringe IVP ONE (22:28)
--- NOTE | 2017-08-12 22:31 | PN ---
DATE: SUBJECTIVE: The patient is 72 years old, seen and examined. She seems to be lethargic, not responding to verbal stimuli and has shallow breathing. The patient was later on intubated for airway protection. She has been on she has coffee-ground vomitus. PHYSICAL EXAMINATION VITAL SIGNS: She is 99.9, pulse 122, respirations 18, blood pressure 95/53. LUNGS: Bilateral poor respiratory effort. HEART: S1 and S2 audible, tachycardia. ABDOMEN: Soft, obese, nontender. EXTREMITIES: Bilateral upper extremities, she has formation of the skin. Bilateral lower extremity, back of the thigh, she has erythema, but quintanilla seems to be improving. LABORATORY DATA: WBC is 16.5, hemoglobin 12.7, hematocrit 38.2, platelet of 94. PT 52.6, INR 4.44. Chemistries: Sodium 141, potassium 4.4, chloride 107, CO2 16, BUN 56, creatinine 3.4, blood sugar of 82. Her AST is 1339, ALT is 568. Urine tox is negative except digoxin is 1.5. Hepatitis profile is negative. ASSESSMENT: 1. Septic shock. 2. Hypotension, currently the patient is on 3 pressors. 3. Acute kidney injury. 4. Morbid obesity. 5. Bilateral thigh and back cellulitis. 6. Chronic atrial fibrillation. PLAN: I discussed with the patient's daughter. Prognosis is poor. She want everything done for now. I will reach out to her tomorrow and discuss about DNR. Ultrasound does show cholelithiasis. So, the patient remains on vent and saturating well. She is on Azactam, she is on IV fluids. She is on norepinephrine. She is on vasopressin. Overall prognosis is poor. We will follow up patient in a.m. Akira Manley MD
[2017-08-12] MEDS: Vasopressin 20 UNITS in Dextrose 5% In Water 100 ML IV SCH (23:00)
[2017-08-13] MEDS: Vancomycin 25 MG/ML PO SCH ×4 (00:50→19:30)
[2017-08-13] MEDS: Petrolatum-Mineral Oil Oint (100gm) TOP SCH ×4 (02:00→20:45)
[2017-08-13] MEDS: Norepinephrine 8 MG in Dextrose 5% In Water 242 ML IV PRN ×5 (03:15→22:30)
[2017-08-13] MEDS: Phenylephrine 80 MG in Sodium Chloride 0.9% 250 ML IV PRN ×6 (03:16→22:30)
[2017-08-13 06:34] LABS: BASO # 0.01 K/mm3 (0.0-2.0); GRAN # 19.02 (1.4-6.5); GRAN % 87.6 % (50.0-68.0); HEMOGLOBIN 12.2 g/dL (12.0-16.0); LYMPH # 1.6 (1.2-3.4); LYMPH % 7.4 % (22.0-35.0); MEAN CORPUSCULAR HEMOGLOBIN 27.8 pg (25.0-35.0); MEAN CORPUSCULAR HGB CONC 32.2 g/dl (31.0-37.0); MONO # 1.1 (0.1-0.6); PLATELET COUNT 58 10^3/uL (120.0-450.0); RBC 4.39 10^6/uL (3.5-6.1); RED CELL DISTRIBUTION WIDTH 18.6 % (11.5-14.5); WHITE BLOOD COUNT 21.7 10^3/ul (4.5-11.0)
[2017-08-13 06:40] LABS: MEAN CELL VOLUME 86.3 fl (80.0-105.0)
[2017-08-13 07:07] LABS: ALB/GLOB RATIO 0.9 (1.1-1.8); ALBUMIN 2.7 g/dL (3.0-4.8); CALCIUM 8.3 mg/dL (8.4-10.5)
[2017-08-13 07:29] LABS: ARTERIAL BLOOD GAS O2 SAT 98.6 % (95-98); ARTERIAL BLOOD GAS PCO2 23 mm/Hg (35-45); ARTERIAL BLOOD GAS TCO2 8.4 mmol.L (22-28)
[2017-08-13 07:31] LABS: ARTERIAL BLOOD GAS HCO3 7.7 mmol/L (21-28); ARTERIAL BLOOD GAS PH 7.13 (7.35-7.45)
[2017-08-13] MEDS ORDERED: Sodium Bicarbonate (8.4%) 50 Meq Syringe IVP ONE ×2 (07:35→07:36)
[2017-08-13] MEDS ORDERED: Sodium Bicarbonate 8.4% 50 MEQ in Dextrose 5% In Water 1,000 ML IV SCH (07:45)
[2017-08-13] MEDS ORDERED: Aztreonam 1 Gm in NS 100mL 100 ML IVPB SCH (08:30)
[2017-08-13] MEDS ORDERED: Vancomycin 2 GM in Sodium Chloride 0.9% 500 ML IVPB ONE (08:32)
[2017-08-13] MEDS ORDERED: WATER IVPB ONE (08:45)
[2017-08-13] MEDS ORDERED: DEXTROSE 5% IVPB ONE (08:45)
[2017-08-13] MEDS ORDERED: AMIKACIN IVPB ONE (08:45)
[2017-08-13] MEDS: metroNIDAZOLE IV 500 mg/100 ml 500 MG/100 ML BAG IVPB SCH ×3 (09:01→21:11)
[2017-08-13] MEDS: Vasopressin 20 UNITS in Dextrose 5% In Water 100 ML IV SCH ×3 (09:02→16:53)
--- NOTE | 2017-08-13 09:22 | RAD ---
HISTORY: intubated COMPARISON: August 12, 2017. FINDINGS: LUNGS: No active pulmonary disease. PLEURA: No significant pleural effusion identified, no pneumothorax apparent. CARDIOVASCULAR: Cardiomegaly. OSSEOUS STRUCTURES: No significant abnormalities. VISUALIZED UPPER ABDOMEN: Normal. OTHER FINDINGS: Stable, satisfactory position ventilatory, vascular and nasogastric apparatus. IMPRESSION: No significant interval change compared to the prior examination(s).
[2017-08-13] MEDS ORDERED: Sodium Bicarbonate 8.4% 150 MEQ in Dextrose 5%/0.9% NS 1,000 ML IV SCH (09:45)
--- NOTE | 2017-08-13 10:22 | CP.PCM.CON ---
<Saundra Abdul - Last Filed: 08/13/17 10:22> History of Present Illness - History of Present Illness History of Present Illness: Seen and examined at the bedside earlier today, chart reviewed. Request for GI consult is for elevated LFTs. HPI:this is a 72-year-old morbidly obese female with a past medical history of hypertension, chronic atrial fibrillation on Coumadin, hyperlipidemia, pacemaker and quadruple bypass was referred to the emergency room for increasing edema of lower extremities, and worsening of wound in her lower legs. The patient is currently intubated, history was obtained from medical chart and nursing staff. Yesterday, the patient was noted to be lethargic and not verbally responding well and also has shallow breathing was intubated. According to the notes the patient also had episode of coffee ground vomitus, not clear if this is before or after intubation. Spoke to the nurse at bedside this morning and no further episodes have occurred. In review of labs the patient is noted to have elevating liver enzymes, the patient is noted to be hypotensive on Vassopressin. Patient did have hepatitis panel which is negative and an abdominal ultrasound was done which did show gallbladder stones in the common bile duct measured 4.0 mm. The patient is also reported to be having diarrhea and is positive C. difficile. Past medical history: Hypertension, hyperlipidemia, chronic atrial fibrillation on Coumadin Past surgical history pacemaker, quadruple bypass Allergies: Heparin Medications: Reviewed as per QUINTON Family history: Noncontributory Social history: History of smoking in the past, no history of EtOH or illicit drug use ROS: Systems unable to be reviewed this patient is sedated and intubated, see Radiology reports reviewed: Chest x-ray done today which shows: Lungs no active pulmonary disease, stable satisfactory position of ventilation and nasogastric tube CT scan of abdomen and pelvis: Reports ascites, fat-containing umbilical hernia , anasarca, now colon showed no evidence of colitis. See [facility] [place] for full reports Past Patient History - Past Social History Smoking Status: Former Smoker - CARDIAC Hx Cardiac Disorders: Yes Hx Pacemaker: Yes Other/Comment: bypass x 5 - PULMONARY Hx Respiratory Disorders: No - NEUROLOGICAL Hx Neurological Disorder: No - HEENT Hx HEENT Problems: No - RENAL Hx Chronic Kidney Disease: No - ENDOCRINE/METABOLIC Hx Endocrine Disorders: No - HEMATOLOGICAL/ONCOLOGICAL Hx Blood Disorders: No - INTEGUMENTARY Hx Dermatological Problems: Yes Other/Comment: cellulities to legs - MUSCULOSKELETAL/RHEUMATOLOGICAL Hx Musculoskeletal Disorders: No - GASTROINTESTINAL Hx Gastrointestinal Disorders: No - GENITOURINARY/GYNECOLOGICAL Hx Genitourinary Disorders: No - PSYCHIATRIC Hx Psychophysiologic Disorder: No Hx Substance Use: No - SURGICAL HISTORY Hx Open Heart Surgery: Yes Other/Comment: left chest pacemaker/ defib - ANESTHESIA Hx Anesthesia: Yes Meds Allergies/Adverse Reactions: Allergies Allergy/AdvReac Type Severity Reaction Status Date / Time heparin Allergy ANAPHYLAXIS Verified 08/06/17 11:20 - Medications Medications: Current Medications Famotidine (Pepcid) 20 mg IVP DAILY [facility] Last Admin: 08/12/17 10:49 Dose: 20 mg Hydrocortisone Sodium Succinate (Solu-Cortef) 100 mg IVP Q8H SOL Last Admin: 08/13/17 00:50 Dose: 100 mg Phenylephrine HCl 80 mg/ (Sodium Chloride) 258 mls @ 19.35 mls/hr IV .[id number] PRN; Protocol; 100 MCG/MIN PRN Reason: TITRATE PER MD ORDER Last Titration: 08/13/17 09:01 Dose: Infused Vasopressin 20 units/ Dextrose 101 mls @ 9.09 mls/hr IV .Q11H7M SOL; 0.03 U/MIN PRN Reason: Protocol Last Admin: 08/13/17 09:02 Dose: 9.09 mls/hr Norepinephrine Bitartrate 8 mg (/ Dextrose) 250 mls @ 46.87 mls/hr IV .Q5H21M PRN; Protocol; 25 MCG/MIN PRN Reason: TITRATE PER MD ORDER Last Admin: 08/13/17 08:39 Dose: 30 mcg/min, 56.25 mls/hr Sodium Bicarbonate 50 meq/ (Dextrose) 1,050 mls @ 100 mls/hr IV .[id number] SOL Last Admin: 08/13/17 08:48 Dose: 100 mls/hr Aztreonam (Azactam 1 Gm) 100 mls @ 100 mls/hr IVPB Q8 SOL PRN Reason: Protocol Stop: 08/20/17 08:31 Last Admin: 08/13/17 09:00 Dose: 100 mls/hr Metronidazole (Flagyl) 500 mg in 100 mls @ 100 mls/hr IVPB Q8 SOL PRN Reason: Protocol Last Admin: 08/13/17 09:01 Dose: 100 mls/hr Vancomycin HCl 2 gm/ Sodium (Chloride) 500 mls @ 170 mls/hr IVPB ONCE ONE PRN Reason: Protocol Stop: 08/13/17 11:28 Sodium Bicarbonate 150 meq/ (Dextrose/Sodium Chloride) 1,150 mls @ 100 mls/hr IV .[id number] [facility] Morphine Sulfate (Morphine) 2 mg IVP Q4H PRN PRN Reason: Pain, severe (8-10) Last Admin: 08/12/17 15:26 Dose: 2 mg Multi-Ingredient Ointment (Hydrophor Oint) 0 gm TOP Q6H [facility] Last Admin: 08/13/17 06:51 Dose: 1 applic Silver Sulfadiazine (Silvadene 1% 25 Gm) 0 gm TP BID [facility] Last Admin: 08/12/17 18:11 Dose: 25 gm Vancomycin HCl (Vancocin 25 Mg/Ml (Oral Use)) 500 mg PO Q6H [facility] PRN Reason: Protocol Stop: 08/17/17 13:16 Last Admin: 08/13/17 06:35 Dose: 500 mg Physical Exam - Constitutional Appears: No Acute Distress Additional comments: sedated/intubated - Head Exam Head Exam: NORMOCEPHALIC - Eye Exam Eye Exam: Normal appearance. absent: Scleral icterus - ENT Exam ENT Exam: Mucous Membranes Moist - Neck Exam Neck exam: Positive for: Normal Inspection - Respiratory Exam Respiratory Exam: NORMAL BREATHING PATTERN. absent: Respiratory Distress - Cardiovascular Exam Cardiovascular Exam: +S1, +S2 - GI/Abdominal Exam GI & Abdominal Exam: Distended, Normal Bowel Sounds. absent: Guarding, Rebound , Tenderness - Extremities Exam Extremities exam: Positive for: pedal edema (bilateral lower extremity edema/ ansasarca) - Neurological Exam Neurological exam: Altered (intubated/sedated) - Skin Skin Exam: Dry, Warm Results - Vital Signs Recent Vital Signs: Last Vital Signs Temp 99 F 08/13/17 06:00 Pulse 120 H 08/13/17 06:10 Resp 25 H 08/13/17 06:00 BP 77/38 L 08/13/17 09:02 Pulse Ox 99 08/13/17 06:00 - Labs Result Diagrams: 08/13/17 05:30 08/13/17 05:30 Labs: Laboratory Results - last 24 hr 08/12/17 08/12/17 08/12/17 11:20 12:50 22:00 WBC RBC Hgb Hct MCV MCH MCHC RDW Plt Count Gran % Lymph % (Auto) Turner % (Auto) Eos % (Auto) Baso % (Auto) Gran # Lymph # (Auto) Turner # (Auto) Eos # (Auto) Baso # (Auto) pCO2 25 L 24 L pO2 125.0 H 173.0 H HCO3 12.6 L 11.5 L ABG pH 7.31 L 7.29 L ABG Total CO2 13.4 L 12.2 L ABG O2 Saturation 98.6 H 99.0 H ABG O2 Content 17.7 16.7 ABG Base Excess -11.9 L -13.4 L ABG Hemoglobin 12.9 11.9 ABG Carboxyhemoglobin 1.0 0.7 POC ABG HHb (Measured) 1.4 1.0 ABG Methemoglobin 1.0 0.4 ABG O2 Capacity 18.0 16.9 ABG Potassium Hgb O2 Saturation 96.7 97.9 Glucose Lactate Mechanical Rate FiO2 32.0 60.0 Tidal Volume PEEP Sodium Potassium Chloride Carbon Dioxide Anion Gap BUN Creatinine Est GFR ( Amer) Est GFR (Non-Af Amer) Random Glucose Calcium Phosphorus Magnesium Total Bilirubin ALT Alkaline Phosphatase Ammonia 35 H Total Protein Albumin Globulin Albumin/Globulin Ratio Arterial Blood Potassium 08/13/17 08/13/17 08/13/17 05:30 05:30 07:25 WBC 21.7 H D RBC 4.39 Hgb 12.2 Hct 37.9 MCV 86.3 D MCH 27.8 MCHC 32.2 RDW 18.6 H Plt Count 58 L Gran % 87.6 H Lymph % (Auto) 7.4 L Turner % (Auto) 5.0 Eos % (Auto) 0.0 L Baso % (Auto) 0.0 Gran # 19.02 H Lymph # (Auto) 1.6 Turner # (Auto) 1.1 H Eos # (Auto) 0.0 Baso # (Auto) 0.01 pCO2 23 L pO2 118.0 H HCO3 7.7 L* ABG pH 7.13 L* ABG Total CO2 8.4 L ABG O2 Saturation 98.6 H ABG O2 Content ABG Base Excess -19.8 L ABG Hemoglobin ABG Carboxyhemoglobin POC ABG HHb (Measured) ABG Methemoglobin ABG O2 Capacity ABG Potassium 4.1 Hgb O2 Saturation Glucose 58 L Lactate 12.2 H* Mechanical Rate 16 FiO2 60.0 Tidal Volume 400 PEEP 5 Sodium 143 139.0 Potassium 4.5 Chloride 105 109.0 H Carbon Dioxide 12 L Anion Gap 30 H BUN 42 H Creatinine 2.9 H Est GFR ( Amer) 19 Est GFR (Non-Af Amer) 16 Random Glucose 60 L Calcium 8.3 L Phosphorus 7.6 H Magnesium 2.3 H Total Bilirubin 4.7 H ALT 990 H Alkaline Phosphatase 135 H Ammonia Total Protein 5.6 L Albumin 2.7 L Globulin 2.9 Albumin/Globulin Ratio 0.9 L Arterial Blood Potassium 4.1 Assessment & Plan - Assessment and Plan (Free Text) Assessment: Assessment: Septic shock Respiratory failure, intubated Elevated liver enzymes likely secondary to shock liver Hypotension Cholelithiasis C. difficile colitis Thrombocytopenia Coronary artery disease Acute renal failure, on dialysis CHF History of atrial fibrillation on Coumadin Bilateral lower extremity cellulitis Plan: continue to trend LFTs, patient did have hepatitis panel which is negative avoid hepatotoxic medications On vasopressin On IV antibiotics as per ID Continue GI prophylaxis DVT prophylaxis On oral vancomycin As per renal and cardiology Thank you for the consult and for allowing us to participate in your patient's care, further recommendations based upon clinical course. Seen and discussed with Dr. Nation. <Ky Nation V - Last Filed: 08/13/17 23:24> Meds - Medications Medications: Current Medications Famotidine (Pepcid) 20 mg IVP DAILY [facility] Last Admin: 08/13/17 12:02 Dose: 20 mg Hydrocortisone Sodium Succinate (Solu-Cortef) 100 mg IVP Q8H [facility] Last Admin: 08/13/17 16:41 Dose: 100 mg Phenylephrine HCl 80 mg/ (Sodium Chloride) 258 mls @ 19.35 mls/hr IV .[id number] PRN; Protocol; 100 MCG/MIN PRN Reason: TITRATE PER MD ORDER Last Admin: 08/13/17 18:00 Dose: 300 mcg/min, 58.05 mls/hr Vasopressin 20 units/ Dextrose 101 mls @ 9.09 mls/hr IV .Q11H7M SOL; 0.03 U/MIN PRN Reason: Protocol Last Admin: 08/13/17 16:53 Dose: Not Given Norepinephrine Bitartrate 8 mg (/ Dextrose) 250 mls @ 46.87 mls/hr IV .Q5H21M PRN; Protocol; 25 MCG/MIN PRN Reason: TITRATE PER MD ORDER Last Admin: 08/13/17 18:01 Dose: 30 mcg/min, 56.25 mls/hr Metronidazole (Flagyl) 500 mg in 100 mls @ 100 mls/hr IVPB Q8 SOL PRN Reason: Protocol Last Admin: 08/13/17 21:11 Dose: 100 mls/hr Sodium Bicarbonate 150 meq/ (Dextrose) 1,150 mls @ 100 mls/hr IV .[id number] SOL Last Admin: 08/13/17 21:10 Dose: 100 mls/hr Meropenem 500 mg/ Sodium (Chloride) 50 mls @ 100 mls/hr IVPB Q12 SOL PRN Reason: Protocol Stop: 08/20/17 10:16 Last Admin: 08/13/17 10:43 Dose: 100 mls/hr Morphine Sulfate (Morphine) 2 mg IVP Q4H PRN PRN Reason: Pain, severe (8-10) Last Admin: 08/12/17 15:26 Dose: 2 mg Multi-Ingredient Ointment (Hydrophor Oint) 0 gm TOP Q6H [facility] Last Admin: 08/13/17 20:45 Dose: 1 applic Silver Sulfadiazine (Silvadene 1% 25 Gm) 0 gm TP BID [facility] Last Admin: 08/13/17 17:05 Dose: 25 gm Vancomycin HCl (Vancocin 25 Mg/Ml (Oral Use)) 500 mg PO Q6H SOL PRN Reason: Protocol Stop: 08/17/17 13:16 Last Admin: 08/13/17 19:30 Dose: 500 mg Results - Vital Signs Recent Vital Signs: Last Vital Signs Temp 97.9 F 08/13/17 18:06 Pulse 141 H 08/13/17 18:06 Resp 46 H 08/13/17 11:02 BP 63/30 L 08/13/17 17:59 Pulse Ox 100 08/13/17 11:30 - Labs Result Diagrams: 08/13/17 05:30 08/13/17 05:30 Labs: Laboratory Results - last 24 hr 08/13/17 08/13/17 08/13/17 05:30 05:30 07:25 WBC 21.7 H D RBC 4.39 Hgb 12.2 Hct 37.9 MCV 86.3 D MCH 27.8 MCHC 32.2 RDW 18.6 H Plt Count 58 L Gran % 87.6 H Lymph % (Auto) 7.4 L Turner % (Auto) 5.0 Eos % (Auto) 0.0 L Baso % (Auto) 0.0 Gran # 19.02 H Lymph # (Auto) 1.6 Turner # (Auto) 1.1 H Eos # (Auto) 0.0 Baso # (Auto) 0.01 PT INR pCO2 23 L pO2 118.0 H HCO3 7.7 L* ABG pH 7.13 L* ABG Total CO2 8.4 L ABG O2 Saturation 98.6 H ABG Base Excess -19.8 L ABG Potassium 4.1 Glucose 58 L Lactate 12.2 H* Mechanical Rate 16 FiO2 60.0 Tidal Volume 400 PEEP 5 Sodium 143 139.0 Potassium 4.5 Chloride 105 109.0 H Carbon Dioxide 12 L Anion Gap 30 H BUN 42 H Creatinine 2.9 H Est GFR ( Amer) 19 Est GFR (Non-Af Amer) 16 POC Glucose (mg/dL) Random Glucose 60 L Calcium 8.3 L Phosphorus 7.6 H Magnesium 2.3 H Total Bilirubin 4.7 H AST 2881 H ALT 990 H Alkaline Phosphatase 135 H Total Protein 5.6 L Albumin 2.7 L Globulin 2.9 Albumin/Globulin Ratio 0.9 L Procalcitonin Arterial Blood Potassium 4.1 08/13/17 08/13/17 08/13/17 08:31 11:15 23:17 WBC RBC Hgb Hct MCV MCH MCHC RDW Plt Count Gran % Lymph % (Auto) Turner % (Auto) Eos % (Auto) Baso % (Auto) Gran # Lymph # (Auto) Turner # (Auto) Eos # (Auto) Baso # (Auto) PT 81.1 H INR 6.78 H* pCO2 pO2 HCO3 ABG pH ABG Total CO2 ABG O2 Saturation ABG Base Excess ABG Potassium Glucose Lactate Mechanical Rate FiO2 Tidal Volume PEEP Sodium Potassium Chloride Carbon Dioxide Anion Gap BUN Creatinine Est GFR ( Amer) Est GFR (Non-Af Amer) POC Glucose (mg/dL) 140 H Random Glucose Calcium Phosphorus Magnesium Total Bilirubin AST ALT Alkaline Phosphatase Total Protein Albumin Globulin Albumin/Globulin Ratio Procalcitonin 0.87 H Arterial Blood Potassium Attending/Attestation - Attestation I have personally seen and examined this patient.: Yes I have fully participated in the care of the patient.: Yes I have reviewed all pertinent clinical information: Yes Notes (Text): his is an addendum to GI progress report dictated by Saundra Abdul APN.The patient was seen and examined earlier. Medical records, lab studies, imagings were reviewed. Last 24 hours events reviewed. Agreed with the above treatment plan as outlined in Saundra Abdul APN's notes with the addition of the following 08/13/17 23:24
--- NOTE | 2017-08-13 10:28 | CP.PCM.PN ---
Subjective - Date & Time of Evaluation Date of Evaluation: 08/13/17 Time of Evaluation: 10:10 - Subjective Subjective: Noted events overnight - patient intubated for airway protection, patient continues to be on multiple vasopressors, patient in some respiratory distress despite being on the ventilator, has low grade temperatures. Objective - Vital Signs/Intake and Output Vital Signs (last 24 hours): Temp Pulse Resp BP Pulse Ox 99 F 120 H 25 H 103/63 99 08/13/17 06:00 08/13/17 06:10 08/13/17 06:00 08/13/17 05:44 08/13/17 06:00 Intake and Output: 08/13/17 08/13/17 06:59 18:59 Intake Total 2524 Output Total 25 Balance 2499 - Medications Medications: Current Medications Famotidine (Pepcid) 20 mg IVP DAILY [facility] Last Admin: 08/12/17 10:49 Dose: 20 mg Hydrocortisone Sodium Succinate (Solu-Cortef) 100 mg IVP Q8H SOL Last Admin: 08/13/17 00:50 Dose: 100 mg Phenylephrine HCl 80 mg/ (Sodium Chloride) 258 mls @ 19.35 mls/hr IV .[id number] PRN; Protocol; 100 MCG/MIN PRN Reason: TITRATE PER MD ORDER Last Titration: 08/13/17 04:15 Dose: 240 mcg/min, 46.44 mls/hr Vasopressin 20 units/ Dextrose 101 mls @ 9.09 mls/hr IV .Q11H7M SOL; 0.03 U/MIN PRN Reason: Protocol Last Admin: 08/12/17 23:00 Dose: 9.09 mls/hr Norepinephrine Bitartrate 8 mg (/ Dextrose) 250 mls @ 46.87 mls/hr IV .Q5H21M PRN; Protocol; 25 MCG/MIN PRN Reason: TITRATE PER MD ORDER Last Admin: 08/13/17 03:15 Dose: 30 mcg/min, 56.25 mls/hr Sodium Bicarbonate 50 meq/ (Dextrose) 1,050 mls @ 100 mls/hr IV .[id number] SOL Aztreonam (Azactam 1 Gm) 100 mls @ 100 mls/hr IVPB Q8 SOL PRN Reason: Protocol Stop: 08/20/17 08:31 Metronidazole (Flagyl) 500 mg in 100 mls @ 100 mls/hr IVPB Q8 SOL PRN Reason: Protocol Amikacin Sulfate 750 mg/ (Dextrose) 103 mls @ 204 mls/hr IVPB ONCE ONE PRN Reason: Protocol Stop: 08/13/17 09:15 Vancomycin HCl 2 gm/ Sodium (Chloride) 500 mls @ 170 mls/hr IVPB ONCE ONE PRN Reason: Protocol Stop: 08/13/17 11:28 Morphine Sulfate (Morphine) 2 mg IVP Q4H PRN PRN Reason: Pain, severe (8-10) Last Admin: 08/12/17 15:26 Dose: 2 mg Multi-Ingredient Ointment (Hydrophor Oint) 0 gm TOP Q6H SOL Last Admin: 08/13/17 06:51 Dose: 1 applic Silver Sulfadiazine (Silvadene 1% 25 Gm) 0 gm TP BID [facility] Last Admin: 08/12/17 18:11 Dose: 25 gm Vancomycin HCl (Vancocin 25 Mg/Ml (Oral Use)) 500 mg PO Q6H SOL PRN Reason: Protocol Stop: 08/17/17 13:16 Last Admin: 08/13/17 06:35 Dose: 500 mg - Labs Labs: 08/13/17 05:30 08/13/17 05:30 PT 52.6 SECONDS (9.4-12.5) H 08/12/17 05:45 INR 4.44 (0.93-1.08) H* 08/12/17 05:45 APTT 34.6 Seconds (25.1-36.5) 08/12/17 05:45 - Constitutional Appears: In Acute Distress, Chronically Ill, Other (intubated) - ENT Exam Additional comments: ET tube in place - Neck Exam Additional comments: left side of the neck with central venous catheter in place, site intact - Respiratory Exam Respiratory Exam: Decreased Breath Sounds - Cardiovascular Exam Cardiovascular Exam: +S1, +S2 - GI/Abdominal Exam GI & Abdominal Exam: Soft. absent: Tenderness Assessment and Plan - Assessment and Plan (Free Text) Plan: Assessment septic shock in this patient with diffuse maculopapular rash, consider due to severe C. diff. colitis on top of bilateral lower extremity cellulitis, now with ventilator-dependent respiratory failure, thrombocytopenia (multifactorial ) R/O HCAP; rash may possibly be drug-reaction to Cefuroxime - rash has been improving CAD S/P CABG chronic CHF with LVEF 35% chronic renal failure atrial fibrillation on anticoagulation HTN S/P pacemaker placement chronic renal failure, now on dialysis Plan continue PO Vancomycin and IV Flagyl (day 7); given Daptomycin yesterday which cover 48 hours and we have also given Vancomycin today and has been on Azactam ( day 7) but will change to Merrem and give a dose of IV amikacin pending repeat blood cx, urine cx, sputum continue to monitor liver enzymes and there are increasing (may be related to hypotension) overall prognosis is poor and I have discussed this with the ICU team
--- NOTE | 2017-08-13 10:42 | CP.CCUPN ---
<Timmy Cruz - Last Filed: 08/13/17 10:38> CCU Subjective - Physician Review Subjective (Free Text): Patient seen and evaluated bedside. Patient currently on 3 pressors. Patient lethargic still unable to answer questions. Patient was intubated yesterday. 08/12/17 11:15 CCU Objective - Vital Signs / Intake & Output Vital Signs (Last 4 hours): Vital Signs BP 08/13/17 09:02 77/38 L Intake and Output (Last 8hrs): Intake & Output 08/12/17 08/13/17 08/13/17 22:59 06:59 14:59 Intake Total 3448.8 1925 718 Output Total 70 25 Balance 3378.8 1900 718 Weight 247 lb Intake: IV 3448.8 1925 718 IVPB 200 LEVOPHED 675 672 Left Internal Jugular 1350 Phenyephrine 420 480 vasopressin 108 108 Output: Urine 20 25 Urethral (Frye) 20 25 Stool 50 Other: # Bowel Movements 0 - Physical Exam Head: Positive for: Atraumatic, Normocephalic Pupils: Positive for: PERRL Extroacular Muscles: Positive for: EOMI Conjunctiva: Positive for: Normal Mouth: Positive for: Dry Respiratory/Chest: Positive for: Decreased Breath Sounds. Negative for: Respiratory Distress, Accessory Muscle Use Cardiovascular: Positive for: Normal S1, S2, Tachycardic. Negative for: Murmurs Abdomen: Positive for: Normal Bowel Sounds. Negative for: Tenderness, Distention, Peritoneal Signs Back: Positive for: Normal Inspection Upper Extremity: Positive for: Cyanosis, Edema Lower Extremity: Positive for: Edema (+1 edema b/l) Neurological: Positive for: Other (lethargic , intubated) Skin: Positive for: Warm, Dry, Normal Color, Erythematous (Diffuse lacy, erythematous rash throughout arms, upper legs, and trunk. No change from previous day.). Negative for: Rashes Psychiatric: Negative for: Alert, Oriented x 3 - Medications Active Medications: Active Medications Generic Name Dose Route Start Last Admin Trade Name Freq PRN Reason Stop Dose Admin Famotidine 20 mg 08/10/17 10:15 08/12/17 10:49 Pepcid IVP 20 mg DAILY SOL Administration Hydrocortisone Sodium Succinate 100 mg 08/11/17 09:30 08/13/17 00:50 Solu-Cortef IVP 100 mg Q8H SOL Administration Phenylephrine HCl 80 mg/ 258 mls @ 19.35 mls/hr 08/10/17 16:15 08/13/17 09:01 Sodium Chloride IV Infused .[id number] PRN Titration TITRATE PER MD ORDER Protocol 100 MCG/MIN Vasopressin 20 units/ Dextrose 101 mls @ 9.09 mls/hr 08/11/17 18:42 08/13/17 09:02 IV 9.09 mls/hr .[id number] SOL Administration Protocol 0.03 U/MIN Norepinephrine Bitartrate 8 mg 250 mls @ 46.87 mls/hr 08/11/17 18:55 08:39 / Dextrose IV 30 mcg/min .Q5H21M PRN 56.25 mls/hr TITRATE PER MD ORDER Administration Protocol 25 MCG/MIN Aztreonam 100 mls @ 100 mls/hr 08/13/17 08:30 08/13/17 09:00 Azactam 1 Gm IVPB 08/20/17 08:31 100 mls/hr Q8 SOL Administration Protocol Metronidazole 500 mg in 100 mls @ 100 mls/hr 08/13/17 08:30 08/13/17 09:01 Flagyl IVPB 100 mls/hr Q8 SOL Administration Protocol Vancomycin HCl 2 gm/ Sodium 500 mls @ 170 mls/hr 08/13/17 08:32 Chloride IVPB 08/13/17 11:28 ONCE ONE Protocol Sodium Bicarbonate 150 meq/ 1,150 mls @ 100 mls/hr 08/13/17 10:05 Dextrose IV .[id number] SOL Meropenem 500 mg/ Sodium 50 mls @ 100 mls/hr 08/13/17 10:15 Chloride IVPB 08/20/17 10:16 Q12 SOL Protocol Morphine Sulfate 2 mg 08/12/17 15:17 08/12/17 15:26 Morphine IVP 2 mg Q4H PRN Administration Pain, severe (8-10) Multi-Ingredient Ointment 0 gm 08/09/17 13:45 08/13/17 06:51 Hydrophor Oint TOP 1 applic Q6H SOL Administration Silver Sulfadiazine 0 gm 08/09/17 18:00 08/12/17 18:11 Silvadene 1% 25 Gm TP 25 gm BID SOL Administration Vancomycin HCl 500 mg 08/08/17 13:15 08/13/17 06:35 Vancocin 25 Mg/Ml (Oral Use) PO 08/17/17 13:16 500 mg Q6H SOL Administration Protocol - Patient Studies Lab Studies: Lab Studies 08/13/17 08/13/17 08/13/17 Range/Units 07:25 05:30 05:30 WBC 21.7 H D (4.5-11.0) 10^3/ul RBC 4.39 (3.5-6.1) 10^6/uL Hgb 12.2 (12.0-16.0) g/dL Hct 37.9 (36.0-48.0) % MCV 86.3 D (80.0-105.0) fl MCH 27.8 (25.0-35.0) pg MCHC 32.2 (31.0-37.0) g/dl RDW 18.6 H (11.5-14.5) % Plt Count 58 L (120.0-450.0) 10^3/uL Gran % 87.6 H (50.0-68.0) % Lymph % (Auto) 7.4 L (22.0-35.0) % [place] % (Auto) 5.0 (1.0-6.0) % Eos % (Auto) 0.0 L (1.5-5.0) % Baso % (Auto) 0.0 (0.0-3.0) % Gran # 19.02 H (1.4-6.5) Lymph # (Auto) 1.6 (1.2-3.4) [place] # (Auto) 1.1 H (0.1-0.6) Eos # (Auto) 0.0 (0.0-0.7) Baso # (Auto) 0.01 (0.0-2.0) K/mm3 pCO2 23 L (35-45) mm/Hg pO2 118.0 H (80-100) mm/Hg HCO3 7.7 L* (21-28) mmol/L ABG pH 7.13 L* (7.35-7.45) ABG Total CO2 8.4 L (22-28) mmol.L ABG O2 Saturation 98.6 H (95-98) % ABG O2 Content (15-23) ML/dl ABG Base Excess -19.8 L (-2.0-3.0) mmol/L ABG Hemoglobin (11.7-17.4) g/dL ABG Carboxyhemoglobin (0.5-1.5) % POC ABG HHb (Measured) (0-5) % ABG Methemoglobin (0.0-3.0) % ABG O2 Capacity (16-24) mL/dl ABG Potassium 4.1 (3.6-5.2) mmol/L Hgb O2 Saturation (95.0-98.0) % Glucose 58 L (65-105) mg/dl Lactate 12.2 H* (0.7-2.1) mmol/L Mechanical Rate 16 FiO2 60.0 % Tidal Volume 400 PEEP 5 Sodium 139.0 143 (132-148) mmol/L Potassium 4.5 (3.6-5.0) mmol/L Chloride 109.0 H 105 (98-107) mmol/L Carbon Dioxide 12 L (21-33) mmol/L Anion Gap 30 H (10-20) BUN 42 H (7-21) mg/dL Creatinine 2.9 H (0.7-1.2) mg/dl Est GFR ( Amer) 19 Est GFR (Non-Af Amer) 16 Random Glucose 60 L (70-110) mg/dL Calcium 8.3 L (8.4-10.5) mg/dL Phosphorus 7.6 H (2.5-4.5) mg/dL Magnesium 2.3 H (1.7-2.2) mg/dL Total Bilirubin 4.7 H (0.2-1.3) mg/dL ALT 990 H (7-56) U/L Alkaline Phosphatase 135 H (38-126) U/L Ammonia (9-33) umol/L Total Protein 5.6 L (5.8-8.3) g/dL Albumin 2.7 L (3.0-4.8) g/dL Globulin 2.9 gm/dL Albumin/Globulin Ratio 0.9 L (1.1-1.8) Arterial Blood Potassium 4.1 (3.6-5.2) mmol/L 03/22/18 03/22/18 03/22/18 Range/Units 22:00 12:50 11:20 WBC (4.5-11.0) 10^3/ul RBC (3.5-6.1) 10^6/uL Hgb (12.0-16.0) g/dL Hct (36.0-48.0) % MCV (80.0-105.0) fl MCH (25.0-35.0) pg MCHC (31.0-37.0) g/dl RDW (11.5-14.5) % Plt Count (120.0-450.0) 10^3/uL Gran % (50.0-68.0) % Lymph % (Auto) (22.0-35.0) % [place] % (Auto) (1.0-6.0) % Eos % (Auto) (1.5-5.0) % Baso % (Auto) (0.0-3.0) % Gran # (1.4-6.5) Lymph # (Auto) (1.2-3.4) [place] # (Auto) (0.1-0.6) Eos # (Auto) (0.0-0.7) Baso # (Auto) (0.0-2.0) K/mm3 pCO2 24 L 25 L (35-45) mm/Hg pO2 173.0 H 125.0 H (80-100) mm/Hg HCO3 11.5 L 12.6 L (21-28) mmol/L ABG pH 7.29 L 7.31 L (7.35-7.45) ABG Total CO2 12.2 L 13.4 L (22-28) mmol.L ABG O2 Saturation 99.0 H 98.6 H (95-98) % ABG O2 Content 16.7 17.7 (15-23) ML/dl ABG Base Excess -13.4 L -11.9 L (-2.0-3.0) mmol/L ABG Hemoglobin 11.9 12.9 (11.7-17.4) g/dL ABG Carboxyhemoglobin 0.7 1.0 (0.5-1.5) % POC ABG HHb (Measured) 1.0 1.4 (0-5) % ABG Methemoglobin 0.4 1.0 (0.0-3.0) % ABG O2 Capacity 16.9 18.0 (16-24) mL/dl ABG Potassium (3.6-5.2) mmol/L Hgb O2 Saturation 97.9 96.7 (95.0-98.0) % Glucose (65-105) mg/dl Lactate (0.7-2.1) mmol/L Mechanical Rate FiO2 60.0 32.0 % Tidal Volume PEEP Sodium (132-148) mmol/L Potassium (3.6-5.0) mmol/L Chloride (98-107) mmol/L Carbon Dioxide (21-33) mmol/L Anion Gap (10-20) BUN (7-21) mg/dL Creatinine (0.7-1.2) mg/dl Est GFR ( Amer) Est GFR (Non-Af Amer) Random Glucose (70-110) mg/dL Calcium (8.4-10.5) mg/dL Phosphorus (2.5-4.5) mg/dL Magnesium (1.7-2.2) mg/dL Total Bilirubin (0.2-1.3) mg/dL ALT (7-56) U/L Alkaline Phosphatase (38-126) U/L Ammonia 35 H (9-33) umol/L Total Protein (5.8-8.3) g/dL Albumin (3.0-4.8) g/dL Globulin gm/dL Albumin/Globulin Ratio (1.1-1.8) Arterial Blood Potassium (3.6-5.2) mmol/L Laboratory Results - last 24 hr 08/12/17 08/12/17 08/12/17 11:20 12:50 22:00 WBC RBC Hgb Hct MCV MCH MCHC RDW Plt Count Gran % Lymph % (Auto) [place] % (Auto) Eos % (Auto) Baso % (Auto) Gran # Lymph # (Auto) [place] # (Auto) Eos # (Auto) Baso # (Auto) pCO2 25 L 24 L pO2 125.0 H 173.0 H HCO3 12.6 L 11.5 L ABG pH 7.31 L 7.29 L ABG Total CO2 13.4 L 12.2 L ABG O2 Saturation 98.6 H 99.0 H ABG O2 Content 17.7 16.7 ABG Base Excess -11.9 L -13.4 L ABG Hemoglobin 12.9 11.9 ABG Carboxyhemoglobin 1.0 0.7 POC ABG HHb (Measured) 1.4 1.0 ABG Methemoglobin 1.0 0.4 ABG O2 Capacity 18.0 16.9 ABG Potassium Hgb O2 Saturation 96.7 97.9 Glucose Lactate Mechanical Rate FiO2 32.0 60.0 Tidal Volume PEEP Sodium Potassium Chloride Carbon Dioxide Anion Gap BUN Creatinine Est GFR ( Amer) Est GFR (Non-Af Amer) Random Glucose Calcium Phosphorus Magnesium Total Bilirubin ALT Alkaline Phosphatase Ammonia 35 H Total Protein Albumin Globulin Albumin/Globulin Ratio Arterial Blood Potassium 08/13/17 08/13/17 08/13/17 05:30 05:30 07:25 WBC 21.7 H D RBC 4.39 Hgb 12.2 Hct 37.9 MCV 86.3 D MCH 27.8 MCHC 32.2 RDW 18.6 H Plt Count 58 L Gran % 87.6 H Lymph % (Auto) 7.4 L [place] % (Auto) 5.0 Eos % (Auto) 0.0 L Baso % (Auto) 0.0 Gran # 19.02 H Lymph # (Auto) 1.6 [place] # (Auto) 1.1 H Eos # (Auto) 0.0 Baso # (Auto) 0.01 pCO2 23 L pO2 118.0 H HCO3 7.7 L* ABG pH 7.13 L* ABG Total CO2 8.4 L ABG O2 Saturation 98.6 H ABG O2 Content ABG Base Excess -19.8 L ABG Hemoglobin ABG Carboxyhemoglobin POC ABG HHb (Measured) ABG Methemoglobin ABG O2 Capacity ABG Potassium 4.1 Hgb O2 Saturation Glucose 58 L Lactate 12.2 H* Mechanical Rate 16 FiO2 60.0 Tidal Volume 400 PEEP 5 Sodium 143 139.0 Potassium 4.5 Chloride 105 109.0 H Carbon Dioxide 12 L Anion Gap 30 H BUN 42 H Creatinine 2.9 H Est GFR ( Amer) 19 Est GFR (Non-Af Amer) 16 Random Glucose 60 L Calcium 8.3 L Phosphorus 7.6 H Magnesium 2.3 H Total Bilirubin 4.7 H ALT 990 H Alkaline Phosphatase 135 H Ammonia Total Protein 5.6 L Albumin 2.7 L Globulin 2.9 Albumin/Globulin Ratio 0.9 L Arterial Blood Potassium 4.1 Review of Systems - Review of Systems Systems not reviewed;Unavailable: Intubated Review of Systems: unable to obtain ROS Critical Care Progress Note - Nutrition Nutrition: Nutrition Category Date Time Status NPO Diet [DIET] Diets 08/12/17 Dinner Ordered Assessment/Plan - Assessment and Plan (Free Text) Assessment: 72 year old female with past medical history of HTN, CHF, CABG, and A-fib on coumadin presents with septic shock. Urine output minimal. Patient will undergo several dialysis sessions. Patient remains on multiple pressors, will continue to monitor patient closely. Patient was intubated yesterday due to worsening mental status and unable to protect airway. Plan: Neuro: lethargic ABG showign metabolic acidosis Ammonia level 35 lactate 12.2 Cardio: Levophed, Vasopressin, Phenylephrine Solucortef 100 q8h Maintain MAP >65 Cardiology consulted Pulm: intubated and currently on vent Maintain O2 sat >90% GI: LFTs elevated, worsening Trend LFTs CT abdomen/pelvis negative Protonix NPO NG tube Gi consulted, Chapis follow recs Nephro: Acute renal failure, creatinine mildly improving Dialysis possibly today, if not Wednesday Oliguric Frye in place Replenish electrolytes as needed lactate 12.2 bicarb given, bicarb drip started Heme/ID: leukocytosis, afebrile C. Diff Aztreoname, Daptomycin, PO Vancomycin ID consulted, follow recs INR pending <Leon Lima - Last Filed: 08/13/17 13:01> CCU Objective - Vital Signs / Intake & Output Vital Signs (Last 4 hours): Vital Signs Temp Pulse Resp BP Pulse Ox 08/13/17 11:50 97.3 F L 133 H 08/13/17 11:49 97.3 F L 115 H 08/13/17 11:48 97.3 F L 108 H 08/13/17 11:47 97.3 F L 115 H 08/13/17 11:46 97.2 F L 115 H 08/13/17 11:30 105 H 60/44 L 100 08/13/17 11:02 133 H 46 H 64/22 L 99 08/13/17 11:01 112 H 20 91 L 08/13/17 10:39 109/71 08/13/17 10:38 123 H 08/13/17 10:37 107 H 08/13/17 10:36 101 H 08/13/17 10:35 107 H 08/13/17 10:34 125 H 08/13/17 10:33 117 H 08/13/17 10:32 117 H 08/13/17 10:31 123 H 08/13/17 10:30 109 H 08/13/17 10:29 126 H 08/13/17 10:28 111 H 08/13/17 10:27 112 H 08/13/17 10:26 119 H 08/13/17 10:25 133 H 08/13/17 10:24 122 H 08/13/17 10:23 100 H 08/13/17 10:22 118 H 08/13/17 10:21 100 H 08/13/17 10:20 114 H 08/13/17 10:19 104 H 08/13/17 10:18 125 H 08/13/17 10:17 108 H 08/13/17 10:16 112 H 08/13/17 10:15 119 H 08/13/17 10:14 125 H 08/13/17 10:13 111 H 08/13/17 10:12 110 H 08/13/17 10:11 111 H 08/13/17 10:10 122 H 08/13/17 10:09 102 H 08/13/17 10:08 103 H 08/13/17 10:07 124 H 08/13/17 10:06 115 H 08/13/17 10:05 119 H 08/13/17 10:04 119 H 08/13/17 10:03 118 H 08/13/17 10:02 96 H 08/13/17 10:01 79/46 L 08/13/17 10:00 121 H 08/13/17 09:02 77/38 L Intake and Output (Last 8hrs): Intake & Output 08/12/17 08/13/17 08/13/17 22:59 06:59 14:59 Intake Total 3448.8 1925 916 Output Total 70 25 Balance 3378.8 1900 916 Weight 247 lb Intake: IV 3448.8 1925 916 IVPB 200 LEVOPHED 675 672 Left Internal Jugular 1350 Phenyephrine 420 480 vasopressin 108 108 Output: Urine 20 25 Urethral (Frye) 20 25 Stool 50 Other: # Bowel Movements 0 - Medications Active Medications: Active Medications Generic Name Dose Route Start Last Admin Trade Name Freq PRN Reason Stop Dose Admin Famotidine 20 mg 08/10/17 10:15 08/13/17 12:02 Pepcid IVP 20 mg DAILY SOL Administration Hydrocortisone Sodium Succinate 100 mg 08/11/17 09:30 08/13/17 12:03 Solu-Cortef IVP 100 mg Q8H SOL Administration Phenylephrine HCl 80 mg/ 258 mls @ 19.35 mls/hr 08/10/17 16:15 08/13/17 12:46 Sodium Chloride IV 280 mcg/min .[id number] PRN 54.18 mls/hr TITRATE PER MD ORDER Titration Protocol 100 MCG/MIN Vasopressin 20 units/ Dextrose 101 mls @ 9.09 mls/hr 08/11/17 18:42 08/13/17 09:02 IV 9.09 mls/hr .Q11H7M SOL Administration Protocol 0.03 U/MIN Norepinephrine Bitartrate 8 mg 250 mls @ 46.87 mls/hr 08/11/17 18:55 08:39 / Dextrose IV 30 mcg/min .Q5H21M PRN 56.25 mls/hr TITRATE PER MD ORDER Administration Protocol 25 MCG/MIN Metronidazole 500 mg in 100 mls @ 100 mls/hr 08/13/17 08:30 08/13/17 09:01 Flagyl IVPB 100 mls/hr Q8 SLO Administration Protocol Sodium Bicarbonate 150 meq/ 1,150 mls @ 100 mls/hr 08/13/17 10:05 08/13/17 10 :44 Dextrose IV 100 mls/hr .[id number] SOL Administration Meropenem 500 mg/ Sodium 50 mls @ 100 mls/hr 08/13/17 10:15 08/13/17 10:43 Chloride IVPB 08/20/17 10:16 100 mls/hr Q12 SOL Administration Protocol Morphine Sulfate 2 mg 08/12/17 15:17 08/12/17 15:26 Morphine IVP 2 mg Q4H PRN Administration Pain, severe (8-10) Multi-Ingredient Ointment 0 gm 08/09/17 13:45 08/13/17 06:51 Hydrophor Oint TOP 1 applic Q6H SOL Administration Silver Sulfadiazine 0 gm 08/09/17 18:00 08/13/17 12:03 Silvadene 1% 25 Gm TP 25 gm BID SOL Administration Vancomycin HCl 500 mg 08/08/17 13:15 08/13/17 12:51 Vancocin 25 Mg/Ml (Oral Use) PO 08/17/17 13:16 500 mg Q6H SOL Administration Protocol - Patient Studies Lab Studies: Lab Studies 08/13/17 08/13/17 08/13/17 Range/Units 07:25 05:30 05:30 WBC 21.7 H D (4.5-11.0) 10^3/ul RBC 4.39 (3.5-6.1) 10^6/uL Hgb 12.2 (12.0-16.0) g/dL Hct 37.9 (36.0-48.0) % MCV 86.3 D (80.0-105.0) fl MCH 27.8 (25.0-35.0) pg MCHC 32.2 (31.0-37.0) g/dl RDW 18.6 H (11.5-14.5) % Plt Count 58 L (120.0-450.0) 10^3/uL Gran % 87.6 H (50.0-68.0) % Lymph % (Auto) 7.4 L (22.0-35.0) % [place] % (Auto) 5.0 (1.0-6.0) % Eos % (Auto) 0.0 L (1.5-5.0) % Baso % (Auto) 0.0 (0.0-3.0) % Gran # 19.02 H (1.4-6.5) Lymph # (Auto) 1.6 (1.2-3.4) [place] # (Auto) 1.1 H (0.1-0.6) Eos # (Auto) 0.0 (0.0-0.7) Baso # (Auto) 0.01 (0.0-2.0) K/mm3 pCO2 23 L (35-45) mm/Hg pO2 118.0 H (80-100) mm/Hg HCO3 7.7 L* (21-28) mmol/L ABG pH 7.13 L* (7.35-7.45) ABG Total CO2 8.4 L (22-28) mmol.L ABG O2 Saturation 98.6 H (95-98) % ABG O2 Content (15-23) ML/dl ABG Base Excess -19.8 L (-2.0-3.0) mmol/L ABG Hemoglobin (11.7-17.4) g/dL ABG Carboxyhemoglobin (0.5-1.5) % POC ABG HHb (Measured) (0-5) % ABG Methemoglobin (0.0-3.0) % ABG O2 Capacity (16-24) mL/dl ABG Potassium 4.1 (3.6-5.2) mmol/L Hgb O2 Saturation (95.0-98.0) % Glucose 58 L (65-105) mg/dl Lactate 12.2 H* (0.7-2.1) mmol/L Mechanical Rate 16 FiO2 60.0 % Tidal Volume 400 PEEP 5 Sodium 139.0 143 (132-148) mmol/L Potassium 4.5 (3.6-5.0) mmol/L Chloride 109.0 H 105 (98-107) mmol/L Carbon Dioxide 12 L (21-33) mmol/L Anion Gap 30 H (10-20) BUN 42 H (7-21) mg/dL Creatinine 2.9 H (0.7-1.2) mg/dl Est GFR ( Amer) 19 Est GFR (Non-Af Amer) 16 Random Glucose 60 L (70-110) mg/dL Calcium 8.3 L (8.4-10.5) mg/dL Phosphorus 7.6 H (2.5-4.5) mg/dL Magnesium 2.3 H (1.7-2.2) mg/dL Total Bilirubin 4.7 H (0.2-1.3) mg/dL AST 2881 H (14-36) U/L ALT 990 H (7-56) U/L Alkaline Phosphatase 135 H (38-126) U/L Ammonia (9-33) umol/L Total Protein 5.6 L (5.8-8.3) g/dL Albumin 2.7 L (3.0-4.8) g/dL Globulin 2.9 gm/dL Albumin/Globulin Ratio 0.9 L (1.1-1.8) Arterial Blood Potassium 4.1 (3.6-5.2) mmol/L 08/12/17 08/12/17 Range/Units 22:00 12:50 WBC (4.5-11.0) 10^3/ul RBC (3.5-6.1) 10^6/uL Hgb (12.0-16.0) g/dL Hct (36.0-48.0) % MCV (80.0-105.0) fl MCH (25.0-35.0) pg MCHC (31.0-37.0) g/dl RDW (11.5-14.5) % Plt Count (120.0-450.0) 10^3/uL Gran % (50.0-68.0) % Lymph % (Auto) (22.0-35.0) % [place] % (Auto) (1.0-6.0) % Eos % (Auto) (1.5-5.0) % Baso % (Auto) (0.0-3.0) % Gran # (1.4-6.5) Lymph # (Auto) (1.2-3.4) [place] # (Auto) (0.1-0.6) Eos # (Auto) (0.0-0.7) Baso # (Auto) (0.0-2.0) K/mm3 pCO2 24 L (35-45) mm/Hg pO2 173.0 H (80-100) mm/Hg HCO3 11.5 L (21-28) mmol/L ABG pH 7.29 L (7.35-7.45) ABG Total CO2 12.2 L (22-28) mmol.L ABG O2 Saturation 99.0 H (95-98) % ABG O2 Content 16.7 (15-23) ML/dl ABG Base Excess -13.4 L (-2.0-3.0) mmol/L ABG Hemoglobin 11.9 (11.7-17.4) g/dL ABG Carboxyhemoglobin 0.7 (0.5-1.5) % POC ABG HHb (Measured) 1.0 (0-5) % ABG Methemoglobin 0.4 (0.0-3.0) % ABG O2 Capacity 16.9 (16-24) mL/dl ABG Potassium (3.6-5.2) mmol/L Hgb O2 Saturation 97.9 (95.0-98.0) % Glucose (65-105) mg/dl Lactate (0.7-2.1) mmol/L Mechanical Rate FiO2 60.0 % Tidal Volume PEEP Sodium (132-148) mmol/L Potassium (3.6-5.0) mmol/L Chloride (98-107) mmol/L Carbon Dioxide (21-33) mmol/L Anion Gap (10-20) BUN (7-21) mg/dL Creatinine (0.7-1.2) mg/dl Est GFR ( Amer) Est GFR (Non-Af Amer) Random Glucose (70-110) mg/dL Calcium (8.4-10.5) mg/dL Phosphorus (2.5-4.5) mg/dL Magnesium (1.7-2.2) mg/dL Total Bilirubin (0.2-1.3) mg/dL AST (14-36) U/L ALT (7-56) U/L Alkaline Phosphatase (38-126) U/L Ammonia 35 H (9-33) umol/L Total Protein (5.8-8.3) g/dL Albumin (3.0-4.8) g/dL Globulin gm/dL Albumin/Globulin Ratio (1.1-1.8) Arterial Blood Potassium (3.6-5.2) mmol/L Laboratory Results - last 24 hr 08/12/17 08/12/17 08/13/17 12:50 22:00 05:30 WBC 21.7 H D RBC 4.39 Hgb 12.2 Hct 37.9 MCV 86.3 D MCH 27.8 MCHC 32.2 RDW 18.6 H Plt Count 58 L Gran % 87.6 H Lymph % (Auto) 7.4 L [place] % (Auto) 5.0 Eos % (Auto) 0.0 L Baso % (Auto) 0.0 Gran # 19.02 H Lymph # (Auto) 1.6 [place] # (Auto) 1.1 H Eos # (Auto) 0.0 Baso # (Auto) 0.01 pCO2 24 L pO2 173.0 H HCO3 11.5 L ABG pH 7.29 L ABG Total CO2 12.2 L ABG O2 Saturation 99.0 H ABG O2 Content 16.7 ABG Base Excess -13.4 L ABG Hemoglobin 11.9 ABG Carboxyhemoglobin 0.7 POC ABG HHb (Measured) 1.0 ABG Methemoglobin 0.4 ABG O2 Capacity 16.9 ABG Potassium Hgb O2 Saturation 97.9 Glucose Lactate Mechanical Rate FiO2 60.0 Tidal Volume PEEP Sodium Potassium Chloride Carbon Dioxide Anion Gap BUN Creatinine Est GFR ( Amer) Est GFR (Non-Af Amer) Random Glucose Calcium Phosphorus Magnesium Total Bilirubin AST ALT Alkaline Phosphatase Ammonia 35 H Total Protein Albumin Globulin Albumin/Globulin Ratio Arterial Blood Potassium 08/13/17 08/13/17 05:30 07:25 WBC RBC Hgb Hct MCV MCH MCHC RDW Plt Count Gran % Lymph % (Auto) [place] % (Auto) Eos % (Auto) Baso % (Auto) Gran # Lymph # (Auto) [place] # (Auto) Eos # (Auto) Baso # (Auto) pCO2 23 L pO2 118.0 H HCO3 7.7 L* ABG pH 7.13 L* ABG Total CO2 8.4 L ABG O2 Saturation 98.6 H ABG O2 Content ABG Base Excess -19.8 L ABG Hemoglobin ABG Carboxyhemoglobin POC ABG HHb (Measured) ABG Methemoglobin ABG O2 Capacity ABG Potassium 4.1 Hgb O2 Saturation Glucose 58 L Lactate 12.2 H* Mechanical Rate 16 FiO2 60.0 Tidal Volume 400 PEEP 5 Sodium 143 139.0 Potassium 4.5 Chloride 105 109.0 H Carbon Dioxide 12 L Anion Gap 30 H BUN 42 H Creatinine 2.9 H Est GFR ( Amer) 19 Est GFR (Non-Af Amer) 16 Random Glucose 60 L Calcium 8.3 L Phosphorus 7.6 H Magnesium 2.3 H Total Bilirubin 4.7 H AST 2881 H ALT 990 H Alkaline Phosphatase 135 H Ammonia Total Protein 5.6 L Albumin 2.7 L Globulin 2.9 Albumin/Globulin Ratio 0.9 L Arterial Blood Potassium 4.1 Critical Care Progress Note - Nutrition Nutrition: Nutrition Category Date Time Status NPO Diet [DIET] Diets 08/12/17 Dinner Ordered Assessment/Plan - Assessment and Plan (Free Text) Plan: Patient seen and examined on rounds with resident, agree with note with following additions/exceptions: 72yo female nancy PMHx of CAD s/p CABG, HTN, Systolic CHF EF 10%, a/w diffuse skin rash, cellulitis, hyperkalemia, coagulopathy, septic shock, renal failure. Currently on Levophed 10mcg/min, Vasopressin, stress dose steroids given. Blood cultures thus far negative. Cdiff antigen/toxin positive Benign abd exam Currently intubated, on 3 vasopressors, maxed out, stress dose steroids given. Renal and ID following. Pt oliguric, minimal urine output, on HD. Liver function tests worsening, plateletes downtrending (patient has not received heparin on this admission), possibly 2/2 DIC from septic shock. Coaguloapthy Dehydration Acute renal failure Cellulitis Skin rash Coagulopathy r/o DIC Recommend: - cont with ventilatory support, low tidla vol ventilation, monitor ABG, CXR acceptable no evidence of consolidation - cont with Vasopressor support, stress dose steroids Solucortef, repeat lactate , goal MAP 65 - broad spectrum antibiotics, as per ID, - HD as per renal - FS control - check fibrinogen, ddimer, fibrin split products levels - GI ppx - DVT ppx, SCDs - monitor in MICU patient at high risk for morbidity and mortality overall prognosis extremely poor critical care time 34 minutes
[2017-08-13] MEDS: Meropenem 500 MG in Sodium Chloride 0.9% 50 ML IVPB SCH (10:43)
[2017-08-13] MEDS: Sodium Bicarbonate 8.4% 150 MEQ in Dextrose 5% In Water 1,000 ML IV SCH ×2 (10:44→21:10)
[2017-08-13] MEDS: Silver Sulfadiazine 1% Cream (25 gm) TP SCH ×2 (12:03→17:05)
[2017-08-13 13:23] LABS: PROTHROMBIN TIME 81.1 SECONDS (9.4-12.5)
[2017-08-13 13:25] LABS: INR 6.78 (0.93-1.08)
[2017-08-13] MEDS ORDERED: Phytonadione 10 MG in Sodium Chloride 0.9% 50 ML IV ONE (13:30)
--- NOTE | 2017-08-14 00:20 | PN ---
DATE: 08/13/2017 SUBJECTIVE: The patient is seen lying in bed in the ICU. She required intubation for ventilatory support. She remains profoundly hypotensive. She remains on high dose pressors. She is not arousable. CURRENT MEDICATIONS: Include IV Flagyl, meropenem, norepinephrine 25 mcg per minute, Pepcid, phenylephrine at 100 mcg per minute, sodium bicarbonate infusion, Solu-Cortef, vancomycin, and vasopressin 0.03 units per minute. PHYSICAL EXAMINATION: GENERAL: She is an obese middle-aged woman. VITAL SIGNS: Her blood pressure is 110/70; however, it was 60/43 through much of the evening; pulse is 120, in atrial fibrillation; respirations are 16. She has a temperature of 99 rectally. HEENT: She is orally intubated. CHEST: Diminished breath sounds in dependent zones. HEART: Soft tones noted. Rhythm is irregularly irregular and tachycardic. ABDOMEN: Soft. Bowel sounds present. EXTREMITIES: Chronic cellulitic changes. LABORATORY DATA: Chest x-ray reveals cardiomegaly with a fairly clear lung ivan. Potassium 4.5. BUN and creatinine of 42 and 2.9. White count 21.7; hemoglobin and hematocrit of 12.2 and 37.9, with a platelet count of 58,000. INR is 6.78. Recent arterial blood gas showed pH 7.13, pCO2 of 23, pO2 of 118, on 60% FiO2. AST and ALT 2880 and 990 respectively. IMPRESSION: 1. Severe septic shock requiring multiple high dose pressors, superimposed upon severe left ventricular dysfunction. 2. Coronary artery disease status post prior bypass surgery. 3. Acute renal failure. 4. Elevated transaminases, likely due to passive congestion. 5. Thrombocytopenia likely secondary to sepsis. 6. Rest of problems as noted. RECOMMENDATIONS: Continued supportive care is advised. Her overall prognosis remains extremely poor. Attempts at heart rate control are not advised as this is likely a physiologic response to her clinical sepsis and decompensation. We will continue to follow and make further recommendations as appropriate. Luiz Vargas MD
--- NOTE | 2017-08-14 01:24 | PN ---
DATE: SUBJECTIVE: Patient is 72 years old, seen and examined yesterday when patient got intubated because of her hypoxia and somnolence and lethargy. Currently, patient is on three pressors. PHYSICAL EXAMINATION: VITAL SIGNS: She is afebrile, pulse 141, respirations 22, blood pressure 63/30. LUNGS: Bilateral poor respiratory effort. HEART: S1, S2 audible. Tachycardic. ABDOMEN: Soft, obese. She has generalized erythema, seems to be improving. EXTREMITIES: Positive erythema and ulceration in the back and both legs. LABORATORY EXAM: WBC is 21.7, hemoglobin 12, hematocrit 37, platelet of 58. PTT 1.1, INR 6.78. Chemistry: Sodium 143, potassium 4.5, chloride 105, CO2 of 12, BUN 42, creatinine 2.9, blood sugar of 60. ASSESSMENT: 1. Septic shock. 2. Hyponatremia. 3. Acute renal failure. 4. Clostridium difficile colitis. PLAN: At this point, the patient's prognosis is very poor. Daughter is by the bedside. Tried to discuss about DNR, but patient's daughter wants everything done, so she will be kept on daptomycin. She is given dose of amikacin. She is on Flagyl. She is on three pressors including Levophed, enalapril, bicarb drip, and vasopressin. Prognosis is guarded. We will follow the patient. Akira Manley MD
[2017-08-14] MEDS: Vancomycin 25 MG/ML PO SCH ×4 (01:30→19:54)
[2017-08-14] MEDS: Petrolatum-Mineral Oil Oint (100gm) TOP SCH ×4 (02:00→19:54)
[2017-08-14] MEDS: Norepinephrine 8 MG in Dextrose 5% In Water 242 ML IV PRN ×3 (03:00→19:56)
[2017-08-14] MEDS: Phenylephrine 80 MG in Sodium Chloride 0.9% 250 ML IV PRN ×4 (03:00→20:30)
[2017-08-14] MEDS: Vasopressin 20 UNITS in Dextrose 5% In Water 100 ML IV SCH ×2 (04:00→15:21)
[2017-08-14] MEDS: metroNIDAZOLE IV 500 mg/100 ml 500 MG/100 ML BAG IVPB SCH ×3 (05:00→21:55)
--- NOTE | 2017-08-14 05:26 | CP.PCM.PN ---
Subjective - Date & Time of Evaluation Date of Evaluation: 08/13/17 Time of Evaluation: 11:00 - Subjective Subjective: New lactic acidosis since yesterday; still with 3 vasopressor requirement; started on bicarb drip this mornining; Objective - Vital Signs/Intake and Output Vital Signs (last 24 hours): Temp Pulse Resp BP Pulse Ox 98.4 F 103 H 20 80/34 L 94 L 08/14/17 00:11 08/14/17 04:00 08/14/17 04:00 08/14/17 04:00 08/14/17 04:00 Intake and Output: 08/13/17 08/14/17 18:59 06:59 Intake Total 5134 1016 Output Total 20 Balance 5114 1016 - Medications Medications: Current Medications Famotidine (Pepcid) 20 mg IVP DAILY [facility] Last Admin: 08/13/17 12:02 Dose: 20 mg Hydrocortisone Sodium Succinate (Solu-Cortef) 100 mg IVP Q8H SOL Last Admin: 08/14/17 02:30 Dose: 100 mg Phenylephrine HCl 80 mg/ (Sodium Chloride) 258 mls @ 19.35 mls/hr IV .[id number] PRN; Protocol; 100 MCG/MIN PRN Reason: TITRATE PER MD ORDER Last Admin: 08/14/17 03:00 Dose: 300 mcg/min, 58.05 mls/hr Vasopressin 20 units/ Dextrose 101 mls @ 9.09 mls/hr IV .Q11H7M SOL; 0.03 U/MIN PRN Reason: Protocol Last Admin: 08/14/17 04:00 Dose: 9.09 mls/hr Norepinephrine Bitartrate 8 mg (/ Dextrose) 250 mls @ 46.87 mls/hr IV .Q5H21M PRN; Protocol; 25 MCG/MIN PRN Reason: TITRATE PER MD ORDER Last Admin: 08/14/17 03:00 Dose: 30 mcg/min, 56.25 mls/hr Metronidazole (Flagyl) 500 mg in 100 mls @ 100 mls/hr IVPB Q8 SOL PRN Reason: Protocol Last Admin: 08/13/17 21:11 Dose: 100 mls/hr Sodium Bicarbonate 150 meq/ (Dextrose) 1,150 mls @ 100 mls/hr IV .[id number] [facility] Last Admin: 08/13/17 21:10 Dose: 100 mls/hr Meropenem 500 mg/ Sodium (Chloride) 50 mls @ 100 mls/hr IVPB Q12 SOL PRN Reason: Protocol Stop: 08/20/17 10:16 Last Admin: 08/13/17 10:43 Dose: 100 mls/hr Morphine Sulfate (Morphine) 2 mg IVP Q4H PRN PRN Reason: Pain, severe (8-10) Last Admin: 08/12/17 15:26 Dose: 2 mg Multi-Ingredient Ointment (Hydrophor Oint) 0 gm TOP Q6H [facility] Last Admin: 08/14/17 02:00 Dose: 1 applic Silver Sulfadiazine (Silvadene 1% 25 Gm) 0 gm TP BID [facility] Last Admin: 08/13/17 17:05 Dose: 25 gm Vancomycin HCl (Vancocin 25 Mg/Ml (Oral Use)) 500 mg PO Q6H SOL PRN Reason: Protocol Stop: 08/17/17 13:16 Last Admin: 08/14/17 01:30 Dose: 500 mg - Labs Labs: 08/13/17 05:30 08/13/17 05:30 PT 81.1 SECONDS (9.4-12.5) H 08/13/17 11:15 INR 6.78 (0.93-1.08) H* 08/13/17 11:15 APTT 34.6 Seconds (25.1-36.5) 08/12/17 05:45 - Constitutional Appears: Toxic - Eye Exam Eye Exam: absent: Scleral icterus - ENT Exam ENT Exam: Mucous Membranes Moist Additional comments: intubated - Respiratory Exam Respiratory Exam: Rales. absent: Respiratory Distress - Cardiovascular Exam Cardiovascular Exam: Irregular Rhythm, +S1, +S2 - GI/Abdominal Exam GI & Abdominal Exam: Soft. absent: Distended, Tenderness - Exam Exam: absent: Bladder Distension - Extremities Exam Additional comments: markedly edematous, anasarca; - Neurological Exam Neurological Exam: absent: Alert, Awake Additional comments: responding only to noxious stimuli; - Skin Skin Exam: Warm. absent: Cyanosis Assessment and Plan (1) Shock Assessment & Plan: Septic shock, now complicated by liver failure and severe lactic acidosis; still hypotensive despite 3 vasopressors; on broad spectrum antibiotics; will plan for HD tomorrow so daptomycin should be given after the session; Status: Acute (2) Acute renal failure (ARF) Assessment & Plan: ATN due to septic shock; oligo-anuric renal failure; full HD session yesterday; now with severe lactic acidosis, started on bicarb drip; K stable; -Plan for HD tomorrow morning using high bicarb dialysate, will likely not be able to achieve any UF; Status: Acute (3) SIRS (systemic inflammatory response syndrome) Status: Acute (4) Rash Status: Acute (5) HTN (hypertension) Status: Chronic (6) Hyperkalemia Assessment & Plan: controlled with HD; Status: Acute (7) Hyponatremia Status: Acute (8) Metabolic acidosis Assessment & Plan: see above; Status: Acute (9) Acute exacerbation of CHF (congestive heart failure) Assessment & Plan: Main issue is septic shock; cannot pull any fluid with patient severely hypotensive; Status: Acute
[2017-08-14 06:04] LABS: BASO # 0.02 K/mm3 (0.0-2.0); BASO % 0.1 % (0.0-3.0); GRAN # 23.42 (1.4-6.5); GRAN % 85.5 % (50.0-68.0); HEMOGLOBIN 12.6 g/dL (12.0-16.0); LYMPH % 11.1 % (22.0-35.0); MEAN CELL VOLUME 85.4 fl (80.0-105.0); MEAN CORPUSCULAR HEMOGLOBIN 27.9 pg (25.0-35.0); MEAN CORPUSCULAR HGB CONC 32.6 g/dl (31.0-37.0); MONO # 0.9 (0.1-0.6); MONO % 3.3 % (1.0-6.0); PLATELET COUNT 58 10^3/uL (120.0-450.0); RBC 4.52 10^6/uL (3.5-6.1); RED CELL DISTRIBUTION WIDTH 19.2 % (11.5-14.5)
[2017-08-14 06:30] LABS: WHITE BLOOD COUNT 27.4 10^3/ul (4.5-11.0)
[2017-08-14 06:49] LABS: ALB/GLOB RATIO 0.8 (1.1-1.8); ALBUMIN 2.3 g/dL (3.0-4.8); CALCIUM 7.9 mg/dL (8.4-10.5)
[2017-08-14] MEDS ORDERED: Albumin Human 25% (12.5 gm/50 ml) IV ONE ×5 (07:22→12:13)
--- NOTE | 2017-08-14 09:03 | CP.CCUPN ---
<Timmy Cruz - Last Filed: 08/14/17 09:04> CCU Subjective - Physician Review Subjective (Free Text): Patient seen and evaluated bedside. Patient currently still on 3 pressors. Patient lethargic still unable to answer questions or open eyes. Patient intubated. Receiving HD session today. 08/14/17 09:02 CCU Objective - Vital Signs / Intake & Output Vital Signs (Last 4 hours): Vital Signs Temp Pulse Resp BP Pulse Ox 08/14/17 08:38 74/0 L 08/14/17 07:17 70/0 L 08/14/17 06:00 98.4 F 120 H 26 H 87/30 L 94 L Intake and Output (Last 8hrs): Intake & Output 08/13/17 08/14/17 08/14/17 22:59 06:59 14:59 Intake Total 4416 3368 Output Total 20 50 Balance 4396 3318 Intake: IV 4416 3368 IVPB 2000 200 LEVOPHED 690 676 Left Internal Jugular 1200 Phenyephrine 600 676 vasopressin 110 108 Output: Urine 20 50 Urethral (Frye) 20 50 Other: # Bowel Movements 1 - Physical Exam Head: Positive for: Atraumatic, Normocephalic Pupils: Positive for: PERRL Extroacular Muscles: Positive for: EOMI Conjunctiva: Positive for: Normal Mouth: Positive for: Dry Respiratory/Chest: Positive for: Decreased Breath Sounds. Negative for: Respiratory Distress, Accessory Muscle Use Cardiovascular: Positive for: Normal S1, S2, Tachycardic. Negative for: Murmurs Back: Positive for: Normal Inspection Upper Extremity: Positive for: Cyanosis, Edema Lower Extremity: Positive for: Edema (+1 edema b/l) Neurological: Positive for: Other (lethargic , intubated) Skin: Positive for: Warm, Dry, Normal Color, Erythematous (Diffuse lacy, erythematous rash throughout arms, upper legs, and trunk. No change from previous day.). Negative for: Rashes Psychiatric: Negative for: Alert, Oriented x 3 - Medications Active Medications: Active Medications Generic Name Dose Route Start Last Admin Trade Name Freq PRN Reason Stop Dose Admin Famotidine 20 mg 08/10/17 10:15 08/13/17 12:02 Pepcid IVP 20 mg DAILY SOL Administration Hydrocortisone Sodium Succinate 100 mg 08/11/17 09:30 08/14/17 02:30 Solu-Cortef IVP 100 mg Q8H SOL Administration Phenylephrine HCl 80 mg/ 258 mls @ 19.35 mls/hr 08/10/17 16:15 08/14/17 03:00 Sodium Chloride IV 300 mcg/min .[id number] PRN 58.05 mls/hr TITRATE PER MD ORDER Administration Protocol 100 MCG/MIN Vasopressin 20 units/ Dextrose 101 mls @ 9.09 mls/hr 08/11/17 18:42 08/14/17 04:00 IV 9.09 mls/hr .Q11H7M SOL Administration Protocol 0.03 U/MIN Norepinephrine Bitartrate 8 mg 250 mls @ 46.87 mls/hr 08/11/17 18:55 03:00 / Dextrose IV 30 mcg/min .Q5H21M PRN 56.25 mls/hr TITRATE PER MD ORDER Administration Protocol 25 MCG/MIN Metronidazole 500 mg in 100 mls @ 100 mls/hr 08/13/17 08:30 08/14/17 05:00 Flagyl IVPB 100 mls/hr Q8 SOL Administration Protocol Sodium Bicarbonate 150 meq/ 1,150 mls @ 100 mls/hr 08/13/17 10:05 08/13/17 21 :10 Dextrose IV 100 mls/hr .[id number] SOL Administration Meropenem 500 mg/ Sodium 50 mls @ 100 mls/hr 08/13/17 10:15 08/13/17 10:43 Chloride IVPB 08/20/17 10:16 100 mls/hr Q12 SOL Administration Protocol Morphine Sulfate 2 mg 08/12/17 15:17 08/12/17 15:26 Morphine IVP 2 mg Q4H PRN Administration Pain, severe (8-10) Multi-Ingredient Ointment 0 gm 08/09/17 13:45 08/14/17 08:29 Hydrophor Oint TOP 1 applic Q6H SOL Administration Silver Sulfadiazine 0 gm 08/09/17 18:00 08/13/17 17:05 Silvadene 1% 25 Gm TP 25 gm BID SOL Administration Vancomycin HCl 500 mg 08/08/17 13:15 08/14/17 06:30 Vancocin 25 Mg/Ml (Oral Use) PO 08/17/17 13:16 500 mg Q6H SOL Administration Protocol - Patient Studies Lab Studies: Lab Studies 08/14/17 08/14/17 08/13/17 Range/Units 05:50 05:50 23:17 WBC 27.4 H* D (4.5-11.0) 10^3/ul RBC 4.52 (3.5-6.1) 10^6/uL Hgb 12.6 (12.0-16.0) g/dL Hct 38.6 (36.0-48.0) % MCV 85.4 (80.0-105.0) fl MCH 27.9 (25.0-35.0) pg MCHC 32.6 (31.0-37.0) g/dl RDW 19.2 H (11.5-14.5) % Plt Count 58 L (120.0-450.0) 10^3/uL Gran % 85.5 H (50.0-68.0) % Lymph % (Auto) 11.1 L (22.0-35.0) % Darke % (Auto) 3.3 (1.0-6.0) % Eos % (Auto) 0.0 L (1.5-5.0) % Baso % (Auto) 0.1 (0.0-3.0) % Gran # 23.42 H (1.4-6.5) Lymph # (Auto) 3.0 (1.2-3.4) Darke # (Auto) 0.9 H (0.1-0.6) Eos # (Auto) 0.0 (0.0-0.7) Baso # (Auto) 0.02 (0.0-2.0) K/mm3 PT (9.4-12.5) SECONDS INR (0.93-1.08) Sodium 139 (132-148) mmol/L Potassium 4.4 (3.6-5.0) mmol/L Chloride 103 (98-107) mmol/L Carbon Dioxide 15 L (21-33) mmol/L Anion Gap 25 H (10-20) BUN 48 H (7-21) mg/dL Creatinine 3.4 H (0.7-1.2) mg/dl Est GFR ( Amer) 16 Est GFR (Non-Af Amer) 13 POC Glucose (mg/dL) 140 H (65-110) mg/dL Random Glucose 176 H (70-110) mg/dL Calcium 7.9 L (8.4-10.5) mg/dL Phosphorus 7.5 H (2.5-4.5) mg/dL Magnesium 2.1 (1.7-2.2) mg/dL Total Bilirubin 5.9 H (0.2-1.3) mg/dL AST 2716 H (14-36) U/L ALT 1283 H (7-56) U/L Alkaline Phosphatase 143 H (38-126) U/L Total Protein 5.1 L (5.8-8.3) g/dL Albumin 2.3 L (3.0-4.8) g/dL Globulin 2.8 gm/dL Albumin/Globulin Ratio 0.8 L (1.1-1.8) Procalcitonin (0.19-0.49) NG/ML 08/13/17 08/13/17 08/13/17 Range/Units 11:15 08:31 05:30 WBC (4.5-11.0) 10^3/ul RBC (3.5-6.1) 10^6/uL Hgb (12.0-16.0) g/dL Hct (36.0-48.0) % MCV (80.0-105.0) fl MCH (25.0-35.0) pg MCHC (31.0-37.0) g/dl RDW (11.5-14.5) % Plt Count (120.0-450.0) 10^3/uL Gran % (50.0-68.0) % Lymph % (Auto) (22.0-35.0) % Darke % (Auto) (1.0-6.0) % Eos % (Auto) (1.5-5.0) % Baso % (Auto) (0.0-3.0) % Gran # (1.4-6.5) Lymph # (Auto) (1.2-3.4) Darke # (Auto) (0.1-0.6) Eos # (Auto) (0.0-0.7) Baso # (Auto) (0.0-2.0) K/mm3 PT 81.1 H (9.4-12.5) SECONDS INR 6.78 H* (0.93-1.08) Sodium (132-148) mmol/L Potassium (3.6-5.0) mmol/L Chloride (98-107) mmol/L Carbon Dioxide (21-33) mmol/L Anion Gap (10-20) BUN (7-21) mg/dL Creatinine (0.7-1.2) mg/dl Est GFR ( Amer) Est GFR (Non-Af Amer) POC Glucose (mg/dL) (65-110) mg/dL Random Glucose (70-110) mg/dL Calcium (8.4-10.5) mg/dL Phosphorus (2.5-4.5) mg/dL Magnesium (1.7-2.2) mg/dL Total Bilirubin (0.2-1.3) mg/dL AST 2881 H (14-36) U/L ALT (7-56) U/L Alkaline Phosphatase (38-126) U/L Total Protein (5.8-8.3) g/dL Albumin (3.0-4.8) g/dL Globulin gm/dL Albumin/Globulin Ratio (1.1-1.8) Procalcitonin 0.87 H (0.19-0.49) NG/ML Laboratory Results - last 24 hr 08/13/17 08/13/17 08/13/17 05:30 08:31 11:15 WBC RBC Hgb Hct MCV MCH MCHC RDW Plt Count Gran % Lymph % (Auto) Darke % (Auto) Eos % (Auto) Baso % (Auto) Gran # Lymph # (Auto) Darke # (Auto) Eos # (Auto) Baso # (Auto) PT 81.1 H INR 6.78 H* Sodium Potassium Chloride Carbon Dioxide Anion Gap BUN Creatinine Est GFR ( Amer) Est GFR (Non-Af Amer) POC Glucose (mg/dL) Random Glucose Calcium Phosphorus Magnesium Total Bilirubin AST 2881 H ALT Alkaline Phosphatase Total Protein Albumin Globulin Albumin/Globulin Ratio Procalcitonin 0.87 H 08/13/17 08/14/17 08/14/17 23:17 05:50 05:50 WBC 27.4 H* D RBC 4.52 Hgb 12.6 Hct 38.6 MCV 85.4 MCH 27.9 MCHC 32.6 RDW 19.2 H Plt Count 58 L Gran % 85.5 H Lymph % (Auto) 11.1 L Darke % (Auto) 3.3 Eos % (Auto) 0.0 L Baso % (Auto) 0.1 Gran # 23.42 H Lymph # (Auto) 3.0 Darke # (Auto) 0.9 H Eos # (Auto) 0.0 Baso # (Auto) 0.02 PT INR Sodium 139 Potassium 4.4 Chloride 103 Carbon Dioxide 15 L Anion Gap 25 H BUN 48 H Creatinine 3.4 H Est GFR ( Amer) 16 Est GFR (Non-Af Amer) 13 POC Glucose (mg/dL) 140 H Random Glucose 176 H Calcium 7.9 L Phosphorus 7.5 H Magnesium 2.1 Total Bilirubin 5.9 H AST 2716 H ALT 1283 H Alkaline Phosphatase 143 H Total Protein 5.1 L Albumin 2.3 L Globulin 2.8 Albumin/Globulin Ratio 0.8 L Procalcitonin Review of Systems - Review of Systems Systems not reviewed;Unavailable: Intubated Review of Systems: unable to obtain Critical Care Progress Note - Nutrition Nutrition: Nutrition Category Date Time Status NPO Diet [DIET] Diets 08/12/17 Dinner Ordered Assessment/Plan - Assessment and Plan (Free Text) Assessment: 72 year old female with past medical history of HTN, CHF, CABG, and A-fib on coumadin presents with septic shock. Urine output minimal. Patient will undergo several dialysis sessions. Patient remains on multiple pressors, will continue to monitor patient closely. Patient was intubated due to worsening mental status and unable to protect airway. Receiving dialysis today. Plan: Neuro: intubated lethargic ABG pending Cardio: Levophed, Vasopressin, Phenylephrine Solucortef 100 q8h Maintain MAP >65 Cardiology consulted Pulm: intubated and currently on vent Maintain O2 sat >90% GI: LFTs elevated, worsening Trend LFTs CT abdomen/pelvis negative Protonix NPO NG tube GI consulted, Chapis follow recs Nephro: Acute renal failure, creatinine elevated from yesterday Dialysis today Oliguric Frye in place Replenish electrolytes as needed bicarb Heme/ID: leukocytosis increasing, afebrile C. Diff continue abx ID consulted, follow recs INR repeat pending <Leon Lima - Last Filed: 08/14/17 10:37> CCU Objective - Vital Signs / Intake & Output Vital Signs (Last 4 hours): Vital Signs BP 08/14/17 08:38 74/0 L 08/14/17 07:17 70/0 L Intake and Output (Last 8hrs): Intake & Output 08/13/17 08/14/17 08/14/17 22:59 06:59 14:59 Intake Total 4416 3368 508 Output Total 20 50 Balance 4396 3318 508 Intake: IV 4416 3368 508 IVPB 2000 200 LEVOPHED 690 676 Left Internal Jugular 1200 Phenyephrine 600 676 vasopressin 110 108 Output: Urine 20 50 Urethral (Frye) 20 50 Other: # Bowel Movements 1 - Medications Active Medications: Active Medications Generic Name Dose Route Start Last Admin Trade Name Freq PRN Reason Stop Dose Admin Famotidine 20 mg 08/10/17 10:15 08/13/17 12:02 Pepcid IVP 20 mg DAILY SOL Administration Hydrocortisone Sodium Succinate 100 mg 08/11/17 09:30 08/14/17 02:30 Solu-Cortef IVP 100 mg Q8H SOL Administration Phenylephrine HCl 80 mg/ 258 mls @ 19.35 mls/hr 08/10/17 16:15 08/14/17 09:38 Sodium Chloride IV 300 mcg/min .[id number] PRN 58.05 mls/hr TITRATE PER MD ORDER Administration Protocol 100 MCG/MIN Vasopressin 20 units/ Dextrose 101 mls @ 9.09 mls/hr 08/11/17 18:42 08/14/17 04:00 IV 9.09 mls/hr .Q11H7M SOL Administration Protocol 0.03 U/MIN Norepinephrine Bitartrate 8 mg 250 mls @ 46.87 mls/hr 08/11/17 18:55 09:39 / Dextrose IV 30 mcg/min .Q5H21M PRN 56.25 mls/hr TITRATE PER MD ORDER Administration Protocol 25 MCG/MIN Metronidazole 500 mg in 100 mls @ 100 mls/hr 08/13/17 08:30 08/14/17 05:00 Flagyl IVPB 100 mls/hr Q8 SOL Administration Protocol Sodium Bicarbonate 150 meq/ 1,150 mls @ 100 mls/hr 08/13/17 10:05 08/14/17 09 :39 Dextrose IV 100 mls/hr .[id number] SOL Administration Meropenem 500 mg/ Sodium 50 mls @ 100 mls/hr 08/13/17 10:15 08/13/17 10:43 Chloride IVPB 08/20/17 10:16 100 mls/hr Q12 SOL Administration Protocol Phytonadione 10 mg/ Sodium 51 mls @ 100 mls/hr 08/14/17 10:22 Chloride IV 08/14/17 10:52 ONCE ONE Morphine Sulfate 2 mg 08/12/17 15:17 08/12/17 15:26 Morphine IVP 2 mg Q4H PRN Administration Pain, severe (8-10) Multi-Ingredient Ointment 0 gm 08/09/17 13:45 08/14/17 08:29 Hydrophor Oint TOP 1 applic Q6H SOL Administration Silver Sulfadiazine 0 gm 08/09/17 18:00 08/13/17 17:05 Silvadene 1% 25 Gm TP 25 gm BID SOL Administration Vancomycin HCl 500 mg 08/08/17 13:15 08/14/17 06:30 Vancocin 25 Mg/Ml (Oral Use) PO 08/17/17 13:16 500 mg Q6H SOL Administration Protocol - Patient Studies Lab Studies: Lab Studies 08/14/17 08/14/17 08/14/17 Range/Units 09:30 05:50 05:50 WBC 27.4 H* D (4.5-11.0) 10^3/ul RBC 4.52 (3.5-6.1) 10^6/uL Hgb 12.6 (12.0-16.0) g/dL Hct 38.6 (36.0-48.0) % MCV 85.4 (80.0-105.0) fl MCH 27.9 (25.0-35.0) pg MCHC 32.6 (31.0-37.0) g/dl RDW 19.2 H (11.5-14.5) % Plt Count 58 L (120.0-450.0) 10^3/uL Gran % 85.5 H (50.0-68.0) % Lymph % (Auto) 11.1 L (22.0-35.0) % Darke % (Auto) 3.3 (1.0-6.0) % Eos % (Auto) 0.0 L (1.5-5.0) % Baso % (Auto) 0.1 (0.0-3.0) % Gran # 23.42 H (1.4-6.5) Lymph # (Auto) 3.0 (1.2-3.4) Darke # (Auto) 0.9 H (0.1-0.6) Eos # (Auto) 0.0 (0.0-0.7) Baso # (Auto) 0.02 (0.0-2.0) K/mm3 PT 86.1 H (9.4-12.5) SECONDS INR 7.19 H* (0.93-1.08) Sodium 139 (132-148) mmol/L Potassium 4.4 (3.6-5.0) mmol/L Chloride 103 (98-107) mmol/L Carbon Dioxide 15 L (21-33) mmol/L Anion Gap 25 H (10-20) BUN 48 H (7-21) mg/dL Creatinine 3.4 H (0.7-1.2) mg/dl Est GFR ( Amer) 16 Est GFR (Non-Af Amer) 13 POC Glucose (mg/dL) (65-110) mg/dL Random Glucose 176 H (70-110) mg/dL Calcium 7.9 L (8.4-10.5) mg/dL Phosphorus 7.5 H (2.5-4.5) mg/dL Magnesium 2.1 (1.7-2.2) mg/dL Total Bilirubin 5.9 H (0.2-1.3) mg/dL AST 2716 H (14-36) U/L ALT 1283 H (7-56) U/L Alkaline Phosphatase 143 H (38-126) U/L Total Protein 5.1 L (5.8-8.3) g/dL Albumin 2.3 L (3.0-4.8) g/dL Globulin 2.8 gm/dL Albumin/Globulin Ratio 0.8 L (1.1-1.8) Procalcitonin (0.19-0.49) NG/ML 08/13/17 08/13/17 08/13/17 Range/Units 23:17 11:15 08:31 WBC (4.5-11.0) 10^3/ul RBC (3.5-6.1) 10^6/uL Hgb (12.0-16.0) g/dL Hct (36.0-48.0) % MCV (80.0-105.0) fl MCH (25.0-35.0) pg MCHC (31.0-37.0) g/dl RDW (11.5-14.5) % Plt Count (120.0-450.0) 10^3/uL Gran % (50.0-68.0) % Lymph % (Auto) (22.0-35.0) % Darke % (Auto) (1.0-6.0) % Eos % (Auto) (1.5-5.0) % Baso % (Auto) (0.0-3.0) % Gran # (1.4-6.5) Lymph # (Auto) (1.2-3.4) Darke # (Auto) (0.1-0.6) Eos # (Auto) (0.0-0.7) Baso # (Auto) (0.0-2.0) K/mm3 PT 81.1 H (9.4-12.5) SECONDS INR 6.78 H* (0.93-1.08) Sodium (132-148) mmol/L Potassium (3.6-5.0) mmol/L Chloride (98-107) mmol/L Carbon Dioxide (21-33) mmol/L Anion Gap (10-20) BUN (7-21) mg/dL Creatinine (0.7-1.2) mg/dl Est GFR ( Amer) Est GFR (Non-Af Amer) POC Glucose (mg/dL) 140 H (65-110) mg/dL Random Glucose (70-110) mg/dL Calcium (8.4-10.5) mg/dL Phosphorus (2.5-4.5) mg/dL Magnesium (1.7-2.2) mg/dL Total Bilirubin (0.2-1.3) mg/dL AST (14-36) U/L ALT (7-56) U/L Alkaline Phosphatase (38-126) U/L Total Protein (5.8-8.3) g/dL Albumin (3.0-4.8) g/dL Globulin gm/dL Albumin/Globulin Ratio (1.1-1.8) Procalcitonin 0.87 H (0.19-0.49) NG/ML 08/13/17 Range/Units 05:30 WBC (4.5-11.0) 10^3/ul RBC (3.5-6.1) 10^6/uL Hgb (12.0-16.0) g/dL Hct (36.0-48.0) % MCV (80.0-105.0) fl MCH (25.0-35.0) pg MCHC (31.0-37.0) g/dl RDW (11.5-14.5) % Plt Count (120.0-450.0) 10^3/uL Gran % (50.0-68.0) % Lymph % (Auto) (22.0-35.0) % Darke % (Auto) (1.0-6.0) % Eos % (Auto) (1.5-5.0) % Baso % (Auto) (0.0-3.0) % Gran # (1.4-6.5) Lymph # (Auto) (1.2-3.4) Darke # (Auto) (0.1-0.6) Eos # (Auto) (0.0-0.7) Baso # (Auto) (0.0-2.0) K/mm3 PT (9.4-12.5) SECONDS INR (0.93-1.08) Sodium (132-148) mmol/L Potassium (3.6-5.0) mmol/L Chloride (98-107) mmol/L Carbon Dioxide (21-33) mmol/L Anion Gap (10-20) BUN (7-21) mg/dL Creatinine (0.7-1.2) mg/dl Est GFR ( Amer) Est GFR (Non-Af Amer) POC Glucose (mg/dL) (65-110) mg/dL Random Glucose (70-110) mg/dL Calcium (8.4-10.5) mg/dL Phosphorus (2.5-4.5) mg/dL Magnesium (1.7-2.2) mg/dL Total Bilirubin (0.2-1.3) mg/dL AST 2881 H (14-36) U/L ALT (7-56) U/L Alkaline Phosphatase (38-126) U/L Total Protein (5.8-8.3) g/dL Albumin (3.0-4.8) g/dL Globulin gm/dL Albumin/Globulin Ratio (1.1-1.8) Procalcitonin (0.19-0.49) NG/ML Laboratory Results - last 24 hr 08/13/17 08/13/17 08/13/17 05:30 08:31 11:15 WBC RBC Hgb Hct MCV MCH MCHC RDW Plt Count Gran % Lymph % (Auto) Darke % (Auto) Eos % (Auto) Baso % (Auto) Gran # Lymph # (Auto) Darke # (Auto) Eos # (Auto) Baso # (Auto) PT 81.1 H INR 6.78 H* Sodium Potassium Chloride Carbon Dioxide Anion Gap BUN Creatinine Est GFR ( Amer) Est GFR (Non-Af Amer) POC Glucose (mg/dL) Random Glucose Calcium Phosphorus Magnesium Total Bilirubin AST 2881 H ALT Alkaline Phosphatase Total Protein Albumin Globulin Albumin/Globulin Ratio Procalcitonin 0.87 H 08/13/17 08/14/17 08/14/17 23:17 05:50 05:50 WBC 27.4 H* D RBC 4.52 Hgb 12.6 Hct 38.6 MCV 85.4 MCH 27.9 MCHC 32.6 RDW 19.2 H Plt Count 58 L Gran % 85.5 H Lymph % (Auto) 11.1 L Darke % (Auto) 3.3 Eos % (Auto) 0.0 L Baso % (Auto) 0.1 Gran # 23.42 H Lymph # (Auto) 3.0 Darke # (Auto) 0.9 H Eos # (Auto) 0.0 Baso # (Auto) 0.02 PT INR Sodium 139 Potassium 4.4 Chloride 103 Carbon Dioxide 15 L Anion Gap 25 H BUN 48 H Creatinine 3.4 H Est GFR ( Amer) 16 Est GFR (Non-Af Amer) 13 POC Glucose (mg/dL) 140 H Random Glucose 176 H Calcium 7.9 L Phosphorus 7.5 H Magnesium 2.1 Total Bilirubin 5.9 H AST 2716 H ALT 1283 H Alkaline Phosphatase 143 H Total Protein 5.1 L Albumin 2.3 L Globulin 2.8 Albumin/Globulin Ratio 0.8 L Procalcitonin 08/14/17 09:30 WBC RBC Hgb Hct MCV MCH MCHC RDW Plt Count Gran % Lymph % (Auto) Darke % (Auto) Eos % (Auto) Baso % (Auto) Gran # Lymph # (Auto) Darke # (Auto) Eos # (Auto) Baso # (Auto) PT 86.1 H INR 7.19 H* Sodium Potassium Chloride Carbon Dioxide Anion Gap BUN Creatinine Est GFR ( Amer) Est GFR (Non-Af Amer) POC Glucose (mg/dL) Random Glucose Calcium Phosphorus Magnesium Total Bilirubin AST ALT Alkaline Phosphatase Total Protein Albumin Globulin Albumin/Globulin Ratio Procalcitonin Critical Care Progress Note - Nutrition Nutrition: Nutrition Category Date Time Status NPO Diet [DIET] Diets 08/12/17 Dinner Ordered Assessment/Plan - Assessment and Plan (Free Text) Plan: Patient seen and examined on rounds with resident, agree with note with following additions/exceptions: 72yo female nancy PMHx of CAD s/p CABG, HTN, Systolic CHF EF 10%, a/w diffuse skin rash, cellulitis, hyperkalemia, coagulopathy, septic shock, renal failure. Blood cultures thus far negative. Cdiff antigen/toxin positive Currently intubated, on 3 vasopressors, maxed out, stress dose steroids given. Renal and ID following. Pt oliguric, minimal urine output, on HD. Liver function tests worsening, plateletes downtrending (patient has not received heparin on this admission), possibly 2/2 DIC from septic shock. Coaguloapthy Dehydration Acute renal failure Cellulitis Skin rash Coagulopathy r/o DIC Recommend: - cont with ventilatory support, low tidal vol ventilation, monitor ABG, CXR acceptable no evidence of consolidation - cont with Vasopressor support, stress dose steroids Solucortef, repeat lactate , goal MAP 65 - broad spectrum antibiotics, as per ID, - HD as per renal - FS control - GI ppx - DVT ppx, SCDs - monitor in MICU patient at high risk for morbidity and mortality overall prognosis extremely poor critical care time 35 minutes
[2017-08-14] MEDS: Sodium Bicarbonate 8.4% 150 MEQ in Dextrose 5% In Water 1,000 ML IV SCH ×2 (09:39→21:56)
[2017-08-14 09:51] LABS: PROTHROMBIN TIME 86.1 SECONDS (9.4-12.5)
[2017-08-14 09:52] LABS: INR 7.19 (0.93-1.08)
--- NOTE | 2017-08-14 10:17 | PN ---
DATE: 08/14/2017 SUBJECTIVE: The patient is seen lying in bed in the ICU. She remains intubated and is comatose. She remains on high dose pressors with persistent hypotension. CURRENT MEDICATIONS: Include Flagyl, meropenem, vancomycin, norepinephrine, phenylephrine, sodium bicarbonate infusion, Solu-Cortef and vasopressin. OBJECTIVE GENERAL: She is an obese middle-aged woman. VITAL SIGNS: Her blood pressure is 86/30 with pulse of 120, in atrial fibrillation; respirations are 16. She is currently afebrile. HEENT: She is orally intubated. CHEST: A few scattered rhonchi heard. HEART: PMI displaced laterally with soft tones noted with systolic murmur at the apex. ABDOMEN: Soft, obese with bowel sounds present. EXTREMITIES: Chronic cellulitic changes noted. Cool extremity is present. DIAGNOSTIC DATA: Potassium 4.4, BUN and creatinine 48 and 3.4, glucose 176. White count 27.4, hemoglobin and hematocrit 12.6 and 38.6 with platelet count of 58,000. Bilirubin is 5.9. AST and ALT 2716 in 1283. Intake and output report is 9010 and 70 respectively. Chest x-ray from yesterday reveals a large cardiac silhouette with mild congestive changes. IMPRESSION 1. Septic shock superimposed on severe left ventricular dysfunction, remains on high dose pressors with suboptimal response. 2. Coronary artery disease, status post prior myocardial infarction and bypass surgery with severe left ventricular dysfunction and baseline ejection fraction of 25-30%. 3. Acute renal failure with polyuria. 4. Hyperbilirubinemia and elevated transaminases, likely due to passive liver congestion. 5. Thrombocytopenia, likely related to sepsis. RECOMMENDATIONS Continue supportive care and antibiotic therapy as advised. Her overall prognosis remains extremely poor. GI and DVT prophylaxis should continue. We will be happy to follow along as needed. Luiz Vargas MD
[2017-08-14] MEDS ORDERED: Phytonadione 10 MG in Sodium Chloride 0.9% 50 ML IV ONE (10:22)
[2017-08-14] MEDS: Meropenem 500 MG in Sodium Chloride 0.9% 50 ML IVPB SCH ×2 (13:16→21:54)
[2017-08-14] MEDS: Silver Sulfadiazine 1% Cream (25 gm) TP SCH ×2 (13:17→17:44)
--- NOTE | 2017-08-14 17:26 | PN ---
DATE: SUBJECTIVE: The patient seen in ICU 128, bed 4. Patient remains intubated and on the ventilator. No fevers have been documented and no diarrhea has been documented. PHYSICAL EXAMINATION: VITAL SIGNS: Patient's temperature is 97, blood pressure is 94/50, respiratory rate of 19, heart rate of 105. HEENT: Unremarkable. NECK: Supple. LUNGS: Have decreased breath sounds. HEART: Normal S1, S2. ABDOMEN: Soft, nontender. LABORATORY EXAMINATION: Reveals a white count of 27,000, hemoglobin of 12, platelets of 58. Chemistries revealed the patient's BUN of 48, creatinine of 3.8, last procalcitonin yesterday is 0.87. Microbiology reveals the blood cultures from yesterday no growth. Urine cultures no growth. Stool for C. diff is positive both antigen and toxin. MEDICATIONS: Review of medications reveals the patient to be on meropenem, IV Flagyl. The patient is on Solu-Cortef. The patient is on p.o. vancomycin. She was given intermittent IV vancomycin. ASSESSMENT AND PLAN: A 72-year-old female with septic shock, diffuse maculopapular rash, pseudomembranous colitis, bilateral lower extremity cellulitis, now on and with thrombocytopenia and drug reactions secondary to cefuroxime at home and currently on day #8 of p.o. vancomycin and IV Flagyl. The patient is given intermittent dose of daptomycin over 48 hours and currently on meropenem day #2 and overall prognosis is poor. All cultures negative and we will follow with you. Americo Tolentino MD
[2017-08-14 18:13] VITALS: O2SAT 75
--- NOTE | 2017-08-14 23:29 | CP.PCM.PN ---
Subjective - Date & Time of Evaluation Date of Evaluation: 08/14/17 Time of Evaluation: 11:00 - Subjective Subjective: Patient remains severely hypotensive on 3 vaopressors, vented; Objective - Vital Signs/Intake and Output Vital Signs (last 24 hours): Temp Pulse Resp BP Pulse Ox 98.8 F 112 H 31 H 69/45 L 75 L 08/14/17 22:13 08/14/17 22:13 08/14/17 16:18 08/14/17 22:13 08/14/17 16:18 Intake and Output: 08/14/17 08/15/17 18:59 06:59 Intake Total 4350 Balance 4350 - Medications Medications: Current Medications Famotidine (Pepcid) 20 mg IVP DAILY SOL Last Admin: 08/14/17 13:23 Dose: 20 mg Hydrocortisone Sodium Succinate (Solu-Cortef) 100 mg IVP Q8H SOL Last Admin: 08/14/17 17:47 Dose: 100 mg Phenylephrine HCl 80 mg/ (Sodium Chloride) 258 mls @ 19.35 mls/hr IV .[id number] PRN; Protocol; 100 MCG/MIN PRN Reason: TITRATE PER MD ORDER Last Admin: 08/14/17 20:30 Dose: 300 mcg/min, 58.05 mls/hr Vasopressin 20 units/ Dextrose 101 mls @ 9.09 mls/hr IV .Q11H7M SOL; 0.03 U/MIN PRN Reason: Protocol Last Admin: 08/14/17 15:21 Dose: 9.09 mls/hr Norepinephrine Bitartrate 8 mg (/ Dextrose) 250 mls @ 46.87 mls/hr IV .Q5H21M PRN; Protocol; 25 MCG/MIN PRN Reason: TITRATE PER MD ORDER Last Admin: 08/14/17 19:56 Dose: 30 mcg/min, 56.25 mls/hr Metronidazole (Flagyl) 500 mg in 100 mls @ 100 mls/hr IVPB Q8 SOL PRN Reason: Protocol Last Admin: 08/14/17 21:55 Dose: 100 mls/hr Sodium Bicarbonate 150 meq/ (Dextrose) 1,150 mls @ 100 mls/hr IV .[id number] SOL Last Admin: 08/14/17 21:56 Dose: 100 mls/hr Meropenem 500 mg/ Sodium (Chloride) 50 mls @ 100 mls/hr IVPB Q12 SOL PRN Reason: Protocol Stop: 08/20/17 10:16 Last Admin: 08/14/17 21:54 Dose: 100 mls/hr Lorazepam (Ativan) 2 mg IVP Q4H PRN; Protocol PRN Reason: Anxiety Last Admin: 08/14/17 18:50 Dose: 2 mg Morphine Sulfate (Morphine) 2 mg IVP Q4H PRN PRN Reason: Pain, severe (8-10) Last Admin: 08/12/17 15:26 Dose: 2 mg Multi-Ingredient Ointment (Hydrophor Oint) 0 gm TOP Q6H SOL Last Admin: 08/14/17 19:54 Dose: 1 applic Silver Sulfadiazine (Silvadene 1% 25 Gm) 0 gm TP BID [facility] Last Admin: 08/14/17 17:44 Dose: 25 gm Vancomycin HCl (Vancocin 25 Mg/Ml (Oral Use)) 500 mg PO Q6H SOL PRN Reason: Protocol Stop: 08/17/17 13:16 Last Admin: 08/14/17 19:54 Dose: 500 mg - Labs Labs: 08/14/17 05:50 08/14/17 05:50 PT 86.1 SECONDS (9.4-12.5) H 08/14/17 09:30 INR 7.19 (0.93-1.08) H* 08/14/17 09:30 APTT 34.6 Seconds (25.1-36.5) 08/12/17 05:45 - Constitutional Appears: Toxic, No Acute Distress - Respiratory Exam Respiratory Exam: Clear to Ausculation Bilateral. absent: Rhonchi - Cardiovascular Exam Cardiovascular Exam: Irregular Rhythm, +S1, +S2 - GI/Abdominal Exam GI & Abdominal Exam: Soft. absent: Distended - Extremities Exam Additional comments: markedly edematous, anasarca - Neurological Exam Neurological Exam: absent: Alert, Awake - Skin Skin Exam: Cyanosis Additional comments: cyanosis of toes Assessment and Plan (1) Shock Assessment & Plan: Severe septic shock, BP improving only temporarily with IV albumin; lactic acidosis appears slightly improved; otherwise, poor prognosis; continue to dose antibiotics for HD; Status: Acute (2) Acute renal failure (ARF) Assessment & Plan: Oligo-anuric renal failure, ATN; metabolic acidosis slightly improved with bicarb drip; tolerated HD session today using means to artificially increase BP ; no UF attempted; will plan for next HD session on Wednesday; Status: Acute (3) SIRS (systemic inflammatory response syndrome) Status: Acute (4) Rash Status: Acute (5) HTN (hypertension) Status: Chronic (6) Hyperkalemia Status: Acute (7) Hyponatremia Status: Acute (8) Metabolic acidosis Assessment & Plan: see above Status: Acute (9) Acute exacerbation of CHF (congestive heart failure) Assessment & Plan: With severe systolic dysfunction; severely hypotensive from septic shock, cannot attempt any UF on HD; Status: Acute
[2017-08-15] MEDS: Phenylephrine 80 MG in Sodium Chloride 0.9% 250 ML IV PRN ×3 (00:15→14:04)
[2017-08-15] MEDS: Norepinephrine 8 MG in Dextrose 5% In Water 242 ML IV PRN ×3 (00:16→14:03)
[2017-08-15] MEDS: Vancomycin 25 MG/ML PO SCH ×3 (01:19→14:05)
[2017-08-15] MEDS: Petrolatum-Mineral Oil Oint (100gm) TOP SCH ×3 (01:19→14:06)
--- NOTE | 2017-08-15 01:24 | PN ---
DATE: SUBJECTIVE: The patient is a 72-year-old, seen and examined, lying in bed, intubated, sedated. PHYSICAL EXAMINATION: VITAL SIGNS: She has a temperature of 97.2, pulse 104, blood pressure 92/44. LUNGS: Bilateral fair airflow. HEART: S1 and S2 audible, tachycardic. ABDOMEN: Soft, obese. NEUROLOGICAL: She is unresponsive and on vent. EXTREMITIES: Bilateral leg +2 edema. LABORATORY DATA: WBC is 27.4, hemoglobin 12, hematocrit 38.6, platelets of 58. PT is 86.1, INR 7.19. Chemistry: Sodium 139, potassium 4.4. chloride 103, CO2 of 15, BUN 48, creatinine 3.4, blood sugar of 140, total bilirubin 5.9, AST 2716, ALT 1283. Digoxin level is 1.7. ASSESSMENT AND PLAN: 1. Septic shock, abnormal liver function test secondary to shock liver and poor perfusion. 2. Respiratory failure. 3. Acute renal failure. 4. Severe left ventricular dysfunction. 5. Coronary artery disease status post open heart surgery many, many years ago. 6. Dilated cardiomyopathy with ejection fraction of 25% to 30%. 7. Thrombocytopenia secondary to sepsis. PLAN: Discussed with the patient's daughter, does not want her to be DNR. Currently, she is on pressors, on vent support. She is on multiple antibiotics. She is on Flagyl for positive C. diff. She is on meropenem. She is getting hemodialysis. Prognosis is very guarded. We will discuss with the patient's daughter again if possible. Akira Manley MD
[2017-08-15] MEDS: Vasopressin 20 UNITS in Dextrose 5% In Water 100 ML IV SCH ×2 (02:35→14:03)
--- NOTE | 2017-08-15 03:18 | PN ---
DATE: 08/14/2017 SUBJECTIVE: This patient was seen and evaluated earlier today. Patient remains on vent, on vasopressors. PHYSICAL EXAMINATION: VITAL SIGNS: Heart rate is 105, blood pressure 91/54. Patient is in AFib. HEENT: Jaundiced, atraumatic. NECK: Supple. The patient on vent, tracheostomy. HEART: S1, S2 heard. LUNGS: Bilateral few scattered rhonchi. ABDOMEN: Soft, slightly distended. EXTREMITIES: Bilateral edema, chronic cellulitis changes. LABORATORY DATA: Hemoglobin 12.7, hematocrit 38.6, WBC 27.4, platelets 58. Chemistry: BUN 48, creatinine 3.4. AST 2716, ALT 1283, alkaline phosphatase 143, total bilirubin 5.6. IMPRESSION: This is a 72-year-old patient with septic shock, severe left ventricular systolic dysfunction, with multisystem organ failure, on vasopressors to barely maintain the blood pressure. Patient has a poor ejection fraction, coronary artery disease, shock liver, with an elevated INR, and total bilirubin now up. Total bilirubin is up to 5.9. MELD score over 47; elevated INR is 7.1. This patient has multiorgan failure, has elevated INR, coagulopathy, with liver failure. Overall, prognosis of the patient is poor. Continue supportive management. Awaiting for the family decision regarding the comfort measures care. Family is yet to make a decision about comfort care. Overall, the prognosis of the patient is poor. Ky Nation MD [facility]
[2017-08-15] MEDS: metroNIDAZOLE IV 500 mg/100 ml 500 MG/100 ML BAG IVPB SCH ×2 (05:00→15:35)
[2017-08-15 05:38] LABS: ARTERIAL BLOOD GAS HCO3 13.3 mmol/L (21-28); ARTERIAL BLOOD GAS HEMOGLOBIN 12.1 g/dL (11.7-17.4); ARTERIAL BLOOD GAS O2 CAPACITY 16.8 mL/dl (16-24); ARTERIAL BLOOD GAS O2 CONTENT 16.5 ML/dl (15-23); ARTERIAL BLOOD GAS O2 SAT 98.2 % (95-98); ARTERIAL BLOOD GAS PCO2 27 mm/Hg (35-45); ARTERIAL BLOOD GAS TCO2 14.1 mmol.L (22-28)
[2017-08-15 06:25] LABS: BASO # 0.02 K/mm3 (0.0-2.0); BASO % 0.1 % (0.0-3.0); GRAN # 21.24 (1.4-6.5); GRAN % 86.4 % (50.0-68.0); HEMOGLOBIN 11.7 g/dL (12.0-16.0); LYMPH # 2.4 (1.2-3.4); LYMPH % 9.9 % (22.0-35.0); MEAN CELL VOLUME 83.9 fl (80.0-105.0); MEAN CORPUSCULAR HEMOGLOBIN 27.7 pg (25.0-35.0); MONO # 0.9 (0.1-0.6); MONO % 3.6 % (1.0-6.0); RBC 4.23 10^6/uL (3.5-6.1); RED CELL DISTRIBUTION WIDTH 18.8 % (11.5-14.5); WHITE BLOOD COUNT 24.6 10^3/ul (4.5-11.0)
[2017-08-15 06:30] LABS: PLATELET COUNT 14 10^3/uL (120.0-450.0)
[2017-08-15 06:36] LABS: ALBUMIN 2.4 g/dL (3.0-4.8); PROTHROMBIN TIME 113.1 SECONDS (9.4-12.5)
[2017-08-15 06:50] LABS: INR 9.4 (0.93-1.08)
--- NOTE | 2017-08-15 08:41 | RAD ---
HISTORY: intubuated COMPARISON: Portable chest 08/13/2017 FINDINGS: Endotracheal tube, feeding tube, pacemaker/AICD, left central venous line and right center venous dialysis catheter unchanged in position grossly. LUNGS: Left basilar atelectasis is now identified completely silhouetting left hemidiaphragm. Underlying pneumonia not excluded. No definite right-sided infiltrate. PLEURA: No significant pleural effusion identified, no pneumothorax apparent. CARDIOVASCULAR: Stable cardiomegaly. Borderline pulmonary venous congestion. OSSEOUS STRUCTURES: No significant abnormalities. VISUALIZED UPPER ABDOMEN: Normal. OTHER FINDINGS: None. IMPRESSION: Interval left basilar atelectasis with underlying infiltrate not excluded. Borderline pulmonary venous congestion. Cardiomegaly stable.
--- NOTE | 2017-08-15 09:14 | CP.CCUPN ---
<Timmy Cruz - Last Filed: 08/15/17 09:07> CCU Subjective - Physician Review Subjective (Free Text): Patient seen and evaluated bedside. Patient currently on 3 pressors. Unable to answer questions or open eyes. Patient intubated. 08/15/17 09:07 CCU Objective - Vital Signs / Intake & Output Vital Signs (Last 4 hours): Vital Signs Temp Pulse BP 08/15/17 06:01 99.0 F 123 H 74/52 L 08/15/17 06:00 99.0 F 107 H Intake and Output (Last 8hrs): Intake & Output 08/14/17 08/15/17 08/15/17 22:59 06:59 14:59 Intake Total 3334 3974 Output Total 15 Balance 3334 3959 Intake: IV 3334 3974 IVPB 300 LEVOPHED 675 Left Internal Jugular 3076 1200 Phenyephrine 675 vasopressin 108 Output: Urine 15 Urethral (Frye) 15 - Physical Exam Head: Positive for: Atraumatic, Normocephalic Pupils: Positive for: PERRL Mouth: Positive for: Dry Respiratory/Chest: Positive for: Decreased Breath Sounds. Negative for: Respiratory Distress, Accessory Muscle Use Cardiovascular: Positive for: Tachycardic. Negative for: Murmurs Abdomen: Positive for: Tenderness, Distention, Peritoneal Signs Upper Extremity: Positive for: Cyanosis, Edema Lower Extremity: Positive for: Edema (+1 edema b/l) Neurological: Positive for: Other (lethargic , intubated) Skin: Positive for: Warm, Dry, Normal Color, Erythematous (Diffuse lacy, erythematous rash throughout arms, upper legs, and trunk. No change from previous day.). Negative for: Rashes Psychiatric: Negative for: Alert, Oriented x 3 - Medications Active Medications: Active Medications Generic Name Dose Route Start Last Admin Trade Name Freq PRN Reason Stop Dose Admin Famotidine 20 mg 08/10/17 10:15 08/14/17 13:23 Pepcid IVP 20 mg DAILY SOL Administration Hydrocortisone Sodium Succinate 100 mg 08/11/17 09:30 08/15/17 01:19 Solu-Cortef IVP 100 mg Q8H SOL Administration Phenylephrine HCl 80 mg/ 258 mls @ 19.35 mls/hr 08/10/17 16:15 08/15/17 05:55 Sodium Chloride IV 300 mcg/min .[id number] PRN 58.05 mls/hr TITRATE PER MD ORDER Administration Protocol 100 MCG/MIN Vasopressin 20 units/ Dextrose 101 mls @ 9.09 mls/hr 08/11/17 18:42 08/15/17 02:35 IV 9.09 mls/hr .[id number] SOL Administration Protocol 0.03 U/MIN Norepinephrine Bitartrate 8 mg 250 mls @ 46.87 mls/hr 08/11/17 18:55 05:55 / Dextrose IV 30 mcg/min .[id number] PRN 56.25 mls/hr TITRATE PER MD ORDER Administration Protocol 25 MCG/MIN Metronidazole 500 mg in 100 mls @ 100 mls/hr 08/13/17 08:30 08/15/17 05:00 Flagyl IVPB 100 mls/hr Q8 SOL Administration Protocol Sodium Bicarbonate 150 meq/ 1,150 mls @ 100 mls/hr 08/13/17 10:05 08/14/17 21 :56 Dextrose IV 100 mls/hr .[id number] SOL Administration Meropenem 500 mg/ Sodium 50 mls @ 100 mls/hr 08/13/17 10:15 08/14/17 21:54 Chloride IVPB 08/20/17 10:16 100 mls/hr Q12 SOL Administration Protocol Lorazepam 2 mg 08/14/17 18:44 08/14/17 18:50 Ativan IVP 2 mg Q4H PRN Administration Anxiety Protocol Morphine Sulfate 2 mg 08/12/17 15:17 08/12/17 15:26 Morphine IVP 2 mg Q4H PRN Administration Pain, severe (8-10) Multi-Ingredient Ointment 0 gm 08/09/17 13:45 08/15/17 08:04 Hydrophor Oint TOP 1 applic Q6H SOL Administration Silver Sulfadiazine 0 gm 08/09/17 18:00 08/14/17 17:44 Silvadene 1% 25 Gm TP 25 gm BID SOL Administration Vancomycin HCl 500 mg 08/08/17 13:15 08/15/17 01:19 Vancocin 25 Mg/Ml (Oral Use) PO 08/17/17 13:16 500 mg Q6H SOL Administration Protocol - Patient Studies Lab Studies: Microbiology Studies 08/13/17 12:30 Blood Culture - Preliminary Blood-Venous Gram Negative Brian Gram Stain - Final 08/13/17 12:45 Blood Culture - Preliminary Blood-Venous NO GROWTH AFTER 24 HOURS Lab Studies 08/15/17 08/15/17 08/15/17 Range/Units 06:00 06:00 06:00 WBC 24.6 H (4.5-11.0) 10^3/ul RBC 4.23 (3.5-6.1) 10^6/uL Hgb 11.7 L (12.0-16.0) g/dL Hct 35.5 L (36.0-48.0) % MCV 83.9 (80.0-105.0) fl MCH 27.7 (25.0-35.0) pg MCHC 33.0 (31.0-37.0) g/dl RDW 18.8 H (11.5-14.5) % Plt Count 14 L* (120.0-450.0) 10^3/uL Gran % 86.4 H (50.0-68.0) % Lymph % (Auto) 9.9 L (22.0-35.0) % Dundy % (Auto) 3.6 (1.0-6.0) % Eos % (Auto) 0.0 L (1.5-5.0) % Baso % (Auto) 0.1 (0.0-3.0) % Gran # 21.24 H (1.4-6.5) Lymph # (Auto) 2.4 (1.2-3.4) Dundy # (Auto) 0.9 H (0.1-0.6) Eos # (Auto) 0.0 (0.0-0.7) Baso # (Auto) 0.02 (0.0-2.0) K/mm3 PT 113.1 H (9.4-12.5) SECONDS INR 9.40 H* (0.93-1.08) pCO2 (35-45) mm/Hg pO2 (80-100) mm/Hg HCO3 (21-28) mmol/L ABG pH (7.35-7.45) ABG Total CO2 (22-28) mmol.L ABG O2 Saturation (95-98) % ABG O2 Content (15-23) ML/dl ABG Base Excess (-2.0-3.0) mmol/L ABG Hemoglobin (11.7-17.4) g/dL ABG Carboxyhemoglobin (0.5-1.5) % POC ABG HHb (Measured) (0-5) % ABG Methemoglobin (0.0-3.0) % ABG O2 Capacity (16-24) mL/dl Hgb O2 Saturation (95.0-98.0) % FiO2 % Sodium 137 (132-148) mmol/L Potassium 3.5 L (3.6-5.0) mmol/L Chloride 97 L (98-107) mmol/L Carbon Dioxide 17 L (21-33) mmol/L Anion Gap 26 H (10-20) BUN 33 H (7-21) mg/dL Creatinine 2.6 H (0.7-1.2) mg/dl Est GFR ( Amer) 22 Est GFR (Non-Af Amer) 18 Random Glucose 135 H (70-110) mg/dL Calcium 8.0 L (8.4-10.5) mg/dL Phosphorus 5.8 H (2.5-4.5) mg/dL Magnesium 1.9 (1.7-2.2) mg/dL Total Bilirubin 8.7 H (0.2-1.3) mg/dL AST 1415 H (14-36) U/L ALT 854 H (7-56) U/L Alkaline Phosphatase 119 (38-126) U/L Total Protein 4.8 L (5.8-8.3) g/dL Albumin 2.4 L (3.0-4.8) g/dL Globulin 2.4 gm/dL Albumin/Globulin Ratio 1.0 L (1.1-1.8) 08/15/17 08/14/17 Range/Units 05:30 09:30 WBC (4.5-11.0) 10^3/ul RBC (3.5-6.1) 10^6/uL Hgb (12.0-16.0) g/dL Hct (36.0-48.0) % MCV (80.0-105.0) fl MCH (25.0-35.0) pg MCHC (31.0-37.0) g/dl RDW (11.5-14.5) % Plt Count (120.0-450.0) 10^3/uL Gran % (50.0-68.0) % Lymph % (Auto) (22.0-35.0) % Dundy % (Auto) (1.0-6.0) % Eos % (Auto) (1.5-5.0) % Baso % (Auto) (0.0-3.0) % Gran # (1.4-6.5) Lymph # (Auto) (1.2-3.4) Dundy # (Auto) (0.1-0.6) Eos # (Auto) (0.0-0.7) Baso # (Auto) (0.0-2.0) K/mm3 PT 86.1 H (9.4-12.5) SECONDS INR 7.19 H* (0.93-1.08) pCO2 27 L (35-45) mm/Hg pO2 96.0 (80-100) mm/Hg HCO3 13.3 L (21-28) mmol/L ABG pH 7.30 L (7.35-7.45) ABG Total CO2 14.1 L (22-28) mmol.L ABG O2 Saturation 98.2 H (95-98) % ABG O2 Content 16.5 (15-23) ML/dl ABG Base Excess -11.6 L (-2.0-3.0) mmol/L ABG Hemoglobin 12.1 (11.7-17.4) g/dL ABG Carboxyhemoglobin 1.1 (0.5-1.5) % POC ABG HHb (Measured) 1.8 (0-5) % ABG Methemoglobin 0.8 (0.0-3.0) % ABG O2 Capacity 16.8 (16-24) mL/dl Hgb O2 Saturation 96.4 (95.0-98.0) % FiO2 60.0 % Sodium (132-148) mmol/L Potassium (3.6-5.0) mmol/L Chloride (98-107) mmol/L Carbon Dioxide (21-33) mmol/L Anion Gap (10-20) BUN (7-21) mg/dL Creatinine (0.7-1.2) mg/dl Est GFR ( Amer) Est GFR (Non-Af Amer) Random Glucose (70-110) mg/dL Calcium (8.4-10.5) mg/dL Phosphorus (2.5-4.5) mg/dL Magnesium (1.7-2.2) mg/dL Total Bilirubin (0.2-1.3) mg/dL AST (14-36) U/L ALT (7-56) U/L Alkaline Phosphatase (38-126) U/L Total Protein (5.8-8.3) g/dL Albumin (3.0-4.8) g/dL Globulin gm/dL Albumin/Globulin Ratio (1.1-1.8) Laboratory Results - last 24 hr 08/14/17 08/15/17 08/15/17 09:30 05:30 06:00 WBC 24.6 H RBC 4.23 Hgb 11.7 L Hct 35.5 L MCV 83.9 MCH 27.7 MCHC 33.0 RDW 18.8 H Plt Count 14 L* Gran % 86.4 H Lymph % (Auto) 9.9 L Dundy % (Auto) 3.6 Eos % (Auto) 0.0 L Baso % (Auto) 0.1 Gran # 21.24 H Lymph # (Auto) 2.4 Dundy # (Auto) 0.9 H Eos # (Auto) 0.0 Baso # (Auto) 0.02 PT 86.1 H INR 7.19 H* pCO2 27 L pO2 96.0 HCO3 13.3 L ABG pH 7.30 L ABG Total CO2 14.1 L ABG O2 Saturation 98.2 H ABG O2 Content 16.5 ABG Base Excess -11.6 L ABG Hemoglobin 12.1 ABG Carboxyhemoglobin 1.1 POC ABG HHb (Measured) 1.8 ABG Methemoglobin 0.8 ABG O2 Capacity 16.8 Hgb O2 Saturation 96.4 FiO2 60.0 Sodium Potassium Chloride Carbon Dioxide Anion Gap BUN Creatinine Est GFR ( Amer) Est GFR (Non-Af Amer) Random Glucose Calcium Phosphorus Magnesium Total Bilirubin AST ALT Alkaline Phosphatase Total Protein Albumin Globulin Albumin/Globulin Ratio 08/15/17 08/15/17 06:00 06:00 WBC RBC Hgb Hct MCV MCH MCHC RDW Plt Count Gran % Lymph % (Auto) Dundy % (Auto) Eos % (Auto) Baso % (Auto) Gran # Lymph # (Auto) Dundy # (Auto) Eos # (Auto) Baso # (Auto) PT 113.1 H INR 9.40 H* pCO2 pO2 HCO3 ABG pH ABG Total CO2 ABG O2 Saturation ABG O2 Content ABG Base Excess ABG Hemoglobin ABG Carboxyhemoglobin POC ABG HHb (Measured) ABG Methemoglobin ABG O2 Capacity Hgb O2 Saturation FiO2 Sodium 137 Potassium 3.5 L Chloride 97 L Carbon Dioxide 17 L Anion Gap 26 H BUN 33 H Creatinine 2.6 H Est GFR ( Amer) 22 Est GFR (Non-Af Amer) 18 Random Glucose 135 H Calcium 8.0 L Phosphorus 5.8 H Magnesium 1.9 Total Bilirubin 8.7 H AST 1415 H ALT 854 H Alkaline Phosphatase 119 Total Protein 4.8 L Albumin 2.4 L Globulin 2.4 Albumin/Globulin Ratio 1.0 L Review of Systems - Review of Systems Systems not reviewed;Unavailable: Intubated Critical Care Progress Note - Nutrition Nutrition: Nutrition Category Date Time Status NPO Diet [DIET] Diets 08/12/17 Dinner Ordered Assessment/Plan - Assessment and Plan (Free Text) Assessment: 72 year old female with past medical history of HTN, CHF, CABG, and A-fib on coumadin presents with septic shock. Urine output minimal. Patient remains on multiple pressors, will continue to monitor patient closely. Patient intubated. Plan: Neuro: intubated lethargic continue to monitor status Cardio: Levophed, Vasopressin, Phenylephrine Solucortef 100 q8h Maintain MAP >65 Cardiology consulted Pulm: intubated and currently on vent Maintain O2 sat >90% GI: Trend LFTs CT abdomen/pelvis negative Protonix NPO NG tube GI consulted, Chapis follow recs Nephro: Acute renal failure Dialysis as needed Oliguric Frye in place Replenish electrolytes as needed bicarb Heme/ID: leukocytosis, afebrile C. Diff continue abx ID consulted, follow recs follow INR <Leon Lima - Last Filed: 08/15/17 11:01> CCU Objective - Vital Signs / Intake & Output Intake and Output (Last 8hrs): Intake & Output 08/14/17 08/15/17 08/15/17 22:59 06:59 14:59 Intake Total 3334 3974 Output Total 15 Balance 3334 3959 Intake: IV 3334 3974 IVPB 300 LEVOPHED 675 Left Internal Jugular 3076 1200 Phenyephrine 675 vasopressin 108 Output: Urine 15 Urethral (Frye) 15 - Medications Active Medications: Active Medications Generic Name Dose Route Start Last Admin Trade Name Freq PRN Reason Stop Dose Admin Famotidine 20 mg 08/10/17 10:15 08/15/17 10:03 Pepcid IVP 20 mg DAILY SOL Administration Hydrocortisone Sodium Succinate 100 mg 08/11/17 09:30 08/15/17 10:03 Solu-Cortef IVP 100 mg Q8H SOL Administration Phenylephrine HCl 80 mg/ 258 mls @ 19.35 mls/hr 08/10/17 16:15 08/15/17 05:55 Sodium Chloride IV 300 mcg/min .[id number] PRN 58.05 mls/hr TITRATE PER MD ORDER Administration Protocol 100 MCG/MIN Vasopressin 20 units/ Dextrose 101 mls @ 9.09 mls/hr 08/11/17 18:42 08/15/17 02:35 IV 9.09 mls/hr .Q11H7M SOL Administration Protocol 0.03 U/MIN Norepinephrine Bitartrate 8 mg 250 mls @ 46.87 mls/hr 08/11/17 18:55 05:55 / Dextrose IV 30 mcg/min .Q5H21M PRN 56.25 mls/hr TITRATE PER MD ORDER Administration Protocol 25 MCG/MIN Metronidazole 500 mg in 100 mls @ 100 mls/hr 08/13/17 08:30 08/15/17 05:00 Flagyl IVPB 100 mls/hr Q8 SOL Administration Protocol Sodium Bicarbonate 150 meq/ 1,150 mls @ 100 mls/hr 08/13/17 10:05 08/14/17 21 :56 Dextrose IV 100 mls/hr .[id number] SOL Administration Meropenem 500 mg/ Sodium 50 mls @ 100 mls/hr 08/13/17 10:15 08/15/17 09:52 Chloride IVPB 08/20/17 10:16 100 mls/hr Q12 SOL Administration Protocol Lorazepam 2 mg 08/14/17 18:44 08/14/17 18:50 Ativan IVP 2 mg Q4H PRN Administration Anxiety Protocol Morphine Sulfate 2 mg 08/12/17 15:17 08/12/17 15:26 Morphine IVP 2 mg Q4H PRN Administration Pain, severe (8-10) Multi-Ingredient Ointment 0 gm 08/09/17 13:45 08/15/17 08:04 Hydrophor Oint TOP 1 applic Q6H SOL Administration Silver Sulfadiazine 0 gm 08/09/17 18:00 08/15/17 09:53 Silvadene 1% 25 Gm TP 25 gm BID SOL Administration Vancomycin HCl 500 mg 08/08/17 13:15 08/15/17 09:12 Vancocin 25 Mg/Ml (Oral Use) PO 08/17/17 13:16 500 mg Q6H SOL Administration Protocol - Patient Studies Lab Studies: Microbiology Studies 08/13/17 12:30 Blood Culture - Preliminary Blood-Venous Gram Negative Brian Gram Stain - Final 08/13/17 12:45 Blood Culture - Preliminary Blood-Venous NO GROWTH AFTER 24 HOURS Lab Studies 08/15/17 08/15/17 08/15/17 Range/Units 06:00 06:00 06:00 WBC 24.6 H (4.5-11.0) 10^3/ul RBC 4.23 (3.5-6.1) 10^6/uL Hgb 11.7 L (12.0-16.0) g/dL Hct 35.5 L (36.0-48.0) % MCV 83.9 (80.0-105.0) fl MCH 27.7 (25.0-35.0) pg MCHC 33.0 (31.0-37.0) g/dl RDW 18.8 H (11.5-14.5) % Plt Count 14 L* (120.0-450.0) 10^3/uL Gran % 86.4 H (50.0-68.0) % Lymph % (Auto) 9.9 L (22.0-35.0) % Dundy % (Auto) 3.6 (1.0-6.0) % Eos % (Auto) 0.0 L (1.5-5.0) % Baso % (Auto) 0.1 (0.0-3.0) % Gran # 21.24 H (1.4-6.5) Lymph # (Auto) 2.4 (1.2-3.4) Dundy # (Auto) 0.9 H (0.1-0.6) Eos # (Auto) 0.0 (0.0-0.7) Baso # (Auto) 0.02 (0.0-2.0) K/mm3 PT 113.1 H (9.4-12.5) SECONDS INR 9.40 H* (0.93-1.08) pCO2 (35-45) mm/Hg pO2 (80-100) mm/Hg HCO3 (21-28) mmol/L ABG pH (7.35-7.45) ABG Total CO2 (22-28) mmol.L ABG O2 Saturation (95-98) % ABG O2 Content (15-23) ML/dl ABG Base Excess (-2.0-3.0) mmol/L ABG Hemoglobin (11.7-17.4) g/dL ABG Carboxyhemoglobin (0.5-1.5) % POC ABG HHb (Measured) (0-5) % ABG Methemoglobin (0.0-3.0) % ABG O2 Capacity (16-24) mL/dl Hgb O2 Saturation (95.0-98.0) % FiO2 % Sodium 137 (132-148) mmol/L Potassium 3.5 L (3.6-5.0) mmol/L Chloride 97 L (98-107) mmol/L Carbon Dioxide 17 L (21-33) mmol/L Anion Gap 26 H (10-20) BUN 33 H (7-21) mg/dL Creatinine 2.6 H (0.7-1.2) mg/dl Est GFR ( Amer) 22 Est GFR (Non-Af Amer) 18 Random Glucose 135 H (70-110) mg/dL Calcium 8.0 L (8.4-10.5) mg/dL Phosphorus 5.8 H (2.5-4.5) mg/dL Magnesium 1.9 (1.7-2.2) mg/dL Total Bilirubin 8.7 H (0.2-1.3) mg/dL AST 1415 H (14-36) U/L ALT 854 H (7-56) U/L Alkaline Phosphatase 119 (38-126) U/L Total Protein 4.8 L (5.8-8.3) g/dL Albumin 2.4 L (3.0-4.8) g/dL Globulin 2.4 gm/dL Albumin/Globulin Ratio 1.0 L (1.1-1.8) // Range/Units 05:30 WBC (4.5-11.0) 10^3/ul RBC (3.5-6.1) 10^6/uL Hgb (12.0-16.0) g/dL Hct (36.0-48.0) % MCV (80.0-105.0) fl MCH (25.0-35.0) pg MCHC (31.0-37.0) g/dl RDW (11.5-14.5) % Plt Count (120.0-450.0) 10^3/uL Gran % (50.0-68.0) % Lymph % (Auto) (22.0-35.0) % Dundy % (Auto) (1.0-6.0) % Eos % (Auto) (1.5-5.0) % Baso % (Auto) (0.0-3.0) % Gran # (1.4-6.5) Lymph # (Auto) (1.2-3.4) Dundy # (Auto) (0.1-0.6) Eos # (Auto) (0.0-0.7) Baso # (Auto) (0.0-2.0) K/mm3 PT (9.4-12.5) SECONDS INR (0.93-1.08) pCO2 27 L (35-45) mm/Hg pO2 96.0 (80-100) mm/Hg HCO3 13.3 L (21-28) mmol/L ABG pH 7.30 L (7.35-7.45) ABG Total CO2 14.1 L (22-28) mmol.L ABG O2 Saturation 98.2 H (95-98) % ABG O2 Content 16.5 (15-23) ML/dl ABG Base Excess -11.6 L (-2.0-3.0) mmol/L ABG Hemoglobin 12.1 (11.7-17.4) g/dL ABG Carboxyhemoglobin 1.1 (0.5-1.5) % POC ABG HHb (Measured) 1.8 (0-5) % ABG Methemoglobin 0.8 (0.0-3.0) % ABG O2 Capacity 16.8 (16-24) mL/dl Hgb O2 Saturation 96.4 (95.0-98.0) % FiO2 60.0 % Sodium (132-148) mmol/L Potassium (3.6-5.0) mmol/L Chloride (98-107) mmol/L Carbon Dioxide (21-33) mmol/L Anion Gap (10-20) BUN (7-21) mg/dL Creatinine (0.7-1.2) mg/dl Est GFR ( Amer) Est GFR (Non-Af Amer) Random Glucose (70-110) mg/dL Calcium (8.4-10.5) mg/dL Phosphorus (2.5-4.5) mg/dL Magnesium (1.7-2.2) mg/dL Total Bilirubin (0.2-1.3) mg/dL AST (14-36) U/L ALT (7-56) U/L Alkaline Phosphatase (38-126) U/L Total Protein (5.8-8.3) g/dL Albumin (3.0-4.8) g/dL Globulin gm/dL Albumin/Globulin Ratio (1.1-1.8) Laboratory Results - last 24 hr 08/15/17 08/15/17 08/15/17 05:30 06:00 06:00 WBC 24.6 H RBC 4.23 Hgb 11.7 L Hct 35.5 L MCV 83.9 MCH 27.7 MCHC 33.0 RDW 18.8 H Plt Count 14 L* Gran % 86.4 H Lymph % (Auto) 9.9 L Dundy % (Auto) 3.6 Eos % (Auto) 0.0 L Baso % (Auto) 0.1 Gran # 21.24 H Lymph # (Auto) 2.4 Dundy # (Auto) 0.9 H Eos # (Auto) 0.0 Baso # (Auto) 0.02 PT INR pCO2 27 L pO2 96.0 HCO3 13.3 L ABG pH 7.30 L ABG Total CO2 14.1 L ABG O2 Saturation 98.2 H ABG O2 Content 16.5 ABG Base Excess -11.6 L ABG Hemoglobin 12.1 ABG Carboxyhemoglobin 1.1 POC ABG HHb (Measured) 1.8 ABG Methemoglobin 0.8 ABG O2 Capacity 16.8 Hgb O2 Saturation 96.4 FiO2 60.0 Sodium 137 Potassium 3.5 L Chloride 97 L Carbon Dioxide 17 L Anion Gap 26 H BUN 33 H Creatinine 2.6 H Est GFR ( Amer) 22 Est GFR (Non-Af Amer) 18 Random Glucose 135 H Calcium 8.0 L Phosphorus 5.8 H Magnesium 1.9 Total Bilirubin 8.7 H AST 1415 H ALT 854 H Alkaline Phosphatase 119 Total Protein 4.8 L Albumin 2.4 L Globulin 2.4 Albumin/Globulin Ratio 1.0 L 08/15/17 06:00 WBC RBC Hgb Hct MCV MCH MCHC RDW Plt Count Gran % Lymph % (Auto) Dundy % (Auto) Eos % (Auto) Baso % (Auto) Gran # Lymph # (Auto) Dundy # (Auto) Eos # (Auto) Baso # (Auto) PT 113.1 H INR 9.40 H* pCO2 pO2 HCO3 ABG pH ABG Total CO2 ABG O2 Saturation ABG O2 Content ABG Base Excess ABG Hemoglobin ABG Carboxyhemoglobin POC ABG HHb (Measured) ABG Methemoglobin ABG O2 Capacity Hgb O2 Saturation FiO2 Sodium Potassium Chloride Carbon Dioxide Anion Gap BUN Creatinine Est GFR ( Amer) Est GFR (Non-Af Amer) Random Glucose Calcium Phosphorus Magnesium Total Bilirubin AST ALT Alkaline Phosphatase Total Protein Albumin Globulin Albumin/Globulin Ratio Critical Care Progress Note - Nutrition Nutrition: Nutrition Category Date Time Status NPO Diet [DIET] Diets 08/12/17 Dinner Ordered Assessment/Plan - Assessment and Plan (Free Text) Plan: Patient seen and examined on rounds with resident, agree with note with following additions/exceptions: 72yo female nancy PMHx of CAD s/p CABG, HTN, Systolic CHF EF 10%, a/w diffuse skin rash, cellulitis, hyperkalemia, coagulopathy, septic shock, renal failure. Blood cultures thus far negative. Cdiff antigen/toxin positive Currently intubated, on 3 vasopressors, maxed out, stress dose steroids given. Renal and ID following. Pt oliguric, minimal urine output, on HD. Liver function tests worsening, plateletes downtrending possibly 2/2 DIC from septic shock. Patients daughter/HCP requests that a bar manager attend and give last rites after which time she will make the patient palliative and withdraw care. Coaguloapthy Dehydration Acute renal failure Cellulitis Skin rash Coagulopathy r/o DIC Septic Shock Recommend: - cont with ventilatory support, low tidal vol ventilation, monitor ABG, CXR acceptable no evidence of consolidation - cont with Vasopressor support, stress dose steroids Solucortef, goal MAP 65 - broad spectrum antibiotics, as per ID, - HD as per renal - FS control - GI ppx - DVT ppx, SCDs - monitor in MICU - palliative care consult patient at high risk for morbidity and mortality overall prognosis extremely poor
--- NOTE | 2017-08-15 09:42 | PN ---
DATE: 08/15/2017 SUBJECTIVE: This patient is seen lying in bed in the ICU. She remains hypotensive despite high-dose pressors. She remains intubated as well. CURRENT MEDICATIONS: Include Flagyl, meropenem, Levophed, Pepcid, phenylephrine, sodium bicarbonate, Solu-Cortef, vancomycin and vasopressin. OBJECTIVE GENERAL: She is an obese middle-aged woman. VITAL SIGNS: Her blood pressure is 68/54 with a pulse of 120, in atrial fibrillation; respirations are 14. She is afebrile. HEENT: She is orally intubated. CHEST: Bilateral scattered rhonchi. HEART: PMI displaced laterally with soft tones noted. ABDOMEN: Soft. Bowel sounds are present. EXTREMITIES: 1+ anasarca noted with extensive skin mottling. DIAGNOSTIC DATA: Morning blood work is pending. Arterial blood gas shows pH 7.30, pCO2 of 27 and pO2 of 96 on 60% FiO2. IMPRESSION 1. Severe septic shock with persistent hypotension despite high dose pressors. 2. Severe left ventricular systolic dysfunction. 3. Coronary artery disease, status post remote myocardial infarction and bypass surgery. 4. Moderately severe mitral regurgitation. 5. Acute renal failure. 6. Hepatic congestion. 7. Thrombocytopenia. RECOMMENDATIONS: Continue supportive measures as advised. Comfort care appears most appropriate at this time. Apparently, family is considering a terminal extubation later today. We will continue to follow and make further recommendations as appropriate. Luiz Vargas MD
[2017-08-15] MEDS: Meropenem 500 MG in Sodium Chloride 0.9% 50 ML IVPB SCH (09:52)
[2017-08-15] MEDS: Silver Sulfadiazine 1% Cream (25 gm) TP SCH (09:53)
[2017-08-15] MEDS: Sodium Bicarbonate 8.4% 150 MEQ in Dextrose 5% In Water 1,000 ML IV SCH (14:03)
[2017-08-15] MEDS ORDERED: Morphine PCA 1 mg/ml (30ml) 30 ML IV PRN (15:02)
[2017-08-15] MEDS ORDERED: Morphine 2 mg/ml ISec IVP STA (15:04)
[2017-08-15 15:46] VITALS: BP 58/0
[2017-08-15 17:07] VITALS: PULSE 54; RESP 27; TEMP 99
--- NOTE | 2017-08-15 17:42 | CP.PCM.PN ---
Objective - Vital Signs/Intake and Output Vital Signs (last 24 hours): Temp Pulse Resp BP Pulse Ox 99.0 F 54 L 27 H 58/0 L 75 L 08/15/17 17:05 08/15/17 16:39 08/15/17 16:48 08/15/17 15:45 08/14/17 16:18 Intake and Output: 08/15/17 08/15/17 06:59 18:59 Intake Total 3974 508 Output Total 15 Balance 3959 508 - Medications Medications: Current Medications Famotidine (Pepcid) 20 mg IVP DAILY SOL Last Admin: 08/15/17 10:03 Dose: 20 mg Hydrocortisone Sodium Succinate (Solu-Cortef) 100 mg IVP Q8H SOL Last Admin: 08/15/17 10:03 Dose: 100 mg Phenylephrine HCl 80 mg/ (Sodium Chloride) 258 mls @ 19.35 mls/hr IV .[id number] PRN; Protocol; 100 MCG/MIN PRN Reason: TITRATE PER MD ORDER Last Admin: 08/15/17 14:04 Dose: 300 mcg/min, 58.05 mls/hr Vasopressin 20 units/ Dextrose 101 mls @ 9.09 mls/hr IV .Q11H7M SOL; 0.03 U/MIN PRN Reason: Protocol Last Admin: 08/15/17 14:03 Dose: 9.09 mls/hr Norepinephrine Bitartrate 8 mg (/ Dextrose) 250 mls @ 46.87 mls/hr IV .Q5H21M PRN; Protocol; 25 MCG/MIN PRN Reason: TITRATE PER MD ORDER Last Admin: 08/15/17 14:03 Dose: 30 mcg/min, 56.25 mls/hr Metronidazole (Flagyl) 500 mg in 100 mls @ 100 mls/hr IVPB Q8 SOL PRN Reason: Protocol Last Admin: 08/15/17 15:35 Dose: Not Given Sodium Bicarbonate 150 meq/ (Dextrose) 1,150 mls @ 100 mls/hr IV .[id number] SOL Last Admin: 08/15/17 14:03 Dose: 100 mls/hr Meropenem 500 mg/ Sodium (Chloride) 50 mls @ 100 mls/hr IVPB Q12 SOL PRN Reason: Protocol Stop: 08/20/17 10:16 Last Admin: 08/15/17 09:52 Dose: 100 mls/hr Morphine Sulfate (Morphine Outboard System Operator 1 Mg/Ml) 30 mls @ 4 mls/hr IV PRN PRN; Protocol ; 4 MG/HR PRN 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 Last Admin: 08/15/17 15:21 Dose: 4 mg/hr, 4 mls/hr Lorazepam (Ativan) 2 mg IVP Q4H PRN; Protocol PRN Reason: Seizure activity Morphine Sulfate (Morphine) 2 mg IVP Q4H PRN PRN Reason: Pain, severe (8-10) Last Admin: 08/12/17 15:26 Dose: 2 mg Multi-Ingredient Ointment (Hydrophor Oint) 0 gm TOP Q6H SOL Last Admin: 08/15/17 14:06 Dose: 1 applic Silver Sulfadiazine (Silvadene 1% 25 Gm) 0 gm TP BID SOL Last Admin: 08/15/17 09:53 Dose: 25 gm Vancomycin HCl (Vancocin 25 Mg/Ml (Oral Use)) 500 mg PO Q6H SOL PRN Reason: Protocol Stop: 08/17/17 13:16 Last Admin: 08/15/17 14:05 Dose: 500 mg - Labs Labs: 08/15/17 06:00 08/15/17 06:00 PT 113.1 SECONDS (9.4-12.5) H 08/15/17 06:00 INR 9.40 (0.93-1.08) H* 08/15/17 06:00 APTT 34.6 Seconds (25.1-36.5) 08/12/17 05:45 Assessment and Plan (1) Shock Status: Acute (2) Acute renal failure (ARF) Status: Acute (3) SIRS (systemic inflammatory response syndrome) Status: Acute (4) Rash Status: Acute (5) HTN (hypertension) Status: Chronic (6) Hyperkalemia Status: Acute (7) Hyponatremia Status: Acute (8) Metabolic acidosis Status: Acute (9) Acute exacerbation of CHF (congestive heart failure) Status: Acute
--- NOTE | 2017-08-15 17:47 | CP.PCM.PN ---
Subjective - Date & Time of Evaluation Date of Evaluation: 08/15/17 Time of Evaluation: 13:00 - Subjective Subjective: Patients daughter/HCP Debbie Ybarra earlier this afternoon requested that a town administrator give the patient last rights, after which was done, she requested that the patient be DNR/DNI, terminally extubated, placed on moprhine drip, comfort measures. Patient was terminally extubated at 16:05, and placed on morphine drip. Patient at 16:50, family notified, PMD notified. Objective - Vital Signs/Intake and Output Vital Signs (last 24 hours): Temp Pulse Resp BP Pulse Ox 99.0 F 54 L 27 H 58/0 L 75 L 08/15/17 17:05 08/15/17 16:39 08/15/17 16:48 08/15/17 15:45 08/14/17 16:18 Intake and Output: 08/15/17 08/15/17 06:59 18:59 Intake Total 3974 508 Output Total 15 Balance 3959 508 - Medications Medications: Current Medications Famotidine (Pepcid) 20 mg IVP DAILY [facility] [place] Last Admin: 08/15/17 10:03 Dose: 20 mg Hydrocortisone Sodium Succinate (Solu-Cortef) 100 mg IVP Q8H SOL Last Admin: 08/15/17 10:03 Dose: 100 mg Phenylephrine HCl 80 mg/ (Sodium Chloride) 258 mls @ 19.35 mls/hr IV .[id number] PRN; Protocol; 100 MCG/MIN PRN Reason: TITRATE PER MD ORDER Last Admin: 08/15/17 14:04 Dose: 300 mcg/min, 58.05 mls/hr Vasopressin 20 units/ Dextrose 101 mls @ 9.09 mls/hr IV .Q11H7M SOL; 0.03 U/MIN PRN Reason: Protocol Last Admin: 08/15/17 14:03 Dose: 9.09 mls/hr Norepinephrine Bitartrate 8 mg (/ Dextrose) 250 mls @ 46.87 mls/hr IV .Q5H21M PRN; Protocol; 25 MCG/MIN PRN Reason: TITRATE PER MD ORDER Last Admin: 08/15/17 14:03 Dose: 30 mcg/min, 56.25 mls/hr Metronidazole (Flagyl) 500 mg in 100 mls @ 100 mls/hr IVPB Q8 SOL PRN Reason: Protocol Last Admin: 08/15/17 15:35 Dose: Not Given Sodium Bicarbonate 150 meq/ (Dextrose) 1,150 mls @ 100 mls/hr IV .[id number] [facility] [place] Last Admin: 08/15/17 14:03 Dose: 100 mls/hr Meropenem 500 mg/ Sodium (Chloride) 50 mls @ 100 mls/hr IVPB Q12 SOL PRN Reason: Protocol Stop: 08/20/17 10:16 Last Admin: 08/15/17 09:52 Dose: 100 mls/hr Morphine Sulfate (Morphine Special Services Director 1 Mg/Ml) 30 mls @ 4 mls/hr IV PRN PRN; Protocol ; 4 MG/HR PRN Reason: SUPERVISOR DRAWING PER MD ORDER Last Admin: 08/15/17 15:21 Dose: 4 mg/hr, 4 mls/hr Lorazepam (Ativan) 2 mg IVP Q4H PRN; Protocol PRN Reason: Seizure activity Morphine Sulfate (Morphine) 2 mg IVP Q4H PRN PRN Reason: Pain, severe (8-10) Last Admin: 08/12/17 15:26 Dose: 2 mg Multi-Ingredient Ointment (Hydrophor Oint) 0 gm TOP Q6H [facility] [place] Last Admin: 08/15/17 14:06 Dose: 1 applic Silver Sulfadiazine (Silvadene 1% 25 Gm) 0 gm TP BID [facility] [place] Last Admin: 08/15/17 09:53 Dose: 25 gm Vancomycin HCl (Vancocin 25 Mg/Ml (Oral Use)) 500 mg PO Q6H SLO PRN Reason: Protocol Stop: 08/17/17 13:16 Last Admin: 08/15/17 14:05 Dose: 500 mg - Labs Labs: 08/15/17 06:00 08/15/17 06:00 PT 113.1 SECONDS (9.4-12.5) H 08/15/17 06:00 INR 9.40 (0.93-1.08) H* 08/15/17 06:00 APTT 34.6 Seconds (25.1-36.5) 08/12/17 05:45
--- NOTE | 2017-08-15 17:49 | CP.PCM.PRO ---
Pronouncement of Note - Clinical Findings Physical Exam: No Response Verbal/Painful Stimuli, Absent Heart & Breath Sounds , Pupils Fixed & Dilated, Absence of Vital Signs - Pronouncement Time Time of Pronouncement of : 16:50 Additional Comments: Called bedside to evaluate patient. Patient was terminally extubated at 16:05 earlier today. She was reciving comfort care with pain control. Patient examined, no response to pain or verbal stimuli, absence breath sounds, absent pulses. Patient pronounced deaceased at 16:50. - Notifications Pronouncement Notifications: Family Notified, Atending Notified
--- NOTE | 2017-08-15 20:21 | PN ---
DATE: SUBJECTIVE: The patient is 72 years old seen and examined, remains intubated and unresponsive, still on triple vasopressors. PHYSICAL EXAMINATION: VITAL SIGNS: Patient is afebrile, pulse 104, respirations 21, blood pressure is . LUNGS: Bilateral shallow breathing. Patient looks pale. Her own breathing is apneic. HEART: S1, S2 audible, tachycardic. ABDOMEN: Soft, obese, nontender. No rebound. NEUROLOGIC: She is minimally responsive, on vent, not even sedated. LABORATORY DATA: WBC is 24.6, hemoglobin 11.7, hematocrit 35.5, platelet of 14. PT . Chemistry: Sodium 137, potassium 3.5, chloride 97, CO2 of 26, BUN 33, creatinine 2.6, blood sugar 135, AST 1415, ALT is 854. Blood culture positive for gram negative rods. ASSESSMENT: 1. Septic shock. 2. Hypotension. 3. Shock liver. 4. Acute renal failure. 5. Congestive heart failure. 6. Subtherapeutic INR with coagulopathy. 7. Morbid obesity. 8. Clostridium difficile colitis. PLAN: Patient's prognosis is poor. Patient's family is going to come in the afternoon. We will bring the title lawyer and patient might be terminally extubated later on. Akira Manley MD
--- NOTE | 2017-08-15 21:13 | PN ---
DATE: 08/15/2017 SUBJECTIVE: This patient was seen and evaluated earlier,, discussed with the resident, patient on vent, hypotensive, on 3 pressors. PHYSICAL EXAMINATION: VITAL SIGNS: Blood pressure is 70 systolic, heart rate of 115, temperature 98.4. HEENT: Jaundiced. NECK: Supple. HEART: S1, S2 heard, tachycardic. LUNGS: Bilateral air entry present, scattered rhonchi. ABDOMEN: Softly distended. EXTREMITIES: Edema present. LABORATORY DATA: WBC count 24.6, hemoglobin 11.7, hematocrit 35.5, platelet 14,000. Chemistry showed BUN 33, creatinine 2.6, AST 1415 and ALT 854, INR 9.4. IMPRESSION: Septic shock, shock liver, coagulopathy, coronary artery disease, thrombocytopenia. RECOMMENDATIONS: Family is considering terminal extubation, consider comfort care, poor prognosis. Ky Nation MD
--- NOTE | 2017-08-16 06:51 | PN ---
DATE: 08/15/2017 SUBJECTIVE: The patient is in bed, in no acute distress, nontoxic. No fevers. PHYSICAL EXAMINATION: VITAL SIGNS: Temperature is 99, blood pressure is 74/50, respiratory rate on the vent, heart rate of 107. HEENT: Unremarkable. NECK: Supple. LUNGS: Have decreased breath sounds. HEART: Normal S1, S2. ABDOMEN: Soft, nontender. No organomegaly. No rebound. No guarding. No masses. LABORATORY DATA: Reveals a white count of 24,600, hemoglobin of 11, platelets of 14,000. Coagulation is noted. BUN of 33, creatinine of 2.6. Procalcitonin 0.87. Urinalysis is noted. Blood cultures are gram-negative kodi. I was not notified of these cultures. Review of orders reveals the patient is on meropenem and p.o. vancomycin. ASSESSMENT AND PLAN: This is a 72-year-old female seen earlier this morning in the ICU 128, bed 4 with septic shock, diffuse maculopapular rash, pseudomembranous colitis, bilateral lower extremity cellulitis, and now with gram-negative kodi blood cultures from the 08/13/2017 and GI versus as the source. We will repeat a urinalysis and urine culture, although the urine culture from the 08/09/2017 is negative. continue the meropenem. Concerned about the LFTs, although it appears to be improving. Alkaline phosphatase is only 119. Consider a CAT scan of the abdomen and pelvis. She did have one on 08/08/2017, where it says replacement of all lines. We will follow closely with you. Americo Tolentino MD
--- NOTE | 2017-08-17 04:11 | DS ---
SUMMARY HOSPITAL COURSE: Patient was 72-year-old, who came in with septic shock. She was hypotensive. She was on three pressors. She was on IV antibiotic. She also has C. difficile. She received triple antibiotic. Her respiratory status got worse. She was intubated. She remained intubated for two to three days with no significant improvement in her sepsis and hypotension. Family was approached, and she was made DNR. She requested for terminal extubation today. So, after that, she . She around 1650. Family was aware and there was no plan for the autopsy, so she was pronounced at 1650. DISCHARGE DIAGNOSES: 1. Septic shock. 2. Clostridium difficile colitis. 3. Acute renal failure. 4. Chronic atrial fibrillation. Akira Manley MD
== END 2017-08-15 16:50 | DRG 871 ==
LOC: ED 11:16 → ERH 16:16 → ICU 18:58
PROVIDERS: ADMIT Internal Medicine; ATTEND Internal Medicine
PROC: 30233K1 Transfusion of Nonautologous Frozen Plasma into Peripheral Vein, Percutaneous Approach (ICD-10-PCS; 2017-08-06)
PROC: 05HN33Z Insertion of Infusion Device into Left Internal Jugular Vein, Percutaneous Approach (ICD-10-PCS; 2017-08-07)
PROC: B544ZZA Ultrasonography of Left Jugular Veins, Guidance (ICD-10-PCS; 2017-08-07)
PROC: 5A1D70Z Performance of Urinary Filtration, Intermittent, Less than 6 Hours Per Day (ICD-10-PCS; principal; 2017-08-10)
PROC: 05HM33Z Insertion of Infusion Device into Right Internal Jugular Vein, Percutaneous Approach (ICD-10-PCS; 2017-08-10)
PROC: 5A1D70Z Performance of Urinary Filtration, Intermittent, Less than 6 Hours Per Day (ICD-10-PCS; 2017-08-11)
PROC: 5A1945Z Respiratory Ventilation, 24-96 Consecutive Hours (ICD-10-PCS; 2017-08-12)
PROC: 5A1D70Z Performance of Urinary Filtration, Intermittent, Less than 6 Hours Per Day (ICD-10-PCS; 2017-08-12)
PROC: 0BH17EZ Insertion of Endotracheal Airway into Trachea, Via Natural or Artificial Opening (ICD-10-PCS; 2017-08-12)
PROC: 5A1D70Z Performance of Urinary Filtration, Intermittent, Less than 6 Hours Per Day (ICD-10-PCS; 2017-08-14)
DX: A41.9 Sepsis, unspecified organism (principal); R65.21 Severe sepsis with septic shock; J96.91 Respiratory failure, unspecified with hypoxia; N17.0 Acute kidney failure with tubular necrosis; K72.00 Acute and subacute hepatic failure without coma; R57.0 Cardiogenic shock; A04.72 Enterocolitis due to Clostridium difficile, not specified as recurrent; E66.01 Morbid (severe) obesity due to excess calories; D69.59 Other secondary thrombocytopenia; I48.2 Chronic atrial fibrillation; E86.0 Dehydration; I50.23 Acute on chronic systolic (congestive) heart failure; L03.115 Cellulitis of right lower limb; L03.116 Cellulitis of left lower limb; E87.1 Hypo-osmolality and hyponatremia; I13.0 Hypertensive heart and chronic kidney disease with heart failure and stage 1 through stage 4 chronic kidney disease, or unspecified chronic kidney disease; E87.2 Acidosis; L03.312 Cellulitis of back [any part except buttock and flank]; I42.0 Dilated cardiomyopathy; E87.5 Hyperkalemia; E78.5 Hyperlipidemia, unspecified; N18.9 Chronic kidney disease, unspecified; I25.10 Atherosclerotic heart disease of native coronary artery without angina pectoris; K76.1 Chronic passive congestion of liver; I08.1 Rheumatic disorders of both mitral and tricuspid valves; K80.70 Calculus of gallbladder and bile duct without cholecystitis without obstruction; Z66 Do not resuscitate; Z51.5 Encounter for palliative care; L27.0 Generalized skin eruption due to drugs and medicaments taken internally; Z79.01 Long term (current) use of anticoagulants; Z68.32 Body mass index [BMI] 32.0-32.9, adult; I25.2 Old myocardial infarction; Z74.01 Bed confinement status; Z95.810 Presence of automatic (implantable) cardiac defibrillator; Z95.5 Presence of coronary angioplasty implant and graft; Z95.1 Presence of aortocoronary bypass graft; Z87.891 Personal history of nicotine dependence; Z88.8 Allergy status to other drugs, medicaments and biological substances